=== PATIENT | female | born 1950 | race Caucasian/White ===

== ENCOUNTER 2021-05-12 08:51 | Observation (INO) | payer MEDICARE, SELFPAY ==
--- NOTE | 2021-05-12 08:54 | XR_ITS ---
WS: [id number] Portable AP upright chest, 05/12/2021 Clinical Data: chest pain Comparison: Portable chest, 01/17/2006. Findings: No nodules, masses or effusions are seen. The heart is normal. The pulmonary vascularity is not increased. No pneumonia or pneumothorax is seen. There are calcifications adjacent to the left c ardiac border which could be in the lung parenchyma and are probably chronic. The aortic arch and megan cending thoracic aorta show calcification and tortuosity. XR/XR chest 1V portable [id number] Impression: Atherosclerosis.
--- NOTE | 2021-05-12 08:54 | ECG_ITS ---
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 Measurements Intervals [place] Rate: 86 P: 85 ME: 172 QRS: -42 QRSD: 100 T: 52 QT: 389 QTc: 467 Interpretive Statements SINUS RHYTHM LEFT AXIS DEVIATION [QRS AXIS < -30] LOW QRS VOLTAGE IN PRECORDIAL LEADS [QRS DEFLECTION < 1.0 mV IN CHEST LEADS] INCOMPLETE RIGHT BUNDLE BRANCH BLOCK [90+ ms QRS DURATION, TERMINAL R IN V1/V2, 40+ ms S IN I/aVL/V4/V5/V6] ANTEROSEPTAL MYOCARDIAL INFARCTION , OF INDETERMINATE AGE [40+ ms Q WAVE IN V1-V4] INTERPRETATION BASED ON A DEFAULT AGE OF 40 YEARS No previous ECG available for comparison Electronically Signed On 05-12-2021 19:45:48 PUBLIC BATH ATTENDANT by Felix Albarran M.D. [id number]
[2021-05-12 09:04] VITALS: BP 176/106; PULSE 89; RESP 15; TEMP 36.9; O2SAT 98; BMI 43.7
--- NOTE | 2021-05-12 09:34 | ED_ITS ---
HPI - Chest Pain General: Chief Complaint: Chest Pain Stated Complaint: Chest Pain Time Seen by Provider: 05/12/21 08:54 History of Present Illness: HPI narrative: 71-year-old female presents emergency room complaining of chest pain. She said she has had this chest pain for the last couple of weeks. Happens intermittently worse with activity better with rest usually takes about 5 minutes before the chest pain resolves or radiates into her neck and her shoulders. She has been very stressed lately her a few days ago after a prolonged illness. She does not get shortness of breath nausea vomiting or diaphoresis with these episodes. She not previously had an evaluation for coronary artery disease. Patient is diabetic and has a history of hypertension. She does not take aspirin daily. MD complaint: chest pain and chest heaviness Pertinent past history: other (Diabetes hypertension) Onset (ago): week(s) Timing of current episode: episodic and now resolved Prior episodes: Yes Onset: during rest and during exertion Pain location: substernal and left chest Pain radiation: right arm, left arm, neck, left shoulder and right shoulder Severity: moderate Quality: tightness and aching Relieving factors: nitroglycerin and rest Exacerbating factors: exertion Context: other (Major life stressor recently 3 days ago) Associated symptoms: Reports sense of impending doom; Deny abdominal pain, diaphoresis, dyspnea, fever(s), leg edema, nausea, palpitations, syncope or vomiting Treatment prior to arrival: aspirin Review of Systems Const: Denies: fever(s) or diaphoresis ENMT: Denies: throat pain, ear or mastoid pain, nasal discharge or nasal congestion Card: Denies: palpitations or syncope Resp: Denies: dyspnea GI: Denies: abdominal pain, nausea or vomiting : Denies: flank pain, difficulty voiding, dysuria, urinary frequency or urinary urgency Skin/Breast: Denies: rash or pruritus Physical Exam Const: COMMON NORMALS: no acute distress GENERAL APPEARANCE: cooperative and comfortable ORIENTATION/CONSCIOUSNESS: Yes awake, Yes oriented to person, Yes oriented to place and Yes oriented to time HENMT: COMMON NORMALS: normocephalic, atraumatic and hearing grossly normal bilaterally HEAD & SCALP: normocephalic and atraumatic Neck/C-Spine: COMMON NORMALS: no JVD Resp: COMMON NORMALS: normal respiratory effort, No retractions, No use of accessory muscles and clear to auscultation bilaterally AUSCULTATION: clear to auscultation bilaterally Cardio: COMMON NORMALS: no JVD, regular rate, regular rhythm and No murmurs present (Cardio) RATE: regular rate RHYTHM: regular rhythm GI: COMMON NORMALS: Soft to palpation and No hepatosplenomegaly present AUSCULTATION: Yes normoactive bowel sounds PALPATION: Yes Soft to palpation, No Tenderness to palpation present (GI), No Guarding due to palpation present (GI) and Yes No hepatosplenomegaly present Extremity: COMMON NORMALS: normal to inspection, capillary refill normal, no clubbing, cyanosis or edema, no calf tenderness and no pedal edema Neuro: SENSORIUM/ORIENTATION: Yes oriented to person, Yes oriented to place and Yes oriented to time Skin: COMMON NORMALS: no rashes or lesions noted GENERAL SKIN EXAM: no rashes or lesions noted Course Vital Signs: Vital signs: Vital Signs Temperature 98.4 F 05/12/21 09:04 Pulse Rate 75 05/12/21 10:25 Respiratory Rate 18 05/12/21 10:25 Blood Pressure 157/92 05/12/21 10:25 Pulse Oximetry 96 05/12/21 10:25 MDM - Chest Pain MDM Narrative: Medical decision making narrative: Patient seems to be have escalating episodes of angina. Now she is getting them at rest. EKG labs and imaging reviewed as on chart. No acute ST changes noted. Second troponin does not show a significant delta. However given her risk factors and her history I do not believe she can safely go home she will need further evaluation discussed with hospitalist and cardiology on-call patient be admitted cardiology to see the patient. Patient has a heart score of 7 Lab Data: Labs: Lab Results 05/12/21 05/12/21 05/12/21 10:20 10:20 10:20 WBC 9.6 10^3/uL 10^3/ uL (4.0-10.0) RBC 4.91 10^6/uL 10^6 /uL (4.1-5.3) Hgb 13.3 g/dL g/dL (11.5-15.3) Hct 43.3 % % (37.0-47.0) MCV 88.2 fl fl (81-99) MCH 27.1 pg L pg (28.0-34.0) MCHC 30.7 g/dL g/dL (30.0-36.0) RDW 14.8 % % (12.1-15.1) Plt Count 404 10^3/cmm H 10 ^3/cmm (130-400) MPV 9.0 fL fL (7.4-10.4) Neut % (Auto) 71.7 % % Lymph % (Auto) 16.4 % % [place] % (Auto) 7.6 % % Eos % (Auto) 2.7 % % Baso % (Auto) 1.0 % % Neut # (Auto) 6.88 10^3/uL 10^3 /uL (1.8-7.7) Lymph # (Auto) 1.6 10^3/uL 10^3/ uL (0.8-4.8) [place] # (Auto) 0.7 10^3/uL 10^3/ uL (0.2-0.9) Eos # (Auto) 0.3 10^3/uL 10^3/ uL (0.0-0.8) Baso # (Auto) 0.1 10^3/uL 10^3/ uL (0.0-0.1) Nucleated RBC % (a uto) 0 % % Nucleated RBCs # 0.0 /100WBC /100W BC Sodium 139 mmol/L mmol/L (136-145) Potassium 4.2 mmol/L mmol/L (3.5-5.1) Chloride 101 mmol/L mmol/L (98-107) Carbon Dioxide 26 mmol/L mmol/L (22-29) Anion Gap 16.2 (5-19) BUN 23 mg/dL mg/dL (8-23) Creatinine 1.1 mg/dL H mg/dL (0.5-0.9) GFR Calculation Not Reportable Glucose 268 mg/dL H mg/dL (65-115) Calculated Osmolal ity 301 mOsm/kg H mOs m/kg (285-295) Calcium 9.2 mg/dL mg/dL (8.5-10.5) Total Bilirubin 0.2 mg/dL mg/dL (0.15-1.2) AST 10 U/L U/L (0-32) ALT 13 U/L U/L (0-33) Alkaline Phosphata se 64 IU/L IU/L (35-105) Creatine Kinase 77 U/L U/L (26-192) Troponin T Baselin e 35 ng/L H ng/L (0-10) Troponin T 120 Min [place] Delta Troponin T Total Protein 7.0 g/dL g/dL (6.6-8.7) Albumin 4.2 g/dL g/dL (3.5-5.2) Globulin 2.8 g/dL g/dL (1.3-4.6) 05/12/21 11:07 WBC RBC Hgb Hct MCV MCH MCHC RDW Plt Count MPV Neut % (Auto) Lymph % (Auto) [place] % (Auto) Eos % (Auto) Baso % (Auto) Neut # (Auto) Lymph # (Auto) [place] # (Auto) Eos # (Auto) Baso # (Auto) Nucleated RBC % (a uto) Nucleated RBCs # Sodium Potassium Chloride Carbon Dioxide Anion Gap BUN Creatinine GFR Calculation Glucose Calculated Osmolal ity Calcium Total Bilirubin AST ALT Alkaline Phosphata se Creatine Kinase Troponin T Baselin e Troponin T 120 Min [place] 33.71 ng/L H ng/L (0-10) Delta Troponin T -1.29 ABS# L ABS# (0-10) Total Protein Albumin Globulin Discharge Plan Discharge Patient Disposition: Admitted As Inpatient Clinical Impression: Unstable angina pectoris, Diabetes mellitus Condition: Stable Coding Level of Care Code ED Scallop Dredger for Dhaval Fwd Exam Comprehensive
[2021-05-12 10:25] VITALS: BP 157/92; PULSE 75; RESP 18; O2SAT 96
--- NOTE | 2021-05-12 10:30 | PC.NURSE ---
Pt placed on engine monitor.
[2021-05-12 10:32] LABS: Basophils # 0.1 10^3/uL (0.0-0.1); Eosinophils # 0.3 10^3/uL (0.0-0.8); Eosinophils % 2.7 %; Hematocrit 43.3 % (37.0-47.0); Hemoglobin 13.3 g/dL (11.5-15.3); Lymphocytes # 1.6 10^3/uL (0.8-4.8); Lymphocytes % 16.4 %; Mean Corpuscular HGB Conc 30.7 g/dL (30.0-36.0); Mean Corpuscular Hemoglobin 27.1 pg (28.0-34.0); Mean Corpuscular Volume 88.2 fl (81-99); Monocytes # 0.7 10^3/uL (0.2-0.9); Monocytes % 7.6 %; Neutrophils # 6.88 10^3/uL (1.8-7.7); Neutrophils % 71.7 %; Nucleated Red Blood Cells % 0 %; Platelet Count 404 10^3/cmm (130-400); Red Blood Count 4.91 10^6/uL (4.1-5.3); Red Cell Distribution Width 14.8 % (12.1-15.1); White Blood Count 9.6 10^3/uL (4.0-10.0)
[2021-05-12] MEDS: aspirin 81 mg Chew Tablet 324 MG PO (10:46)
[2021-05-12] MEDS: nitroglycerin 1 gm/inch oint Pkt 1 INCH TOPICAL (10:46)
[2021-05-12 10:51] LABS: Alanine Aminotransferase 13 U/L (0-33); Albumin Level 4.2 g/dL (3.5-5.2); Alkaline Phosphatase 64 IU/L (35-105); Anion Gap 16.2 (5-19); Aspartate Amino Transferase 10 U/L (0-32); Blood Urea Nitrogen 23 mg/dL (8-23); Calcium 9.2 mg/dL (8.5-10.5); Carbon Dioxide 26 mmol/L (22-29); Chloride 101 mmol/L (98-107); Creatine Phosphokinase 77 U/L (26-192); Globulin 2.8 g/dL (1.3-4.6); Glucose 268 mg/dL (65-115); Osmolality Calculated 301 mOsm/kg (285-295); Potassium 4.2 mmol/L (3.5-5.1); Sodium 139 mmol/L (136-145); Total Bilirubin 0.2 mg/dL (0.15-1.2)
[2021-05-12 10:53] LABS: Troponin(5th) Baseline 35 ng/L (0-10)
--- NOTE | 2021-05-12 10:54 | ECG_ITS ---
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 Measurements Intervals [place] Rate: 61 P: 18 RI: 151 QRS: -40 QRSD: 96 T: 18 QT: 415 QTc: 419 Interpretive Statements SINUS RHYTHM WITH OCCASIONAL VENTRICULAR PREMATURE COMPLEXES LEFT AXIS DEVIATION [QRS AXIS < -30] LOW QRS VOLTAGE IN PRECORDIAL LEADS [QRS DEFLECTION < 1.0 mV IN CHEST LEADS] INCOMPLETE RIGHT BUNDLE BRANCH BLOCK [90+ ms QRS DURATION, TERMINAL R IN V1/V2, 40+ ms S IN I/aVL/V4/V5/V6] POSSIBLE ANTERIOR MYOCARDIAL INFARCTION , PROBABLY OLD [30 ms Q WAVE IN V3/V4, OR R < 0.2 mV IN V4] No previous ECG available for comparison Electronically Signed On 05-12-2021 19:50:50 WEIGHER AND CHARGER by Felix Albarran M.D. [id number]
[2021-05-12 11:41] LABS: Troponin 5 2HR 33.71 ng/L (0-10)
[2021-05-12 11:44] LABS: Troponin 5 2HR Delta -1.29 ABS# (0-10)
[2021-05-12 14:25] VITALS: PULSE 67; RESP 16; O2SAT 97
--- NOTE | 2021-05-12 14:54 | ECG_ITS ---
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 Measurements Intervals [place] Rate: 72 P: 7 MA: 146 QRS: -51 QRSD: 97 T: 29 QT: 385 QTc: 423 Interpretive Statements SINUS RHYTHM WITH OCCASIONAL VENTRICULAR PREMATURE COMPLEXES LEFT AXIS DEVIATION [QRS AXIS < -30] PATTERN CONSISTENT WITH PULMONARY DISEASE NONSPECIFIC ST & T-WAVE ABNORMALITY Compared to ECG 05/12/2021 10:28:35 T-wave abnormality now present Incomplete right bundle-branch block no longer present Myocardial infarct finding no longer present Electronically Signed On 05-12-2021 19:48:23 SPECIAL DIET COOK by Felix Albarran M.D. [id number]
[2021-05-12 15:19] LABS: Troponin 5 6HR 54.55 ng/L (0-10)
[2021-05-12 15:33] LABS: Troponin 5 6HR Delta 19.55 ng/L (0-12)
[2021-05-12 16:13] VITALS: BP 153/78; PULSE 77; RESP 18; O2SAT 96
--- NOTE | 2021-05-12 16:23 | P.HP_ITS ---
Providers/Chief Complaint Primary Care Provider: Keo Cook MD Chief Complaint: Chest Pain History of Present Illness Laverne Perez is a 71 year old female with PMH of HTN, DM, osteoarthritis in shoulders presents to hospital with chest pain. Patient's 3 days ago. He was on hospice. She states he was sick for 2 years and then worsened over the last few days. She says the chest pain started about 3 to 4 weeks ago and it was associated with exertion only at the time along with shortness of breath. She went to see her primary care doctor and was prescribed nitroglycerin sublingual tablets. She stated every time she did take a nitro the pain would go away and she would feel better for the next day or so. However since yesterday she has been having pain on and off and this morning she was just folding laundry clothes and the pain came back substernal stabbing. Again she took another nitro and it was relieved for only a little while this time. Only thing different was that this time it started at rest instead of exertion. She also had associated shortness of breath with it. Patient states that normally she is not a person who is very excitable and does not have any issues with anxiety. She is worried why she is having this chest pain and that is why she decided to come to the hospital for further evaluation. She says ever since she got to the ER after having the Nitropatch placed she has been feeling much more comfortable. She denies any nausea vomiting, diarrhea, constipation, pain radiating to the back. Pain is not reproducible to palpation. She also states that when she takes a deep breath in and out it does not make a difference to the pain. She does have a chronic cough. She is a non-smoker but has had secondhand smoke exposure for 50 years as her was a smoker. 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 She lives at home with her son now. Her dad had an TN at age 65 and mom also had an TN and history of TIA. ED course: Temperature 98.4 on arrival, pulse 75, respiratory rate 18, blood pressure 157/92, pulse ox 96%. First troponin 35, second 1 and 33, 6-hour troponin XIX. She has been pain-free after having Nitropatch. EKG did not show any acute ischemic changes but did show a right bundle branch block. Heart score 7. Cardiology was called by ER. Cardio will see the patient. Echo has been ordered. Review of Systems General: Reports: 10 or more systems reviewed and unremarkable except in HPI and below Medications/Allergies Home Medications Medication Instructions Recorded Confirmed Last Taken Type aspirin 162 mg PO DAILY 05/12/21 05/12/21 05/11/21 History glipizide 10 mg PO DAILY 05/12/21 05/12/21 05/11/21 History losartan 100 mg PO DAILY 05/12/21 05/12/21 05/11/21 History meloxicam 15 mg PO DAILY 05/12/21 05/12/21 05/11/21 History metformin 1,000 mg PO BID 05/12/21 05/12/21 05/11/21 History pioglitazone 15 mg PO DAILY MDD see pharmacy 05/12/21 05/12/21 Unknown History comment triamterene-hydrochlorothiazid 1 tab PO DAILY 05/12/21 05/12/21 05/11/21 History Allergies Allergy/AdvReac Type Severity Reaction Status Date / Time No Known Allergies Allergy Verified 05/12/21 09:15 PFSH Acute PFSH: Medical History (Updated 05/12/21 @ 19:27 by Negrita Garcia MD) Diabetes mellitus Hypertension Osteoarthritis Vitals/I&O/Wt Last Vital Signs Temp 98.4 F 05/12/21 09:04 Pulse 77 05/12/21 16:13 Resp 18 05/12/21 16:13 BP 153/78 05/12/21 16:13 Pulse Ox 96 05/12/21 16:13 Weight last 48 hrs Weight 115.666 kg Physical Exam Narrative: EXAM NARRATIVE: General: Alert oriented x3, patient seen sitting up in bed appearing comfortable. Chest pain-free at this time. Pain not reproducible to palpation. She did state she was uncomfortable in this bed and would like to get to her room. HEENT: Normocephalic, atraumatic, EOMI, Cardio: Regular rate rhythm, normal S1-S2, no murmurs rubs gallops, JVD not e levated. Respiratory: Good bilateral air entry, no wheezes no rhonchi appreciated GI: Abdomen soft, nontender, nondistended, bowel sounds +, obese rounded abdomen. Behavior: Appropriate and cooperative Extremities: Pulses 2+, no edema, no cyanosis, trace pedal edema noted. Data : 05/12/21 10:20 05/12/21 10:20 A&P Assessment and plan (1) Unstable angina pectoris: Status: Acute (2) Diabetes mellitus: Status: Acute (3) Hypertension: Status: Acute (4) Osteoarthritis: Status: Acute Additional A&P Information #Typical chest pain, rule out ACS #NSTEMI #Hypertension -Patient does present with chest pain that has been going on for the last few weeks associated with exertion and shortness of breath relieved by nitro. Today however she started having chest pain at rest which was also relieved by nitro. She has been placed on Nitropatch by ER and she has been chest pain-free ever since. Heart score 7. Family history positive for TN in both parents. Former smoker but does have 50 years of secondhand smoke exposure. Delta troponin -19. ?Patient got aspirin 325 on arrival. ?We will check echocardiogram. -We will place on full dose Lovenox,lopresor 25 BID, atorvastatin 80, aspirin 81 -Check hemoglobin A1c, TSH, lipid profile - Cardio consulted from ER. - Plan for angiogram in AM with Dr. Abreu - Will check COVID test. #Diabetes Mellitus Type 2 -Insulin sliding scale for diabetes mellitus #Osteoarthritis of shoulders - Stable. On meloxicam at home. DVT prophylaxis: On full dose Lovenox Diet: Cardiac consistent carbohydrate diet NPO at midnight. Attestations Medical Necessity Statement*: Greater than 24-hour stay. Time Spent in Patient Care: Greater than 35 minutes Coding Level of Care Code Acute 411 Directory Assistance Operator for Dhaval Martini Diagnoses Unstable angina pectoris I20.0 Diabetes mellitus E11.9 Hypertension I10 Osteoarthritis M19.90
[2021-05-12 16:34] LABS: Estmated Average Glucose 174; Hemoglobin A1C 7.7 % (4.0-6.0)
[2021-05-12 16:49] LABS: Chol HDL Ratio 4.66 mg/dL (0.0-4.40); Cholesterol 177 mg/dL (0-200); HDL Cholesterol 38 mg/dL (60-100); LDL Cholesterol Calculated 87 mg/dL (50-129); Thyroid Stimulating Hormone 3.63 uIU/mL (0.27-4.20); Triglycerides 259 mg/dL (0-150); VLDL Cholestrol Calculation 52 mg/dL (0-30)
--- NOTE | 2021-05-12 17:49 | PC.NURSE ---
Pt complaining of chest pain. EKG performed. ERP shown EKG. Hospitalist notified.
--- NOTE | 2021-05-12 18:01 | P.CONIM_ITS ---
Providers/Reason For Consult Consulting Physician/Specialty*: Dr. Garcia, cardiology Reason for Consult*: Chest pain, concern for unstable angina Requesting Physician: Dr. Santana Primary Care Provider: Keo Cook MD History of Present Illness History of Present Illness Laverne Perez is a 71 year old female with past medical history of hypertension, diabetes mellitus on oral hypoglycemic agents presented for evaluation of chest discomfort. She had retrosternal chest discomfort 5-6/10 in intensity with radiation to both shoulders and arms on and off for the last 3 weeks. It started out mostly with activity and relieved with rest usually takes about 5 minutes and may be associated with mild shortness of breath. She has been very stressed lately her a few days ago after a prolonged illness. She does not get associated nausea, vomiting or diaphoresis with these episodes. No known h/o coronary artery disease. Last stress test 17 years ago. She took few nitroglycerin sublingual that helps relieve discomfort within 5 minutes. While in ER with ambulating to bathroom she developed chest discomfort again. EKG on arrival showed sinus rhythm with left axis deviation with anteroseptal PA of indeterminate age. Repeat EKG showed sinus rhythm with occasional PVCs left axis deviation and possible anterior PA, probably old. Blood pressure usually is fairly controlled but is running high in ER. Her hemoglobin A1c recently was increased per patient but she has not been able to take care of herself with her 's illness and stress. She currently lives with her son. She is a former smoker and quit several years ago. Baseline troponin T on arrival 35 that at 2 hours was 34 and at 6 hours 56. Lipid panel with triglyceride 259, total cholesterol 177, LDL at 87 and HDL 38. TSH 3.6. Hemoglobin A1c 7.7. Review of Systems General: Reports: 10 or more systems reviewed and unremarkable except in HPI and below Const: Denies: fever(s) or diaphoresis ENMT: Denies: throat pain, nasal discharge or nasal congestion Card: Reports: chest pain; Denies: palpitations, syncope or orthopnea Resp: Denies: dyspnea GI: Denies: abdominal pain, nausea, vomiting, hematochezia or melena : Denies: flank pain, difficulty voiding, dysuria, urinary frequency, urinary urgency or hematuria Skin/Breast: Denies: rash or pruritus Neuro: Denies: headache(s) or frequent falls Psych: Denies: anxiety or depression Leonardo/Lymph: Denies: petechiae Meds/Allergies Home Medications and Allergies Home Medications Medication Instructions Recorded Confirmed Last Taken Type aspirin 162 mg PO DAILY 05/12/21 05/12/21 05/11/21 History glipizide 10 mg PO DAILY 05/12/21 05/12/21 05/11/21 History losartan 100 mg PO DAILY 05/12/21 05/12/21 05/11/21 History meloxicam 15 mg PO DAILY 05/12/21 05/12/21 05/11/21 History metformin 1,000 mg PO BID 05/12/21 05/12/21 05/11/21 History pioglitazone 15 mg PO DAILY MDD see pharmacy 05/12/21 05/12/21 Unknown History comment triamterene-hydrochlorothiazid 1 tab PO DAILY 05/12/21 05/12/21 05/11/21 History Allergies Allergy/AdvReac Type Severity Reaction Status Date / Time No Known Allergies Allergy Verified 05/12/21 09:15 PFSH Acute PFSH: Medical History (Updated 05/12/21 @ 19:27 by Negrita Garcia MD) Diabetes mellitus Hypertension Osteoarthritis Vitals/I&O/Wt Last Vital Signs Temp 98.4 F 05/12/21 09:04 Pulse 77 05/12/21 16:13 Resp 18 05/12/21 16:13 BP 153/78 05/12/21 16:13 Pulse Ox 96 05/12/21 16:13 Weight last 48 hrs Weight 255 lb Physical Exam Narrative: EXAM NARRATIVE: GENERAL: Obese woman sitting in bed in no acute distress HEENT: Pupils equal round reactive to light. No pallor or icterus. NECK: No JVD. No carotid bruit. CARDIOVASCULAR SYSTEM: S1-S2 regular. No S3 or S4 present. No murmur rubs or gallops. RESPIRATORY SYSTEM: Chest clear to auscultation. No wheezes rhonchi or rubs heard. No use of accessory muscles. ABDOMEN: Soft, nontender and nondistended. Normal bowel sounds present. EXTREMITIES: No cyanosis. Trace edema. No signs of chronic venous insufficiency. INFORMATION TECHNOLOGY DATA ANALYST: Patient is alert oriented ?3. No focal neurological deficits. A&P Assessment and plan (1) Chest pain: Concern for non-ST elevation ACS -Multiple CAD risk factors with no recent cardiovascular testing. -Continue Lovenox (including this evening's dose), aspirin. Start on high intensity statin, beta-leanna and Imdur. -Plan for echocardiogram and cardiac catheterization -Risks and benefits were discussed with the patients. Alternate management options were discussed with the patient as well. Possible complications were reviewed with the patient as well. -Plan is to proceed for the procedure in morning with Dr. Abreu Status: Acute Qualifiers: Chest pain type: chest pain due to myocardial ischemia Ischemic chest pain type: unstable angina pectoris Qualified Code(s): I20.0 - Unstable angina (2) Hypertension: Continue to monitor blood pressure closely. May need to adjust medications based on blood pressure. Status: Acute Qualifiers: Hypertension type: primary hypertension Qualified Code(s): I10 - [place] tial (primary) hypertension (3) Diabetes mellitus: On oral hypoglycemic at home Status: Acute Qualifiers: Diabetes mellitus type: type 2 Diabetes mellitus sourcing intern insulin use: without sourcing intern use Additional A&P Information Mixed hyperlipidemia Osteoarthritis Obesity Thank you allowing me to participate in patient's care. Please feel free to call with questions or concerns. Consult Attestations Time Spent in Patient Care: 16 - 35 minutes (>than 50% of time spent in counselling and/or direct pt care on unit) . Coding Level of Care Code Acute Vegetable Farmer for Dhaval Martini Diagnoses Chest pain I20.0 Chest pain type: chest pain due to myocardial ischemia Ischemic chest pain type: unstable angina pectoris Hypertension I10 Hypertension type: primary hypertension Diabetes mellitus E11.9 Diabetes mellitus type: type 2 Diabetes mellitus fci insulin use: without sourcing intern use
[2021-05-12 18:19] VITALS: PULSE 73; RESP 17; O2SAT 98
--- NOTE | 2021-05-12 18:23 | PC.NURSE ---
Pneumatic compressions not available in the ER.
[2021-05-12] MEDS: enoxaparin 120 mg/0.8 mL Syringe 110 MG SUBCUT (18:24)
[2021-05-12 20:27] LABS: SARS Covid-2 Antigen Negative (Negative)
[2021-05-12 20:39] VITALS: RESP 18; O2SAT 98
[2021-05-12] MEDS: morphine 4 mg/mL SDV 1 mL 2 MG IVP (20:39)
[2021-05-12] MEDS: isosorbide mononitrate ER 30 mg Tablet PO (20:40)
[2021-05-12] MEDS: metoprolol tartrate 25 mg Tablet PO (23:56)
[2021-05-13] VITALS (36 sets, daily range): BP systolic 111–160; BP diastolic 64–96; PULSE 58–103; RESP 15–32; TEMP 36.3–36.9; O2SAT 86–97
--- NOTE | 2021-05-13 00:21 | PC.NURSE ---
Patient arrived to the floor after report was received from ED via telephone. Patient is alert and oriented x4 and ambulatory. Patient is on room air and has been oriented to her room. Patient does not c/o any pain at this time.
[2021-05-13] MEDS: enoxaparin 120 mg/0.8 mL Syringe 110 MG SUBCUT ×2 (05:15→19:01)
[2021-05-13 05:50] LABS: Alanine Aminotransferase 12 U/L (0-33); Albumin Level 3.3 g/dL (3.5-5.2); Alkaline Phosphatase 50 IU/L (35-105); Blood Urea Nitrogen 24 mg/dL (8-23); Calcium 9.4 mg/dL (8.5-10.5); Carbon Dioxide 25 mmol/L (22-29); Chloride 104 mmol/L (98-107); Globulin 2.6 g/dL (1.3-4.6); Glucose 298 mg/dL (65-115); Magnesium 1.9 mg/dL (1.7-2.3); Osmolality Calculated 305 mOsm/kg (285-295); Sodium 140 mmol/L (136-145); Total Bilirubin 0.2 mg/dL (0.15-1.2); Total Protein 5.9 g/dL (6.6-8.7)
[2021-05-13 05:51] LABS: Anion Gap 15.5 (5-19); Aspartate Amino Transferase 12 U/L (0-32); Potassium 4.5 mmol/L (3.5-5.1)
--- NOTE | 2021-05-13 06:00 | USCV_ITS ---
Laverne Perez Age: 71 Gender: F : 1950 Exam Date: 05/13/2021 09:28 Ordering Phys: Tiffany Cooper MD Technologist: [place] [facility] [place]: CHEST PAIN BP: 127 / 64 HR: 63 Rhythm: Sinus Technical Quality: Adequate MEASUREMENTS (Male / Female) Normal Values 2D ECHO LV Diastolic Diameter PLAX 4.3 cm 4.2 - 5.9 / 3.9 - 5.3 cm LV Systolic Diameter PLAX 2.8 cm IVS Diastolic Thickness 1.2 cm 0.6 - 1.0 / 0.6 - 0.9 cm IVS Systolic Thickness 1.3 cm LVPW Diastolic Thickness 1.2 cm 0.6 - 1.0 / 0.6 - 0.9 cm LVPW Systolic Thickness 1.4 cm LVOT Diameter 2.0 cm LV Ejection Fraction 2D Teich 65.0 % LV Ejection Fraction MOD 2C 64.4 % LV Ejection Fraction 2C AL 62.9 % LA Diameter 3.8 cm LA Width 4.0 cm LA Height 5.6 cm RA Width 4.1 cm RA Height 3.9 cm Aorta at Sinotubular Diameter 2.7 cm M-MODE LV Diastolic Diameter MM 5.2 cm 4.2 - 5.9 / 3.9 - 5.3 cm LV Systolic Diameter MM 3.2 cm LV Ejection Fraction MM Teich 68.6 % IVS Diastolic Thickness MM 0.9 cm 0.6 - 1.0 / 0.6 - 0.9 cm IVS Systolic Thickness MM 1.6 cm LVPW Diastolic Thickness MM 1.2 cm 0.6 - 1.0 / 0.6 - 0.9 cm LVPW Systolic Thickness MM 1.7 cm RV Diastolic Diameter MM 1.8 cm MV E Point Septal Separation 1.3 cm DOPPLER AV Peak Velocity 145.0 cm/s LVOT Peak Velocity 87.0 cm/s AV Area Cont Eq vti 2.0 cm squared AV Area Cont Eq pk 1.9 cm squared MV Area PHT 5.0 cm squared Mitral E to A Ratio 0.8 MV E' Velocity 34.0 cm/s Mitral E to MV E' Ratio 7.7 Mitral E to LV E' Lateral Ratio 10.9 Mitral E to LV E' Septal Ratio 5.9 TR Peak Velocity 105.0 cm/s TR Peak Gradient 4.4 mmHg FINDINGS Left Ventricle Normal left ventricular cavity size. Normal left ventricular wall thickness. Normal left ventricular systolic function. Left ventricular ejection fraction is estimated at 60 %. There is possible mild hypokinesis of basal to mid inferior wall. Normal diastolic function. Right Ventricle Normal right ventricular size and systolic function. Right Atrium Normal right atrial size. Left Atrium Normal left atrial size. Mitral Valve Mild mitral annular calcification. Thickened mitral valve. No mitral valve stenosis. Trace mitral valve regurgitation. Aortic Valve Aortic valve not well visualized. No aortic valve stenosis. No aortic valve regurgitation. Tricuspid Valve Tricuspid valve not well visualized. Pulmonic Valve Pulmonic valve not well visualized. Pericardium No pericardial effusion. Aorta Normal size aortic root and proximal ascending aorta. CONCLUSIONS 1. This is a technically difficult study. Ultrasound enhancing agent optison was used per protocol. 2. Normal left ventricular cavity size and systolic function. Left ventricular ejection fraction is estimated at 60 %. There is possible mild hypokinesis of basal to mid inferior wall. Normal diastolic function. 3. No prior similar studies to compare. Negrita Garcia MD (Electronically Signed) Final Date: 13 May 2021 10:35 S
[2021-05-13 07:00] LABS: Glucose Point of Care 231 mg/dL (70-110)
[2021-05-13 08:08] LABS: Basophils # 0.1 10^3/uL (0.0-0.1); Basophils % 0.9 %; Eosinophils # 0.3 10^3/uL (0.0-0.8); Eosinophils % 3.1 %; Hematocrit 39.2 % (37.0-47.0); Hemoglobin 11.9 g/dL (11.5-15.3); Lymphocytes # 1.6 10^3/uL (0.8-4.8); Lymphocytes % 16.2 %; Mean Corpuscular HGB Conc 30.4 g/dL (30.0-36.0); Mean Corpuscular Volume 89.1 fl (81-99); Mean Platelet Volume 9.6 fL (7.4-10.4); Monocytes # 0.8 10^3/uL (0.2-0.9); Monocytes % 8.1 %; Neutrophils % 71.2 %; Nucleated Red Blood Cells % 0 %; Platelet Count 384 10^3/cmm (130-400); White Blood Count 9.6 10^3/uL (4.0-10.0)
[2021-05-13] MEDS: aspirin 81 mg Chew Tablet 325 MG PO (08:51)
[2021-05-13] MEDS: diphenhydrAMINE 50 mg Capsule PO (08:51)
[2021-05-13] MEDS: metoprolol tartrate 25 mg Tablet PO ×2 (08:51→19:28)
[2021-05-13] MEDS: isosorbide mononitrate ER 30 mg Tablet PO ×2 (08:52→18:09)
[2021-05-13] MEDS: sodium chloride 0.9% 1,000 ML 50 ML IV (08:54)
[2021-05-13] MEDS: perflutren protein-a microsphr 0.22 mg/mL SDV 3 mL IV (10:05)
--- NOTE | 2021-05-13 11:12 | P.HPUD_ITS ---
Surgery/Procedure H&P Update DATE OF PROCEDURE: May 13, 2021 DATE H&P PERFORMED: 05/12/21 H&P UPDATE INFORMATION: I have reviewed H&P completed within last 30 days, I have examined patient prior to procedure and No changes to prior documentation PREOP DIAGNOSIS: Chest pain concerning for unstable angina PLANNED PROCEDURE: Operation Date: 05/13/21 10:00 Proposed Procedures p Cardiac Catheterization(Left) - Calderon Abreu MD PATIENT REASSESSED PRIOR TO SEDATION, WITH NO CHANGE NOTED: Yes PHYSICAL EXAM: alert, oriented x 3 and clear to auscultation bilaterally AIRWAY EVAL/ANESTHESIA PLAN: ASA II and Risks, benefits & alternatives of sedation and/or procedure discussed ADDITIONAL INFORMATION: I have explained personally patient all risk benefit and alternative for the procedure. Patient has been explained risk for contrast- induced nephropathy arrhythmia stroke major minor bleed vascular injury urgent emergent bypass surgery. She is a candidate for DAPT. She would like to proceed with it.
--- NOTE | 2021-05-13 11:18 | PC.NURSE ---
Patient taken to heart label machine operator.
--- NOTE | 2021-05-13 11:29 | XACV_ITS ---
Exam Room: [facility] Ht: 163 cm Wt: 120 kg BSA: 2.39 m2 Gender: Female : 1950 Exam Priority: Routine Procedure(s): Procedure Description: Diagnostic procedure Procedure Description: Coronary Angiography Diagnostic Cath Status: Urgent Diagnostic Findings * Left Main: severe 90% stenosis, GHANSHYAM: 3 flow. * Proximal Left Anterior Descending: obstructive 70% stenosis, GHANSHYAM: 3 flow. * Mid Left Anterior Descending: significant 80% stenosis, GHANSHYAM: 3 flow. * Proximal Right Coronary Artery: subtotal occlusion, GHANSHYAM: 3 flow. * Distal Right Coronary Artery: severe 90% stenosis, GHANSHYAM: 3 flow. * Distal Right Coronary Artery to AV groove continuation of Circumflex Artery: total occlusion, GHANSHYAM: 0 flow. * Mid Circumflex: mild 40% stenosis, GHANSHYAM: 3 flow. * Coronary angiography shows right dominance. Conclusions 1. No gradient across aortic valve was noted. 2. There is total occlusion coronary artery disease with four vessel disease. 3. All fernandez are normal. 4. Normal left ventricular systolic function. Ejection fraction of 60%. Recommendations * 1-Return to [facility] for close monitoring and routine PCI care 2-Continue anticoagulation as per ACS protocol 3-Not on Dual antiplatelet for possible CABG 4-Statin with LDL goal of 70 mg/dl, aspirin 81 mg p.o. daily for life long 5-CT surgery consults for CABG 6-Optimal medical management for IL 7-Follow up with Dr. Farias in four weeks and establish care with primary care physician. LV EDP: 20 mmHg Ventriculography Ejection Fraction: 60.0 % Left Ventriculography Findings: * Normal left ventricular ejection fraction 60%. Pressures Phase:Rest AO : 128 / 61 ( 90 ) @ 10:15:00 AM 130 / 63 ( 92 ) @ 10:15:00 AM LV : 132 / 0 / 20 @ 10:14:00 AM 126 / 7 / 21 @ 10:15:00 AM 130 / 8 / 27 @ 10:15:00 AM Valves Phase:DefaultPhase AV : 0.0 @ 12:21:09 PM AV Mean Gradient: 0.0 @ 12:21:09 PM Clinical Evaluation EBL: 5mL-10mL Procedural Details Procedure Consent Obtained. Admit Source: In Patient. Pre-Procedure Time Out. Identified patient by full name and date of as verbalized by the patient/guarantor. Does the consent match the physician's order: Yes. Accurate & Complete Informed Consent: Yes. Inpatient/Outpatient History & Physical on Chart: Yes. If H&P is completed, is and addenduem needed: Yes; If yes, is the addendum complete: Yes. Visualize and Verify Site with Patient/Guarantor: N/A. Relevant Radiology Images available: N/A. Pre-op teaching completed and patient verbalized understanding. The risks, benefits, and alternatives of sedation and/or procedure were discussed by physician. The patient agrees to continue. Procedure started. Service Technician Indications: Worsening Angina. Chest Pain Symptom Assessment: Atypical Angina. Correct patient, site and procedure confirmed by cath team. [facility] Clinical Fraility Score: 5: Mildly Frail. Current diagnosis: Chest Pain. PERRLA. Strong, equal hand toe puncher bilaterally. Lungs clear x 5 lobes. IV Site on Arrival: 20 gauge in the right anticubital. IV Fluids: 0.9% NaCl at KVO. 0 mL infused prior to quality assurance/r&d lab technician. Pre Procedural Pulses: bilateral radial was 2+. right radial was prepped with chloroprep then draped in the usual sterile fashion. right groin was prepped with chloroprep then draped in the usual sterile fashion. Physician notified. Baseline sample Acquired. HR: 65 BPM. Physician arrived. Physician scrubbed in. Immediate Pre-Procedure Time Out. Correct Patient: Yes; Correct Procedure: Yes; Correct Site: Yes; Correct Patient Position: Yes; Correct Supplies: Yes; Dried Flammable Prep: Yes; Blood Products Available: n/a. Dr Farias scubbed in alongside Dr Abreu to perform procedure. Lidocaine 1% infiltrated to the right radial. Arterial access obtained. Hand injection through the sheath. A 5 tajik TIG catheter in over wire. Exchange wire removed. Glidewire inserted. Multiple views taken of left coronary artery. Catheter redirected to the RCA. Multiple views taken of right coronary artery. Catheter out. EDP Sample taken: LV 132/-1,20; HR: 73 BPM; SpO2: 94%. LV gram performed in HICKMAN @ 10 mL/second for a total of 20 mL. EDP Sample taken: LV 126/7,21; HR: 76 BPM; SpO2: 94%. Pullback taken: LV 130/8,27; AO 128/61(90); Mean: 0mmHg, Peak to Peak: 0mmHg, SEP: 16sec/min; HR: 76 BPM; SpO2: 94%. Catheter out. A 5 tajik Angled Pig catheter in over wire. Information Clerk Cashier called and states Dr Loyda toledo. hand Injection through the sheath done. Post Procedure: Pulses reassessed and unchanged. PERRLA. Strong, equal hand toe puncher bilaterally. No VTE prophylaxis required. Medication's Wasted: Lidocaine 1% = 15 mL. Medication's Wasted: Nitro = 49.5 mg. Medication's Wasted: Heparin = 1000 u. Total IV fluids: 50 mL. Complications: none. Estimated blood loss: 5mL-10mL. Procedure completed. Patient transferred by wheelchair to 1st floor. A TR Band was successful obtaining hemostatsis at the Right Radial artery insertion site. Access Site Site: Right Radial artery Sheath Size: 6 Fr Hemostasis Method: TR Band Hemostasis Success: Successful Procedure Medications Start: 11:39 AM Stop: 11:39 AM Medication: Versed Amount: 1 mg Route: I.V. Start: 11:39 AM Stop: 11:39 AM Medication: Fentanyl Amount: 25 mcg Route: I.V. Start: 11:48 AM Stop: 11:48 AM Medication: Nitrogylcerin Amount: 100 mcg Start: 11:52 AM Stop: 11:52 AM Medication: Nitrogylcerin Amount: 200 mcg Route: I.A. Start: 11:59 AM Stop: 11:59 AM Medication: Fentanyl Amount: 25 mcg Route: I.V. Start: 12:17 PM Stop: 12:17 PM Medication: Nitrogylcerin Amount: 200 mcg Route: I.A. Start: 12:20 PM Stop: 12:20 PM Medication: Heparin Amount: 5000 units Route: I.V. I, the attending physician, have reviewed and verified all procedure medications. Yes, all medications given per verbal order History/Risk Factors Hypertension: Yes Dyslipidemia: Yes Peripheral Arterial Disease (PAD): No Myocardial Infarction (IL): No Obesity: Yes Renal Disease: No Prior Interventions PCI: No CABG: No Valve Surgery: No Report Signatures Finalized by Calderon Abreu MD on 05/13/2021 12:41 PM
--- NOTE | 2021-05-13 12:58 | P.PN_ITS ---
Subjective Subjective: Interval history: Patient seen and examined. She had cardiac cath through right radial access site Medications: Reviewed: Yes Vitals/I&O/Wt Last Vital Signs Temp 98.5 F 05/13/21 08:00 Pulse 73 05/13/21 08:00 Resp 18 05/13/21 08:00 BP 153/69 05/13/21 08:00 Pulse Ox 92 05/13/21 08:00 Weight last 48 hrs Weight 264 lb 11.2 oz Weight 255 lb Physical Exam Narrative: EXAM NARRATIVE: GENERAL: Obese woman sitting in bed in no acute distress HEENT: Pupils equal round reactive to light. No pallor or icterus. NECK: No JVD. No carotid bruit. CARDIOVASCULAR SYSTEM: S1-S2 regular. No S3 or S4 present. No murmur rubs or gallops. RESPIRATORY SYSTEM: Chest clear to auscultation. No wheezes rhonchi or rubs heard. No use of accessory muscles. ABDOMEN: Soft, nontender and nondistended. Normal bowel sounds present. EXTREMITIES: No cyanosis. Trace edema. No signs of chronic venous insufficiency. TR band in place SPINNING MACHINE OPERATOR: Patient is alert oriented ?3. No focal neurological deficits. Data : 05/13/21 07:10 05/13/21 04:18 A&P Assessment and plan (1) Chest pain: Concern for non-ST elevation ACS -Multiple CAD risk factors with no recent cardiovascular testing. -Continue Lovenox, aspirin, high intensity statin, beta-leanna and Imdur. -Echocardiogram with preserved LV function and posiible hypokinesis in basal to mid inferior wall and cardiac catheterization with multivessel CAD (proximal RCA 99% stenosis, distal RCA with proximal 90% stenosis and completely occluded distal RCA. Distal left main 90% proximal LAD 70% mid LAD 80% stenosis. -I discussed with patient and his son Hima about the results of angiogram. Coronary artery bypass grafting is best option for the patient. As we do not have in-house cardiovascular surgeon available at this time, option of transferring patient to outside hospital was given. -Patient was accepted at [facility] by Dr. Tatum Status: Acute Qualifiers: Chest pain type: chest pain due to myocardial ischemia Ischemic chest pain type: unstable angina pectoris Qualified Code(s): I20.0 - Unstable angina (2) Hypertension: Continue to monitor blood pressure closely. May need to adjust medications based on blood pressure. Status: Acute Qualifiers: Hypertension type: primary hypertension Qualified Code(s): I10 - Essential (primary) hypertension (3) Diabetes mellitus: On oral hypoglycemic at home Status: Acute Qualifiers: Diabetes mellitus usp insulin use: without watermelon inspector use Diabetes mellitus type: type 2 Additional A&P Information Mixed hyperlipidemia Osteoarthritis Obesity Thank you allowing me to participate in patient's care. Please feel free to call with questions or concerns. Attestations Medical Necessity Statement*: Patient to be transferred to [facility] for CABG Time Spent in Patient Care: 16 - 35 minutes (>than 50% of time spent in counselling and/or direct pt care on unit) . Coding Level of Care Code Acute Blade Aligner for Dhaval Martini Diagnoses Chest pain I20.0 Chest pain type: chest pain due to myocardial ischemia Ischemic chest pain type: unstable angina pectoris Hypertension I10 Hypertension type: primary hypertension Diabetes mellitus E11.9 Diabetes mellitus watermelon inspector insulin use: without watermelon inspector use Diabetes mellitus type: type 2
[2021-05-13] MEDS: ondansetron 2 mg/ML SDV 2 mL 4 MG IVP (13:43)
--- NOTE | 2021-05-13 14:51 | P.TS_ITS ---
Transfer Summary Providers Date of Admission: 05/12/21 13:35 Date of Discharge: 05/13/21 Attending Provider at Admission: Tiffany Cooper MD Attending Provider at Transfer: Tiffany Cooper MD Primary Care Provider: Keo Cook MD Anticipated Date of Transfer: Anticipated date of transfer: 05/13/21 Receiving Facility & Provider: Receiving Provider: [Jacob Tatum MD] Receiving facility: [[facility]] Diagnoses at Discharge Discharge Diagnosis (1) Chest pain: Status: Acute Qualifiers: Chest pain type: chest pain due to myocardial ischemia Ischemic chest pain type: unstable angina pectoris Qualified Code(s): I20.0 - Unstable angina (2) Hypertension: Status: Acute Qualifiers: Hypertension type: primary hypertension Qualified Code(s): I10 - Essential (primary) hypertension (3) Diabetes mellitus: Status: Acute Qualifiers: Diabetes mellitus penitentiary insulin use: without rn long term care use Diabetes mellitus type: type 2 Reason for Visit Reason for Visit: Chest Pain Hospital Course Hospital Course Laverne Perez is a 71 year old female with PMH of HTN, DM, osteoarthritis in shoulders presents to hospital with chest pain. Patient's 3 days ago. He was on hospice. She states he was sick for 2 years and then worsened over the last few days. She says the chest pain started about 3 to 4 weeks ago and it was associated with exertion only at the time along with shortness of breath. She went to see her primary care doctor and was prescribed nitroglycerin sublingual tablets. She stated every time she did take a nitro the pain would go away and she would feel better for the next day or so. However since yesterday she has been having pain on and off and this morning she was just folding laundry clothes and the pain came back substernal stabbing. Again she took another nitro and it was relieved for only a little while this time. Only thing different was that this time it started at rest instead of exertion. She also had associated shortness of breath with it. Patient states that normally she is not a person who is very excitable and does not have any issues with anxiety. She is worried why she is having this chest pain and that is why she decided to come to the hospital for further evaluation. She says ever since she got to the ER after having the Nitropatch placed she has been feeling much more comfortable. She denies any nausea vomiting, diarrhea, constipation, pain radiating to the back. Pain is not reproducible to palpation. She also states that when she takes a deep breath in and out it does not make a difference to the pain. She does have a chronic cough. She is a non-smoker but has had secondhand smoke exposure for 50 years as her was a smoker. 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 She lives at home with her son now. Her dad had an SD at age 65 and mom also had an SD and history of TIA. ED course: Temperature 98.4 on arrival, pulse 75, respiratory rate 18, blood pressure 157/92, pulse ox 96%. First troponin 35, second 1 and 33, 6-hour troponin XIX. She has been pain-free after having Nitropatch. EKG did not show any acute ischemic changes but did show a right bundle branch block. Heart score 7. Cardiology was called by ER. Cardio will see the patient. Echo has been ordered. Course: Patient underwent angiogram today. She was diagnosed with 4 vessel disease. Angiogram results are attached. Diagnostic Cath Status: Urgent Diagnostic Findings * Left Main: severe 90% stenosis, GHANSHYAM: 3 flow. * Proximal Left Anterior Descending: obstructive 70% stenosis, GHANSHYAM: 3 flow. * Mid Left Anterior Descending: significant 80% stenosis, GHANSHYAM: 3 flow. * Proximal Right Coronary Artery: subtotal occlusion, GHANSHYAM: 3 flow. * Distal Right Coronary Artery: severe 90% stenosis, GHANSHYAM: 3 flow. * Distal Right Coronary Artery to AV groove continuation of Circumflex Artery: total occlusion, GHANSHYAM: 0 flow. * Mid Circumflex: mild 40% stenosis, GHANSHYAM: 3 flow. * Coronary angiography shows right dominance. Conclusions 1. No gradient across aortic valve was noted. 2. There is total occlusion coronary artery disease with four vessel disease. 3. All fernandez are normal. 4. Normal left ventricular systolic function. Ejection fraction of 60%. Echocardiogram with preserved LV function and posiible hypokinesis in basal to mid inferior wall and cardiac catheterization with multivessel CAD (proximal RCA 99% stenosis, distal RCA with proximal 90% stenosis and completely occluded distal RCA. Distal left main 90% proximal LAD 70% mid LAD 80% stenosis. Results were discussed with patient son and the patient today. Coronary artery bypass grafting is best option for the patient at this time. Due to not having any in-house cardiovascular surgeon available at this time patient will be transferred to [place] for higher level of care. Patient was accepted by Dr. Tatum at [facility]. Patient to continue Lovenox, aspirin, high intensity statin, beta-leanna, Imdur. Physical Exam Narrative: EXAM NARRATIVE: GENERAL: Obese woman sitting in bed in no acute distress HEENT: Pupils equal round reactive to light. No pallor or icterus. NECK: No JVD. No carotid bruit. CARDIOVASCULAR SYSTEM: S1-S2 regular. No S3 or S4 present. No murmur rubs or gallops. RESPIRATORY SYSTEM: Chest clear to auscultation. No wheezes rhonchi or rubs heard. No use of accessory muscles. ABDOMEN: Soft, nontender and nondistended. Normal bowel sounds present. EXTREMITIES: No cyanosis. Trace edema. No signs of chronic venous insufficiency. TR band in place SHIFT SUPERVISOR FILM PROCESSING: Patient is alert oriented ?3. No focal neurological deficits. TS Data Data Completed and Pending: Completed Studies During Hospitalization Category Date Time Status COMPUTER ENGINEERING TECHNOLOGIST request for service Routin e Exams 05/13/21 11:29 Completed XR chest 1V shayla ble [id number] Stat Exams 05/12/21 08:54 Completed CV. echo wo/w con trast [id number] Routin e Ultrasound 05/13/21 06:00 Completed Pending at discharge Category Date Time Status COMPUTER ENGINEERING TECHNOLOGIST request for service Routin e Exams 05/12/21 23:16 Ordered Labs from last 24 hours 05/13/21 05/13/21 05/13/21 07:10 06:52 04:18 WBC 9.6 Corrected WBC RBC 4.40 Hgb 11.9 Hct 39.2 MCV 89.1 MCH 27.0 L MCHC 30.4 RDW 15.0 Plt Count 384 MPV 9.6 Gran % Neut % (Auto) 71.2 Lymph % (Auto) 16.2 Brown % (Auto) 8.1 Eos % (Auto) 3.1 Baso % (Auto) 0.9 Neut # (Auto) 6.80 Lymph # (Auto) 1.6 Brown # (Auto) 0.8 Eos # (Auto) 0.3 Baso # (Auto) 0.1 Absolute Gran (aut o) Nucleated RBC % (a uto) 0 Nucleated RBCs # 0.0 Sodium 140 Potassium 4.5 Chloride 104 Carbon Dioxide 25 Anion Gap 15.5 BUN 24 H Creatinine 1.0 H GFR Calculation Not Reportable Glucose 298 H POC Glucose 231 H Estimat Average Gl ucose Hemoglobin A1c Calculated Osmolal ity 305 H Calcium 9.4 Magnesium 1.9 Total Bilirubin 0.2 AST 12 ALT 12 Alkaline Phosphata se 50 Troponin T Hi Sens 6Hr Troponin T Hi Sens 6Hr Delta Total Protein 5.9 L Albumin 3.3 L Globulin 2.6 Triglycerides Cholesterol LDL Cholesterol, C alc Total VLDL Cholest gabriela HDL Cholesterol Cholesterol/HDL Ra austin TSH SARS-CoV-2 Ag (Rap id) 05/13/21 05/12/21 05/12/21 04:18 19:56 14:50 WBC Cancelled Corrected WBC Cancelled RBC Cancelled Hgb Cancelled Hct Cancelled MCV Cancelled MCH Cancelled MCHC Cancelled RDW Cancelled Plt Count Cancelled MPV Cancelled Gran % Cancelled Neut % (Auto) Cancelled Lymph % (Auto) Cancelled Brown % (Auto) Cancelled Eos % (Auto) Cancelled Baso % (Auto) Cancelled Neut # (Auto) Cancelled Lymph # (Auto) Cancelled Brown # (Auto) Cancelled Eos # (Auto) Cancelled Baso # (Auto) Cancelled Absolute Gran (aut o) Cancelled Nucleated RBC % (a uto) Cancelled Nucleated RBCs # Cancelled Sodium Potassium Chloride Carbon Dioxide Anion Gap BUN Creatinine GFR Calculation Glucose POC Glucose Estimat Average Gl ucose Hemoglobin A1c Calculated Osmolal ity Calcium Magnesium Total Bilirubin AST ALT Alkaline Phosphata se Troponin T Hi Sens 6Hr 54.55 H Troponin T Hi Sens 6Hr Delta 19.55 H* Total Protein Albumin Globulin Triglycerides Cholesterol LDL Cholesterol, C alc Total VLDL Cholest gabriela HDL Cholesterol Cholesterol/HDL Ra austin TSH SARS-CoV-2 Ag (Rap id) Negative 05/12/21 05/12/21 10:20 10:20 WBC Corrected WBC RBC Hgb Hct MCV MCH MCHC RDW Plt Count MPV Gran % Neut % (Auto) Lymph % (Auto) Brown % (Auto) Eos % (Auto) Baso % (Auto) Neut # (Auto) Lymph # (Auto) Brown # (Auto) Eos # (Auto) Baso # (Auto) Absolute Gran (aut o) Nucleated RBC % (a uto) Nucleated RBCs # Sodium Potassium Chloride Carbon Dioxide Anion Gap BUN Creatinine GFR Calculation Glucose POC Glucose Estimat Average Gl ucose 174 Hemoglobin A1c 7.7 H Calculated Osmolal ity Calcium Magnesium Total Bilirubin AST ALT Alkaline Phosphata se Troponin T Hi Sens 6Hr Troponin T Hi Sens 6Hr Delta Total Protein Albumin Globulin Triglycerides 259 H Cholesterol 177 LDL Cholesterol, C alc 87 Total VLDL Cholest gabriela 52 H HDL Cholesterol 38 L Cholesterol/HDL Ra austin 4.66 H TSH 3.63 SARS-CoV-2 Ag (Rap id) Vitals: Last Vital Signs Temp 97.4 F L 05/13/21 13:00 Pulse 62 05/13/21 13:30 Resp 23 H 05/13/21 13:30 BP 154/83 05/13/21 13:15 Pulse Ox 93 05/13/21 13:00 TS Medications Medications Home Medications aspirin 162 mg PO DAILY 05/12/21 [History Confirmed 05/12/21] glipizide 10 mg PO DAILY 05/12/21 [History Confirmed 05/12/21] losartan 100 mg PO DAILY 05/12/21 [History Confirmed 05/12/21] meloxicam 15 mg PO DAILY 05/12/21 [History Confirmed 05/12/21] metformin 1,000 mg PO BID 05/12/21 [History Confirmed 05/12/21] pioglitazone 15 mg PO DAILY MDD see pharmacy comment 05/12/21 [History Confirmed 05/12/21] triamterene-hydrochlorothiazid 1 tab PO DAILY 05/12/21 [History Confirmed 05/12/21] Active Medications Acetaminophen (Acetaminophen 325 Mg Tablet) 650 mg PO Q6H PRN PRN Reason: MILD PAIN Al Hydrox/Mg Hydrox/Simethicone (Bbhm-Ioe-Xgdfkqorx-Ghada 30 Ml Udc) 30 ml PO Q15M PRN PRN Reason: INDIGESTION Aspirin (Aspirin 81 Mg Chew Tablet) 324 mg PO DAILY PARAG Atorvastatin Calcium (Atorvastatin 40 Mg Tablet) 80 mg PO DAILY PARAG Atropine Sulfate (Atropine 1 Mg/Ml Sdv 1 Ml) 0.5 mg IVP PRN PRN PRN Reason: Symptomatic bradycardia Enoxaparin Sodium (Enoxaparin 120 Mg/0.8 Ml Syringe) 110 mg SUBCUT Q12H PARAG Last Admin: 05/13/21 05:15 Dose: 110 mg Documented by: Sodium Chloride (Sodium Chloride 0.9%) 1,000 mls @ 50 mls/hr IV .Q20H ONE Stop: 05/13/21 19:15 Last Admin: 05/13/21 08:54 Dose: 50 mls/hr Documented by: Sodium Chloride (Sodium Chloride 0.9%) 1,000 mls @ 100 mls/hr IV .Q10H [facility] Last Admin: 05/13/21 13:45 Dose: Not Given Documented by: Isosorbide Mononitrate (Isosorbide Mononitrate Er 30 Mg Tablet) 30 mg PO DAILY [facility] Last Admin: 05/13/21 08:52 Dose: 30 mg Documented by: Magnesium Hydroxide (Magnesium Hydroxide 30 Ml Udc) 30 ml PO DAILY PRN PRN Reason: CONSTIPATION Metoprolol Tartrate (Metoprolol Tartrate 25 Mg Tablet) 25 mg PO BID@0900,2100 [facility] Last Admin: 05/13/21 08:51 Dose: 25 mg Documented by: Morphine Sulfate (Morphine 4 Mg/Ml Sdv 1 Ml) 2 mg IVP Q4H PRN PRN Reason: SEVERE PAIN Last Admin: 05/12/21 20:39 Dose: 2 mg Documented by: Naloxone HCl (Naloxone 0.4 Mg/Ml Sdv) 0.1 mg IVP Q2M PRN PRN Reason: RESPIRATORY RATE < 8/MIN Nitroglycerin (Nitroglycerin 0.4 Mg Sublingual Tablet) 0.4 mg SUBLINGUAL Q5M PRN PRN Reason: CHEST PAIN Ondansetron HCl (Ondansetron 2 Mg/Ml Sdv 2 Ml) 4 mg IVP Q6H PRN PRN Reason: NAUSEA AND VOMITING Last Admin: 05/13/21 13:43 Dose: 4 mg Documented by: Ondansetron HCl (Ondansetron 2 Mg/Ml Sdv 2 Ml) 4 mg IVP Q6H PRN PRN Reason: NAUSEA AND VOMITING Temazepam (Temazepam 15 Mg Capsule) 15 mg PO BEDTIME PRN PRN Reason: INSOMNIA Discharge Plan Discharge Patient Disposition: Home Condition: Stable Prescriptions: No Action pioglitazone 15 mg tablet 15 mg PO DAILY MDD see pharmacy comment RF: 0 meloxicam 15 mg tablet 15 mg PO DAILY RF: 0 glipizide 10 mg tablet 10 mg PO DAILY RF: 0 metformin 1,000 mg tablet 1,000 mg PO BID RF: 0 triamterene-hydrochlorothiazid 37.5-25 mg tablet 1 tab PO DAILY RF: 0 aspirin 81 mg Tablet,Chewable 162 mg PO DAILY RF: 0 losartan 100 mg tablet 100 mg PO DAILY RF: 0 Discharge Orders: Transfer Out of Facility (Order); Ordered 05/13/21 Ordered By: Tiffany Cooper Referrals: Keo Cook MD [Primary Care Provider] - Patient Instructions: Opioid Safety Transfer Attestations Time Spent in Transfer Care*: greater than 30 min Specific Discharge Activities: Specific discharge activities: discussing with pcp/other providers and evaluating patient/reviewing data Quality Metrics Clinical Quality Measures: During this hospital stay, did patient experience: None Coding Level of Care Code Acute Stencil Inspector for Chg Fwd Diagnoses Chest pain I20.0 Chest pain type: chest pain due to myocardial ischemia Ischemic chest pain type: unstable angina pectoris Hypertension I10 Hypertension type: primary hypertension Diabetes mellitus E11.9 Diabetes mellitus penitentiary insulin use: without rn long term care use Diabetes mellitus type: type 2
[2021-05-13] MEDS: nitroglycerin 0.4 mg sublingual Tablet SUBLINGUAL ×3 (17:16→17:32)
[2021-05-13] MEDS: morphine 4 mg/mL SDV 1 mL 2 MG IVP (17:46)
--- NOTE | 2021-05-13 18:04 | ECG_ITS ---
[facility] Test Date: 2021-05-13 Pat Name: Laverne Perez Department: Room: 101 Gender: Female Medical Technical Writer: : 1950 Requested By: Negrita Garcia Order Number: [id number] Sally MD: Negrita Garcia M.D. Measurements Intervals [place] Rate: 87 P: 50 TN: 145 QRS: -43 QRSD: 113 T: 78 QT: 400 QTc: 483 Interpretive Statements SINUS RHYTHM LEFT AXIS DEVIATION [QRS AXIS < -30] MODERATE INTRAVENTRICULAR CONDUCTION DELAY [110+ ms QRS DURATION] MODERATE ST DEPRESSION [0.05+ mV ST DEPRESSION] Compared to ECG 05/12/2021 16:04:11 Intraventricular conduction delay now present ST (T wave) deviation now present Ventricular premature complex(es) no longer present T-wave abnormality no longer present Electronically Signed On 05-14-2021 13:13:55 CUSHION WORKER by Negrita Garcia M.D. [email or web address]
[2021-05-13] MEDS: magnesium hydroxide 30 mL UDC PO (18:08)
[2021-05-13] MEDS: atorvastatin 40 mg Tablet 80 MG PO (19:02)
[2021-05-13] MEDS: pantoprazole 40 mg SDV IVP (19:28)
[2021-05-13] MEDS: nitroglycerin drip 50 MG/250 ML PREMIX IV (19:28)
--- NOTE | 2021-05-13 19:43 | PC.NURSE ---
Patient left via ground ambulance with Malik Farley. VSS. Patient states chest pain occurs off and on. Nitro drip started per order. Right wrist site WNL. Dressing in place. Radial pulse present and skin color and temp WNL.
--- NOTE | 2021-05-15 15:56 | PC.SOCIAL ---
Called Son Hima to follow up with him regarding patient since she has been discharged. So far doing well and will have procedure through groin tomorrow. We discussed should they need to know or have questions about local resources they are free to contact me. He verbalized understanding and appreciated the call. Number provided.
== END 2021-05-13 19:47 | disposition other institution (70) ==
LOC: ER 22:22 → CSU 23:34
PROVIDERS: Internal Medicine Cardiovascular Disease; Admitting Provider Internal Medicine; Emergency Provider Family Medicine; PCP Family Medicine; Visit Provider Internal Medicine
DX: I25.110 Atherosclerotic heart disease of native coronary artery with unstable angina pectoris (principal); I10 Essential (primary) hypertension; E11.9 Type 2 diabetes mellitus without complications; M19.90 Unspecified osteoarthritis, unspecified site; E66.9 Obesity, unspecified; Z68.42 Body mass index [BMI] 45.0-49.9, adult; E78.5 Hyperlipidemia, unspecified; Z79.84 Long term (current) use of oral hypoglycemic drugs; Z79.82 Long term (current) use of aspirin; Z87.891 Personal history of nicotine dependence; Z82.49 Family history of ischemic heart disease and other diseases of the circulatory system
CPT/HCPCS: 36415; 36416; 71045; 80053; 80061; 82550; 82962; 83036; 83735; 84443; 84484; 85025; 87426; 93005; 93452; 96365; 96372; 96375; 99291; C1769; C1887; C1894; C8929; C9113; G0378; J1644; J1650; J2250; J2270; J2405; J3010; J3490; J7030; Q0163; Q9956; Q9967

== ENCOUNTER → 2021-07-19 14:05 | Outpatient (BNVA) | payer MEDICARE, SELFPAY | PROVIDERS: PCP Family Medicine; Visit Provider Internal Medicine Cardiovascular Disease | DX: E78.5 Hyperlipidemia, unspecified (principal); I25.10 Atherosclerotic heart disease of native coronary artery without angina pectoris; I25.810 Atherosclerosis of coronary artery bypass graft(s) without angina pectoris; I10 Essential (primary) hypertension; E78.2 Mixed hyperlipidemia; J06.9 Acute upper respiratory infection, unspecified; E11.9 Type 2 diabetes mellitus without complications | CPT/HCPCS: 80053; 80061; 83735; 83880 ==

== ENCOUNTER → 2021-09-15 08:50 | Outpatient (BNVA) | payer MEDICARE, SELFPAY | PROVIDERS: PCP Family Medicine; Visit Provider Nurse Practitioner Family | DX: I25.810 Atherosclerosis of coronary artery bypass graft(s) without angina pectoris (principal); I11.0 Hypertensive heart disease with heart failure; I50.9 Heart failure, unspecified; Z87.891 Personal history of nicotine dependence | CPT/HCPCS: 80048; 83880; 99214 ==

== ENCOUNTER 2021-09-23 05:36 | Emergency (ER) | payer MEDICARE, SELFPAY ==
[2021-09-23] VITALS (8 sets, daily range): BP systolic 124–204; BP diastolic 66–113; PULSE 66–91; RESP 14–18; TEMP 36.9; O2SAT 90–97; BMI 42.5
--- NOTE | 2021-09-23 05:50 | CTR_ITS ---
PROCEDURE INFORMATION: Exam: CT Abdomen And Pelvis With Contrast Exam date and time: 09/23/2021 6:22 AM Age: 71 years old Clinical indication: Abdominal pain; Localized; Right upper quadrant (ruq); Prior surgery; Surgery type: Gb; Additional info: Ruq abd pain HX of cholecystectomy TECHNIQUE: Imaging protocol: Computed tomography of the abdomen and pelvis with contrast. Radiation optimization: All CT scans at this facility use at least one of these dose optimization techniques: automated exposure control; mA and/or kV adjustment per patient size (includes targeted exams where dose is matched to clinical indication); or iterative reconstruction. Contrast material: OMNI 300; Contrast volume: 95 ml; Contrast route: INTRAVENOUS (IV); COMPARISON: CR XR chest 1V portable [id number] 05/12/2021 9:03 AM RADIATION DOSE METRICS: Total DLP (mGy-cm): 1680.55 FINDINGS: Lungs: Mild subsegmental atelectasis in the lung bases. Liver: Normal. No mass. Gallbladder and bile ducts: Cholecystectomy. There is mild bile duct dilatation which can be normal after cholecystectomy. Pancreas: Normal. No ductal dilation. Spleen: Tiny benign calcified granulomas in the spleen. Adrenal glands: Normal. No mass. Kidneys and ureters: There is a 9 mm calculus at the right ureteropelvic junction with moderate right hydronephrosis and caliectasis. Bilateral nephrolithiasis. There are numerous benign appearing cysts in both kidneys measuring up to 2 cm in diameter. Stomach and bowel: Mild diverticulosis. No evidence of acute diverticulitis. No bowel obstruction or dilatation. Appendix: No evidence of appendicitis. Intraperitoneal space: Unremarkable. No free air. No significant fluid collection. Vasculature: There is calcification of the aorta. There is no abdominal aortic aneurysm. Lymph nodes: Unremarkable. No enlarged lymph nodes. Urinary bladder: Unremarkable as visualized. Reproductive: Hysterectomy. No pelvic masses. Bones/joints: Chronic degenerative changes are present in the spine. No acute bony abnormality. Soft tissues: Unremarkable. CT/CT abdomen pelvis w con* [id number] IMPRESSION: 1. There is a 9 mm calculus at the right ureteral pelvic junction with moderate right hydronephrosis and caliectasis. 2. Bilateral nephrolithiasis and multiple bilateral benign-appearing renal cysts. COMMENTS: Consistent with the [employer]'s Incidental Findings Committee white paper (J Am Sheng Radiol 2018): Any incidental renal lesion less than 1 cm or classified as too small to characterize, or any incidental cystic renal lesion characterized as simple-appearing, is likely benign. No follow-up imaging is recommended for these lesions per consensus recommendations based on imaging criteria.
[2021-09-23] MEDS: ondansetron 2 mg/ML SDV 2 mL 4 MG IVP (05:56)
[2021-09-23] MEDS: morphine 4 mg/mL SDV 1 mL IVP ×3 (05:57→12:20)
[2021-09-23] MEDS: sodium chloride 0.9% 1,000 ML 999 ML IV (05:59)
[2021-09-23 06:13] LABS: Basophils # 0.1 10^3/uL (0.0-0.1); Basophils % 0.6 %; Eosinophils # 0.2 10^3/uL (0.0-0.8); Eosinophils % 1.1 %; Hematocrit 45.7 % (37.0-47.0); Hemoglobin 14.4 g/dL (11.5-15.3); Lymphocytes # 2.3 10^3/uL (0.8-4.8); Lymphocytes % 10.8 %; Mean Corpuscular HGB Conc 31.5 g/dL (30.0-36.0); Mean Corpuscular Hemoglobin 26.7 pg (28.0-34.0); Mean Corpuscular Volume 84.8 fl (81-99); Mean Platelet Volume 10.4 fL (7.4-10.4); Monocytes # 1.5 10^3/uL (0.2-0.9); Monocytes % 7.1 %; Neutrophils # 16.71 10^3/uL (1.8-7.7); Neutrophils % 79.9 %; Nucleated Red Blood Cells % 0 %; Platelet Count 475 10^3/cmm (130-400); Red Blood Count 5.39 10^6/uL (4.1-5.3); Red Cell Distribution Width 17.3 % (12.1-15.1); White Blood Count 20.9 10^3/uL (4.0-10.0)
[2021-09-23] MEDS: iohexol 300 mg/mL 100 mL Btl IV (06:24)
[2021-09-23 06:25] LABS: Alanine Aminotransferase 12 U/L (0-33); Albumin Level 4.2 g/dL (3.5-5.2); Alkaline Phosphatase 78 IU/L (35-105); Blood Urea Nitrogen 28 mg/dL (8-23); Calcium 9.6 mg/dL (8.5-10.5); Carbon Dioxide 23 mmol/L (22-29); Chloride 94 mmol/L (98-107); Globulin 2.7 g/dL (1.3-4.6); Glucose 279 mg/dL (65-115); Lipase 66 U/L (13-60); Osmolality Calculated 294 mOsm/kg (285-295); Sodium 134 mmol/L (136-145); Total Bilirubin 0.4 mg/dL (0.15-1.2); Total Protein 6.9 g/dL (6.6-8.7)
[2021-09-23 06:40] LABS: Lactate (Lactic Acid level) 2.4 mmol/L (0.5-2.2)
[2021-09-23 06:53] LABS: Anion Gap 21.6 (5-19); Aspartate Amino Transferase 15 U/L (0-32); Potassium 4.6 mmol/L (3.5-5.1)
--- NOTE | 2021-09-23 07:26 | ED_ITS ---
HPI - Abdominal Pain General: Chief Complaint: Abdominal Pain Stated Complaint: ruq pain Time Seen by Provider: 09/23/21 05:49 Source: patient Mode of arrival: EMS Limitations: no limitations History of Present Illness: 71-year-old female presents emergency room with complaints of of abdominal pain. She localizes pain in the right upper quadrant she denies any dysuria urgency or frequency she did have a bowel movement yesterday but none since then she has had vomiting. Loss of appetite no fever sweats or chills previous abdominal surgeries include cholecystectomy hysterectomy lysis of adhesions and vulvar resection for cancer. No chest pain no shortness of breath. Patient has hematemesis coffee-ground emesis. MD elicited complaint: abdominal pain Onset (ago): day(s) Pain Consistency: constant Location: RUQ Severity: severe Quality: sharp Radiation: R flank Exacerbating factors: nothing Relieving factors: nothing Associated Symptoms: Reports dysuria; Denies anorexia, belching, bloating, change in bowel habits, change in stool character, chills, coffee ground emesis, constipation, GI cramping, diarrhea, dyspepsia, excessive flatus, fever(s), heartburn, hematochezia, hematuria, hematemesis, fecal incontinence, loose stools, melena, nausea, poor appetite, syncope and vomiting Review of Systems Const: Denies: fever(s) or chills Card: Denies: syncope GI: Denies: nausea, vomiting, hematemesis, coffee ground emesis, heartburn, diarrhea, constipation, bloating, GI cramping, belching, excessive flatus, fecal incontinence, change in bowel habits, change in stool character, hematochezia or melena : Reports: flank pain, difficulty voiding and dysuria; Denies: hematuria PFSH ED PFSH: Medical History Bilateral renal stones Diabetes mellitus Hyperlipidemia Hypertension Osteoarthritis Family History Mother , at age 93 Uterine cancer CAD (coronary artery disease) Father , at age 67 CAD (coronary artery disease) Social History Smoking and tobacco status: former smoker Alcohol intake: never Marital status: / Current occupational status: retired History of recent travel: No Physical Exam Const: COMMON NORMALS: no acute distress GENERAL APPEARANCE: cooperative and comfortable ORIENTATION/CONSCIOUSNESS: Yes awake, Yes oriented to person, Yes oriented to place and Yes oriented to time HENMT: COMMON NORMALS: normocephalic, atraumatic and hearing grossly normal bilaterally HEAD & SCALP: normocephalic and atraumatic Neck/C-Spine: COMMON NORMALS: no JVD Resp: COMMON NORMALS: normal respiratory effort, No retractions, No use of accessory muscles and clear to auscultation bilaterally AUSCULTATION: clear to auscultation bilaterally Cardio: COMMON NORMALS: no JVD, regular rate, regular rhythm and No murmurs present (Cardio) RATE: regular rate RHYTHM: regular rhythm GI: COMMON NORMALS: Soft to palpation and No hepatosplenomegaly present AUSCULTATION: Yes normoactive bowel sounds PALPATION: Yes Soft to palpation, No Tenderness to palpation present (GI), No Guarding due to palpation present (GI) and Yes No hepatosplenomegaly present : BLADDER/KIDNEY EXAM: Yes CVA tenderness on the right Back/Pelvis: GENERAL BACK: Yes CVA tenderness Extremity: COMMON NORMALS: normal to inspection, capillary refill normal, no clubbing, cyanosis or edema, no calf tenderness and no pedal edema Neuro: SENSORIUM/ORIENTATION: Yes oriented to person, Yes oriented to place and Yes oriented to time Skin: COMMON NORMALS: no rashes or lesions noted GENERAL SKIN EXAM: no rashes or lesions noted Course 2 Vital Signs: Vital signs: Vital Signs Temperature 98.4 F 09/23/21 05:44 Pulse Rate 66 09/23/21 14:45 Respiratory Rate 18 09/23/21 14:45 Blood Pressure 124/73 09/23/21 14:45 Pulse Oximetry 93 09/23/21 14:45 MDM - Abdominal Pain Medical Decision Making Patient has 9 mm nephrolithiasis at the right UPJ. Pain is controlled discharged home discussed Dr. Flynn follow-up as an outpatient Medical Records I reviewed the patient's medical records. Lab Data I reviewed the patient's lab results. : 09/23/21 05:15 09/23/21 11:18 Labs/Radiology: Radiology Impressions Abdomen/Pelvis CT 09/23/21 05:50 IMPRESSION: 1. There is a 9 mm calculus at the right ureteral pelvic junction with moderate right hydronephrosis and caliectasis. 2. Bilateral nephrolithiasis and multiple bilateral benign-appearing renal cysts. COMMENTS: Consistent with the [employer]'s Incidental Findings Committee white paper (J Am Sheng Radiol 2018): Any incidental renal lesion less than 1 cm or classified as too small to characterize, or any incidental cystic renal lesion characterized as simple-appearing, is likely benign. No follow-up imaging is recommended for these lesions per consensus recommendations based on imaging criteria. Laboratory Results WBC 20.9 10^3/uL (4.0-10.0) H 09/23/21 05:15 RBC 5.39 10^6/uL (4.1-5.3) H 09/23/21 05:15 Hgb 14.4 g/dL (11.5-15.3) 09/23/21 05:15 Hct 45.7 % (37.0-47.0) 09/23/21 05:15 MCV 84.8 fl (81-99) 09/23/21 05:15 MCH 26.7 pg (28.0-34.0) L 09/23/21 05:15 MCHC 31.5 g/dL (30.0-36.0) 09/23/21 05:15 RDW 17.3 % (12.1-15.1) H 09/23/21 05:15 Plt Count 475 10^3/cmm (130-400) H 09/23/21 05:15 MPV 10.4 fL (7.4-10.4) 09/23/21 05:15 Neut % (Auto) 79.9 % 09/23/21 05:15 Lymph % (Auto) 10.8 % 09/23/21 05:15 Menard % (Auto) 7.1 % 09/23/21 05:15 Eos % (Auto) 1.1 % 09/23/21 05:15 Baso % (Auto) 0.6 % 09/23/21 05:15 Neut # (Auto) 16.71 10^3/uL (1.8-7.7) H 09/23/21 05:15 Lymph # (Auto) 2.3 10^3/uL (0.8-4.8) 09/23/21 05:15 Menard # (Auto) 1.5 10^3/uL (0.2-0.9) H 09/23/21 05:15 Eos # (Auto) 0.2 10^3/uL (0.0-0.8) 09/23/21 05:15 Baso # (Auto) 0.1 10^3/uL (0.0-0.1) 09/23/21 05:15 Nucleated RBC % (auto) 0 % 09/23/21 05:15 Nucleated RBCs # 0.0 /100WBC 09/23/21 05:15 Sodium 133 mmol/L (136-145) L 09/23/21 11:18 Potassium 4.8 mmol/L (3.5-5.1) 09/23/21 11:18 Chloride 96 mmol/L (98-107) L 09/23/21 11:18 Carbon Dioxide 25 mmol/L (22-29) 09/23/21 11:18 Anion Gap 16.8 (5-19) 09/23/21 11:18 BUN 28 mg/dL (8-23) H 09/23/21 11:18 Creatinine 1.6 mg/dL (0.5-0.9) H 09/23/21 11:18 GFR Calculation Not Reportable 09/23/21 11:18 Glucose 299 mg/dL (65-115) H 09/23/21 11:18 Calculated Osmolality 293 mOsm/kg (285-295) 09/23/21 11:18 Lactate 2.0 mmol/L (0.5-2.2) 09/23/21 11:18 Calcium 8.7 mg/dL (8.5-10.5) 09/23/21 11:18 Total Bilirubin 0.4 mg/dL (0.15-1.2) 09/23/21 05:15 AST 15 U/L (0-32) 09/23/21 05:15 ALT 12 U/L (0-33) 09/23/21 05:15 Alkaline Phosphatase 78 IU/L (35-105) 09/23/21 05:15 C-Reactive Protein 3.0 mg/L (0.0-4.9) 09/23/21 05:15 Total Protein 6.9 g/dL (6.6-8.7) 09/23/21 05:15 Albumin 4.2 g/dL (3.5-5.2) 09/23/21 05:15 Globulin 2.7 g/dL (1.3-4.6) 09/23/21 05:15 Lipase 66 U/L (13-60) H 09/23/21 05:15 Urine Color Straw (Yellow) 09/23/21 10:12 Urine Appearance Clear (CLEAR) 09/23/21 10:12 Urine pH 5 (5-7) 09/23/21 10:12 Ur Specific Crawford 1.010 (1.005-1.030) 09/23/21 10:12 Urine Protein 1+ (Negative) H 09/23/21 10:12 Urine Glucose (UA) 2+ (Normal) H 09/23/21 10:12 Urine Ketones 1+ (Negative) H 09/23/21 10:12 Urine Blood 2+ (Negative) H 09/23/21 10:12 Urine Nitrate Negative (Negative) 09/23/21 10:12 Urine Bilirubin Neg (Negative) 09/23/21 10:12 Urine Urobilinogen Norm mg/dL (Negative) 09/23/21 10:12 Ur Leukocyte Esterase Negative (Negative) 09/23/21 10:12 Urine RBC 5-10 /hpf (0-2) H 09/23/21 10:12 Urine WBC 0-4 /hpf (0-5) H 09/23/21 10:12 Ur Squamous Epith Cells 5-10 /hpf (0-5) H 09/23/21 10:12 Amorphous Sediment Not Reportable 09/23/21 10:12 Urine Bacteria Trace /hpf (NONE) 09/23/21 10:12 Discharge Plan Discharge Patient Disposition: Home Clinical Impression: Right nephrolithiasis Condition: Stable Prescriptions: No Action atorvastatin 80 mg tablet 80 mg PO DAILY 0RF metoprolol succinate 50 mg tablet extended release 24 hr 50 mg PO DAILY 0RF magnesium L-lactate [Magtab] 84 mg tablet extended release 84 mg PO DAILY Qty: 90 3RF triamterene-hydrochlorothiazid 37.5-25 mg tablet 1 tab PO DAILY 0RF furosemide 40 mg tablet 40 mg PO DAILY Qty: 90 3RF potassium chloride [Klor-Con M20] 20 mEq tablet,ER particles/crystals 20 meq PO DAILY Qty: 90 3RF oxycodone 5 mg capsule 5 mg PO Q6H PRN (Reason: pain) 5 Days Qty: 20 0RF pioglitazone 15 mg tablet 15 mg PO DAILY MDD see pharmacy comment 0RF meloxicam 15 mg tablet 15 mg PO DAILY 0RF metformin 1,000 mg tablet 1,000 mg PO BID 0RF aspirin 81 mg tablet,chewable 325 mg PO DAILY 0RF losartan 100 mg tablet 25 mg PO DAILY 0RF cephalexin 500 mg capsule 500 mg PO BID 14 Days Qty: 28 2RF Discharge Orders: Discharge ED (Routine); Ordered 09/23/21 Ordered By: Delfino Santana Referrals: Rahul Flynn MD [Physician] - Discharge Diet: Usual diet Discharge Activity: Increase activity as tolerated Patient Instructions: Opioid Safety Activity Restrictions/Additional Instructions: He has made only arrangements for you to follow-up with Dr. Flynn this coming week. Coding Level of Care Code ED Relief Pharmacist for Dhaval Martini
[2021-09-23 10:41] LABS: Glucose Urine UA 2+ (Normal); Ketones Urine 1+ (Negative); Protein Urine 1+ (Negative); Urine Appearance Clear (CLEAR); Urine Color Straw (Yellow); pH Urine 5 (5-7)
[2021-09-23 10:42] LABS: Add Urine Culture? No; Add Urine Microscopic? YES; Bacteria Urine TRACE /hpf; Bilirubin Urine Neg (Negative); Blood Urine 2+ (Negative); Leukocyte Esterase Urine Negative (Negative); Nitrate Urine Negative (Negative); Urobilinogen Urine Norm (Negative); WBC Urine 0-4 /hpf (0-5)
[2021-09-23 11:43] LABS: Anion Gap 16.8 (5-19); Blood Urea Nitrogen 28 mg/dL (8-23); Calcium 8.7 mg/dL (8.5-10.5); Carbon Dioxide 25 mmol/L (22-29); Chloride 96 mmol/L (98-107); Glucose 299 mg/dL (65-115); Osmolality Calculated 293 mOsm/kg (285-295); Potassium 4.8 mmol/L (3.5-5.1); Sodium 133 mmol/L (136-145)
--- NOTE | 2021-09-25 13:31 | DCPLANNER ---
Addendum entered by Rupa Hernandez 09/26/21 14:55: Patient had a follow up appointment scheduled for 09.25.[address] Flynn - patient did attend appointment. Original Note: project manager had message to schedule a follow up appointment for patient with urology. project manager sent patients information to the front office staff at Dr. Cornejo office thru [employer] task/message system. Patients information will be printed and reviewed. Clinic will call patient with appointment information.
== END 2021-09-23 14:48 | disposition home or self-care (01) ==
PROVIDERS: Emergency Medicine; Emergency Provider Family Medicine; PCP Family Medicine
DX: N20.0 Calculus of kidney (principal)
CPT/HCPCS: 36415; 74177; 80048; 80053; 81001; 83605; 83690; 85025; 86140; 96361; 96374; 96375; 96376; 99284; J2270; J2405; J7030; Q9967

== ENCOUNTER 2021-09-25 09:54 | Outpatient (CLI) | payer MEDICARE, SELFPAY ==
--- NOTE | 2021-09-25 10:08 | XR_ITS ---
WS: [id number] Exam: XR KUB [id number] Date/Time of Exam: 09/25/2021 10:11 AM Reason For Exam: STONES No bowel obstruction or free air. 3 mm calcification superimposes the left renal silhouette and may r epresent a renal stone. Signs of prior cholecystectomy. Moderate amount stool in the colon. No sign o f organ enlargement. Regional bony elements are intact. Degenerative changes of the lumbar spine. XR/XR KUB [id number] IMPRESSION: 1. No acute abdominal finding. 2. 3 mm calcification superimposes the left renal silhouette and may represent a small renal calculus.
== END 2021-09-25 09:55 | disposition home or self-care (01) ==
LOC: RAD 09:59
PROVIDERS: Visit Provider Urology
DX: N20.1 Calculus of ureter (principal); N20.0 Calculus of kidney
CPT/HCPCS: 74018; 81003; 87635

== ENCOUNTER 2021-09-27 07:51 | Day surgery (SDC) | payer MEDICARE, SELFPAY ==
[2021-09-26 12:54] VITALS: BMI 42.7
[2021-09-27] VITALS (10 sets, daily range): BP systolic 116–159; BP diastolic 71–101; PULSE 67–92; RESP 16–18; TEMP 36.1–36.7; O2SAT 90–100
--- NOTE | 2021-09-27 | SCC_ITS ---
Procedure done: 1. Cystoscopy with right retrograde ureteropyelogram 2. Right ureteroscopy, laser lithotripsy, stent 83.2 seconds of fluoroscopic guidance, for a cumulative dose of 47.26 mGy, was provided to Dr. Flynn by the radiology department. C-arm images of the abdomen were saved for the patient's permanent record. [facility]
--- NOTE | 2021-09-27 07:56 | XR_ITS ---
WS: [id number] Exam: XR KUB [id number] Date/Time of Exam: 09/27/2021 8:05 AM Reason For Exam: Preop right ureteroscopy, ureteral calculus Comparison 09/25/2021. No bowel obstruction or free air. No sign of organ enlargement. Again noted is a 3 mm calcification s uperimposing the left kidney that may represent a renal stone. Signs of prior cholecystectomy. Single surgical clip seen near the pubic symphysis. Calcification of the iliolumbar ligaments. Moderate serena unt retained stool in the colon. XR/XR KUB [id number] IMPRESSION: 1. No acute abdominal process. 2. 3 mm calcification seen in the region of the left kidney that may represent a renal calculus.
--- NOTE | 2021-09-27 07:56 | SC_ITS ---
WS: [id number] Exam: C-arm FL for Urology Date/Time of Exam: 09/27/2021 7:56 AM Reason For Exam: Right ureteroscopy, retrograde 2 anterior posterior intraoperative C-arm images of the right abdomen pelvis are submitted for evalua tion. The first image demonstrates a limited right retrograde pyelogram with limited opacification of the l ower right ureter. A filling defect is seen in the opacified segment of ureter and may represent the patient's known right ureteral stone. The second image depicts a right ureteral pigtail catheter with the upper loop of the catheter in the expected region of the right kidney. No other significant find ing on this limited study.
--- NOTE | 2021-09-27 08:46 | ECG_ITS ---
[facility] Test Date: 2021-09-27 Pat Name: Laverne Perez Department: Room: Gender: Female Photographer Model: : 1950 Requested By: Alexsander Moise Order Number: [id number] Sally MD: Aj Isabel M.D. Measurements Intervals [place] Rate: 84 P: 78 WV: 159 QRS: -35 QRSD: 114 T: 81 QT: 371 QTc: 439 Interpretive Statements SINUS RHYTHM WITH OCCASIONAL VENTRICULAR PREMATURE COMPLEXES WITH OCCASIONAL SUPRAVENTRICULAR PREMATURE COMPLEXES LEFT AXIS DEVIATION [QRS AXIS < -30] POSSIBLE ANTERIOR MYOCARDIAL INFARCTION , PROBABLY OLD [30 ms Q WAVE IN V3/V4, OR R < 0.2 mV IN V4] Compared to ECG 05/13/2021 18:43:15 Ventricular premature complex(es) now present Myocardial infarct finding now present Intraventricular conduction delay no longer present ST (T wave) deviation no longer present Electronically Signed On 09-27-2021 17:16:52 CDT by Aj Isabel M.D. [id number]
[2021-09-27 09:03] LABS: Glucose Point of Care 295 mg/dL (70-110)
[2021-09-27] MEDS: sodium chloride 0.9% 1,000 ML 30 ML IV (09:11)
[2021-09-27 09:17] LABS: Blood Urea Nitrogen 36 mg/dL (8-23); Calcium 9.5 mg/dL (8.5-10.5); Carbon Dioxide 21 mmol/L (22-29); Chloride 95 mmol/L (98-107); Glucose 274 mg/dL (65-115); Osmolality Calculated 294 mOsm/kg (285-295); Sodium 133 mmol/L (136-145)
[2021-09-27 09:23] LABS: Anion Gap 21.2 (5-19); Potassium 4.2 mmol/L (3.5-5.1)
--- NOTE | 2021-09-27 09:24 | P.ANESASSM_ITS ---
Pre-Anesthetic Assessment Height/Weight: Height 1.6 m Weight 109.316 kg Temp Pulse Resp BP Pulse Ox 97 F L 78 16 159/101 97 09/27/21 08:30 09/27/21 08:30 09/27/21 08:30 09/27/21 08:30 09/27/21 08:30 Preop Diagnosis: Large right proximal ureteral stone high-grade obstruction Operation Date: 09/27/21 09:30 Proposed Procedures p Cystoscopy right retrograde ureteroscopy laser stent [id number]/N20.14.N20.0(Not Applicable) - Rahul Flynn MD s Retrograde Pyelogram(Right) - Rahul Flynn MD s Ureteral Stent Placement(Right) - MD bre [facility]ler Laser Lithotripsy(Right) - Rahul Flynn MD s Ureteroscopy(Right) - Rahul Flynn MD Familial anesthetic complications: None Was Beta Yazmin taken within 24 hours: Yes Was Clonidine taken within 24 hours: N/A Last intake: Intake Last Liquid Date 09/26/21 Last Liquid Time 23:30 Last Solid Date 09/26/21 Last Solid Time 20:00 Social No alcohol and No tobacco Exam alert, oriented x 3, clear to auscultation bilaterally and regular rate & rhythm Airway Submandibular: within normal limits Cervical ROM: within normal limits Mallampati: Class II Dentition: false Pulmonary Exertional Dyspnea CV/HEM Coronary Artery Disease and Hypertension S/P CABG METS < 4 09/27/21 ?Interpretive Statements SINUS RHYTHM WITH OCCASIONAL VENTRICULAR PREMATURE COMPLEXES WITH OCCASIONAL SUPRAVENTRICULAR PREMATURE COMPLEXES LEFT AXIS DEVIATION? [QRS AXIS < -30] POSSIBLE ANTERIOR MYOCARDIAL INFARCTION , PROBABLY OLD [30 ms Q WAVE IN V3/V4, OR R < 0.2 mV IN V4] Compared to ECG 05/13/2021 18:43:15 Ventricular premature complex(es) now present Myocardial infarct finding now present Intraventricular conduction delay no longer present ST (T wave) deviation no longer present [id number] [id number] 05/21 TTE CONCLUSIONS ?1. This is a technically difficult study. Ultrasound enhancing ?agent optison was used per protocol. ?2. Normal left ventricular cavity size and systolic function. ?Left ventricular ejection fraction is estimated at 60 %. There ?is possible mild hypokinesis of basal to mid inferior wall. ?Normal diastolic function. ?3. No prior similar studies to compare. Chronic Renal Insufficiency Renal stones GI Gastroesophageal Reflux Disease Metabolic Diabetes Mellitus and Morbid Obesity [facility] [place] Osteoarthritis/DJD Neuropsych None reported Anesthetic Plan ASA status: 3 (71 year old female w/ morbid obesity, CAD s/p CABG, DM, renal disease and kidney stones. ) Anesthesia: Anesthesia Evaluation and General Other: We discussed risk and benefits of general anesthesia including PONV, sore throat (sometimes severe), corneal abrasion, positioning and peripheral nerve injuries, life threatening allergic reaction, post operative ICU admission requiring prolonged intubation, stroke, heart attack, , and rare incidences of recall. Patient consents to proceed with general anesthesia. Risk of > 500 ml blood loss (7ml/kg in children): No Medications/Allergies Home Medications Medication Instructions Recorded Confirmed Last Taken Type meloxicam 15 mg tablet 15 mg PO DAILY 05/12/21 09/26/21 05/11/21 History metformin 1,000 mg tablet 1,000 mg PO BID 05/12/21 09/26/21 05/11/21 History pioglitazone 15 mg tablet 15 mg PO DAILY MDD see pharmacy 05/12/21 09/26/21 Unknown History comment aspirin 81 mg chewable tablet 325 mg PO DAILY tab 07/19/21 09/26/21 09/26/21 History atorvastatin 80 mg tablet 80 mg PO DAILY 07/19/21 09/26/21 Unknown History losartan 100 mg tablet 25 mg PO DAILY tab 07/19/21 09/26/21 Unknown History metoprolol succinate 50 mg 50 mg PO DAILY 07/19/21 09/26/21 Unknown History tablet,extended release 24 hr magnesium L-lactate 84 mg 84 mg PO DAILY #90 tab 07/20/21 09/26/21 Unknown Rx tablet,extended release (Magtab) triamterene 37.5 1 tab PO DAILY 09/15/21 09/26/21 Unknown History mg-hydrochlorothiazide 25 mg tablet furosemide 40 mg tablet 40 mg PO DAILY #90 tab 09/18/21 09/26/21 Unknown Rx potassium chloride 20 mEq 20 meq PO DAILY #90 tab 09/18/21 09/26/21 Unknown Rx tablet,extended release(part/cryst) (Klor-Con M) oxycodone 5 mg capsule 5 mg PO Q6H PRN #20 cap 09/23/21 09/26/21 Unknown Rx Allergies Allergy/AdvReac Type Severity Reaction Status Date / Time No Known Allergies Allergy Verified 09/27/21 09:26 Current Medications Generic Name Dose Route Start Last Admin Trade Name Freq PRN Reason Stop Dose Admin Sodium Chloride 1,000 mls @ 30 mls/hr 09/27/21 08:00 09/27/21 09:11 Sodium Chloride 0.9% IV 09/28/21 07:59 30 mls/hr .Q24H PARAG Administration PFSH Anesthesia Medical History Bilateral renal stones Diabetes mellitus Hyperlipidemia Hypertension Osteoarthritis Family History Mother , at age 93 Uterine cancer CAD (coronary artery disease) Father , at age 67 CAD (coronary artery disease) Social History Smoking and tobacco status: former smoker Alcohol intake: never Marital status: / Current occupational status: retired History of recent travel: No Data Anesthesia : 09/27/21 08:50 BMP 09/27/21 08:50 Sodium 133 L Potassium 4.2 Chloride 95 L Carbon Dioxide 21 L BUN 36 H Creatinine 1.9 H Glucose 274 H Calcium 9.5 Cardiac Studies: Echocardiogram 05/13/21
--- NOTE | 2021-09-27 10:12 | W.PM.OPSUD ---
Surgery/Procedure H&P Update DATE OF PROCEDURE: September 27, 2021 DATE H&P PERFORMED: 09/25/21 H&P UPDATE INFORMATION: I have reviewed H&P completed within last 30 days, I have examined patient prior to procedure, No changes to prior documentation and H&P is in [facility] [place] [place] EMR on date indicated CHANGES TO PREVIOUS DOCUMENTATION: I reviewed again with the patient the preoperative findings, rationale for this approach, potential obstacles including inability to access the upper tract with the scope, or even a guidewire. Interventional radiology percutaneous nephrostomy or antegrade stent placement necessity under those circumstances was also reviewed. She expressed good understanding and was ready to proceed PREOP DIAGNOSIS: Large right proximal ureteral stone high-grade obstruction PLANNED PROCEDURE: Operation Date: 09/27/21 09:30 Proposed Procedures p Cystoscopy right retrograde ureteroscopy laser stent [id number]/N20.14.N20.0(Not Applicable) - Rahul Flynn MD s Retrograde Pyelogram(Right) - MD bre [facility]ler Ureteral Stent Placement(Right) - Rahul Flynn MD s Laser Lithotripsy(Right) - Rahul Flynn MD s Ureteroscopy(Right) - Rahul Flynn MD
--- NOTE | 2021-09-27 10:18 | PM.OP ---
Operative Report Date of procedure: September 27, 2021 Pre-op diagnosis: Large right proximal ureteral stone high-grade obstruction Post-op diagnosis: Large right proximal ureteral stone high-grade obstruction Procedure done: 1. Cystoscopy with right retrograde ureteropyelogram 2. Right ureteroscopy, laser lithotripsy, stent Implants: Right ureteral stent Specimens removed/disposition: Stone fragments Pathology: Stone fragments Surgeon: Gee Anesthesia: General Estimated blood loss: minimal Urine output: Not measured Complications: None Findings: Stone in the expected position. Well fragmented laser fiber. Brief History: Laverne is a very pleasant 71-year-old white female recently diagnosed with a large right proximal ureteral stone with high-grade obstruction and severe symptomatology. We reviewed her options which would include continued conservative management versus intervention and she elected endoscopic treatment. She is admitted now for that procedure in anticipation of outpatient surgery. Procedure: After routine preoperative evaluation examination and obtaining of informed consent she was taken to the operating suite on 09/27/21 where general anesthesia was administered without difficulty after appropriate timeout was performed, SCDs confirmed to be functioning, preoperative antibiotics administered, beta-leanna protocol confirmed. Prepped and draped in usual sterile fashion in dorsolithotomy position paying careful attention to avoiding pressure points. 21 [place] Irish cystoscope with 30 degree lens was introduced into the urethral meatus and advanced into the bladder under videoscopy. Bladder was systematically examined. No stones were seen. An 8 [place] cone-tip catheter was intubated into the right ureteral orifice for right retrograde ureteropyelogram demonstrating: The ureter was of normal course and caliber up to the proximal aspect where the stone was encountered as a filling defect in its expected position. The ureter proximal to that point was tortuous and dilated. A flexible tip guidewire was then advanced up the right ureter easily bypassing the stone and curling in the area of the upper pole calyx. The distal ureter was dilated with a 15 Northern Irish 4 cm balloon and a second guidewire was then passed into roughly the same position. A 24 cm ureteral access sheath was advanced over the working wire (the other wire was secured to the drapes as a safety wire) to the hub. An offset semirigid ureteroscope was then advanced through the ureteral access sheath where the stone was encountered in its expected position A 365 ?m thulium superpulse laser fiber was utilized to fragment the stone into small fragments and sand. There was a very large amount of inspissated material in the ureter that was removed with grasping forceps. Multiple stone fragments removed with grasping forceps and an X catch basket. The stone lodging site was quite inflamed. The scope was passed to the UPJ but could not be passed easily into the renal pelvis. 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 A second guidewire was then passed through the scope and the scope was exchanged for a flexible video ureteroscope. She had had some stones demonstrated on her prior CT scan that were in the kidney. There was one fragment that appeared to have migrated into the renal pelvis and this was easily and completely fragmented with the laser fiber. Only sand-like particles remained. I could not negotiate the scope completely into the lower pole of the malrotated kidney to be able to visualize the entire collecting system. Could not rule out the persistence of one of the stones it was seen on the CT scan at time of diagnosis. Otherwise there were no other stones seen. The scope was withdrawn under direct vision after backing the ureteral access sheath onto the hub. Because of the very inflamed site where the stone had been located was decided to leave a stent in for least several weeks for healing. Otherwise the ureter looked good. The cystoscope was then backloaded over the safety wire and a 7 Northern Irish by 26 cm double-pigtail stent was advanced over the guidewire through the cystoscope into appropriate position as confirmed via fluoroscopy and cystoscopy. Good curl on both ends. The bladder was drained and the procedure was completed. She tolerated procedure well without complications and was awakened in the operating room and returned to the room in stable condition Plans: 1. Anticipate discharge from outpatient surgery 2. Follow-up in about 3 weeks for KUB to assess for any residual stones. Possible stent removal versus scheduling for relook or ESWL for remaining stones.
[2021-09-27] MEDS: levofloxacin-dextrose 5 % 500 MG/100 ML PREMIX 100 MG IV (10:23)
[2021-09-27] MEDS: iohexol 300 mg/mL 50 mL Btl (OR ONLY) XX (10:47)
--- NOTE | 2021-09-27 16:07 | ANE.PACU2 ---
Inpatient post-anesthesia follow up: Airway intact: Yes Vital signs: Temperature 97.4 F Pulse Rate 67 Respiratory Rate 16 Blood Pressure 127/95 Pulse Oximetry 94 Oxygen Delivery Me thod Room Air Oxygen Flow Rate 6 Fraction of Inspir ed Oxygen Hydration adequate: Yes Nausea and vomiting: No Pain level: 1 Mental status: Baseline
== END 2021-09-27 13:50 | disposition home or self-care (01) ==
PROVIDERS: Anesthesiology; PCP Family Medicine; Visit Provider Urology
PROC: 0TJB8ZZ Inspection of Bladder, Via Natural or Artificial Opening Endoscopic (ICD-10-PCS; CPT 52000; principal; 2021-09-27 09:20)
PROC: (CPT 74420; 2021-09-27 09:20)
PROC: (CPT 50605; 2021-09-27 09:20)
PROC: (CPT 52356; 2021-09-27 09:20)
PROC: 0TJ98ZZ Inspection of Ureter, Via Natural or Artificial Opening Endoscopic (ICD-10-PCS; CPT 52351; 2021-09-27 09:20)
DX: N20.1 Calculus of ureter (principal); I25.10 Atherosclerotic heart disease of native coronary artery without angina pectoris; Z95.1 Presence of aortocoronary bypass graft; K21.9 Gastro-esophageal reflux disease without esophagitis; M19.90 Unspecified osteoarthritis, unspecified site; E11.22 Type 2 diabetes mellitus with diabetic chronic kidney disease; I12.9 Hypertensive chronic kidney disease with stage 1 through stage 4 chronic kidney disease, or unspecified chronic kidney disease; N18.9 Chronic kidney disease, unspecified; Z79.82 Long term (current) use of aspirin; Z79.84 Long term (current) use of oral hypoglycemic drugs
CPT/HCPCS: 52356; 36416; 74018; 76000; 80048; 82365; 82962; 88300; 93005; C2625; J1100; J1956; J2405; J2704; J2710; J3010; J3490; J7030

== ENCOUNTER 2021-10-17 13:19 | Outpatient (CLI) | payer MEDICARE, SELFPAY ==
--- NOTE | 2021-10-17 13:41 | XR_ITS ---
WS: [id number] Exam: XR KUB [id number] Date/Time of Exam: 10/17/2021 1:47 PM Reason For Exam: Kidney Stones Compared to intraoperative C-arm image performed 09/27/2021. Right-sided ureteral pigtail catheter noted. The proximal aspect of the catheter most likely in the r egion of the right renal pelvis. It is unchanged in location. The inferior aspect of the catheter nima ears to be in the region of the urinary bladder. No bowel obstruction or free air. Signs of prior cho lecystectomy. Calcification of the ileotransverse ligaments. Moderate amount retained stool in the co annmarie. Degenerative changes of the lumbar spine and SI joints. XR/XR KUB [id number] IMPRESSION: 1. Right-sided ureteral catheter in place appearing to be in satisfactory locat ion. 2. No acute abdominal finding. Constipation. Other minor findings as above.
== END 2021-10-17 13:20 | disposition home or self-care (01) ==
PROVIDERS: PCP Family Medicine; Visit Provider Urology
DX: N20.0 Calculus of kidney (principal); K59.00 Constipation, unspecified; Z96.0 Presence of urogenital implants
CPT/HCPCS: 74018; 80048; 81003

== ENCOUNTER → 2021-10-20 10:35 | Outpatient (BNVA) | payer MEDICARE, SELFPAY | PROVIDERS: PCP Family Medicine; Visit Provider Internal Medicine Cardiovascular Disease | DX: I25.810 Atherosclerosis of coronary artery bypass graft(s) without angina pectoris (principal); I10 Essential (primary) hypertension; E78.2 Mixed hyperlipidemia; E11.9 Type 2 diabetes mellitus without complications; Z79.84 Long term (current) use of oral hypoglycemic drugs; Z79.82 Long term (current) use of aspirin; R06.02 Shortness of breath; Z87.891 Personal history of nicotine dependence | CPT/HCPCS: 99214 ==

== ENCOUNTER → 2021-12-01 07:50 | Outpatient (BNVA) | payer MEDICARE, SELFPAY | PROVIDERS: PCP Family Medicine; Visit Provider Urology | DX: N20.2 Calculus of kidney with calculus of ureter (principal) | CPT/HCPCS: 81003; 99213 ==

== ENCOUNTER 2021-12-03 15:42 | Inpatient (IN) | payer MEDICARE, SELFPAY ==
--- NOTE | 2021-12-03 15:54 | ECG_ITS ---
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 Measurements Intervals [place] Rate: 102 P: 72 MN: 164 QRS: -31 QRSD: 121 T: 73 QT: 394 QTc: 516 Interpretive Statements SINUS TACHYCARDIA LEFT AXIS DEVIATION [QRS AXIS < -30] POSSIBLE ANTERIOR MYOCARDIAL INFARCTION , OF INDETERMINATE AGE [30 ms Q WAVE IN V3/V4, OR R < 0.2 mV IN V4] Compared to ECG 09/27/2021 08:58:44 Sinus rhythm no longer present Ventricular premature complex(es) no longer present Myocardial infarct finding still present Electronically Signed On 12-04-2021 16:20:16 CDT by Aj Isabel M.D. [id number]
--- NOTE | 2021-12-03 15:54 | XRR_ITS ---
PROCEDURE INFORMATION: Exam: XR Chest Exam date and time: 12/03/2021 4:13 PM Age: 71 years old Clinical indication: Pain; Chest pressure; Prior surgery; Surgery type: Stent, open heart; Additional info: Chest pain and dypsnea TECHNIQUE: Imaging protocol: XR of the chest. Views: 1 view. COMPARISON: CR XR chest 1V portable [id number] 05/12/2021 9:03 AM FINDINGS: Lungs: Cardiac silhouette size, and vascularity are somewhat accentuated, likely related to poor inspiration/expansion however clinical correlation for mild CHF should be obtained. Upper lungs are clear. Lung bases are suboptimally assessed. Increased retrocardiac opacity may be related to prominent overlying soft tissue however a retrocardiac consolidation/atelectasis and/or small pleural effusion cannot be excluded.. Pleural spaces: No pneumothorax. Heart/Mediastinum: As above. Bones/joints: No acute osseous findings. Sternotomy wires and CABG clips, new since prior exam. Other findings: Single view was submitted. XR/XR chest 1V portable [id number] IMPRESSION: 1. Accentuated cardiac silhouette size and vascularity. See discussion above. 2. Suboptimal lung base assessment with slightly increased retrocardiac opacity as described. Followup including lateral view may be obtained if clinically indicated.
[2021-12-03 15:55] VITALS: BP 155/98; PULSE 100; RESP 20; TEMP 36.9; O2SAT 97; BMI 43.4
--- NOTE | 2021-12-03 16:05 | ED_ITS ---
Documented by User: Milo Jenkins MD 12/03/21 16:50 HPI - SOB/Dyspnea General: Chief Complaint: Shortness of Breath/Dyspnea Stated Complaint: SOB, Chest Pain, High BP Time Seen by Provider: 12/03/21 15:59 Source: patient Mode of arrival: ambulatory Limitations: no limitations History of Present Illness: HPI Narrative: 71-year-old female was seen here this morning she had some numbness to her foot she had a Decadron shot. She also had some dizziness as well she states that all has resolved but she states that since being home she has been hypertensive and has been having high blood sugar. She states that she is also having chest pain in the center of her chest that is a sharp pain. States she had some dyspnea denies any vomiting or diarrhea. Associated symptoms: Reports chest pain; Deny abdominal pain, fever(s), nausea or vomiting Review of Systems Const: Denies: fever(s), chills, body aches or change in appetite Eyes: Denies: blurry vision or eye discomfort ENMT: Denies: throat pain or dental pain Card: Reports: chest pain Resp: Reports: dyspnea GI: Denies: abdominal pain, nausea, vomiting or diarrhea : Denies: dysuria Musc: Denies: neck pain or back pain Skin/Breast: Denies: rash Neuro: Denies: headache(s) Psych: Denies: depression Leonardo/Lymph: Denies: easy bruising All/Imm: Denies: urticaria PFSH ED PFSH: Medical History Bilateral renal stones Diabetes mellitus Hyperlipidemia Hypertension Osteoarthritis Surgical History H/O dilation and curettage H/O heart bypass surgery 2 times H/O vulvectomy H/O: H/O: hysterectomy Hx of cholecystectomy S/P ureteral stent placement Family History Mother , at age 93 Uterine cancer CAD (coronary artery disease) Father , at age 67 CAD (coronary artery disease) Social History Smoking and tobacco status: former smoker Alcohol intake: never Marital status: / Current occupational status: retired History of recent travel: No Physical Exam Const: COMMON NORMALS: patient oriented x3 HENMT: COMMON NORMALS: normocephalic and atraumatic HEAD & SCALP: normocephalic and atraumatic Eye: COMMON NORMALS: Equal, round and reactive pupils present and EOMs intact bilaterally PUPIL: Yes Equal, round and reactive pupils present Neck/C-Spine: COMMON NORMALS: full ROM and supple Chest: COMMONS NORMALS: normal inspection of the chest and normal palpation of entire chest wall Resp: COMMON NORMALS: normal respiratory effort, No retractions, No use of accessory muscles and clear to auscultation bilaterally AUSCULTATION: clear to auscultation bilaterally Cardio: COMMON NORMALS: regular rate, regular rhythm and No murmurs present (Cardio) RATE: regular rate RHYTHM: regular rhythm GI: COMMON NORMALS: Normal to inspection, nondistended, normoactive bowel sounds present, Soft to palpation, non-tender and no masses PALPATION: Yes Soft to palpation Extremity: COMMON NORMALS: normal to inspection and full ROM Neuro: COMMON NORMALS: patient oriented x3, moves all extremities and no focal motor deficits Psych: COMMON NORMALS: mental status grossly normal, Normal thought process present and cooperative THOUGHT PROCESS: Normal thought process present Skin: COMMON NORMALS: no rashes or lesions noted and no wounds GENERAL SKIN EXAM: no rashes or lesions noted Course Vital Signs: Vital signs: Vital Signs Temperature 98.4 F 12/03/21 15:55 Pulse Rate 100 12/03/21 15:55 Respiratory Rate 20 H 12/03/21 15:55 Blood Pressure 155/98 12/03/21 15:55 Pulse Oximetry 97 12/03/21 15:55 MDM - SOB/Dyspnea Lab Data : 12/03/21 16:08 12/03/21 19:50 Labs/Radiology: Radiology Impressions Chest X-Ray 12/03/21 15:54 IMPRESSION: 1. Accentuated cardiac silhouette size and vascularity. See discussion above. 2. Suboptimal lung base assessment with slightly increased retrocardiac opacity as described. Followup including lateral view may be obtained if clinically indicated. Laboratory Results WBC 12.0 10^3/uL (4.0-10.0) H 12/03/21 16:08 RBC 5.10 10^6/uL (4.1-5.3) 12/03/21 16:08 Hgb 14.1 g/dL (11.5-15.3) 12/03/21 16:08 Hct 43.3 % (37.0-47.0) 12/03/21 16:08 MCV 84.9 fl (81-99) 12/03/21 16:08 MCH 27.6 pg (28.0-34.0) L 12/03/21 16:08 MCHC 32.6 g/dL (30.0-36.0) 12/03/21 16:08 RDW 15.2 % (12.1-15.1) H 12/03/21 16:08 Plt Count 426 10^3/cmm (130-400) H 12/03/21 16:08 MPV 10.0 fL (7.4-10.4) 12/03/21 16:08 Neut % (Auto) 89.1 % 12/03/21 16:08 Lymph % (Auto) 7.6 % 12/03/21 16:08 [place] % (Auto) 2.0 % 12/03/21 16:08 Eos % (Auto) 0.1 % 12/03/21 16:08 Baso % (Auto) 0.2 % 12/03/21 16:08 Neut # (Auto) 10.70 10^3/uL (1.8-7.7) H 12/03/21 16:08 Lymph # (Auto) 0.9 10^3/uL (0.8-4.8) 12/03/21 16:08 [place] # (Auto) 0.2 10^3/uL (0.2-0.9) 12/03/21 16:08 Eos # (Auto) 0.0 10^3/uL (0.0-0.8) 12/03/21 16:08 Baso # (Auto) 0.0 10^3/uL (0.0-0.1) 12/03/21 16:08 Nucleated RBC % (auto) 0 % 12/03/21 16:08 Nucleated RBCs # 0.0 /100WBC 12/03/21 16:08 D-Dimer 0.51 ug/mIFEU (0-0.59) 12/03/21 16:08 Specimen Type Arterial 12/03/21 17:25 Sample Site Radial, left 12/03/21 17:25 ABG pH 7.43 (7.35-7.45) 12/03/21 17:25 ABG pCO2 28.3 mmHg (35-45) L 12/03/21 17:25 ABG pO2 79.9 mmHg (80.0-100.0) L 12/03/21 17:25 ABG HCO3 18.6 mmol/L (22-26) L 12/03/21 17:25 ABG Base Excess -4.5 mmol/L (-2.0-2.0) L 12/03/21 17:25 Jg Test Pos 12/03/21 17:25 Hematocrit 41.4 % (37-47) 12/03/21 17:25 O2 Delivery Device Room air 12/03/21 17:25 Chief Engineer'S Helper ID Gd 12/03/21 17:25 Sodium 135 mmol/L (136-145) L 12/03/21 19:50 Potassium 3.9 mmol/L (3.5-5.1) 12/03/21 19:50 Chloride 94 mmol/L (98-107) L 12/03/21 19:50 Carbon Dioxide 21 mmol/L (22-29) L 12/03/21 19:50 Anion Gap 23.9 (5-19) H 12/03/21 19:50 BUN 18 mg/dL (8-23) 12/03/21 19:50 Creatinine 1.2 mg/dL (0.5-0.9) H 12/03/21 19:50 GFR Calculation Not Reportable 12/03/21 19:50 Glucose 294 mg/dL (65-115) H 12/03/21 19:50 POC Glucose 277 mg/dL (70-110) H 12/03/21 19:25 Calculated Osmolality 293 mOsm/kg (285-295) 12/03/21 19:50 Calcium 8.7 mg/dL (8.5-10.5) 12/03/21 19:50 GGT 19 U/L (5-36) 12/03/21 17:49 AST 13 U/L (0-32) 12/03/21 17:49 ALT 13 U/L (0-33) 12/03/21 17:49 Lactate Dehydrogenase 137 U/L (135-214) 12/03/21 17:49 Troponin T Baseline 24 ng/L (0-10) H 12/03/21 16:08 Troponin T 120 Minute 62.23 ng/L (0-10) H 12/03/21 17:49 Delta Troponin T 38.23 ABS# (0-10) H* 12/03/21 17:49 NT-Pro-B Natriuret Pep 2495 pg/mL (0-125) H 12/03/21 16:08 Serum Ketones Negative (Negative) 12/03/21 16:14 Hepatitis A IgM Ab Non-reactive (Nonreactive) 12/03/21 16:15 Hep Bs Antigen Non-reactive (Nonreactive) 12/03/21 16:15 Hep Bs Antibody < 3.5 (11.5-1000) L 12/03/21 16:15 Hep B Core Total Ab Non-reactive (Nonreactive) 12/03/21 16:15 Hepatitis C Antibody Non-reactive (Nonreactive) 12/03/21 16:15 EKG Data EKG 1: I personally reviewed and interpreted this EKG as follows: EKG Interpretation Date: 12/03/21 EKG interpretation time: 16:09 Interpretation: sinus tach hr [address] or t wave abnormalities qrs 121 Discharge Plan Discharge Patient Disposition: Admitted As Inpatient Clinical Impression: Chest pain, Elevated troponin, Acute hyperglycemia Condition: Stable Coding Level of Care Code ED Bundle Collector for Chg Fwd Exam Comprehensive Documented by User: Vidal Gonzalez DO 12/03/21 20:58 HPI - SOB/Dyspnea General: Chief Complaint: Shortness of Breath/Dyspnea Stated Complaint: SOB, Chest Pain, High BP Time Seen by Provider: 12/03/21 15:59 PFSH ED PFSH: Medical History Bilateral renal stones Diabetes mellitus Hyperlipidemia Hypertension Osteoarthritis Surgical History H/O dilation and curettage H/O heart bypass surgery 2 times H/O vulvectomy H/O: H/O: hysterectomy Hx of cholecystectomy S/P ureteral stent placement Family History Mother , at age 93 Uterine cancer CAD (coronary artery disease) Father , at age 67 CAD (coronary artery disease) Social History Smoking and tobacco status: former smoker Alcohol intake: never Marital status: / Current occupational status: retired History of recent travel: No Course Consultations: Consultation #1: Rodri Vital Signs: Vital signs: Vital Signs Temperature 98.4 F 12/03/21 15:55 Pulse Rate 100 12/03/21 15:55 Respiratory Rate 20 H 12/03/21 15:55 Blood Pressure 155/98 12/03/21 15:55 Pulse Oximetry 97 12/03/21 15:55 MDM - SOB/Dyspnea Medical Decision Making 71-year-old lady checked out to me by Dr. Jenkins. She presents with chest discomfort and shortness of breath. She has a history of coronary disease status post CABG last year. Her chest pain is improved currently. Her white blood cell count is 12. Her creatinine is 1.2. Her baseline troponin was 24, but she has a delta of 38 at [address] changes on EKG at 02 hours. Her chest x-ray is significant for cardiomegaly and increased vascularity. Her BNP is also elevated. Her sugar was 500 on arrival on [facility], but after IV insulin fluid, is down to 294. Her pH was normal at 7.4. Serum ketones are negative she will be observed given her delta troponin and history. Lab Data : 12/03/21 16:08 12/03/21 19:50 Labs/Radiology: Radiology Impressions Chest X-Ray 12/03/21 15:54 IMPRESSION: 1. Accentuated cardiac silhouette size and vascularity. See discussion above. 2. Suboptimal lung base assessment with slightly increased retrocardiac opacity as described. Followup including lateral view may be obtained if clinically indicated. Laboratory Results WBC 12.0 10^3/uL (4.0-10.0) H 12/03/21 16:08 RBC 5.10 10^6/uL (4.1-5.3) 12/03/21 16:08 Hgb 14.1 g/dL (11.5-15.3) 12/03/21 16:08 Hct 43.3 % (37.0-47.0) 12/03/21 16:08 MCV 84.9 fl (81-99) 12/03/21 16:08 MCH 27.6 pg (28.0-34.0) L 12/03/21 16:08 MCHC 32.6 g/dL (30.0-36.0) 12/03/21 16:08 RDW 15.2 % (12.1-15.1) H 12/03/21 16:08 Plt Count 426 10^3/cmm (130-400) H 12/03/21 16:08 MPV 10.0 fL (7.4-10.4) 12/03/21 16:08 Neut % (Auto) 89.1 % 12/03/21 16:08 Lymph % (Auto) 7.6 % 12/03/21 16:08 [place] % (Auto) 2.0 % 12/03/21 16:08 Eos % (Auto) 0.1 % 12/03/21 16:08 Baso % (Auto) 0.2 % 12/03/21 16:08 Neut # (Auto) 10.70 10^3/uL (1.8-7.7) H 12/03/21 16:08 Lymph # (Auto) 0.9 10^3/uL (0.8-4.8) 12/03/21 16:08 [place] # (Auto) 0.2 10^3/uL (0.2-0.9) 12/03/21 16:08 Eos # (Auto) 0.0 10^3/uL (0.0-0.8) 12/03/21 16:08 Baso # (Auto) 0.0 10^3/uL (0.0-0.1) 12/03/21 16:08 Nucleated RBC % (auto) 0 % 12/03/21 16:08 Nucleated RBCs # 0.0 /100WBC 12/03/21 16:08 D-Dimer 0.51 ug/mIFEU (0-0.59) 12/03/21 16:08 Specimen Type Arterial 12/03/21 17:25 Sample Site Radial, left 12/03/21 17:25 ABG pH 7.43 (7.35-7.45) 12/03/21 17:25 ABG pCO2 28.3 mmHg (35-45) L 12/03/21 17:25 ABG pO2 79.9 mmHg (80.0-100.0) L 12/03/21 17:25 ABG HCO3 18.6 mmol/L (22-26) L 12/03/21 17:25 ABG Base Excess -4.5 mmol/L (-2.0-2.0) L 12/03/21 17:25 Jg Test Pos 12/03/21 17:25 Hematocrit 41.4 % (37-47) 12/03/21 17:25 O2 Delivery Device Room air 12/03/21 17:25 Chief Engineer'S Helper ID Gd 12/03/21 17:25 Sodium 135 mmol/L (136-145) L 12/03/21 19:50 Potassium 3.9 mmol/L (3.5-5.1) 12/03/21 19:50 Chloride 94 mmol/L (98-107) L 12/03/21 19:50 Carbon Dioxide 21 mmol/L (22-29) L 12/03/21 19:50 Anion Gap 23.9 (5-19) H 12/03/21 19:50 BUN 18 mg/dL (8-23) 12/03/21 19:50 Creatinine 1.2 mg/dL (0.5-0.9) H 12/03/21 19:50 GFR Calculation Not Reportable 12/03/21 19:50 Glucose 294 mg/dL (65-115) H 12/03/21 19:50 POC Glucose 277 mg/dL (70-110) H 12/03/21 19:25 Calculated Osmolality 293 mOsm/kg (285-295) 12/03/21 19:50 Calcium 8.7 mg/dL (8.5-10.5) 12/03/21 19:50 GGT 19 U/L (5-36) 12/03/21 17:49 AST 13 U/L (0-32) 12/03/21 17:49 ALT 13 U/L (0-33) 12/03/21 17:49 Lactate Dehydrogenase 137 U/L (135-214) 12/03/21 17:49 Troponin T Baseline 24 ng/L (0-10) H 12/03/21 16:08 Troponin T 120 Minute 62.23 ng/L (0-10) H 12/03/21 17:49 Delta Troponin T 38.23 ABS# (0-10) H* 12/03/21 17:49 NT-Pro-B Natriuret Pep 2495 pg/mL (0-125) H 12/03/21 16:08 Serum Ketones Negative (Negative) 12/03/21 16:14 Hepatitis A IgM Ab Non-reactive (Nonreactive) 12/03/21 16:15 Hep Bs Antigen Non-reactive (Nonreactive) 12/03/21 16:15 Hep Bs Antibody < 3.5 (11.5-1000) L 12/03/21 16:15 Hep B Core Total Ab Non-reactive (Nonreactive) 12/03/21 16:15 Hepatitis C Antibody Non-reactive (Nonreactive) 12/03/21 16:15 Discharge Plan Discharge Patient Disposition: Admitted As Inpatient Clinical Impression: Chest pain, Elevated troponin, Acute hyperglycemia Condition: Stable Coding Level of Care Code ED Bundle Collector for Dhaval Fwd Exam Comprehensive
[2021-12-03 16:18] LABS: Basophils % 0.2 %; Eosinophils % 0.1 %; Hematocrit 43.3 % (37.0-47.0); Hemoglobin 14.1 g/dL (11.5-15.3); Lymphocytes # 0.9 10^3/uL (0.8-4.8); Lymphocytes % 7.6 %; Mean Corpuscular HGB Conc 32.6 g/dL (30.0-36.0); Mean Corpuscular Hemoglobin 27.6 pg (28.0-34.0); Mean Corpuscular Volume 84.9 fl (81-99); Monocytes # 0.2 10^3/uL (0.2-0.9); Neutrophils % 89.1 %; Nucleated Red Blood Cells % 0 %; Platelet Count 426 10^3/cmm (130-400); Red Cell Distribution Width 15.2 % (12.1-15.1)
[2021-12-03 16:38] LABS: D Dimer 0.51 ug/mIFEU (0-0.59)
[2021-12-03 16:43] LABS: Troponin(5th) Baseline 24 ng/L (0-10)
[2021-12-03 16:49] LABS: Anion Gap 26.1 (5-19); Blood Urea Nitrogen 15 mg/dL (8-23); Calcium 8.8 mg/dL (8.5-10.5); Carbon Dioxide 17 mmol/L (22-29); Chloride 93 mmol/L (98-107); NT Pro B Type Natriuretic Pept 2495 pg/mL (0-125); Osmolality Calculated 297 mOsm/kg (285-295); Potassium 4.1 mmol/L (3.5-5.1); Sodium 132 mmol/L (136-145)
[2021-12-03] MEDS: insulin regular-human 100 units/1 mL 10 UNIT IVP ×2 (17:10→17:54)
[2021-12-03 17:15] LABS: Glucose Point of Care 406 mg/dL (70-110)
[2021-12-03 17:15] LABS: Hepatitis A Antibody IgM Non-Reactive (Nonreactive); Hepatitis B Core AB, Total Non-Reactive (Nonreactive); Hepatitis B Surface Antigen Non-Reactive (Nonreactive); Hepatitis C Virus Antibody Non-Reactive (Nonreactive)
[2021-12-03 17:16] LABS: Glucose 503 mg/dL (65-115)
[2021-12-03 17:18] LABS: Hepatitis B Surface AB < 3.5 (11.5-1000)
[2021-12-03 17:38] LABS: Ketone (Acetest) Serum Negative (Negative)
[2021-12-03 17:46] LABS: ABG PCO2 28.3 mmHg (35-45); ABG PH Result 7.43 (7.35-7.45); Arterial Blood Gas Hematocrit 41.4 % (37-47); Base Excess ABG -4.5 mmol/L (-2.0-2.0); Blood Gas Allen Test Pos; Blood Gas Operator Identificat GD; Blood Gas Sample Site Radial, left; Blood Gas Sample Type Arterial; HCO3 ABG 18.6 mmol/L (22-26); Oxygen Device ROOM AIR; PO2 ABG 79.9 mmHg (80.0-100.0)
--- NOTE | 2021-12-03 17:54 | ECG_ITS ---
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 Measurements Intervals [place] Rate: 90 P: 28 [place]: 153 QRS: -31 QRSD: 113 T: 29 QT: 393 QTc: 483 Interpretive Statements SINUS RHYTHM WITH FREQUENT VENTRICULAR PREMATURE COMPLEXES LEFT AXIS DEVIATION [QRS AXIS < -30] MODERATE INTRAVENTRICULAR CONDUCTION DELAY [110+ ms QRS DURATION] NONSPECIFIC ST & T-WAVE ABNORMALITY Compared to ECG 12/03/2021 16:09:04 Ventricular premature complex(es) now present Intraventricular conduction delay now present T-wave abnormality now present Sinus tachycardia no longer present Myocardial infarct finding no longer present Electronically Signed On 12-04-2021 16:28:51 CDT by Aj Isabel M.D. [id number]
[2021-12-03] MEDS: sodium chloride 0.9% 500 ML 999 ML IV (18:03)
[2021-12-03 18:17] LABS: Troponin 5 2HR 62.23 ng/L (0-10)
[2021-12-03 18:20] LABS: Alanine Aminotransferase 13 U/L (0-33); Aspartate Amino Transferase 13 U/L (0-32); Gamma Glutamyl Transferase 19 U/L (5-36); Lactate Dehydrogenase 137 U/L (135-214)
[2021-12-03 18:34] LABS: Troponin 5 2HR Delta 38.23 ABS# (0-10)
--- NOTE | 2021-12-03 18:35 | PC.NURSE ---
2hr Delta Troponin 38.[address] Gonzalez.
[2021-12-03 18:46] LABS: Glucose Point of Care 267 mg/dL (70-110)
[2021-12-03 19:29] LABS: Glucose Point of Care 277 mg/dL (70-110)
[2021-12-03 20:11] LABS: Anion Gap 23.9 (5-19); Blood Urea Nitrogen 18 mg/dL (8-23); Calcium 8.7 mg/dL (8.5-10.5); Carbon Dioxide 21 mmol/L (22-29); Chloride 94 mmol/L (98-107); Glucose 294 mg/dL (65-115); Osmolality Calculated 293 mOsm/kg (285-295); Potassium 3.9 mmol/L (3.5-5.1); Sodium 135 mmol/L (136-145)
[2021-12-03] MEDS: enoxaparin 100 mg/mL Syringe SUBCUT (21:53)
--- NOTE | 2021-12-03 21:54 | ECG_ITS ---
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 Measurements Intervals [place] Rate: 83 P: 12 [place]: 151 QRS: -26 QRSD: 110 T: 26 QT: 390 QTc: 458 Interpretive Statements SINUS RHYTHM WITH OCCASIONAL VENTRICULAR PREMATURE COMPLEXES POSSIBLE ANTERIOR MYOCARDIAL INFARCTION , OF INDETERMINATE AGE [30 ms Q WAVE IN V3/V4, OR R < 0.2 mV IN V4] Compared to ECG 12/03/2021 17:46:09 Myocardial infarct finding now present Left-axis deviation no longer present Intraventricular conduction delay no longer present T-wave abnormality no longer present Electronically Signed On 12-04-2021 16:30:48 CDT by Aj Isabel M.D. [email or web address] and [email or web address] Investmentsge[facility] hospitalX[facility]ility[facility].[email or web address]/store/[id number]
[2021-12-03 22:16] LABS: Troponin 5 6HR 101.9 ng/L (0-10); Troponin 5 6HR Delta 77.9 ng/L (0-12)
[2021-12-03 22:23] VITALS: BP 158/91; PULSE 91; RESP 16; O2SAT 95
[2021-12-03 22:53] VITALS: BP 110/77; PULSE 84; RESP 18; TEMP 36.8; O2SAT 94
[2021-12-03 23:23] VITALS: BP 110/77; PULSE 84; RESP 18; TEMP 36.8; O2SAT 94
[2021-12-03 23:31] VITALS: BP 115/93; PULSE 87; RESP 18; TEMP 36.8; O2SAT 96
--- NOTE | 2021-12-03 23:59 | PM.HP ---
Providers/Chief Complaint Admitting Physician: Luis Mace MD Primary Care Provider: Keo Cook MD Chief Complaint: SOB, Chest Pain, High BP History of Present Illness Laverne Perez is a 71 year old female with past medical history of hypertension, diabetes, former smoker , coronary artery disease s/p CABG FIELDS to LAD and SVG to OM1, in May 2021 , came in today with chief complaint of Acute onset of substernal chest pain pressure-like 7 out of 10 in severity, intermittent, 4 episodes, started around 3 PM Spontaneously resolved, accompanied with shortness of breath. She denied any sweating ,palpitation ,dizziness, nausea vomiting, cough fever, abdominal pain. Earlier in the day she was discharged from the ER after being worked up for numbness in her left lower extremity: At that time bilateral lower extremity Doppler was done to rule out DVT, as well as Arterial duplex scan was also obtained showing a left DANIEL of 0.78 suggesting mild to moderate peripheral arterial disease, peripheral pulses are intact.She was placed on a tapering dose of steroid for likely peripheral nerve entrapment. Upon arrival in the ER she was worked up for above-mentioned complaint. Pertinent imaging studies: X-ray chest: No effusion no infiltrate no pneumothorax,Cardiac silhouette size, and vascularity are somewhat accentuated. EKG: Sinus rhythm with PVCs Pertinent labs: WBC 12, H&H:14/43 , plt :426 , serum sodium 135, serum potassium 3.9, serum bicarb 21, BUN and serum creatinine : 18/1.2. , Random blood sugar: 503 , Troponin trend: 24,62,101 , proBNP:2495 Review of Systems General: Reports: 10 or more systems reviewed and unremarkable except in HPI and below Const: Denies: fever(s), chills, body aches, change in appetite or diaphoresis Card: Denies: palpitations, edema, swelling of feet/ankles, dyspnea on exertion, orthopnea or leg pain with exertion Resp: Denies: dyspnea, productive cough, wheezing or pain on inspiration GI: Denies: abdominal pain, nausea, vomiting, diarrhea or constipation : Denies: flank pain Musc: Denies: back pain, extremity pain or extremity swelling Neuro: Denies: headache(s), difficulty walking or confusion Medications/Allergies Home Medications Medication Instructions Recorded Confirmed Last Taken Type meloxicam 15 mg tablet 15 mg PO DAILY 05/12/21 12/01/21 05/11/21 History metformin 1,000 mg tablet 1,000 mg PO BID 05/12/21 12/01/21 05/11/21 History pioglitazone 15 mg tablet 15 mg PO DAILY MDD see pharmacy 05/12/21 12/01/21 Unknown History comment aspirin 81 mg chewable tablet 325 mg PO DAILY tab 07/19/21 12/01/21 09/26/21 History atorvastatin 80 mg tablet 80 mg PO DAILY 07/19/21 12/01/21 Unknown History losartan 100 mg tablet 25 mg PO DAILY tab 07/19/21 12/01/21 Unknown History magnesium L-lactate 84 mg 84 mg PO DAILY #90 tab 07/20/21 12/01/21 Unknown Rx tablet,extended release (Magtab) cephalexin 500 mg capsule 500 mg PO BID 14 Days #28 cap 09/27/21 10/17/21 Unknown Rx oxycodone 5 mg capsule 5 mg PO Q6H PRN 5 Days #20 cap 09/29/21 12/01/21 Unknown Rx metoprolol succinate 50 mg 50 mg PO DAILY #90 tab 10/06/21 12/01/21 Unknown Rx tablet,extended release 24 hr furosemide 40 mg tablet 60 mg PO DIRECTED #135 tab 10/20/21 12/01/21 Unknown Rx potassium chloride 20 mEq 30 meq PO DIRECTED #135 tab 10/20/21 12/01/21 Unknown Rx tablet,extended release(part/cryst) (Klor-Con M) methylprednisolone 4 mg tablets in See Rx Instructions .ROUTE 12/03/21 Unknown Rx a dose pack (Medrol (Peter)) .COMPLEX #21 ea Allergies Allergy/AdvReac Type Severity Reaction Status Date / Time No Known Allergies Allergy Verified 12/01/21 08:05 PFSH Acute PFSH: Medical History Bilateral renal stones Diabetes mellitus Hyperlipidemia Hypertension Osteoarthritis Surgical History H/O dilation and curettage H/O heart bypass surgery 2 times H/O vulvectomy H/O: H/O: hysterectomy Hx of cholecystectomy S/P ureteral stent placement Family History Mother , at age 93 Uterine cancer CAD (coronary artery disease) Father , at age 67 CAD (coronary artery disease) Social History Smoking and tobacco status: former smoker Alcohol intake: never Marital status: / Current occupational status: retired History of recent travel: No Vitals/I&O/Wt Last Vital Signs Temp 98.3 F 12/03/21 23:23 Pulse 84 12/03/21 23:23 Resp 18 12/03/21 23:23 BP 110/77 12/03/21 23:23 Pulse Ox 94 12/03/21 23:23 12/03/21 12/03/21 12/04/21 14:59 22:59 06:59 Intake Total 500 / 500 Balance 500 / 500 Weight last 48 hrs Weight 111.13 kg Physical Exam Const: COMMON NORMALS: patient oriented x3 HENMT: COMMON NORMALS: normocephalic and atraumatic HEAD & SCALP: normocephalic and atraumatic Chest: CHEST: Yes Symmetrical chest wall rise Resp: COMMON NORMALS: normal respiratory effort and clear to auscultation bilaterally AUSCULTATION: clear to auscultation bilaterally Cardio: COMMON NORMALS: regular rate, regular rhythm, S1 normal heart sound present, S2 normal heart sound present, No gallops present (Cardio), No murmurs present (Cardio), No rub (Cardio) and Peripheral pulses 2+ throughout RATE: regular rate RHYTHM: regular rhythm HEART SOUNDS: S1 normal heart sound present and S2 normal heart sound present PERIPHERAL PULSES: Peripheral pulses 2+ throughout GI: COMMON NORMALS: Normal to inspection, nondistended, normoactive bowel sounds present, Soft to palpation, non-tender, No hepatosplenomegaly present and no masses AUSCULTATION: Yes normoactive bowel sounds PALPATION: Yes Soft to palpation and Yes No hepatosplenomegaly present RECTAL EXAM: deferred Extremity: COMMON NORMALS: no clubbing, cyanosis or edema and no pedal edema Neuro: COMMON NORMALS: patient oriented x3 Data : 12/03/21 16:08 12/03/21 19:50 A&P Assessment and plan (1) Hypertension: Status: Acute Qualifiers: Hypertension type: primary hypertension Qualified Code(s): I10 - Essential (primary) hypertension (2) Coronary artery disease: Status: Acute Qualifiers: Coronary Disease-Associated Artery/Lesion type: bypass graft [place] vs. transplanted heart: [place] heart Associated angina: without angina Qualified Code(s): I25.810 - Atherosclerosis of coronary artery bypass graft(s) without angina pectoris (3) NSTEMI (non-ST elevated myocardial infarction): Status: Acute (4) Diabetes: Status: Acute (5) CKD (chronic kidney disease) stage 3, GFR 30-59 ml/min: Status: Acute Plan 71 year old female with past medical history of hypertension, diabetes, former smoker , coronary artery disease s/p CABG FIELDS to LAD and SVG to OM1, in May 2021 , came in today with chief complaint of Acute onset of substernal chest pain pressure-like 7 out of 10 in severity, intermittent, 4 episodes, started around 3 PM Spontaneously resolved, accompanied with shortness of breath. Assessment: NSTEMI: Follow 2D echo Continue telemetry monitoring Currently on ACS protocol (aspirin statin beta-leanna therapeutic anticoagulation) Sublingual nitro as needed Consult cardiology in the morning for possible stress test versus cardiac cath. Currently patient is chest pain-free. History of diabetes: Continue SSI, monitor fingerstick glucose. Carbohydrate consistent diet Hypertension: Continue losartan , metoprolol succinate History of coronary artery disease s/p CABG CKD stage III: Admission serum creatinine:1.2 Baseline serum creatinine: 1.3-1.9 Monitor BMP Monitor intake output charting Avoid nephrotoxic's CODE STATUS: Full code DVT prophylaxis: On Lovenox Attestations Medical Necessity Statement*: Patient is to be in hospital for management of NSTEMI.Anticipated length of stay greater than 2 midnights. Time Spent in Patient Care: Greater than 35 minutes (>than 50% of time spent in counselling and/or direct pt care on unit). Coding Level of Care Code Acute Account Management Specialist for [facility] Fwhelena Diagnoses Hypertension I10 Hypertension type: primary hypertension Coronary artery disease I25.810 Coronary Disease-Associated Artery/Lesion type: bypass graft [place] vs. transplanted heart: [place] heart Associated angina: without angina NSTEMI (non-ST elevated myocardial infarction) I21.4 Diabetes E11.9 CKD (chronic kidney disease) stage 3, GFR 30-59 ml/min N18.30
[2021-12-04] VITALS (13 sets, daily range): BP systolic 114–155; BP diastolic 73–95; PULSE 74–97; RESP 16–18; TEMP 36.4–36.8; O2SAT 92–99
--- NOTE | 2021-12-04 00:01 | USCV_ITS ---
Laverne Perez Age: 71 Gender: F : 1950 Exam Date: 12/04/2021 02:50 Ordering Phys: Luis Mace MD Technologist: Kendall Mancilla Exam Location: [facility] [place] Indication: chest pain BP: 110 / 77 HR: 88 Rhythm: Sinus Technical Quality: Adequate MEASUREMENTS (Male / Female) Normal Values 2D ECHO LV Diastolic Diameter PLAX 4.2 cm 4.2 - 5.9 / 3.9 - 5.3 cm LV Systolic Diameter PLAX 3.3 cm IVS Diastolic Thickness 1.7 cm 0.6 - 1.0 / 0.6 - 0.9 cm IVS Systolic Thickness 1.7 cm LVPW Diastolic Thickness 2.0 cm 0.6 - 1.0 / 0.6 - 0.9 cm LVPW Systolic Thickness 2.3 cm LVOT Diameter 1.9 cm LV Ejection Fraction 2D Teich 48.7 % LV Ejection Fraction MOD 2C 51.1 % LV Ejection Fraction 2C AL 50.4 % LA Diameter 3.7 cm Aorta at Sinotubular Diameter 3.1 cm M-MODE Aortic Annulus Diameter 2.5 cm LA Ao Ratio MM 1.5 MV E Point Septal Separation 1.5 cm DOPPLER AV Peak Velocity 118.0 cm/s LVOT Peak Velocity 65.0 cm/s AV Area Cont Eq vti 1.1 cm squared AV Area Cont Eq pk 1.6 cm squared MV Area PHT 3.5 cm squared Mitral E to A Ratio 0.8 MV E' Velocity 39.5 cm/s Mitral E to MV E' Ratio 6.5 Mitral E to LV E' Lateral Ratio 4.5 Mitral E to LV E' Septal Ratio 11.5 PV Peak Velocity 115.0 cm/s FINDINGS Left Ventricle Normal left ventricular size. LV systolic function is mildly reduced with EF of 45-50%. Accurate assessment of regional wall motion abnormalities is not possible because of poor visualization. Septal motion is consistent with prior cardiac surgery. Grade 1 diastolic dysfunction Right Ventricle The right ventricle is normal in size and function. Right Atrium The right atrium is normal in size. Left Atrium The left atrium is normal in size. Mitral Valve Mild mitral annular calcification without significant stenosis or prolapse. There is mild mitral regurgitation. Aortic Valve Aortic valve is thickened without significant stenosis. There is no aortic regurgitation. Tricuspid Valve Structurally normal tricuspid valve without significant stenosis or regurgitation. Pulmonary artery systolic pressure is normal. Pulmonic Valve Not well visualized Pericardium Normal pericardium without effusion. Aorta Normal ascending aorta dimension. IVC CONCLUSIONS Technically limited quality echocardiogram because of poor ultrasonic windows. LV systolic function is mildly reduced with EF of 45 to 50%. Accurate assessment of regional wall motion abnormalities is not possible because of poor visualization. Septal motion is consistent with prior cardiac surgery. Grade 1 diastolic dysfunction. Mild mitral regurgitation. Compared to prior echocardiogram from 05/13/2021, LV systolic function has mildly decreased Felix Albarran MD (Electronically Signed) Final Date: 04 December 2021 12:31 S
[2021-12-04] MEDS: insulin glargine 100 units/1 mL 20 UNIT SUBCUT (01:29)
[2021-12-04 04:27] LABS: Basophils % 0.2 %; Eosinophils % 0.1 %; Hematocrit 38.4 % (37.0-47.0); Hemoglobin 12.3 g/dL (11.5-15.3); Lymphocytes # 1.7 10^3/uL (0.8-4.8); Lymphocytes % 13.6 %; Mean Corpuscular Hemoglobin 27.3 pg (28.0-34.0); Mean Corpuscular Volume 85.3 fl (81-99); Mean Platelet Volume 10.1 fL (7.4-10.4); Monocytes # 1.1 10^3/uL (0.2-0.9); Monocytes % 8.8 %; Neutrophils # 9.51 10^3/uL (1.8-7.7); Neutrophils % 76.7 %; Nucleated Red Blood Cells % 0 %; Platelet Count 403 10^3/cmm (130-400); Red Cell Distribution Width 15.4 % (12.1-15.1); White Blood Count 12.4 10^3/uL (4.0-10.0)
[2021-12-04 04:38] LABS: Anion Gap 19.7 (5-19); Blood Urea Nitrogen 20 mg/dL (8-23); Calcium 8.7 mg/dL (8.5-10.5); Carbon Dioxide 24 mmol/L (22-29); Chloride 96 mmol/L (98-107); Chol HDL Ratio 3.18 mg/dL (0.0-4.40); Cholesterol 108 mg/dL (0-200); Glucose 326 mg/dL (65-115); HDL Cholesterol 34 mg/dL (60-100); LDL Cholesterol Calculated 36 mg/dL (50-129); LDL HDL Ratio 1.06 RATIO (0.00-3.22); Magnesium 1.4 mg/dL (1.7-2.3); Osmolality Calculated 297 mOsm/kg (285-295); Potassium 3.7 mmol/L (3.5-5.1); Sodium 136 mmol/L (136-145); Triglycerides 191 mg/dL (0-150)
--- NOTE | 2021-12-04 08:57 | PC.PHAR ---
pt states she takes care of her own medications-pt states she takes the medications entered-rx written on 12/03/21 for medrol giuseppe pt states she didnt fill
--- NOTE | 2021-12-04 09:25 | PM.CONSULT ---
Providers/Reason For Consult Consulting Physician/Specialty*: Felix Albarran MD/ Cardiology Reason for Consult*: NSTEMI Requesting Physician: Dr Cooper Attending Physician: Tiffany Cooper MD Primary Care Provider: Keo Cook MD History of Present Illness History of Present Illness Laverne Perez is a 71 year old female with past medical history of hypertension, smoking, coronary artery disease s/p CABG with FIELDS to LAD and SVG to OM done in May 2021 has presented with complaints of substernal chest pain. It felt like pressure and has been intermittently present since yesterday afternoon. No pain this morning. EKG has not shown significant ischemic changes however troponins were trended up significantly from 24 at baseline to 101 at 6 hours. Review of Systems General: Reports: 10 or more systems reviewed and unremarkable except in HPI and below Const: Denies: fever(s), chills, body aches, change in appetite or diaphoresis Card: Reports: chest pain; Denies: palpitations, edema, swelling of feet/ankles, dyspnea on exertion, orthopnea or leg pain with exertion Resp: Denies: dyspnea, productive cough, wheezing or pain on inspiration GI: Denies: abdominal pain, nausea, vomiting, diarrhea or constipation : Denies: flank pain Musc: Denies: back pain, extremity pain or extremity swelling Neuro: Denies: headache(s), difficulty walking or confusion Medications/Allergies Home Medications Medication Instructions Recorded Confirmed Last Taken Type meloxicam 15 mg tablet 15 mg PO DAILY 05/12/21 12/04/21 05/11/21 History metformin 1,000 mg tablet 1,000 mg PO BID 05/12/21 12/04/21 05/11/21 History pioglitazone 15 mg tablet 15 mg PO QAM 05/12/21 12/04/21 Unknown History atorvastatin 80 mg tablet 80 mg PO QAM 07/19/21 12/04/21 Unknown History losartan 100 mg tablet 100 mg PO QAM tab 07/19/21 12/04/21 Unknown History magnesium L-lactate 84 mg 84 mg PO DAILY #90 tab 07/20/21 12/04/21 Unknown Rx tablet,extended release (Magtab) oxycodone 5 mg capsule 5 mg PO Q6H PRN 5 Days #20 cap 09/29/21 12/04/21 Unknown Rx metoprolol succinate 50 mg 50 mg PO DAILY #90 tab 10/06/21 12/04/21 Unknown Rx tablet,extended release 24 hr methylprednisolone 4 mg tablets in See Rx Instructions .ROUTE 12/03/21 12/04/21 Unknown Rx a dose pack (Medrol (Peter)) .COMPLEX #21 ea ascorbic acid (vitamin C) 500 mg 500 mg PO DAILY 12/04/21 12/04/21 Unknown History tablet (Vitamin C) aspirin 325 mg tablet 325 mg PO QAM 12/04/21 12/04/21 Unknown History furosemide 40 mg tablet See Rx Instructions .ROUTE .COMPLEX 12/04/21 12/04/21 Unknown History jnkahnfh-uhg-kxohhse 800 mcg 1 tab PO DAILY 12/04/21 12/04/21 Unknown History DFE-vitamin K 150 mcg-herb no.289 tablet (Alive Women's 50 Plus Ultra Potency) potassium chloride 20 mEq See Rx Instructions .ROUTE .COMPLEX 12/04/21 12/04/21 Unknown History tablet,extended release(part/cryst) (Ledy-Con Norma) Allergies Allergy/AdvReac Type Severity Reaction Status Date / Time No Known Allergies Allergy Verified 12/04/21 08:58 Current Medications Generic Name Dose Route Start Last Admin Trade Name Freq PRN Reason Stop Dose Admin Enoxaparin Sodium 110 mg 12/03/21 09:00 12/03/21 23:54 Enoxaparin 120 Mg/0.8 Ml Syringe SUBCUT Not Given Q12H PARAG PFSH Acute PFSH: Medical History Bilateral renal stones Diabetes mellitus Hyperlipidemia Hypertension Osteoarthritis Surgical History H/O dilation and curettage H/O heart bypass surgery 2 times H/O vulvectomy H/O: H/O: hysterectomy Hx of cholecystectomy S/P ureteral stent placement Family History Mother , at age 93 Uterine cancer CAD (coronary artery disease) Father , at age 67 CAD (coronary artery disease) Social History Smoking and tobacco status: former smoker Alcohol intake: never Marital status: / Current occupational status: retired History of recent travel: No Vitals/I&O/Wt Last Vital Signs Temp 97.5 F L 12/04/21 08:00 Pulse 92 12/04/21 08:00 Resp 18 12/04/21 08:00 BP 140/80 12/04/21 08:00 Pulse Ox 96 12/04/21 08:00 12/03/21 12/04/21 12/04/21 22:59 06:59 14:59 Intake Total 500 / 500 Balance 500 / 500 Weight last 48 hrs Weight 245 lb Physical Exam Narrative: GENERAL: Patient is alert, awake and oriented x3. [] NECK: No jugular vein distension. [] HEENT: No cyanosis. No icterus. No pallor. [] HEART: Regular S1 and S2. No murmur, rub or gallop. [] LUNGS: Clear to auscultate bilaterally. [] ABDOMEN: Soft, nontender and nondistended. Positive bowel sounds. No guarding, rebound or tenderness. [] CENTRAL NERVOUS SYSTEM: Grossly nonfocal. [] EXTREMITIES: Lower extremities with no edema bilaterally. Pulses palpable in the lower extremities, both dorsalis pedis and posterior tibial. [] Data : 12/04/21 04:07 12/04/21 04:07 A&P Assessment and plan (1) CKD (chronic kidney disease) stage 3, GFR 30-59 ml/min: Status: Acute (2) Diabetes: Status: Acute (3) NSTEMI (non-ST elevated myocardial infarction): Status: Acute (4) Diabetes mellitus: Status: Acute Qualifiers: Diabetes mellitus complication status: without complication Diabetes mellitus termite technician insulin use: without termite technician use Diabetes mellitus type: type 2 Qualified Code(s): E11.9 - Type 2 diabetes mellitus without complications (5) Hypertension: Status: Acute Qualifiers: Hypertension type: primary hypertension Qualified Code(s): I10 - Essential (primary) hypertension (6) Coronary artery disease: Status: Acute Qualifiers: Coronary Disease-Associated Artery/Lesion type: bypass graft [place] vs. transplanted heart: [place] heart Associated angina: without angina Qualified Code(s): I25.810 - Atherosclerosis of coronary artery bypass graft(s) without angina pectoris (7) Hyperlipidemia: Status: Acute Qualifiers: Hyperlipidemia type: mixed hyperlipidemia Qualified Code(s): E78.2 - Mixed hyperlipidemia Plan Patient has presented with non-ST elevation OR. She had recent CABG performed last year. We will proceed with coronary angiogram with possible percutaneous coronary intervention tomorrow. N.p.o. past midnight. Risks and benefits of the procedure have been discussed with the patient who understands these and wants to proceed with it. Continue aspirin and Plavix. Anticoagulation with Lovenox Order echocardiogram Thank you for involving us with care of this patient. We will continue to follow. Please call with questions. 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 transplanted heart: [place] heart Associated angina: without angina Hyperlipidemia E78.2 Hyperlipidemia type: mixed hyperlipidemia
[2021-12-04] MEDS: insulin lispro 100 unit/1 mL SUBCUT ×4 (09:47→22:40)
[2021-12-04] MEDS: aspirin 81 mg EC Tablet PO (09:49)
[2021-12-04] MEDS: enoxaparin 120 mg/0.8 mL Syringe 110 MG SUBCUT ×2 (09:49→21:18)
[2021-12-04] MEDS: atorvastatin 40 mg Tablet 80 MG PO (09:49)
[2021-12-04] MEDS: losartan 50 mg Tablet 25 MG PO (09:50)
[2021-12-04] MEDS: FUROsemide 40 mg Tablet PO ×2 (09:50→17:52)
[2021-12-04] MEDS: metoprolol succinate ER (24 HR) 50 mg Tablet PO (09:50)
[2021-12-04] MEDS: magnesium lactate 84 mg Tablet PO (09:50)
--- NOTE | 2021-12-04 09:54 | PC.CHAP ---
Pastoral Care Encounter/Spiritual Assessment Type of Contact [] Declined rate and cost analyst visit [] Patient/Family/Request visit [] Outpatient visit [] Follow-up visit [] Physician referral [] Code/Alert [x] Routine visit [] Staff referral [] Actively dying [] Patient sleeping [] Family support [] [] Out of room [] Palliative care [] [] Receiving care in room [] Pre-surgical visit [] Trauma [] Long length of stay [] ICU visit [] Other: Relational/Emotional Strength [] Patient feels connected with others/family/visitors/staff [] Distress [] Loneliness/isolation [] Abandonment Spirituality of Patient [x] Person of Delmi [] Attends Latter Day of their [place] [x] Believes in Prayer [] Reads Bible or Orthodoxy materials [] There are Spiritual issues to be addressed Lead Auditor Interventions [x] Prayer [x] Active listening x[x] Non-anxious presence [] Spiritual/emotional support [] Crisis/trauma care [] Spiritual counseling [] Bereavement support [] Provided bereavement packet [] Provided Bible/devotional materials [] Provided toy/stuffed animal, coloring book to patient or family member [] Provided Communion [] Anointing/[place] [] Salvation [x] Completed spiritual assessment [] Other: Impact on Illness or Injury [] Angry [] Fearful [] Anxious [] Often cries [] Exhaustion [] Unable to work [] Unable to attend cheondoism [] Unable to walk/stand [] Unable to read [] Unable to drive [] Unable to eat/drink [] Unable to sleep [] Unable to be with family [] Patient intubated [] Other: Summary Time spent with patient 5 min
[2021-12-04 12:09] LABS: Glucose Point of Care 208 mg/dL (70-110)
--- NOTE | 2021-12-04 15:25 | PM.PN ---
Subjective Subjective: Seen this AM. denies shortness of breath. No acute events overnight. No chest pain Vitals/I&O/Wt Last Vital Signs Temp 97.9 F 12/04/21 12:00 Pulse 74 12/04/21 12:00 Resp 16 12/04/21 12:00 BP 143/81 12/04/21 12:00 Pulse Ox 92 12/04/21 12:00 12/04/21 12/04/21 12/04/21 06:59 14:59 22:59 Intake Total 350 / 350 Balance 350 / 350 Weight last 48 hrs Weight 111.13 kg Physical Exam Narrative: General: Alert oriented x3, patient seen sitting up in bed appearing comfortable, obese large female. HEENT: Normocephalic, atraumatic, EOMI, breathing normally Cardio: Regular rate rhythm, normal S1-S2, no murmurs rubs gallops, Respiratory: Good bilateral air entry, no wheezes no rhonchi appreciated, clear to auscultation bilaterally GI: Abdomen soft, nontender, nondistended, bowel sounds + Behavior: Appropriate and cooperative Extremities: Trace bilateral lower extremity edema , no cyanosis Data : 12/04/21 04:07 12/04/21 04:07 A&P Assessment and plan (1) CKD (chronic kidney disease) stage 3, GFR 30-59 ml/min: Status: Acute (2) Diabetes: Status: Acute (3) NSTEMI (non-ST elevated myocardial infarction): Status: Acute (4) Unstable angina pectoris: Status: Acute (5) Diabetes mellitus: Status: Acute Qualifiers: Diabetes mellitus complication status: without complication Diabetes mellitus retirement insulin use: without retirement use Diabetes mellitus type: type 2 Qualified Code(s): E11.9 - Type 2 diabetes mellitus without complications (6) Hypertension: Status: Acute Qualifiers: Hypertension type: primary hypertension Qualified Code(s): I10 - Essential (primary) hypertension (7) Multiple vessel coronary artery disease: Status: Acute (8) Coronary artery disease: Status: Acute Qualifiers: Coronary Disease-Associated Artery/Lesion type: bypass graft [place] vs. transplanted heart: [place] heart Associated angina: without angina Qualified Code(s): I25.810 - Atherosclerosis of coronary artery bypass graft(s) without angina pectoris (9) Hyperlipidemia: Status: Acute Qualifiers: Hyperlipidemia type: mixed hyperlipidemia Qualified Code(s): E78.2 - Mixed hyperlipidemia Plan 71 year old female?with past medical history of hypertension, diabetes, former smoker , coronary artery disease? s/p CABG FIELDS to LAD and SVG to OM1, in May 2021 , came in today with chief complaint of Acute onset of substernal chest pain pressure-like 7 out of 10 in severity, intermittent, 4 episodes, started around 3 PM Spontaneously resolved, accompanied with shortness of breath. Assessment: NSTEMI: Echo pending. Continue telemetry monitoring Currently on ACS protocol (aspirin statin beta-leanna therapeutic anticoagulation) Sublingual nitro as needed Cardiology consulted. Patient will go for angiogram in the morning. N.p.o. at midnight today. History of diabetes: Continue SSI, monitor fingerstick glucose. Carbohydrate consistent diet Hypertension: Continue losartan , metoprolol succinate History of coronary artery disease s/p CABG CKD stage III: Admission serum creatinine:1.2 Baseline serum creatinine: 1.3-1.9 Monitor BMP Monitor intake output charting Avoid nephrotoxic's CODE STATUS: Full code DVT prophylaxis: On Lovenox Attestations Medical Necessity Statement*: Patient need to stay in the hospital for management of NSTEMI she will go for angiogram in the morning Coding Level of Care Code Acute Edge Grinder for [facility] Fwd Diagnoses CKD (chronic kidney disease) stage 3, GFR 30-59 ml/min N18.30 Diabetes E11.9 NSTEMI (non-ST elevated myocardial infarction) I21.4 Unstable angina pectoris I20.0 Diabetes mellitus E11.9 Diabetes mellitus complication status: without complication Diabetes mellitus long term care phlebotomist insulin use: without long term care phlebotomist use Diabetes mellitus type: type 2 Hypertension I10 Hypertension type: primary hypertension Multiple vessel coronary artery disease I25.10 Coronary artery disease I25.810 Coronary Disease-Associated Artery/Lesion type: bypass graft [place] vs. transplanted heart: [place] heart Associated angina: without angina Hyperlipidemia E78.2 Hyperlipidemia type: mixed hyperlipidemia
[2021-12-04 17:36] LABS: Glucose Point of Care 272 mg/dL (70-110)
[2021-12-04 21:54] LABS: Glucose Point of Care 260 mg/dL (70-110)
[2021-12-05] VITALS (31 sets, daily range): BP systolic 102–171; BP diastolic 63–107; PULSE 73–89; RESP 9–21; TEMP 36.4–37.1; O2SAT 91–97
--- NOTE | 2021-12-05 05:38 | XACV_ITS ---
Exam Room: [facility] Ht: 160 cm Wt: 111 kg BSA: 2.29 m2 Gender: Female : 1950 Any Known Allergies: No known allergies Exam Priority: Routine Procedure(s): Procedure Description: Diagnostic procedure Procedure Description: Left Heart Catheterization Procedure Description: Left ventriculography Procedure Description: Coronary Angiography Diagnostic Cath Status: Urgent Diagnostic Findings * 71-year-old woman with past medical history of hypertension, smoking, coronary artery disease s/p CABG x2 with FIELDS to LAD and SVG to obtuse marginal done in May 2021. She was admitted with non-ST elevation myocardial infarction. Echocardiogram with decrease in left ventricular systolic function and hypokinesis of mid inferolateral and apical lateral fernandez. * Distal left main severe 90% stenosis. * Ostial LAD with 90% stenosis. * P * roximal LAD with 70% stenosis. Mid LAD with 80% stenosis. Patent FIELDS to mid LAD. Distal LAD is a small vessel. * Ostial circumflex 80% stenosis. Mid to distal circumflex with 70 to 80% stenosis. Competitive flow noted at the anastomotic site of vein graft to second obtuse marginal branch. Vein graft to obtuse marginal could not be cannulated in spite of multiple attempts using JR4, LCB and AL-1 catheters. * Dominant heavily calcified right coronary artery. Mid right coronary artery with 80% stenosis. Distal right coronary artery is small calcified vessel and has 90% stenosis. Distal right coronary artery to AV groove is totally occluded and fills via collaterals from LAD and circumflex arteries. Conclusions 1. Multivessel coronary artery disease. 2. Patent FIELDS to mid LAD. 3. Vein graft to obtuse marginal could not be cannulated in spite of multiple attempts using JR4, LCB and AL-1 catheters. Competitive flow noted at the anastomotic site of vein graft to second obtuse marginal branch. Procedure was stopped to avoid excessive contrast use. Recommendations * Continue with medical management. May consider doing outpatient cardiac CT angiogram to assess vein graft to obtuse marginal. Diagnostic RX Recommendation: medical therapy and/or counseling LV EDP: 4 mmHg Left Ventriculography Findings: * Left Ventriculogram not performed to minimize contrast use. Pressures Phase:Rest AO : / ( 0 ) @ 9:50:00 AM 116 / 65 ( 85 ) @ 10:17:00 AM 116 / 57 ( 84 ) @ 10:17:00 AM 159 / 62 ( 86 ) @ 10:19:00 AM 103 / 54 ( 78 ) @ 10:23:00 AM 105 / 55 ( 75 ) @ 10:52:00 AM LV : 120 / -7 / 11 @ 10:16:00 AM 118 / -6 / 4 @ 10:17:00 AM Hemodynamic Findings LVEDP is 4 mmHg. Valves Phase:DefaultPhase AV : 0.0 @ 10:09:24 AM AV Mean Gradient: 0.0 @ 10:09:24 AM Clinical Evaluation EBL: 5mL-10mL Procedural Details Pre-Procedure Time Out. Identified patient by full name and date of as verbalized by the patient/guarantor. Does the consent match the physician's order: Yes. Accurate & Complete Informed Consent: Yes. Inpatient/Outpatient History & Physical on Chart: Yes. If H&P is completed, is and addenduem needed: No; If yes, is the addendum complete: N/A. Visualize and Verify Site with Patient/Guarantor: N/A. Relevant Radiology Images available: N/A. Pre-op teaching completed and patient verbalized understanding. The risks, benefits, and alternatives of sedation and/or procedure were discussed by physician. The patient agrees to continue. Procedure started. [facility] Clinical Fraility Score: 4: Vulnerable. Tableman Indications: NSTEMI. Chest Pain Symptom Assessment: Typical Angina Symptoms. Cardiovascular Instability: No, stable. Correct patient, site and procedure confirmed by cath team. Current diagnosis: NSTEMI. PERRLA. Strong, equal hand family and consumer education teacher bilaterally. Lungs clear x 5 lobes. IV Site on Arrival: 18 gauge in the right anticubital. IV Fluids: 0.9% NaCl at KVO. 200 mL infused prior to general production laborer. Pre Procedural Pulses: bilateral dorsalis pedis was Doppled. Pre Procedural Pulses: bilateral posterior tibial was Doppled. Pre Procedural Pulses: bilateral radial was 2+. Oxygen started at 3liters/min via nasal canula. bilateral groins was prepped with chloroprep then draped in the usual sterile fashion. Baseline sample Acquired. HR: 88 BPM. Physician notified. Equipment: 5F - Femoral. Heparinized Saline (2 units/mL), 1000 mL bag. Kit, Micropuncture. Cardiac Cath Pack. ACIST Manifold Kit Model BT 2000. Physician arrived. Physician scrubbed in. Immediate Pre-Procedure Time Out. Correct Patient: Yes; Correct Procedure: Yes; Correct Site: Yes; Correct Patient Position: Yes; Correct Supplies: Yes; Dried Flammable Prep: Yes; Blood Products Available: N/A;. Lidocaine 1% infiltrated to the right groin. Admit Source: In Patient. Current Diagnosis : NSTEMI. Arterial access obtained with micropuncture set. A 5 azerbaijani JL4 catheter in over wire. Multiple views taken of left coronary artery. Catheter removed over the wire. A 5 azerbaijani JR4 catheter in over wire. EDP Sample taken: LV 120/-8,11; HR: 88 BPM; SpO2: 94%. Pullback taken: LV 118/-7,4; AO 116/65(85); Mean: 0mmHg, Peak to Peak: 0mmHg, SEP: 15sec/min; HR: 85 BPM; SpO2: 96%. Dr Albarran notified to assist with cath per Dr Garcia request. Dr Albarran arrived and scrubbed in. SVG to OM visualized. Dr Albarran to assist with graft visualization and [place] right at this time. Multiple views taken of right coronary artery. Redirected to the FIELDS. FIELDS to LAD visualized. Redirected to search for grafts. Catheter removed over the wire. A 5 azerbaijani IM catheter in over wire. Unable to advance to left subclavian. Glidewire inserted. IM advanced to the left subclavian. Glidewire removed. FIELDS to LAD visualized. IM removed over the wire. 6 PALAUAN SHEATH EXCHANGED FOR A NEW 6 PALAUAN SHEATH. A 5 azerbaijani LCB catheter in over wire. LCB catheter out over the wire. A 5 azerbaijani Angled Pig catheter in over wire. Aortogram performed in INDONESIAN @ 20 mL/second for a total of 40 mL. Pigtail removed over the wire. A 5 azerbaijani AL1 catheter in over wire. Catheter removed over the wire. A Right femoral angiogram was performed to determine safe placement of closure device. A Suture was successful obtaining hemostatsis at the Right Femoral artery insertion site. Sheath capped. To be removed upon arrival to the floor. Post Procedure: Pulses reassessed and unchanged. PERRLA. Strong, equal hand family and consumer education teacher bilaterally. No VTE prophylaxis required. Medication's Wasted: Heparin = 1000 units. Total IV fluids: 101 mL. Fluoro: 33:07. Contrast type used: Omnipaque 300 mgI/mL, 500 mL bottle. [id number]. Post-op diagnosis: Patent grafts. Complications: None. Estimated blood loss: 5mL-10mL. Responsiveness - Normal response to verbal stimuli; alert and oriented, PERRLA. Airway - Unaffected, no intervention required; spontaneous ventilation. Circulation: W/N/L, pulses unchanged. Nausea/Vomiting: No. Procedure completed. Patient transferred by bed to 1st floor. Vital chart was stopped. Access Site Site: Right Femoral artery Sheath Size: 6 Fr Hemostasis Method: Suture Hemostasis Success: Successful Procedure Medications Start: 8:44 AM Stop: 8:44 AM Medication: Fentanyl Amount: 50 mcg Route: I.V. Start: 8:44 AM Stop: 8:44 AM Medication: Versed Amount: 1 mg Route: I.V. Start: 8:52 AM Stop: 8:52 AM Medication: Versed Amount: 1 mg Route: I.V. Start: 8:52 AM Stop: 8:52 AM Medication: Fentanyl Amount: 50 mcg Route: I.V. Start: 9:29 AM Stop: 9:29 AM Medication: Versed Amount: 1 mg Route: I.V. Start: 9:45 AM Stop: 9:45 AM Medication: Versed Amount: 1 mg Route: I.V. Start: 10:00 AM Stop: 10:00 AM Medication: Fentanyl Amount: 50 mcg Route: I.V. I, the attending physician, have reviewed and verified all procedure medications. Yes, all medications given per verbal order History/Risk Factors Hypertension: Yes Dyslipidemia: Yes Peripheral Arterial Disease (PAD): No Myocardial Infarction (MS): No Obesity: Yes Renal Disease: No Tobacco Use: Former Prior Interventions PCI: No CABG: No Valve Surgery: No Report Signatures Finalized by Negrita Garcia MD on 12/13/2021 01:14 PM
[2021-12-05] MEDS: sodium chloride 0.9% 1,000 ML 50 ML IV (06:51)
[2021-12-05 07:37] LABS: Magnesium 1.5 mg/dL (1.7-2.3)
--- NOTE | 2021-12-05 08:31 | W.PM.OPSUD ---
Surgery/Procedure H&P Update DATE OF PROCEDURE: December 05, 2021 DATE H&P PERFORMED: 12/04/21 H&P UPDATE INFORMATION: I have reviewed H&P completed within last 30 days, I have examined patient prior to procedure and No changes to prior documentation PREOP DIAGNOSIS: NSTEMI PRIMARY INDICATION FOR PROCEDURE: NSTEMI, CAD with h/o CABG x2 PLANNED PROCEDURE: Operation Date: 12/05/21 08:30 Proposed Procedures p Cardiac Catheterization(Left) - Felix Albarran M.D PATIENT REASSESSED PRIOR TO SEDATION, WITH NO CHANGE NOTED: No PHYSICAL EXAM: alert, oriented x 3, clear to auscultation bilaterally and regular rate & rhythm AIRWAY EVAL/ANESTHESIA PLAN: normal airway, ASA III, Monitored Anesthesia, Local Anesthesia, Risks, benefits & alternatives of sedation and/or procedure discussed and Patient agrees to continue as planned
[2021-12-05 11:27] LABS: Glucose Point of Care 200 mg/dL (70-110)
[2021-12-05] MEDS: insulin lispro 100 unit/1 mL SUBCUT ×3 (12:18→22:08)
[2021-12-05] MEDS: magnesium sulfate premix 2 GM/50 ML PIGGYBACK IV (12:29)
[2021-12-05] MEDS: sodium chloride 0.9% 1,000 ML 100 ML IV ×2 (12:31→22:09)
[2021-12-05] MEDS: FUROsemide 40 mg Tablet PO ×2 (12:32→16:37)
[2021-12-05] MEDS: atorvastatin 40 mg Tablet 80 MG PO (12:32)
[2021-12-05] MEDS: losartan 50 mg Tablet 25 MG PO (12:33)
[2021-12-05] MEDS: magnesium lactate 84 mg Tablet PO (12:33)
[2021-12-05] MEDS: aspirin 81 mg EC Tablet PO (12:34)
[2021-12-05] MEDS: metoprolol succinate ER (24 HR) 50 mg Tablet PO (12:35)
--- NOTE | 2021-12-05 14:09 | PC.NURSE ---
received pt from cardiac label stitcher at 1025.pt alert and oriented x 4.sr on monitor.denies pain.right femoral sheath pulled at 1030 and pressure held x 20 min.no hematoma formation noted.right leg remains warm to touch and with brisk capillary refill.palpable right dp pulse noted.site dressed with 2x2 gauze and secured with biocclusive drsg.pt instructed in activity restrictions s/p arterial sheath pull...and instructed to notify staff for any pain,numbness,bleeding, or for any concerns at all.pt verb understanding of instructions
--- NOTE | 2021-12-05 14:25 | USCV_ITS ---
Laverne Perez Age: 71 Gender: F : 1950 Exam Date: 12/05/2021 14:44 Ordering Phys: Negrita Garcia MD ([email or web address]) Technologist: HEDY [place] [facility] [place]: PRIOR LIMITED STUDY, Assess LV function BP: 107 / 67 HR: 78 Rhythm: Sinus Technical Quality: Adequate MEASUREMENTS (Male / Female) Normal Values 2D ECHO LVOT Diameter 2.0 cm LV Ejection Fraction MOD 2C 20.8 % LV Ejection Fraction 2C AL 19.8 % LA Diameter 4.1 cm LA Width 3.6 cm LA Height 4.6 cm RA Width 2.9 cm RA Height 4.1 cm Aorta at Sinotubular Diameter 2.3 cm IVC Diameter 1.3 cm DOPPLER Right Atrial Pressure 3.0 mmHg FINDINGS Left Ventricle Normal left ventricular cavity size. Mildly decreased left ventricular systolic function. Left ventricular ejection fraction is estimated at 45 %. There is hypokinesis of mid inferolateral and apical lateral fernandez. Abnormal (paradoxical) septal motion consistent with postoperative status. Right Ventricle Normal right ventricular size and systolic function. Right Atrium Normal right atrial size. Left Atrium Mildly increased left atrial size. Mitral Valve Moderate mitral annular calcification. Thickened mitral valve. Aortic Valve Aortic valve not well visualized. Tricuspid Valve Structurally normal tricuspid valve. Pulmonic Valve Pulmonic valve not well visualized. Pericardium No pericardial effusion. Aorta Normal size aortic root and proximal ascending aorta. IVC Normal sized inferior vena cava. CONCLUSIONS 1. Normal left ventricular cavity size. Mildly decreased left ventricular systolic function. Left ventricular ejection fraction is estimated at 45 %. There is hypokinesis of mid inferolateral and apical lateral fernandez. Abnormal (paradoxical) septal motion consistent with postoperative status. 2. Normal right ventricular size and systolic function. 3. When compared to study dated 05/13/21, LV function seems to have decreased. Negrita Garcia MD (Electronically Signed) Final Date: 06 December 2021 07:37 S
--- NOTE | 2021-12-05 14:44 | PM.PN ---
Subjective Subjective: seen s/p cath with daughter present at bedside. pt not complaining of pain at this time. she says she is just sleepy right now. groin appears ok. no fluctance noted. Vitals/I&O/Wt Last Vital Signs Temp 98.7 F 12/05/21 12:00 Pulse 77 12/05/21 13:15 Resp 21 H 12/05/21 13:15 BP 142/92 12/05/21 13:15 Pulse Ox 95 12/05/21 12:45 12/04/21 12/05/21 12/05/21 22:59 06:59 14:59 Intake Total 400 / 750 Balance 400 / 750 Weight last 48 hrs Weight 111.13 kg Physical Exam Narrative: General: Alert oriented x3, patient seen sitting up in bed appearing comfortable appearing very drowsy, obese large female. seen status post cath HEENT: Normocephalic, atraumatic, EOMI, breathing normally Cardio: Regular rate rhythm, normal S1-S2, no murmurs rubs gallops, Respiratory: Good bilateral air entry, no wheezes no rhonchi appreciated, clear to auscultation bilaterally GI: Abdomen soft, nontender, nondistended, bowel sounds + Behavior: Appropriate and cooperative Extremities: Trace bilateral lower extremity edema , no cyanosis Data : 12/04/21 04:07 12/04/21 04:07 A&P Assessment and plan (1) CKD (chronic kidney disease) stage 3, GFR 30-59 ml/min: Status: Acute (2) Diabetes: Status: Acute (3) NSTEMI (non-ST elevated myocardial infarction): Status: Acute (4) Unstable angina pectoris: Status: Acute (5) Diabetes mellitus: Status: Acute Qualifiers: Diabetes mellitus complication status: without complication Diabetes mellitus termite control technician insulin use: without custodial use Diabetes mellitus type: type 2 Qualified Code(s): E11.9 - Type 2 diabetes mellitus without complications (6) Hypertension: Status: Acute Qualifiers: Hypertension type: primary hypertension Qualified Code(s): I10 - Essential (primary) hypertension (7) Multiple vessel coronary artery disease: Status: Acute (8) Coronary artery disease: Status: Acute Qualifiers: Coronary Disease-Associated Artery/Lesion type: bypass graft [place] vs. transplanted heart: [place] heart Associated angina: without angina Qualified Code(s): I25.810 - Atherosclerosis of coronary artery bypass graft(s) without angina pectoris (9) Hyperlipidemia: Status: Acute Qualifiers: Hyperlipidemia type: mixed hyperlipidemia Qualified Code(s): E78.2 - Mixed hyperlipidemia Plan 71 year old female?with past medical history of hypertension, diabetes, former smoker , coronary artery disease? s/p CABG FIELDS to LAD and SVG to OM1, in May 2021 , came in today with chief complaint of Acute onset of substernal chest pain pressure-like 7 out of 10 in severity, intermittent, 4 episodes, started around 3 PM Spontaneously resolved, accompanied with shortness of breath. Assessment: NSTEMI: Continue telemetry monitoring Currently on ACS protocol (aspirin statin beta-leanna therapeutic anticoagulation) Sublingual nitro as needed Cardiology consulted.?seen s/p angiogram. no intervention done Echo done: LV systolic function is mildly reduced with EF of 45 to 50%.? ?Accurate assessment of regional wall motion abnormalities is not ?possible because of poor visualization. Possible DC IN AM. History of diabetes: Continue SSI, monitor fingerstick glucose. Carbohydrate consistent diet Hypertension: Continue losartan , metoprolol succinate History of coronary artery disease s/p CABG CKD stage III: Admission serum creatinine:1.2 Baseline serum creatinine: 1.3-1.9 Monitor BMP Monitor intake output charting Avoid nephrotoxic's recheck labs CODE STATUS: Full code DVT prophylaxis: On Lovenox Attestations Medical Necessity Statement*: Need to monitor s/p cath. DC in AM Coding Level of Care Code Acute Compliance Associate for [facility] Fwd Diagnoses CKD (chronic kidney disease) stage 3, GFR 30-59 ml/min N18.30 Diabetes E11.9 NSTEMI (non-ST elevated myocardial infarction) I21.4 Unstable angina pectoris I20.0 Diabetes mellitus E11.9 Diabetes mellitus complication status: without complication Diabetes mellitus custodial insulin use: without termite control technician use Diabetes mellitus type: type 2 Hypertension I10 Hypertension type: primary hypertension Multiple vessel coronary artery disease I25.10 Coronary artery disease I25.810 Coronary Disease-Associated Artery/Lesion type: bypass graft [place] vs. transplanted heart: [place] heart Associated angina: without angina Hyperlipidemia E78.2 Hyperlipidemia type: mixed hyperlipidemia
[2021-12-05] MEDS: perflutren protein-a microsphr 0.22 mg/mL SDV 3 mL IV (15:13)
[2021-12-05 15:22] LABS: Basophils # 0.1 10^3/uL (0.0-0.1); Eosinophils # 0.1 10^3/uL (0.0-0.8); Eosinophils % 1.8 %; Hematocrit 39.8 % (37.0-47.0); Hemoglobin 12.8 g/dL (11.5-15.3); Lymphocytes # 1.9 10^3/uL (0.8-4.8); Lymphocytes % 24.5 %; Mean Corpuscular HGB Conc 32.2 g/dL (30.0-36.0); Mean Corpuscular Hemoglobin 27.5 pg (28.0-34.0); Mean Corpuscular Volume 85.6 fl (81-99); Mean Platelet Volume 9.6 fL (7.4-10.4); Monocytes # 0.9 10^3/uL (0.2-0.9); Monocytes % 11.8 %; Neutrophils # 4.73 10^3/uL (1.8-7.7); Neutrophils % 60.5 %; Nucleated Red Blood Cells % 0 %; Platelet Count 376 10^3/cmm (130-400); Red Blood Count 4.65 10^6/uL (4.1-5.3); Red Cell Distribution Width 15.5 % (12.1-15.1); White Blood Count 7.8 10^3/uL (4.0-10.0)
[2021-12-05 15:44] LABS: Anion Gap 14.1 (5-19); Blood Urea Nitrogen 15 mg/dL (8-23); Calcium 8.3 mg/dL (8.5-10.5); Carbon Dioxide 26 mmol/L (22-29); Chloride 96 mmol/L (98-107); Glucose 285 mg/dL (65-115); Osmolality Calculated 287 mOsm/kg (285-295); Potassium 3.1 mmol/L (3.5-5.1); Sodium 133 mmol/L (136-145)
[2021-12-05] MEDS: enoxaparin 40 mg/0.4 mL Syringe SUBCUT (16:32)
[2021-12-05] MEDS: lidocaine 1% 5 ML in potassium chloride premix 100 ML 50 ML IV (16:35)
[2021-12-05] MEDS: potassium chloride ER 20 mEq Tablet PO (16:36)
--- NOTE | 2021-12-05 17:05 | PC.NURSE ---
6 hour bedrest completed.pt amb to bathroom with assist.tolerated well.right groin drsg dry and intact.no hematoma formation noted.
[2021-12-05 17:42] LABS: Glucose Point of Care 340 mg/dL (70-110)
[2021-12-05 22:17] LABS: Glucose Point of Care 168 mg/dL (70-110)
[2021-12-05 22:17] LABS: Glucose Point of Care 389 mg/dL (70-110)
[2021-12-06] VITALS: BP 144/71; PULSE 75; RESP 17; TEMP 36.7; O2SAT 98
[2021-12-06 04:00] VITALS: BP 119/74; PULSE 80; RESP 18; TEMP 36.9; O2SAT 91
--- NOTE | 2021-12-06 04:21 | PC.NURSE ---
Pts lying in bed resting and talking to staff. Pts resp even and non-labored no distress or sob noted. Pts right groin drsg dry and intact. No swelling, hematoma, or bleeding noted. Pt had no c/o pain or discomfort at the present time. No needs voiced. Call light in reach.
[2021-12-06 05:40] LABS: Magnesium 1.7 mg/dL (1.7-2.3)
[2021-12-06 06:00] VITALS: PULSE 80
[2021-12-06 08:00] VITALS: BP 123/79; PULSE 74; RESP 16; TEMP 36.6; O2SAT 94
[2021-12-06 08:28] LABS: Estmated Average Glucose 286; Hemoglobin A1C 11.6 % (4.0-6.0)
[2021-12-06] MEDS: losartan 50 mg Tablet 25 MG PO (09:33)
[2021-12-06] MEDS: atorvastatin 40 mg Tablet 80 MG PO (09:33)
[2021-12-06] MEDS: aspirin 81 mg EC Tablet PO (09:33)
[2021-12-06] MEDS: clopidogrel 75 mg Tablet PO (09:33)
[2021-12-06] MEDS: magnesium lactate 84 mg Tablet PO (09:33)
[2021-12-06] MEDS: FUROsemide 40 mg Tablet PO (09:34)
[2021-12-06] MEDS: potassium chloride ER 20 mEq Tablet PO (09:35)
[2021-12-06] MEDS: metoprolol succinate ER (24 HR) 50 mg Tablet PO (09:35)
--- NOTE | 2021-12-06 09:48 | PM.PN ---
Subjective Subjective: Patient feels well and denies any complaints. She underwent left heart catheterization yesterday. She was found to have patent FIELDS to LAD. SVG to OM graft could not be cannulated in spite of multiple attempts. Competitive flow noted. Procedure was stopped because of high contrast volume. Isolated PVC and PVC couplets noted on telemetry. Medications: Reviewed: Yes Vitals/I&O/Wt Last Vital Signs Temp 97.8 F 12/06/21 08:00 Pulse 74 12/06/21 08:00 Resp 16 12/06/21 08:00 BP 123/79 12/06/21 08:00 Pulse Ox 94 12/06/21 08:00 12/05/21 12/06/21 12/06/21 22:59 06:59 14:59 Intake Total 1118.333 / 1118.333 360 / 360 Balance 1118.333 / 1118.333 360 / 360 Physical Exam Narrative: GENERAL: Obese woman sitting in bed in no acute distress HEENT: Extraocular movement intact. No pallor or icterus. NECK: No JVD, No carotid bruit. CARDIOVASCULAR SYSTEM: S1-S2 regular. No murmur or gallops. RESPIRATORY SYSTEM: Chest clear to auscultation. No wheezes rhonchi or rubs heard. No use of accessory muscles. ABDOMEN: Soft, nontender and nondistended. Normal bowel sounds present. EXTREMITIES: No cyanosis or edema. No signs of chronic venous insufficiency. Right groin access site with no significant bruising or hematoma. WASTE MANAGEMENT SPECIALIST: Patient is alert oriented ?3. No focal neurological deficits. SKIN: Normal turgor and temperature. PSYCH: Normal insight and judgment. Data : 12/05/21 15:15 12/05/21 15:15 A&P Assessment and plan (1) NSTEMI (non-ST elevated myocardial infarction): Patent FIELDS to LAD. SVG to OM could not be cannulated -Echocardiogram with hypokinesis in mid inferolateral and apical lateral fernandez with EF of 45% on echo yesterday. -Continue aspirin and Plavix. Plan for medical management. -Increase metoprolol to 75 mg daily and continue statin. -We will consider cardiac CTA as an outpatient. Stable to be discharged home from cardiac standpoint. Follow-up with [facility] in 2 weeks Status: Acute (2) Coronary artery disease: s/p CABG x 2 Status: Acute Qualifiers: Coronary Disease-Associated Artery/Lesion type: bypass graft [place] vs. transplanted heart: [place] heart Associated angina: without angina Qualified Code(s): I25.810 - Atherosclerosis of coronary artery bypass graft(s) without angina pectoris (3) Hypertension: decrease losartan to 50 mg daily on discharge. -increase metoprolol to 75 mg daily Status: Acute Qualifiers: Hypertension type: primary hypertension Qualified Code(s): I10 - Essential (primary) hypertension (4) Diabetes: Status: Acute (5) CKD (chronic kidney disease) stage 3, GFR 30-59 ml/min: Status: Acute (6) Hyperlipidemia: Status: Acute Qualifiers: Hyperlipidemia type: mixed hyperlipidemia Qualified Code(s): E78.2 - Mixed hyperlipidemia Plan CHF : LVEF=45%, fairly compensated Morbid obesity Thank you for allowing me to participate in patient's care. Please feel free to call with questions or concerns. Attestations Medical Necessity Statement*: Stable to be discharged home from cardiac standpoint. Coding Level of Care Code Acute License Issuer for [facility] [place] Fwd Diagnoses NSTEMI (non-ST elevated myocardial infarction) I21.4 Coronary artery disease I25.810 Coronary Disease-Associated Artery/Lesion type: bypass graft [place] vs. transplanted heart: [place] heart Associated angina: without angina Diabetes E11.9 CKD (chronic kidney disease) stage 3, GFR 30-59 ml/min N18.30 Hypertension I10 Hypertension type: primary hypertension Hyperlipidemia E78.2 Hyperlipidemia type: mixed hyperlipidemia
[2021-12-06 11:25] LABS: Blood Urea Nitrogen 15 mg/dL (8-23); Calcium 8.3 mg/dL (8.5-10.5); Carbon Dioxide 26 mmol/L (22-29); Chloride 96 mmol/L (98-107); Glucose 355 mg/dL (65-115); Osmolality Calculated 291 mOsm/kg (285-295); Sodium 133 mmol/L (136-145)
[2021-12-06 11:26] LABS: Anion Gap 14.5 (5-19); Potassium 3.5 mmol/L (3.5-5.1)
[2021-12-06 11:47] LABS: Glucose Point of Care 357 mg/dL (70-110)
--- NOTE | 2021-12-06 11:58 | PM.DCS ---
Discharge Providers Date of Admission: 12/03/21 20:49 Date of Discharge: December 06, 2021 Attending Provider at Admission: Luis Mace MD Attending Provider at Discharge: Tiffany Cooper MD Primary Care Provider: Keo Cook MD Diagnoses at Discharge Discharge Diagnosis (1) NSTEMI (non-ST elevated myocardial infarction): Status: Resolved (2) Coronary artery disease: Status: Acute Qualifiers: Associated angina: without angina Coronary Disease-Associated Artery/Lesion type: bypass graft [place] vs. transplanted heart: [place] heart Qualified Code(s): I25.810 - Atherosclerosis of coronary artery bypass graft(s) without angina pectoris (3) Hypertension: Status: Acute Qualifiers: Hypertension type: primary hypertension Qualified Code(s): I10 - Essential (primary) hypertension (4) Diabetes: Status: Acute (5) CKD (chronic kidney disease) stage 3, GFR 30-59 ml/min: Status: Acute (6) Hyperlipidemia: Status: Acute Qualifiers: Hyperlipidemia type: mixed hyperlipidemia Qualified Code(s): E78.2 - Mixed hyperlipidemia Reason for Visit Reason for Visit: SOB, Chest Pain, High BP Brief History: As per Dr. Mace Laverne Perez is a 71 year old female?with past medical history of hypertension, diabetes, former smoker , coronary artery disease? s/p CABG FIELDS to LAD and SVG to OM1, in May 2021 , came in today with chief complaint of Acute onset of substernal chest pain pressure-like 7 out of 10 in severity, intermittent, 4 episodes, started around 3 PM Spontaneously resolved, accompanied with shortness of breath.? She denied any sweating ,palpitation ,dizziness, nausea vomiting, cough fever, abdominal pain. Earlier in the day she was discharged from the ER after being worked up for numbness in her left lower extremity: At that time bilateral lower extremity Doppler was done to rule out DVT, as well as?Arterial duplex scan was also obtained showing a left DANIEL of 0.78 suggesting mild to moderate peripheral arterial disease, peripheral pulses are intact.She was placed? on a tapering dose of steroid for likely peripheral nerve entrapment. Upon arrival in the ER she was worked up for above-mentioned complaint. Pertinent imaging studies: X-ray chest: No effusion no infiltrate no pneumothorax,Cardiac silhouette size, and vascularity are somewhat accentuated. EKG: Sinus rhythm with PVCs Pertinent labs: WBC 12, H&H:14/43 , plt :426 , serum sodium 135, serum potassium 3.9, serum bicarb 21, BUN and serum creatinine :? 18/1.2. ,? Random blood sugar: 503 , Troponin trend: 24,62,101 , proBNP:2495 Hospital Course Hospital Course Patient presented with chest pain. Please see HPI and progress notes for details. She underwent left heart cath and found to have patent FIELDS to LAD. SVG to OM graft could not be cannulated in spite of multiple attempts. Competitive flow noted. Procedure was stopped because of high contrast volume. Echocardiogram did show hypokinesis and mid inferior lateral and apical lateral fernandez with EF 45% on echo yesterday. Medications were adjusted and patient was discharged home in stable condition to follow-up with cardiology as an outpatient. Patient's hemoglobin A1c was noted to be 11 during this hospital stay. She was started on Farxiga and Lantus 5 units daily at nighttime. She was asked to continue her metformin. She is to see her primary care doctor for further management of her diabetes. She also got a new glucometer strips and lancets at discharge. Since Farxiga was also started during this hospital stay I did not do a higher dose of Lantus at this time. I advised patient to check her blood sugar and keep a diary to take to her primary to further increase the dose. She demonstrated understanding and agreed. Physical Exam Narrative: General: Alert oriented x3, patient seen sitting up in bed appearing comfortable HEENT: Normocephalic, atraumatic, EOMI, breathing normally Cardio: Regular rate rhythm, normal S1-S2, no murmurs rubs gallops, Respiratory: Good bilateral air entry, no wheezes no rhonchi appreciated, clear to auscultation bilaterally GI: Abdomen soft, nontender, nondistended, bowel sounds + Behavior: Appropriate and cooperative Extremities: Trace bilateral lower extremity edema , no cyanosis Discharge Data Studies Completed and Pending Completed Studies During Hospitalization Category Date Time Status XR chest 1V portable [id number] Stat Exams 12/03/21 15:54 Completed CV. echo complete* [id number] Routine Ultrasound 12/04/21 00:01 Completed CV. 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 Accentuated cardiac silhouette size and vascularity. See discussion above. 2. Suboptimal lung base assessment with slightly increased retrocardiac opacity as described. Followup including lateral view may be obtained if clinically indicated. Laboratory Results WBC 7.8 10^3/uL (4.0-10.0) 12/05/21 15:15 RBC 4.65 10^6/uL (4.1-5.3) 12/05/21 15:15 Hgb 12.8 g/dL (11.5-15.3) 12/05/21 15:15 Hct 39.8 % (37.0-47.0) 12/05/21 15:15 MCV 85.6 fl (81-99) 12/05/21 15:15 MCH 27.5 pg (28.0-34.0) L 12/05/21 15:15 MCHC 32.2 g/dL (30.0-36.0) 12/05/21 15:15 RDW 15.5 % (12.1-15.1) H 12/05/21 15:15 Plt Count 376 10^3/cmm (130-400) 12/05/21 15:15 MPV 9.6 fL (7.4-10.4) 12/05/21 15:15 Neut % (Auto) 60.5 % 12/05/21 15:15 Lymph % (Auto) 24.5 % 12/05/21 15:15 [place] % (Auto) 11.8 % 12/05/21 15:15 Eos % (Auto) 1.8 % 12/05/21 15:15 Baso % (Auto) 1.0 % 12/05/21 15:15 Neut # (Auto) 4.73 10^3/uL (1.8-7.7) 12/05/21 15:15 Lymph # (Auto) 1.9 10^3/uL (0.8-4.8) 12/05/21 15:15 [place] # (Auto) 0.9 10^3/uL (0.2-0.9) 12/05/21 15:15 Eos # (Auto) 0.1 10^3/uL (0.0-0.8) 12/05/21 15:15 Baso # (Auto) 0.1 10^3/uL (0.0-0.1) 12/05/21 15:15 Nucleated RBC % (auto) 0 % 12/05/21 15:15 Nucleated RBCs # 0.0 /100WBC 12/05/21 15:15 D-Dimer 0.51 ug/mIFEU (0-0.59) 12/03/21 16:08 Specimen Type Arterial 12/03/21 17:25 Sample Site Radial, left 12/03/21 17:25 ABG pH 7.43 (7.35-7.45) 12/03/21 17:25 ABG pCO2 28.3 mmHg (35-45) L 12/03/21 17:25 ABG pO2 79.9 mmHg (80.0-100.0) L 12/03/21 17:25 ABG HCO3 18.6 mmol/L (22-26) L 12/03/21 17:25 ABG Base Excess -4.5 mmol/L (-2.0-2.0) L 12/03/21 17:25 Jg Test Pos 12/03/21 17:25 Hematocrit 41.4 % (37-47) 12/03/21 17:25 O2 Delivery Device Room air 12/03/21 17:25 Cryptologic Technician ID Gd 12/03/21 17:25 Sodium 133 mmol/L (136-145) L 12/06/21 10:47 Potassium 3.5 mmol/L (3.5-5.1) 12/06/21 10:47 Chloride 96 mmol/L (98-107) L 12/06/21 10:47 Carbon Dioxide 26 mmol/L (22-29) 12/06/21 10:47 Anion Gap 14.5 (5-19) 12/06/21 10:47 BUN 15 mg/dL (8-23) 12/06/21 10:47 Creatinine 0.9 mg/dL (0.5-0.9) 12/06/21 10:47 GFR Calculation Not Reportable 12/06/21 10:47 Glucose 355 mg/dL (65-115) H 12/06/21 10:47 POC Glucose 357 mg/dL (70-110) H 12/06/21 11:34 Estimat Average Glucose 286 12/05/21 15:18 Hemoglobin A1c 11.6 % (4.0-6.0) H 12/05/21 15:18 Calculated Osmolality 291 mOsm/kg (285-295) 12/06/21 10:47 Calcium 8.3 mg/dL (8.5-10.5) L 12/06/21 10:47 Magnesium 1.7 mg/dL (1.7-2.3) 12/06/21 04:49 GGT 19 U/L (5-36) 12/03/21 17:49 AST 13 U/L (0-32) 12/03/21 17:49 ALT 13 U/L (0-33) 12/03/21 17:49 Lactate Dehydrogenase 137 U/L (135-214) 12/03/21 17:49 Troponin T Baseline 24 ng/L (0-10) H 12/03/21 16:08 Troponin T 120 Minute 62.23 ng/L (0-10) H 12/03/21 17:49 Delta Troponin T 38.23 ABS# (0-10) H* 12/03/21 17:49 Troponin T Hi Sens 6Hr 101.9 ng/L (0-10) H 12/03/21 21:53 Troponin T Hi Sens 6Hr Delta 77.9 ng/L (0-12) H* 12/03/21 21:53 NT-Pro-B Natriuret Pep 2495 pg/mL (0-125) H 12/03/21 16:08 Triglycerides 191 mg/dL (0-150) H 12/04/21 04:07 Cholesterol 108 mg/dL (0-200) 12/04/21 04:07 LDL Cholesterol, Calc 36 mg/dL (50-129) L 12/04/21 04:07 HDL Cholesterol 34 mg/dL (60-100) L 12/04/21 04:07 LDL/HDL Ratio 1.06 RATIO (0.00-3.22) 12/04/21 04:07 Cholesterol/HDL Ratio 3.18 mg/dL (0.0-4.40) 12/04/21 04:07 Serum Ketones Negative (Negative) 12/03/21 16:14 Hepatitis A IgM Ab Non-reactive (Nonreactive) 12/03/21 16:15 Hep Bs Antigen Non-reactive (Nonreactive) 12/03/21 16:15 Hep Bs Antibody < 3.5 (11.5-1000) L 12/03/21 16:15 Hep B Core Total Ab Non-reactive (Nonreactive) 12/03/21 16:15 Hepatitis C Antibody Non-reactive (Nonreactive) 12/03/21 16:15 Vitals Last Vital Signs Temp 97.8 F 12/06/21 08:00 Pulse 74 12/06/21 08:00 Resp 16 12/06/21 08:00 BP 123/79 12/06/21 08:00 Pulse Ox 94 12/06/21 08:00 Discharge Plan Discharge Patient Disposition: Home Condition: Stable Prescriptions: New Farxiga 5 mg tablet 5 mg PO DAILY 30 Days Qty: 30 1RF Adult Low Dose Aspirin 81 mg tablet,delayed release (DR/EC) 81 mg PO DAILY 30 Days Qty: 90 0RF clopidogrel 75 mg Tablet 75 mg PO DAILY 30 Days Qty: 90 0RF nitroglycerin 0.4 mg Tablet, Sublingual 0.4 mg sublingual Q5M PRN (Reason: Chest Pain) Qty: 25 6RF Lantus Solostar U-100 Insulin 100 unit/mL (3 mL) insulin pen 5 unit SUBCUT QPM 30 Days Qty: 1.5 0RF (DME) Accu-Chek Guide Glucose Meter Misc See Rx Instructions .Route Qty: 1 0RF Rx Instructions: As directed (DME) Accu-Chek Guide test strips Strip See Rx Instructions .Route Qty: 100 0RF Rx Instructions: As directed (DME) Accu-Chek Softclix Lancets Misc See Rx Instructions .Route Qty: 100 0RF Rx Instructions: As directed losartan 50 mg tablet 50 mg PO DAILY 30 Days Qty: 30 0RF Continued magnesium L-lactate [Magtab] 84 mg tablet extended release 84 mg PO DAILY Qty: 90 3RF oxycodone 5 mg capsule 5 mg PO Q6H PRN (Reason: pain) 5 Days Qty: 20 0RF metformin 1,000 mg tablet 1,000 mg PO BID 0RF Vitamin C 500 mg Tablet 500 mg PO DAILY 0RF Alive Women's 50 Plus Ultra 800 mcg DFE- 150 mcg Tablet 1 tab PO DAILY 0RF potassium chloride [Klor-Con M20] 20 mEq tablet,ER particles/crystals See Rx Instructions .ROUTE .COMPLEX 0RF Rx Instructions: 20mEq (1 tab) in AM and 10mEq (0.5 tab) in PM atorvastatin 80 mg tablet 80 mg PO QAM 30 Days Qty: 30 0RF Changed furosemide 40 mg tablet See Rx Instructions .ROUTE .COMPLEX 30 Days Qty: 0 0RF Rx Instructions: 40mg (1 tab) in AM and 20mg (0.5 tab) in PM metoprolol succinate 50 mg tablet extended release 24 hr 75 mg PO DAILY 30 Days Qty: 135 3RF Discontinued pioglitazone 15 mg tablet 15 mg PO QAM 0RF meloxicam 15 mg tablet 15 mg PO DAILY 0RF losartan 100 mg tablet 100 mg PO QAM 0RF aspirin 325 mg Tablet 325 mg PO QAM 0RF methylprednisolone [Medrol (Peter)] 4 mg tablets,dose pack See Rx Instructions .ROUTE .COMPLEX Qty: 21 0RF Rx Instructions: orally per package directions Discharge Orders: Discharge Order (Routine); Ordered 12/06/21 Ordered By: Tiffany Cooper Other Ambulatory Orders: Basic Metabolic Panel (Routine) Timeframe: 1 Week Facility: [facility] - Location: Lab - Main Lab Ordered By: Tiffany Cooper Referrals: Aby Yap FNP [Nurse Practitioner] - 12/14/21 10:45 am Keo Cook MD [Primary Care Provider] - 12/15/21 9:00 am Negrita Garcia MD [Physician] - 01/26/22 11:00 am Discharge Diet: Cardiac and Diabetic Discharge Activity: Limit activity as instructed Patient Instructions: Nitroglycerin, Rapid Release (By mouth), Losartan (By mouth), Clopidogrel (By mouth), Insulin Glargine (By injection), Type 2 Diabetes in the Older Adult (GEN), Opioid Safety Activity Restrictions/Additional Instructions: Do not lift anything more than 5 lbs for 1 week. Keep the site dry and clean Take medications as prescribed and follow up as scheduled. Start Metformin 12/07/21. Please keep a blood glucose diary for records of your blood sugars as explained to you. Take your numbers to PCP for further medication adjustments. Please follow up with PCP within 4-7 days of discharge. Discharge Attestations Time Spent in Discharge Care*: other Quality Metrics Clinical Quality Measures [ No reported AMI, CVA or VTE this stay] Coding Level of Care Code Acute Chg FW DC note Diagnoses NSTEMI (non-ST elevated myocardial infarction) I21.4 Coronary artery disease I25.810 Associated angina: without angina Coronary Disease-Associated Artery/Lesion type: bypass graft [place] vs. transplanted heart: [place] heart Hypertension I10 Hypertension type: primary hypertension Diabetes E11.9 CKD (chronic kidney disease) stage 3, GFR 30-59 ml/min N18.30 Hyperlipidemia E78.2 Hyperlipidemia type: mixed hyperlipidemia
[2021-12-06 12:00] VITALS: BP 129/80; PULSE 78; RESP 16; TEMP 36.6; O2SAT 94
== END 2021-12-06 13:04 | disposition home or self-care (01) | DRG 281 ==
LOC: ER 18:42 → MEDSURG 22:36 → CSU 12-05 11:33 → MEDSURG 12-05 17:39
PROVIDERS: Emergency Medicine; Internal Medicine Cardiovascular Disease; Admitting Provider Internal Medicine; Emergency Provider Emergency Medicine; PCP Family Medicine; Visit Provider Internal Medicine
DX: I21.4 Non-ST elevation (NSTEMI) myocardial infarction (principal); I25.810 Atherosclerosis of coronary artery bypass graft(s) without angina pectoris; E11.22 Type 2 diabetes mellitus with diabetic chronic kidney disease; I12.9 Hypertensive chronic kidney disease with stage 1 through stage 4 chronic kidney disease, or unspecified chronic kidney disease; N18.30 Chronic kidney disease, stage 3 unspecified; Z87.891 Personal history of nicotine dependence; I25.110 Atherosclerotic heart disease of native coronary artery with unstable angina pectoris; Z95.5 Presence of coronary angioplasty implant and graft; E78.2 Mixed hyperlipidemia; Z79.891 Long term (current) use of opiate analgesic; Z79.84 Long term (current) use of oral hypoglycemic drugs
CPT/HCPCS: 36415; 36416; 36600; 71045; 80048; 80061; 81003; 82009; 82803; 82962; 82977; 83036; 83615; 83735; 83880; 84450; 84460; 84484; 85025; 85378; 86705; 86706; 86709; 86803; 87340; 93005; 93306; 93459; 93926; 93971; 96360; 96372; 96374; 96376; 99152; 99153; 99283; 99285; C1769; C1887; C1894; C8924; J1644; J1650; J1815 ×2; J2250; J3010; J3475; J3480; J3490; J7030; J7040; J8540; Q9956; Q9967

== ENCOUNTER → 2021-12-14 10:39 | Outpatient (BNVA) | payer MEDICARE, SELFPAY | PROVIDERS: PCP Family Medicine; Visit Provider Nurse Practitioner Family | DX: I25.810 Atherosclerosis of coronary artery bypass graft(s) without angina pectoris (principal); Z09 Encounter for follow-up examination after completed treatment for conditions other than malignant neoplasm; Z87.891 Personal history of nicotine dependence; I12.9 Hypertensive chronic kidney disease with stage 1 through stage 4 chronic kidney disease, or unspecified chronic kidney disease; N18.30 Chronic kidney disease, stage 3 unspecified | CPT/HCPCS: 80048; 99213; 99214 ==

== ENCOUNTER → 2021-12-27 08:56 | Outpatient (BNVA) | payer MEDICARE, SELFPAY | PROVIDERS: PCP Family Medicine; Visit Provider Nurse Practitioner Family | DX: N20.0 Calculus of kidney (principal) | CPT/HCPCS: 81003; 99213 ==

== ENCOUNTER → 2022-02-28 11:45 | Outpatient (BNVA) | payer MEDICARE, SELFPAY | PROVIDERS: PCP Family Medicine; Visit Provider Internal Medicine Cardiovascular Disease | DX: I25.10 Atherosclerotic heart disease of native coronary artery without angina pectoris (principal); R06.02 Shortness of breath; E78.5 Hyperlipidemia, unspecified; E11.9 Type 2 diabetes mellitus without complications; Z87.891 Personal history of nicotine dependence | CPT/HCPCS: 36415; 80048; 83735; 83880; 99214 ==

== ENCOUNTER 2022-04-01 12:28 | Observation (INO) | payer MEDICARE, SELFPAY ==
[2022-04-01] VITALS (20 sets, daily range): BP systolic 105–221; BP diastolic 59–110; PULSE 65–103; RESP 12–22; TEMP 36.3–36.8; O2SAT 93–98; BMI 40.1
--- NOTE | 2022-04-01 12:29 | ECG_ITS ---
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 Measurements Intervals [place] Rate: 102 P: 66 CA: 158 QRS: -32 QRSD: 118 T: 58 QT: 369 QTc: 481 Interpretive Statements SINUS TACHYCARDIA LEFT AXIS DEVIATION [QRS AXIS < -30] ANTEROSEPTAL MYOCARDIAL INFARCTION , OF INDETERMINATE AGE [40+ ms Q WAVE IN V1-V4] Compared to ECG 12/03/2021 22:41:23 Left-axis deviation now present Sinus rhythm no longer present Ventricular premature complex(es) no longer present Myocardial infarct finding still present Electronically Signed On 04-01-2022 22:00:24 CDT by Felix Albarran M.D. [email or web address]/store/[id number]
--- NOTE | 2022-04-01 12:36 | XRR_ITS ---
PROCEDURE INFORMATION: Exam: XR Chest Exam date and time: 04/01/2022 12:45 PM Age: 71 years old Clinical indication: Pain; Chest pressure; Prior surgery; Additional info: Cp TECHNIQUE: Imaging protocol: Radiologic exam of the chest. Views: 1 view. Other technique: Frontal portable upright view of the chest. COMPARISON: CR (CHEST, ) 12/03/2021 4:13 PM FINDINGS: Tubes, catheters and devices: The patient is status post median sternotomy with intact sternal cerclage wires. EKG leads are present overlying the chest. Lungs: The lungs are clear bilaterally. The pulmonary vasculature is normal. Pleural spaces: No pleural effusion. No pneumothorax. Heart/Mediastinum: The heart is normal in size and contour. Mediastinum: Stable. Vasculature: Moderate aortic arch atherosclerotic calcification without ectasia. Bones/joints: Stable. XR/XR chest 1V portable [id number] IMPRESSION: No acute cardiopulmonary abnormality identified.
--- NOTE | 2022-04-01 12:45 | ED_ITS ---
HPI - Chest Pain General: Chief Complaint: Chest Pain Stated Complaint: chest pain Time Seen by Provider: 04/01/22 12:35 Source: patient Mode of arrival: ambulatory Limitations: no limitations History of Present Illness: 71-year-old female states she started having chest pain 30 minutes ago. States its a dull ache in the center of her chest she rates the pain an 8 out of 10 currently does have heart history had a CABG last May denies any radiation of her pain denies any shortness of breath. D enies any cough or fever. Associated symptoms: Deny abdominal pain, dyspnea, fever(s), nausea or vomiting Review of Systems Const: Denies: fever(s), chills, body aches or change in appetite Eyes: Denies: blurry vision or eye discomfort ENMT: Denies: throat pain or dental pain Card: Reports: chest pain Resp: Denies: dyspnea GI: Denies: abdominal pain, nausea, vomiting or diarrhea : Denies: dysuria Musc: Denies: neck pain or back pain Skin/Breast: Denies: rash Neuro: Denies: headache(s) Psych: Denies: depression Leonardo/Lymph: Denies: easy bruising All/Imm: Denies: urticaria PFSH ED PFSH: Medical History Bilateral renal stones Diabetes mellitus Hyperlipidemia Hypertension Osteoarthritis Surgical History H/O dilation and curettage H/O heart bypass surgery 2 times H/O vulvectomy H/O: H/O: hysterectomy Hx of cholecystectomy S/P ureteral stent placement Family History Mother , at age 93 Uterine cancer CAD (coronary artery disease) Father , at age 67 CAD (coronary artery disease) Social History Smoking and tobacco status: former smoker Alcohol intake: never Marital status: / Current occupational status: retired History of recent travel: No Physical Exam Const: COMMON NORMALS: patient oriented x3 HENMT: COMMON NORMALS: normocephalic and atraumatic HEAD & SCALP: normocephalic and atraumatic Eye: COMMON NORMALS: Equal, round and reactive pupils present and EOMs intact bilaterally PUPIL: Yes Equal, round and reactive pupils present Neck/C-Spine: COMMON NORMALS: full ROM and supple Chest: COMMONS NORMALS: normal inspection of the chest and normal palpation of entire chest wall Resp: COMMON NORMALS: normal respiratory effort, No retractions, No use of accessory muscles and clear to auscultation bilaterally AUSCULTATION: clear to auscultation bilaterally Cardio: COMMON NORMALS: regular rate, regular rhythm and No murmurs present (Cardio) RATE: regular rate RHYTHM: regular rhythm GI: COMMON NORMALS: Normal to inspection, nondistended, normoactive bowel sounds present, Soft to palpation, non-tender and no masses PALPATION: Yes Soft to palpation Extremity: COMMON NORMALS: normal to inspection and full ROM Neuro: COMMON NORMALS: patient oriented x3, moves all extremities and no focal motor deficits Psych: COMMON NORMALS: mental status grossly normal, Normal thought process present and cooperative THOUGHT PROCESS: Normal thought process present Skin: COMMON NORMALS: no rashes or lesions noted and no wounds GENERAL SKIN EXAM: no rashes or lesions noted Course Vital Signs: Vital signs: Vital Signs Temperature 97.3 F L 04/01/22 12:33 Pulse Rate 72 04/01/22 15:45 Respiratory Rate 15 04/01/22 15:45 Blood Pressure 161/75 04/01/22 15:45 Pulse Oximetry 97 04/01/22 15:45 Oxygen Delivery Me thod 04/01/22 15:45 MDM - Chest Pain Medical Decision Making Patient presents here with chest pain she has been pain-free here her 2-hour troponin did have a delta of 24 she has been well-appearing will start on Lovenox and admit to the hospitalist Lab Data : 04/01/22 13:00 04/01/22 13:00 Radiology Impressions Chest X-Ray 04/01/22 12:36 IMPRESSION: No acute cardiopulmonary abnormality identified. Laboratory Results WBC 8.2 10^3/uL (4.0-10.0) 04/01/22 13:00 RBC 4.98 10^6/uL (4.1-5.3) 04/01/22 13:00 Hgb 13.9 g/dL (11.5-15.3) 04/01/22 13:00 Hct 44.0 % (37.0-47.0) 04/01/22 13:00 MCV 88.4 fl (81-99) 04/01/22 13:00 MCH 27.9 pg (28.0-34.0) L 04/01/22 13:00 MCHC 31.6 g/dL (30.0-36.0) 04/01/22 13:00 RDW 14.3 % (12.1-15.1) 04/01/22 13:00 Plt Count 364 10^3/cmm (130-400) 04/01/22 13:00 MPV 9.4 fL (7.4-10.4) 04/01/22 13:00 Neut % (Auto) 65.9 % 04/01/22 13:00 Lymph % (Auto) 23.7 % 04/01/22 13:00 [place] % (Auto) 7.5 % 04/01/22 13:00 Eos % (Auto) 1.8 % 04/01/22 13:00 Baso % (Auto) 0.7 % 04/01/22 13:00 Neut # (Auto) 5.42 10^3/uL (1.8-7.7) 04/01/22 13:00 Lymph # (Auto) 2.0 10^3/uL (0.8-4.8) 04/01/22 13:00 [place] # (Auto) 0.6 10^3/uL (0.2-0.9) 04/01/22 13:00 Eos # (Auto) 0.2 10^3/uL (0.0-0.8) 04/01/22 13:00 Baso # (Auto) 0.1 10^3/uL (0.0-0.1) 04/01/22 13:00 Nucleated RBC % (auto) 0 % 04/01/22 13:00 Nucleated RBCs # 0.0 /100WBC 04/01/22 13:00 PT 13.60 SECONDS (12.1-14.9) 04/01/22 13:00 INR 1.01 (0.8-1.2) 04/01/22 13:00 Sodium 132 mmol/L (136-145) L 04/01/22 13:00 Potassium 4.4 mmol/L (3.5-5.1) 04/01/22 13:00 Chloride 95 mmol/L (98-107) L 04/01/22 13:00 Carbon Dioxide 25 mmol/L (22-29) 04/01/22 13:00 Anion Gap 16.4 (5-19) 04/01/22 13:00 BUN 21 mg/dL (8-23) 04/01/22 13:00 Creatinine 1.1 mg/dL (0.5-0.9) H 04/01/22 13:00 GFR Calculation Not Reportable 04/01/22 13:00 Glucose 430 mg/dL (65-115) H 04/01/22 13:00 POC Glucose 316 mg/dL (70-110) H 04/01/22 15:02 Calculated Osmolality 295 mOsm/kg (285-295) 04/01/22 13:00 Calcium 9.5 mg/dL (8.5-10.5) 04/01/22 13:00 Total Bilirubin 0.3 mg/dL (0.15-1.2) 04/01/22 13:00 AST 13 U/L (0-32) 04/01/22 13:00 ALT 16 U/L (0-33) 04/01/22 13:00 Alkaline Phosphatase 80 U/L (35-105) 04/01/22 13:00 Troponin T Baseline 18 ng/L (0-10) H 04/01/22 13:00 Troponin T 120 Minute 41.55 ng/L (0-10) H 04/01/22 15:05 Delta Troponin T 23.55 ABS# (0-10) H* 04/01/22 15:05 Total Protein 7.2 g/dL (6.6-8.7) 04/01/22 13:00 Albumin 3.8 g/dL (3.5-5.2) 04/01/22 13:00 Globulin 3.4 g/dL (1.3-4.6) 04/01/22 13:00 Discharge Plan Discharge Patient Disposition: Admitted As Inpatient Clinical Impression: Chest pain, Non-ST elevation AL (NSTEMI) Condition: Stable Coding Level of Care Code ED Machine Welt Butter for Tachog Fwd Exam Comprehensive
[2022-04-01] MEDS: aspirin 81 mg Chew Tablet 324 MG PO (12:51)
[2022-04-01 13:08] LABS: Basophils # 0.1 10^3/uL (0.0-0.1); Basophils % 0.7 %; Eosinophils # 0.2 10^3/uL (0.0-0.8); Eosinophils % 1.8 %; Hemoglobin 13.9 g/dL (11.5-15.3); Lymphocytes % 23.7 %; Mean Corpuscular HGB Conc 31.6 g/dL (30.0-36.0); Mean Corpuscular Hemoglobin 27.9 pg (28.0-34.0); Mean Corpuscular Volume 88.4 fl (81-99); Mean Platelet Volume 9.4 fL (7.4-10.4); Monocytes # 0.6 10^3/uL (0.2-0.9); Monocytes % 7.5 %; Neutrophils # 5.42 10^3/uL (1.8-7.7); Neutrophils % 65.9 %; Nucleated Red Blood Cells % 0 %; Platelet Count 364 10^3/cmm (130-400); Red Blood Count 4.98 10^6/uL (4.1-5.3); Red Cell Distribution Width 14.3 % (12.1-15.1); White Blood Count 8.2 10^3/uL (4.0-10.0)
[2022-04-01] MEDS: nitroglycerin 0.4 mg sublingual Tablet SUBLINGUAL ×2 (13:11→13:29)
[2022-04-01 13:17] LABS: INR 1.01 (0.8-1.2)
[2022-04-01] MEDS: HYDROmorphone 1 mg/mL INJ 1 mL 0.5 MG IVP (13:34)
--- NOTE | 2022-04-01 13:37 | ECG_ITS ---
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 Measurements Intervals [place] Rate: 90 P: 17 GA: 152 QRS: -35 QRSD: 113 T: 86 QT: 387 QTc: 475 Interpretive Statements SINUS RHYTHM LEFT AXIS DEVIATION [QRS AXIS < -30] POSSIBLE ANTERIOR MYOCARDIAL INFARCTION , OF INDETERMINATE AGE [30 ms Q WAVE IN V3/V4, OR R < 0.2 mV IN V4] Compared to ECG 04/01/2022 12:32:15 Sinus tachycardia no longer present Myocardial infarct finding still present Electronically Signed On 04-01-2022 22:00:00 CDT by Felix Albarran M.D. [email or web address] clinic [email or web address].[email or web address]/store/OM/[id number]
[2022-04-01 13:38] LABS: Alanine Aminotransferase 16 U/L (0-33); Albumin Level 3.8 g/dL (3.5-5.2); Alkaline Phosphatase 80 U/L (35-105); Anion Gap 16.4 (5-19); Aspartate Amino Transferase 13 U/L (0-32); Blood Urea Nitrogen 21 mg/dL (8-23); Calcium 9.5 mg/dL (8.5-10.5); Carbon Dioxide 25 mmol/L (22-29); Chloride 95 mmol/L (98-107); Globulin 3.4 g/dL (1.3-4.6); Glucose 430 mg/dL (65-115); Osmolality Calculated 295 mOsm/kg (285-295); Potassium 4.4 mmol/L (3.5-5.1); Sodium 132 mmol/L (136-145); Total Bilirubin 0.3 mg/dL (0.15-1.2); Total Protein 7.2 g/dL (6.6-8.7)
[2022-04-01 13:39] LABS: Troponin(5th) Baseline 18 ng/L (0-10)
--- NOTE | 2022-04-01 13:39 | PC.NURSE ---
Patient here with c/o left side chest pain, denies n/v, reports she was watching a movie at the time of onset. Patient a/o, hypertensive, unable to get a NIBP after first reading, manual 184/98, nitro given x's 2 doses, chest pain 7-3, dilaudid 0.5 mg iv given.
--- NOTE | 2022-04-01 14:36 | ECG_ITS ---
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 Measurements Intervals [place] Rate: 72 P: 5 MS: 156 QRS: -36 QRSD: 108 T: 130 QT: 416 QTc: 457 Interpretive Statements SINUS RHYTHM LEFT AXIS DEVIATION [QRS AXIS < -30] POSSIBLE ANTERIOR MYOCARDIAL INFARCTION , OF INDETERMINATE AGE [30 ms Q WAVE IN V3/V4, OR R < 0.2 mV IN V4] MODERATE T-WAVE ABNORMALITY, CONSIDER LATERAL ISCHEMIA [-0.1+ mV T-WAVE IN I/aVL/V5/V6] Compared to ECG 04/01/2022 13:37:41 T-wave abnormality now present Possible ischemia now present Myocardial infarct finding still present Electronically Signed On 04-01-2022 22:05:04 CDT by Felix Albarran M.D. [id number]
--- NOTE | 2022-04-01 14:37 | PC.NURSE ---
Patient denies chest pain at this time.
[2022-04-01] MEDS: insulin regular-human 100 units/1 mL 6 UNIT IVP (15:03)
[2022-04-01 15:14] LABS: Glucose Point of Care 316 mg/dL (70-110)
[2022-04-01 15:29] LABS: Troponin 5 2HR 41.55 ng/L (0-10)
[2022-04-01 15:39] LABS: Troponin 5 2HR Delta 23.55 ABS# (0-10)
[2022-04-01] MEDS: enoxaparin 100 mg/mL Syringe SUBCUT (15:44)
--- NOTE | 2022-04-01 15:52 | PM.HP ---
Providers/Chief Complaint Primary Care Provider: Keo Cook MD Chief Complaint: chest pain History of Present Illness Laverne Perez is a 71 year old female who has established history of coronary disease, she was admitted in November underwent left heart cath and found to have patent FIELDS to LAD.? SVG to OM graft could not be cannulated in spite of multiple attempts.? Competitive flow noted.? Procedure was stopped because of high contrast volume.? Echocardiogram did show hypokinesis and mid inferior lateral and apical lateral fernandez with EF 45% on echo presented today with chief complaint of chest discomfort. Patient stating that she was watching television around noon when she started noticing dull pain in her chest which was not same as the last time when she had CABG. She did not experience any nausea, vomiting, diarrhea femur upper respite tract infection symptoms. Her pain persisted until she arrived in the ER and got nitroglycerin. No diaphoresis or recurrence of chest pain. She was chest pain-free at the time of my evaluation. She is following up with Dr. Garcia In the ER she is chest pain-free delta troponin noted she was given therapeutic Lovenox She is being monitored overnight for any worsening of symptoms Dr. Otoole recommended cardiac CTA on outpatient basis I have requested D-dimer Review of Systems Const: Denies: fever(s) Eyes: Denies: change in vision ENMT: Denies: throat pain Card: Reports: chest pain Resp: Reports: dyspnea GI: Denies: abdominal pain or coffee ground emesis : Denies: flank pain Musc: Denies: neck pain Skin/Breast: Denies: rash Neuro: Denies: headache(s) Psych: Reports: anxiety Endo: Denies: polyuria Leonardo/Lymph: Denies: easy bruising All/Imm: Denies: urticaria Medications/Allergies Home Medications Medication Instructions Recorded Confirmed Last Taken Type metformin 1,000 mg tablet 1,000 mg PO BID 05/12/21 04/01/22 04/01/22 History magnesium L-lactate 84 mg 84 mg PO DAILY #90 tabs 07/20/21 04/01/22 04/01/22 Rx tablet,extended release (Magtab) ascorbic acid (vitamin C) 500 mg 500 mg PO DAILY 12/04/21 04/01/22 04/01/22 History tablet (Vitamin C) [id number] 800 mcg 1 tab PO DAILY 12/04/21 04/01/22 04/01/22 History DFE-vitamin K 150 mcg-herb no.289 tablet (Alive Women's 50 Plus Ultra Potency) atorvastatin 80 mg tablet 80 mg PO QAM 30 days #30 tabs 12/06/21 04/01/22 04/01/22 Rx blood sugar diagnostic (Accu-Chek #100 ea 12/06/21 04/01/22 Unknown Rx Guide test strips) blood-glucose meter (Accu-Chek #1 ea 12/06/21 04/01/22 Unknown Rx Guide Glucose Meter) furosemide 40 mg tablet See Rx Instructions .Route 12/06/21 04/01/22 04/01/22 Rx .COMPLEX 30 days #0 tabs lancets (Accu-Chek Softclix #100 ea 12/06/21 04/01/22 Unknown Rx Lancets) nitroglycerin 0.4 mg sublingual 0.4 mg sublingual Q5M PRN Chest 12/06/21 04/01/22 Unknown Rx tablet Pain #25 tabs potassium citrate 15 mEq (1,620 15 meq PO BID #60 tabs 01/12/22 04/01/22 04/01/22 Rx mg) tablet,extended release losartan 100 mg tablet 100 mg PO DAILY #90 tabs 01/16/22 04/01/22 04/01/22 Rx meloxicam 15 mg tablet 15 mg PO DAILY 02/28/22 04/01/22 04/01/22 History metoprolol succinate 50 mg 75 mg PO DAILY 02/28/22 04/01/22 04/01/22 History tablet,extended release 24 hr aspirin 81 mg chewable tablet 81 mg PO DAILY 04/01/22 04/01/22 04/01/22 History clopidogrel 75 mg tablet (Plavix) 75 mg PO DAILY 04/01/22 04/01/22 Unknown History insulin glargine 100 unit/mL 30 unit SUBCUT BEDTIME 04/01/22 04/01/22 03/31/22 History subcutaneous solution (Lantus U-100 Insulin) Allergies Allergy/AdvReac Type Severity Reaction Status Date / Time No Known Allergies Allergy Verified 04/01/22 16:12 PFSH Acute PFSH: Medical History Bilateral renal stones Diabetes mellitus Hyperlipidemia Hypertension Osteoarthritis Surgical History H/O dilation and curettage H/O heart bypass surgery 2 times H/O vulvectomy H/O: H/O: hysterectomy Hx of cholecystectomy S/P ureteral stent placement Family History Mother , at age 93 Uterine cancer CAD (coronary artery disease) Father , at age 67 CAD (coronary artery disease) Social History Smoking and tobacco status: former smoker Alcohol intake: never Marital status: / Current occupational status: retired History of recent travel: No Vitals/I&O/Wt Last Vital Signs Temp 97.3 F L 04/01/22 12:33 Pulse 72 04/01/22 15:45 Resp 15 04/01/22 15:45 BP 161/75 04/01/22 15:45 Pulse Ox 97 04/01/22 15:45 O2 Del Method 04/01/22 15:45 Weight last 48 hrs Weight 106.141 kg Physical Exam Narrative: Patient is chest pain-free Eating her meal Currently on room air Awake and alert Nonfocal neuro exam Lower extremity no significant edema Lungs are clear to auscultation S1, S2 Son at the bedside Looks euvolemic Morbidly obese Data : 04/01/22 13:00 04/01/22 13:00 A&P Assessment and plan (1) Diabetes mellitus: Qualifiers: Diabetes mellitus complication status: without complication Diabetes mellitus rodent exterminator insulin use: without rodent exterminator use Diabetes mellitus type: type 2 Qualified Code(s): E11.9 - Type 2 diabetes mellitus without complications (2) Hypertension: Qualifiers: Hypertension type: primary hypertension Qualified Code(s): I10 - Essential (primary) hypertension (3) Osteoarthritis: (4) Multiple vessel coronary artery disease: (5) Coronary artery disease: Qualifiers: Coronary Disease-Associated Artery/Lesion type: bypass graft [place] vs. transplanted heart: [place] heart Associated angina: without angina Qualified Code(s): I25.810 - Atherosclerosis of coronary artery bypass graft(s) without angina pectoris (6) Chest pain: (7) Diabetes: (8) Shortness of breath: Plan Unstable angina No active chest pain Recent cardiac cath was done I would not repeat cardiac echo or stress test Check D-dimer rule out PE Overnight monitoring Plan to discharge her tomorrow morning if she stays clinically stable and no recurrence of symptoms Optimize antianginal medications Hypertensive urgency need optimization of antihypertensive regimen She is full code Cardiac diet N.p.o. 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 transplanted heart: [place] heart Associated angina: without angina Chest pain R07.9 Diabetes E11.9 Shortness of breath R06.02
--- NOTE | 2022-04-01 18:18 | PC.NURSE ---
Call placed to Dr. Mazariegos re: heparin order, patient did receive 100 mg lovenox in ED, was not able to make contact with jovanny Beth on med surg
[2022-04-01 19:43] LABS: Troponin 5 6HR 79.99 ng/L (0-10)
[2022-04-01 19:50] LABS: Troponin 5 6HR Delta 61.99 ng/L (0-12)
[2022-04-01 21:03] LABS: Glucose Point of Care 242 mg/dL (70-110)
[2022-04-01] MEDS: insulin glargine 100 units/1 mL 30 UNIT SUBCUT (21:57)
[2022-04-02] VITALS (9 sets, daily range): BP systolic 118–154; BP diastolic 66–99; PULSE 58–91; RESP 12–18; TEMP 36.3–36.7; O2SAT 95–97
--- NOTE | 2022-04-02 | ECG_ITS ---
[facility] Test Date: 2022-04-02 Pat Name: Laverne Perez Department: Room: 259 Gender: Female Glove Turner And Former: : 1950 Requested By: Calderon Mazraiegos Order Number: [id number] Sally MD: Negrita Garcia M.D. Interpretive Statements NAME OF STUDY: LEXISCAN SESTAMIBI STRESS TEST INDICATION: Unstable angina PROCEDURE: At the baseline, the blood pressure was 132/70 mmHg, oxygen saturation 97% with a heart rate of 74 bpm. The electrocardiogram showed sinus rhythm, left axis deviation. Possible old anteroseptal infarct. T wave inversion in 1 aVL. The Lexiscan was infused over a period of 20 seconds. A total of 0.4 milligrams of Lexiscan was infused. The stress phase was continued for a total of 5 minutes. Heart rate at the end of the stress phase was 91 bpm, oxygen saturation 97% with a blood pressure of 149/77 mmHg. The EKG at the peak infusion revealed sinus rhythm with no significant ST-T wave changes. The study was terminated protocol completion. Sestamibi was injected 20 seconds after the Lexiscan infusion. Blood pressure at the end of the recovery phase was 130/99 mmHg, oxygen saturation 97% with a heart rate of 92 beats per minute. CONCLUSION: 1. No significant EKG changes with the LexiScan infusion. 2. No LexiScan induced chest pain or cardiac arrhythmia. 3. Normal blood pressure and heart rate response. 4. Sestamibi/sestamibi perfusion scan pending; see separate report. Electronically Signed On 04-09-2022 12:53:45 CDT by Negrita Garcia M.D. [email or web address] [facility].[id number]
[2022-04-02] MEDS: acetaminophen 325 mg Tablet 650 MG PO (03:34)
[2022-04-02 05:11] LABS: Basophils # 0.1 10^3/uL (0.0-0.1); Basophils % 0.6 %; Eosinophils # 0.2 10^3/uL (0.0-0.8); Hemoglobin 12.6 g/dL (11.5-15.3); Lymphocytes % 23.3 %; Mean Corpuscular HGB Conc 32.3 g/dL (30.0-36.0); Mean Corpuscular Hemoglobin 28.2 pg (28.0-34.0); Mean Corpuscular Volume 87.2 fl (81-99); Mean Platelet Volume 9.5 fL (7.4-10.4); Monocytes # 0.8 10^3/uL (0.2-0.9); Monocytes % 8.7 %; Neutrophils % 65.1 %; Nucleated Red Blood Cells % 0 %; Platelet Count 340 10^3/cmm (130-400); Red Blood Count 4.47 10^6/uL (4.1-5.3); Red Cell Distribution Width 14.4 % (12.1-15.1); White Blood Count 8.6 10^3/uL (4.0-10.0)
[2022-04-02] MEDS: atorvastatin 40 mg Tablet 80 MG PO (05:30)
[2022-04-02] MEDS: enoxaparin 100 mg/mL Syringe SUBCUT ×2 (05:31→18:15)
[2022-04-02 05:34] LABS: Alanine Aminotransferase 14 U/L (0-33); Albumin Level 3.5 g/dL (3.5-5.2); Alkaline Phosphatase 66 U/L (35-105); Anion Gap 13.9 (5-19); Aspartate Amino Transferase 14 U/L (0-32); Blood Urea Nitrogen 17 mg/dL (8-23); Calcium 9.2 mg/dL (8.5-10.5); Carbon Dioxide 24 mmol/L (22-29); Chloride 101 mmol/L (98-107); Globulin 2.7 g/dL (1.3-4.6); Glucose 198 mg/dL (65-115); Magnesium 1.8 mg/dL (1.7-2.3); Osmolality Calculated 287 mOsm/kg (285-295); Potassium 3.9 mmol/L (3.5-5.1); Sodium 135 mmol/L (136-145); Total Bilirubin 0.3 mg/dL (0.15-1.2); Total Protein 6.2 g/dL (6.6-8.7)
[2022-04-02 06:19] LABS: Glucose Point of Care 159 mg/dL (70-110)
--- NOTE | 2022-04-02 07:45 | NMCV_ITS ---
NM margie perf SPECT r/s* [id number] Laverne Perez Age: 71 Gender: F : 1950 Exam Date: 04/02/2022 11:45 Ordering Phys: Calderon Mazariegos MD Technologist: MORENO [place] Exam Location: [facility] Indications: CHEST PAIN STRESS TEST [facility] IMAGE PROTOCOL Rest/Stress 1 Lexiscan Day Radiopharmaceutical Dose (mCi) Administration Site Administered by Rest: Tc-99m 10.7 IV Lorene Morris, MORENO Sestamibi Stress:Tc-99m 33.0 IV Lorene Morris, SOCK KNITTING MACHINE OPERATOR Sestamibi Rest: 02-Apr-2022 601 Discovery 630 Stress: 02-Apr-2022 30 Discovery 630 0.4mg Lexiscan. Supine position only as patient was unable to lay prone. SPECT RESULTS Technical Quality: Good Raw Data Analysis: Normal, Breast attenuation Image Corrections: No attenuation or motion correction applied Summed Stress Score: 19 Summed Rest Score: 10 Summed Difference Score: 9 PERFUSION FINDINGS There is a large in size reversible perfusion defect noted in inferolateral and lateral fernandez. This is consistent with large sized area of ischemia in left circumflex artery. There is a partially reversible perfusion defect noted in inferior wall. This is consistent with prior infarct with significant annetta- infarct ischemia in the RCA territory. Fixed apical perfusion defect is seen. FUNCTIONAL RESULTS (calculated via Gated SPECT) Stress Image LV EF (%): 51 Stress EDV (mL):72 TID: 0.8 Stress ESV (mL):35 FUNCTIONAL FINDINGS: LV systolic function is mildly reduced with EF of 51% mild to moderate global hypokinesis is seen IMPRESSIONS 1. Abnormal myocardial perfusion imaging with large sized area of ischemia noted in left circumflex and RCA territory. Small sized prior infarct seen in the LCx territory 2. LV systolic function is mildly reduced Felix Albarran MD (Electronically Signed) Final Date: 02 April 2022 14:28 Amended: 02 April 2022 14:58 C
[2022-04-02] MEDS: clopidogrel 75 mg Tablet PO (10:49)
[2022-04-02] MEDS: losartan 50 mg Tablet 100 MG PO (10:49)
[2022-04-02] MEDS: metoprolol succinate ER (24 HR) 50 mg Tablet 75 MG PO (10:50)
[2022-04-02] MEDS: FUROsemide 40 mg Tablet PO (10:51)
[2022-04-02] MEDS: aspirin 81 mg Chew Tablet PO (10:51)
[2022-04-02] MEDS: magnesium lactate 84 mg Tablet PO (10:56)
[2022-04-02 11:04] LABS: Glucose Point of Care 178 mg/dL (70-110)
--- NOTE | 2022-04-02 12:19 | PC.CHAP ---
Pastoral Care Encounter/Spiritual Assessment Type of Contact [] Declined mechanical striper visit [] Patient/Family/Request visit [] Outpatient visit [] Follow-up visit [] Physician referral [] Code/Alert [x] Routine visit [] Staff referral [] Actively dying [] Patient sleeping [] Family support [] [] Out of room [] Palliative care [] [] Receiving care in room [] Pre-surgical visit [] Trauma [] Long length of stay [] ICU visit [] Other: Relational/Emotional Strength [x] Patient feels connected with others/family/visitors/staff [] Distress [] Loneliness/isolation [] Abandonment Spirituality of Patient [x] Person of Delmi [] Attends Jewish of their Delmi [x] Believes in Prayer [] Reads Bible or Yazidism materials [] There are Spiritual issues to be addressed General Office Clerk Interventions x[] Prayer [x] Active listening [x] Non-anxious presence [x] Spiritual/emotional support [] Crisis/trauma care [] Spiritual counseling [] Bereavement support [] Provided bereavement packet [] Provided Bible/devotional materials [] Provided toy/stuffed animal, coloring book to patient or family member [] Provided Communion [] Anointing/[place] [] Salvation [x] Completed spiritual assessment [] Other: Impact on Illness or Injury [] Angry [] Fearful [] Anxious [] Often cries [] Exhaustion [] Unable to work [] Unable to attend evangelical [] Unable to walk/stand [] Unable to read [] Unable to drive [] Unable to eat/drink [] Unable to sleep [] Unable to be with family [] Patient intubated [] Other: Summary Time spent with patient 10 min
[2022-04-02] MEDS: regadenoson 0.4 Mg/5 ml Syringe IVP (12:44)
--- NOTE | 2022-04-02 12:53 | P.DS_ITS ---
Discharge Providers Date of Admission: 04/01/22 15:42 Date of Discharge: April 02, 2022 Attending Provider at Admission: Calderon Mazariegos MD Attending Provider at Discharge: Calderon Mazariegos MD Primary Care Provider: Keo Cook MD Diagnoses at Discharge Discharge Diagnosis (1) Diabetes mellitus: Status: Acute Qualifiers: Diabetes mellitus complication status: without complication Diabetes mellitus intermediate insulin use: without superintendent container terminal use Diabetes mellitus type: type 2 Qualified Code(s): E11.9 - Type 2 diabetes mellitus without complications (2) Hypertension: Status: Acute Qualifiers: Hypertension type: primary hypertension Qualified Code(s): I10 - Essential (primary) hypertension (3) Osteoarthritis: Status: Acute (4) Multiple vessel coronary artery disease: Status: Acute (5) Coronary artery disease: Status: Acute Qualifiers: Associated angina: without angina Coronary Disease-Associated Artery/Lesion type: bypass graft [place] vs. transplanted heart: [place] heart Qualified Code(s): I25.810 - Atherosclerosis of coronary artery bypass graft(s) without angina pectoris (6) Chest pain: Status: Acute (7) Diabetes: Status: Acute (8) Shortness of breath: Status: Acute Reason for Visit Reason for Visit: chest pain Hospital Course Hospital Course Laverne Perez is a 71 year old female who has established history of coronary disease, she was admitted in November? underwent left heart cath and found to have patent FIELDS to LAD.? SVG to OM graft could not be cannulated in spite of multiple attempts.? Competitive flow noted.? Procedure was stopped because of high contrast volume.? Echocardiogram did show hypokinesis and mid inferior lateral and apical lateral fernandez with EF 45% on echo presented with dyspnea on exertion. Stress test was positive during hospitalization she was kept on therapeutic Lovenox along her aspirin and Plavix, she never complained of any chest pain remained hemodynamically stable. D-dimer unremarkable. Dr. Garcia did talk to the patient and she recommended increasing antianginal medications she is also recommending outpatient cardiac CTA she will arrange that from her clinic I did verify with her at the time of discharge. She will get Ranexa 500 mg twice daily, at the time of discharge. Physical Exam Narrative: Chest pain-free Awake and alert Euvolemic Currently doing well on room air Abdomen soft Nonfocal neuro exam Discharge Data Studies Completed and Pending Completed Studies During Hospitalization Category Date Time Status Sestamibi Stress Test Request Routine Exams 04/02/22 11:53 Draft XR chest 1V portable [id number] Stat Exams 04/01/22 12:36 Completed Pending at discharge Category Date Time Status Sestamibi Stress Test Request Routine Exams 04/03/22 06:00 Stop Req NM margie perf SPECT r/s* [id number] Routine Nuc Med 04/02/22 07:45 Ordered Radiology Impressions Chest X-Ray 04/01/22 12:36 IMPRESSION: No acute cardiopulmonary abnormality identified. Laboratory Results WBC 8.6 10^3/uL (4.0-10.0) 04/02/22 04:31 RBC 4.47 10^6/uL (4.1-5.3) 04/02/22 04:31 Hgb 12.6 g/dL (11.5-15.3) 04/02/22 04:31 Hct 39.0 % (37.0-47.0) 04/02/22 04:31 MCV 87.2 fl (81-99) 04/02/22 04:31 MCH 28.2 pg (28.0-34.0) 04/02/22 04:31 MCHC 32.3 g/dL (30.0-36.0) 04/02/22 04:31 RDW 14.4 % (12.1-15.1) 04/02/22 04:31 Plt Count 340 10^3/cmm (130-400) 04/02/22 04:31 MPV 9.5 fL (7.4-10.4) 04/02/22 04:31 Neut % (Auto) 65.1 % 04/02/22 04:31 Lymph % (Auto) 23.3 % 04/02/22 04:31 Lynn % (Auto) 8.7 % 04/02/22 04:31 Eos % (Auto) 2.0 % 04/02/22 04:31 Baso % (Auto) 0.6 % 04/02/22 04:31 Neut # (Auto) 5.60 10^3/uL (1.8-7.7) 04/02/22 04:31 Lymph # (Auto) 2.0 10^3/uL (0.8-4.8) 04/02/22 04:31 Lynn # (Auto) 0.8 10^3/uL (0.2-0.9) 04/02/22 04:31 Eos # (Auto) 0.2 10^3/uL (0.0-0.8) 04/02/22 04:31 Baso # (Auto) 0.1 10^3/uL (0.0-0.1) 04/02/22 04:31 Nucleated RBC % (auto) 0 % 04/02/22 04:31 Nucleated RBCs # 0.0 /100WBC 04/02/22 04:31 PT 13.60 SECONDS (12.1-14.9) 04/01/22 13:00 INR 1.01 (0.8-1.2) 04/01/22 13:00 D-Dimer 0.50 ug/mIFEU (0-0.59) 04/01/22 13:00 Sodium 135 mmol/L (136-145) L 04/02/22 04:31 Potassium 3.9 mmol/L (3.5-5.1) 04/02/22 04:31 Chloride 101 mmol/L (98-107) 04/02/22 04:31 Carbon Dioxide 24 mmol/L (22-29) 04/02/22 04:31 Anion Gap 13.9 (5-19) 04/02/22 04:31 BUN 17 mg/dL (8-23) 04/02/22 04:31 Creatinine 0.8 mg/dL (0.5-0.9) 04/02/22 04:31 GFR Calculation Not Reportable 04/02/22 04:31 Glucose 198 mg/dL (65-115) H 04/02/22 04:31 POC Glucose 178 mg/dL (70-110) H 04/02/22 10:43 Calculated Osmolality 287 mOsm/kg (285-295) 04/02/22 04:31 Calcium 9.2 mg/dL (8.5-10.5) 04/02/22 04:31 Magnesium 1.8 mg/dL (1.7-2.3) 04/02/22 04:31 Total Bilirubin 0.3 mg/dL (0.15-1.2) 04/02/22 04:31 AST 14 U/L (0-32) 04/02/22 04:31 ALT 14 U/L (0-33) 04/02/22 04:31 Alkaline Phosphatase 66 U/L (35-105) 04/02/22 04:31 Troponin T Baseline 18 ng/L (0-10) H 04/01/22 13:00 Troponin T 120 Minute 41.55 ng/L (0-10) H 04/01/22 15:05 Delta Troponin T 23.55 ABS# (0-10) H* 04/01/22 15:05 Troponin T Hi Sens 6Hr 79.99 ng/L (0-10) H 04/01/22 19:10 Troponin T Hi Sens 6Hr Delta 61.99 ng/L (0-12) H* 04/01/22 19:10 Total Protein 6.2 g/dL (6.6-8.7) L 04/02/22 04:31 Albumin 3.5 g/dL (3.5-5.2) 04/02/22 04:31 Globulin 2.7 g/dL (1.3-4.6) 04/02/22 04:31 Vitals Last Vital Signs Temp 98.0 F 04/02/22 08:00 Pulse 91 04/02/22 12:43 Resp 12 04/02/22 08:00 BP 130/99 04/02/22 12:43 Pulse Ox 96 04/02/22 08:00 O2 Del Method 04/02/22 08:00 Discharge Plan Discharge Patient Disposition: Home Condition: Stable Prescriptions: New ranolazine 500 mg tablet extended release 12 hr 500 mg PO BID Qty: 120 2RF Continued metoprolol succinate 50 mg tablet extended release 24 hr 75 mg PO DAILY meloxicam 15 mg tablet 15 mg PO DAILY magnesium L-lactate [Magtab] 84 mg tablet extended release 84 mg PO DAILY Qty: 90 3RF potassium citrate 15 mEq tablet extended release 15 meq PO BID Qty: 60 12RF losartan 100 mg tablet 100 mg PO DAILY Qty: 90 0RF metformin 1,000 mg tablet 1,000 mg PO BID ascorbic acid (vitamin C) [Vitamin C] 500 mg Tablet 500 mg PO DAILY Alive Women's 50 Plus Ultra 800 mcg DFE- 150 mcg Tablet 1 tab PO DAILY nitroglycerin 0.4 mg Tablet, Sublingual 0.4 mg sublingual Q5M PRN (Reason: Chest Pain) Qty: 25 6RF (DME) blood-glucose meter [Accu-Chek Guide Glucose Meter] Misc See Rx Instructions .Route Qty: 1 0RF Rx Instructions: As directed (DME) Accu-Chek Guide test strips Strip See Rx Instructions .Route Qty: 100 0RF Rx Instructions: As directed (DME) lancets [Accu-Chek Softclix Lancets] Misc See Rx Instructions .Route Qty: 100 0RF Rx Instructions: As directed furosemide 40 mg tablet See Rx Instructions .ROUTE .COMPLEX 30 Days Qty: 0 0RF Rx Instructions: 40mg (1 tab) in AM and 20mg (0.5 tab) in PM atorvastatin 80 mg tablet 80 mg PO QAM 30 Days Qty: 30 0RF Lantus U-100 Insulin 100 unit/mL Solution 30 unit SUBCUT BEDTIME Plavix 75 mg Tablet 75 mg PO DAILY aspirin 81 mg Tablet,Chewable 81 mg PO DAILY Discharge Orders: Discharge Order (Routine); Ordered 04/03/22 Ordered By: Calderon Mazariegos Referrals: Keo Cook MD [Primary Care Provider] - Negrita Garcia MD [Physician] - 1 month Discharge Diet: Cardiac Discharge Activity: Increase activity as tolerated Patient Instructions: Opioid Safety Discharge Attestations Time Spent in Discharge Care*: less than 30 min Quality Metrics Clinical Quality Measures [ No reported AMI, CVA or VTE this stay] Coding Level of Care Code Acute g FW DC note Diagnoses Diabetes mellitus E11.9 Diabetes mellitus complication status: without complication Diabetes mellitus superintendent container terminal insulin use: without intermediate use Diabetes mellitus type: type 2 Hypertension I10 Hypertension type: primary hypertension Osteoarthritis M19.90 Multiple vessel coronary artery disease I25.10 Coronary artery disease I25.810 Associated angina: without angina Coronary Disease-Associated Artery/Lesion type: bypass graft [place] vs. transplanted heart: [place] heart Chest pain R07.9 Diabetes E11.9 Shortness of breath R06.02
--- NOTE | 2022-04-02 17:13 | PM.PN ---
Subjective Subjective: Positive stress test, Dr. Burch is recommended watching her overnight we might have to adjust her antianginal She is recommending outpatient cardiac CTA Patient is chest pain-free Hemodynamically stable Vitals/I&O/Wt Last Vital Signs Temp 97.4 F L 04/02/22 16:00 Pulse 73 04/02/22 16:00 Resp 16 04/02/22 16:00 BP 130/84 04/02/22 16:00 Pulse Ox 97 04/02/22 16:00 O2 Del Method 04/02/22 16:00 Weight last 48 hrs Weight 106.141 kg Physical Exam Narrative: Looks euvolemic No active chest pain No shortness of breath on exertion here in the hospital Afebrile Currently on room air Nonfocal neuro exam Currently doing well on room air No signs of wheezing Data : 04/02/22 04:31 04/02/22 04:31 A&P Assessment and plan (1) Diabetes mellitus: Qualifiers: Diabetes mellitus complication status: without complication 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 mellitus 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 control service representative insulin use: without penitentiary use Diabetes mellitus type: type 2 Qualified Code(s): E11.9 - Type 2 diabetes mellitus without complications (2) Osteoarthritis: (3) Hypertension: Qualifiers: Hypertension type: primary hypertension Qualified Code(s): I10 - Essential (primary) hypertension (4) Multiple vessel coronary artery disease: (5) CAMERON (dyspnea on exertion): Plan Dyspnea on exertion Angina equivalent symptoms Positive stress test Large area of reversible defect inferolateral and lateral fernandez in left circumflex territory with partially reversible perfusion defect in inferior wall Dr. 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
--- NOTE | 2022-04-02 18:14 | P.CONIM_ITS ---
Providers/Reason For Consult Consulting Physician/Specialty*: Dr. Garcia, Cardiology Reason for Consult*: NSTEMI Attending Physician: Calderon Mazariegos MD Primary Care Provider: Keo Cook MD History of Present Illness History of Present Illness Laverne Perez is a 71 year old female with past medical history of hypertension, smoking, coronary artery disease s/p CABG with FIELDS to LAD and SVG to OM done in May 2021 was in hospital with complaints of substernal chest pain and troponin elevation in 11/2021.?? She had coronary angiogram that revealed patent FIELDS to LAD, SVG OM could not be cannulated.? Echo revealed LVEF 45% decreased when compared to previous .?Metoprolol increased to 75 mg daily.? Plan was to consider cardiac CTA on an outpatient basis. I saw her outpatient and as symptoms of CAMERON was unchanged, patient decided to hold off on cardiac CTA. She presented again with chest achiness 8/10 in intensity that started while watching TV that lasted for 4-5 hours. She did not take any SL NTG and decided to come to the hospital with her son Hima. She underwent stress test this morning with ischemia in LCx artery territory. She is currently CP free. No leg edema, worsening CAMERON. Review of Systems 2 Const: Denies: fever(s) Eyes: Denies: change in vision ENMT: Denies: throat pain Card: Reports: chest pain Resp: Reports: dyspnea GI: Denies: abdominal pain or coffee ground emesis : Denies: flank pain Musc: Denies: neck pain Skin/Breast: Denies: rash Neuro: Denies: headache(s) Psych: Reports: anxiety Endo: Denies: polyuria Leonardo/Lymph: Denies: easy bruising All/Imm: Denies: urticaria Medications/Allergies Home Medications Medication Instructions Recorded Confirmed Last Taken Type metformin 1,000 mg tablet 1,000 mg PO BID 05/12/21 04/01/22 04/01/22 History magnesium L-lactate 84 mg 84 mg PO DAILY #90 tabs 07/20/21 04/01/22 04/01/22 Rx tablet,extended release (Magtab) ascorbic acid (vitamin C) 500 mg 500 mg PO DAILY 12/04/21 04/01/22 04/01/22 History tablet (Vitamin C) [id number] 800 mcg 1 tab PO DAILY 12/04/21 04/01/22 04/01/22 History DFE-vitamin K 150 mcg-herb no.289 tablet (Alive Women's 50 Plus Ultra Potency) atorvastatin 80 mg tablet 80 mg PO QAM 30 days #30 tabs 12/06/21 04/01/22 04/01/22 Rx blood sugar diagnostic (Accu-Chek #100 ea 12/06/21 04/01/22 Unknown Rx Guide test strips) blood-glucose meter (Accu-Chek #1 ea 12/06/21 04/01/22 Unknown Rx Guide Glucose Meter) furosemide 40 mg tablet See Rx Instructions .Route 12/06/21 04/01/22 04/01/22 Rx .COMPLEX 30 days #0 tabs lancets (Accu-Chek Softclix #100 ea 12/06/21 04/01/22 Unknown Rx Lancets) nitroglycerin 0.4 mg sublingual 0.4 mg sublingual Q5M PRN Chest 12/06/21 04/01/22 Unknown Rx tablet Pain #25 tabs potassium citrate 15 mEq (1,620 15 meq PO BID #60 tabs 01/12/22 04/01/22 04/01/22 Rx mg) tablet,extended release losartan 100 mg tablet 100 mg PO DAILY #90 tabs 01/16/22 04/01/22 04/01/22 Rx meloxicam 15 mg tablet 15 mg PO DAILY 02/28/22 04/01/22 04/01/22 History metoprolol succinate 50 mg 75 mg PO DAILY 02/28/22 04/01/22 04/01/22 History tablet,extended release 24 hr aspirin 81 mg chewable tablet 81 mg PO DAILY 04/01/22 04/01/22 04/01/22 History clopidogrel 75 mg tablet (Plavix) 75 mg PO DAILY 04/01/22 04/01/22 Unknown History insulin glargine 100 unit/mL 30 unit SUBCUT BEDTIME 04/01/22 04/01/22 03/31/22 History subcutaneous solution (Lantus U-100 Insulin) ranolazine 500 mg tablet,extended 500 mg PO BID #120 tabs 04/02/22 Unknown Rx release,12 hr Allergies Allergy/AdvReac Type Severity Reaction Status Date / Time No Known Allergies Allergy Verified 04/01/22 16:12 Current Medications Generic Name Dose Route Start Last Admin Trade Name Freq PRN Reason Stop Dose Admin Acetaminophen 650 mg 04/01/22 15:53 04/02/22 03:34 Acetaminophen 325 Mg Tablet PO 650 mg Q6H PRN Administration Mild/Mod Pain Or Temp >/= 101 Aspirin 81 mg 04/02/22 09:00 04/02/22 10:51 Aspirin 81 Mg Chew Tablet PO 81 mg DAILY PARAG Administration Atorvastatin Calcium 80 mg 04/02/22 06:00 04/02/22 05:30 Atorvastatin 40 Mg Tablet PO 80 mg QAM PARAG Administration Clopidogrel Bisulfate 75 mg 04/02/22 09:00 04/02/22 10:49 Clopidogrel 75 Mg Tablet PO 75 mg DAILY PARAG Administration Enoxaparin Sodium 100 mg 04/02/22 05:00 04/02/22 05:31 Enoxaparin 100 Mg/Ml Syringe SUBCUT 100 mg Q12H PARAG Administration Furosemide 40 mg 04/02/22 08:00 04/02/22 10:51 Furosemide 40 Mg Tablet PO 40 mg 0800 PARAG Administration Insulin Glargine 30 unit 04/01/22 21:00 04/01/22 21:57 Insulin Glargine 100 Units/1 Ml SUBCUT 30 unit BEDTIME PARAG Administration Losartan Potassium 100 mg 04/02/22 09:00 04/02/22 10:49 Losartan 50 Mg Tablet PO 100 mg DAILY PARAG Administration Magnesium Lactate 84 mg 04/02/22 09:00 04/02/22 10:56 Magnesium Lactate 84 Mg Tablet PO 84 mg DAILY PARAG Administration Metoprolol Succinate 75 mg 04/02/22 09:00 04/02/22 10:50 Metoprolol Succinate Er (24 Hr) 50 Mg Tablet PO 75 mg DAILY PARAG Administration Nitroglycerin 0.4 mg 04/01/22 12:44 04/01/22 13:29 Nitroglycerin 0.4 Mg Sublingual Tablet SUBLINGUAL 0.4 mg Q5M PRN Administration CHEST PAIN Non-Formulary Medication 15 meq 04/01/22 21:00 04/01/22 21:25 Potassium Citrate PO Not Given BEDTIME PARAG PFSH Acute PFSH: Medical History Bilateral renal stones Diabetes mellitus Hyperlipidemia Hypertension Osteoarthritis Surgical History H/O dilation and curettage H/O heart bypass surgery 2 times H/O vulvectomy H/O: H/O: hysterectomy Hx of cholecystectomy S/P ureteral stent placement Family History Mother , at age 93 Uterine cancer CAD (coronary artery disease) Father , at age 67 CAD (coronary artery disease) Social History Smoking and tobacco status: former smoker Alcohol intake: never Marital status: / Current occupational status: retired History of recent travel: No Vitals/I&O/Wt Last Vital Signs Temp 97.4 F L 04/02/22 16:00 Pulse 73 04/02/22 16:00 Resp 16 04/02/22 16:00 BP 130/84 04/02/22 16:00 Pulse Ox 97 04/02/22 16:00 O2 Del Method 04/02/22 16:00 04/02/22 04/02/22 04/02/22 06:59 14:59 22:59 Intake Total 240 / 240 Balance 240 / 240 Weight last 48 hrs Weight 234 lb Physical Exam Narrative: GENERAL: Obese woman sitting in bed in no acute distress HEENT:? Pupils equal round reactive to light.? No pallor or icterus. NECK: No JVD.? No carotid bruit. CARDIOVASCULAR SYSTEM: S1-S2 regular. ? No murmur rubs or gallops.? Midline well approximated and well-healed sternotomy scar RESPIRATORY SYSTEM: Chest clear to auscultation.? No wheezes rhonchi or rubs heard. No use of accessory muscles. ABDOMEN: Soft, nontender and nondistended.? Normal bowel sounds present. EXTREMITIES: No cyanosis. No edema.? No signs of chronic venous insufficiency. PHYSICAL AERODYNAMICIST: Patient is alert oriented ?3.? No focal neurological deficits. Data : 04/03/22 04:48 04/03/22 04:48 A&P Assessment and plan (1) Non-ST elevation NE (NSTEMI): EKG with T wave inversion in I, aVL and mild ST depression in V4-V6. Poor anterior R wave progression. -continue ASA, plavix, lovenox another day -continue metoprolol -start on Ranexa 500 mG twice a day -Possible discharge in morning -will set her up for outpatient cardiac CTA. (2) Coronary artery disease: Multivessel CAD s/p CABG x 2 Qualifiers: Associated angina: without angina Coronary Disease-Associated A rtery/Lesion type: bypass graft [place] vs. transplanted heart: [place] heart Qualified Code(s): I25.810 - Atherosclerosis of coronary artery bypass graft(s) without angina pectoris (3) Diabetes: (4) CKD (chronic kidney disease) stage 3, GFR 30-59 ml/min: (5) Hyperlipidemia: Qualifiers: Hyperlipidemia type: mixed hyperlipidemia Qualified Code(s): E78.2 - Mixed hyperlipidemia Coding Level of Care Code Acute Tosser for [facility] Fw Diagnoses Non-ST elevation NE (NSTEMI) I21.4 Coronary artery disease I25.810 Associated angina: without angina Coronary Disease-Associated Artery/Lesion type: bypass graft [place] vs. transplanted heart: [place] heart Diabetes E11.9 CKD (chronic kidney disease) stage 3, GFR 30-59 ml/min N18.30 Hyperlipidemia E78.2 Hyperlipidemia type: mixed hyperlipidemia
[2022-04-02] MEDS: FUROsemide 20 mg Tablet PO (18:15)
[2022-04-02 20:09] LABS: NT Pro B Type Natriuretic Pept 1639 pg/mL (0-125)
[2022-04-02] MEDS: ranolazine (12HR) 500 mg Tablet PO (20:49)
[2022-04-02] MEDS: insulin glargine 100 units/1 mL 30 UNIT SUBCUT (20:50)
[2022-04-03] MEDS: acetaminophen 325 mg Tablet 650 MG PO ×2 (00:05→06:28)
[2022-04-03 04:00] VITALS: BP 128/58; PULSE 65; RESP 16; TEMP 36.6; O2SAT 95
[2022-04-03] MEDS: atorvastatin 40 mg Tablet 80 MG PO (05:00)
[2022-04-03 05:24] LABS: Basophils # 0.1 10^3/uL (0.0-0.1); Eosinophils # 0.2 10^3/uL (0.0-0.8); Eosinophils % 2.4 %; Hematocrit 39.8 % (37.0-47.0); Hemoglobin 12.8 g/dL (11.5-15.3); Lymphocytes # 1.8 10^3/uL (0.8-4.8); Lymphocytes % 25.9 %; Mean Corpuscular HGB Conc 32.2 g/dL (30.0-36.0); Mean Corpuscular Hemoglobin 27.8 pg (28.0-34.0); Mean Corpuscular Volume 86.5 fl (81-99); Mean Platelet Volume 9.6 fL (7.4-10.4); Monocytes # 0.7 10^3/uL (0.2-0.9); Monocytes % 9.8 %; Neutrophils # 4.27 10^3/uL (1.8-7.7); Neutrophils % 60.6 %; Nucleated Red Blood Cells % 0 %; Platelet Count 353 10^3/cmm (130-400); Red Cell Distribution Width 14.5 % (12.1-15.1)
[2022-04-03 05:53] LABS: Blood Urea Nitrogen 15 mg/dL (8-23); Calcium 9.2 mg/dL (8.5-10.5); Carbon Dioxide 24 mmol/L (22-29); Chloride 101 mmol/L (98-107); Glucose 171 mg/dL (65-115); NT Pro B Type Natriuretic Pept 1210 pg/mL (0-125); Osmolality Calculated 291 mOsm/kg (285-295); Sodium 138 mmol/L (136-145)
[2022-04-03 07:27] VITALS: BP 149/83; PULSE 59; RESP 18; TEMP 36.8; O2SAT 95
[2022-04-03] MEDS: metoprolol succinate ER (24 HR) 50 mg Tablet 75 MG PO (08:06)
[2022-04-03] MEDS: magnesium lactate 84 mg Tablet PO (08:06)
[2022-04-03] MEDS: aspirin 81 mg Chew Tablet PO (08:07)
[2022-04-03] MEDS: clopidogrel 75 mg Tablet PO (08:07)
[2022-04-03] MEDS: ranolazine (12HR) 500 mg Tablet PO (08:07)
[2022-04-03 08:08] VITALS: BP 149/83
[2022-04-03] MEDS: losartan 50 mg Tablet 100 MG PO (08:08)
[2022-04-03] MEDS: FUROsemide 40 mg Tablet PO (08:08)
[2022-04-03 09:08] VITALS: PULSE 70; RESP 17; O2SAT 98
[2022-04-03 09:48] VITALS: PULSE 70; RESP 17; O2SAT 98
--- NOTE | 2022-04-03 10:34 | PC.NURSE ---
Patient received discharge education and followup appointments. Patient verbalized understanding.
== END 2022-04-03 10:35 | disposition home or self-care (01) ==
LOC: ER 15:43 → MEDSURG 18:20
PROVIDERS: Internal Medicine Cardiovascular Disease; Admitting Provider Internal Medicine; Emergency Provider Emergency Medicine; PCP Family Medicine; Visit Provider Internal Medicine
DX: I21.4 Non-ST elevation (NSTEMI) myocardial infarction (principal); I25.810 Atherosclerosis of coronary artery bypass graft(s) without angina pectoris; E11.22 Type 2 diabetes mellitus with diabetic chronic kidney disease; I12.9 Hypertensive chronic kidney disease with stage 1 through stage 4 chronic kidney disease, or unspecified chronic kidney disease; N18.30 Chronic kidney disease, stage 3 unspecified; M19.90 Unspecified osteoarthritis, unspecified site; R06.02 Shortness of breath; R07.9 Chest pain, unspecified; E78.2 Mixed hyperlipidemia; Z79.82 Long term (current) use of aspirin; Z79.02 Long term (current) use of antithrombotics/antiplatelets; Z95.1 Presence of aortocoronary bypass graft; Z87.891 Personal history of nicotine dependence
CPT/HCPCS: 36415; 36416; 71045; 78452; 80048; 80053; 82962; 83735; 83880; 84484; 85025; 85378; 85610; 93005; 93017; 94664; 96372; 96374; 96375; 99285; A9500; G0378; J1170; J1650; J1815; J2785

== ENCOUNTER → 2022-05-01 09:10 | Outpatient (BNVA) | payer MEDICARE, SELFPAY | PROVIDERS: PCP Family Medicine; Visit Provider Nurse Practitioner Family | DX: I25.810 Atherosclerosis of coronary artery bypass graft(s) without angina pectoris (principal); Z87.891 Personal history of nicotine dependence; I12.9 Hypertensive chronic kidney disease with stage 1 through stage 4 chronic kidney disease, or unspecified chronic kidney disease; E11.22 Type 2 diabetes mellitus with diabetic chronic kidney disease; N18.30 Chronic kidney disease, stage 3 unspecified; Z79.4 Long term (current) use of insulin; Z79.84 Long term (current) use of oral hypoglycemic drugs | CPT/HCPCS: 99213 ==

== ENCOUNTER 2022-08-07 08:48 | Outpatient (CLI) | payer MEDICARE, SELFPAY ==
--- NOTE | 2022-08-07 08:59 | XR_ITS ---
WS: [id number] XR KUB [id number] REASON FOR EXAM: Bilateral Renal Stone FINDINGS: CT scan of 02/23/2022 demonstrated several intrarenal calculi on the right and a single intrarenal kendall culus on the left with right ureteral pelvic junction calculus. Large amount colon gas and stool overlying the kidneys. Probable small left intrarenal calculus. No d efinite right renal calculus. No calculus along the course of the ureters or overlying the bladder. XR/XR KUB [id number] IMPRESSION: Examination limited by overlying bowel contents. Small left intrarenal calculus identified. No other definite urinary tract calculi demonstrated.
== END 2022-08-07 08:49 | disposition home or self-care (01) ==
LOC: RAD 08:50
PROVIDERS: PCP Family Medicine; Visit Provider Urology
DX: N20.0 Calculus of kidney (principal)
CPT/HCPCS: 74018; 99213

== ENCOUNTER → 2022-10-19 09:58 | Outpatient (BNVA) | payer MEDICARE, SELFPAY | PROVIDERS: PCP Family Medicine; Visit Provider Internal Medicine Cardiovascular Disease | DX: I25.810 Atherosclerosis of coronary artery bypass graft(s) without angina pectoris (principal); I12.9 Hypertensive chronic kidney disease with stage 1 through stage 4 chronic kidney disease, or unspecified chronic kidney disease; E11.22 Type 2 diabetes mellitus with diabetic chronic kidney disease; Z87.891 Personal history of nicotine dependence; Z79.4 Long term (current) use of insulin; N18.30 Chronic kidney disease, stage 3 unspecified; I25.2 Old myocardial infarction; E78.2 Mixed hyperlipidemia; E66.01 Morbid (severe) obesity due to excess calories; Z68.38 Body mass index [BMI] 38.0-38.9, adult; I25.5 Ischemic cardiomyopathy | CPT/HCPCS: 99214 ==

== ENCOUNTER 2023-02-28 23:50 | Inpatient (IN) | payer MEDICARE, SELFPAY ==
--- NOTE | 2023-02-28 23:54 | ECG_ITS ---
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 Measurements Intervals [place] Rate: 119 P: 25 CT: 146 QRS: -48 QRSD: 137 T: 61 QT: 336 QTc: 473 Interpretive Statements SINUS TACHYCARDIA WITH FREQUENT VENTRICULAR PREMATURE COMPLEXES LEFT AXIS DEVIATION [QRS AXIS < -30] INTRAVENTRICULAR CONDUCTION DELAY [130+ ms QRS DURATION] ANTEROSEPTAL MYOCARDIAL INFARCTION , OF INDETERMINATE AGE [40+ ms Q WAVE IN V1-V4] Compared to ECG 04/01/2022 15:03:38 Ventricular premature complex(es) now present Intraventricular conduction delay now present Sinus rhythm no longer present T-wave abnormality no longer present Possible ischemia no longer present Myocardial infarct finding still present Electronically Signed On 03-01-2023 9:17:52 CDT by Negrita Garcia M.D. [id number]
[2023-03-01] VITALS (19 sets, daily range): BP systolic 104–160; BP diastolic 64–107; PULSE 81–122; RESP 11–26; TEMP 36.4–36.8; O2SAT 94–98; BMI 40.3
[2023-03-01] MEDS: ondansetron 2 mg/ML SDV 2 mL 4 MG IVP (00:12)
[2023-03-01] MEDS: aspirin 81 mg Chew Tablet 324 MG PO (00:13)
[2023-03-01] MEDS: morphine 4 mg/mL SDV 1 mL IVP (00:13)
--- NOTE | 2023-03-01 00:16 | ED_ITS ---
HPI - Chest Pain General: Chief Complaint: Chest Pain Stated Complaint: cp Time Seen by Provider: 02/28/23 23:54 Source: patient and EMS Mode of arrival: EMS Limitations: no limitations History of Present Illness: 72-year-old female with history of extensive cardiac disease states she been having chest pain this evening that radiates to her left arm. She explains a sharp pain in the center of her chest rates it a 7 out of 10 currently she denies any worsening proving factors denies any vomiting or diarrhea. Associated symptoms: Deny abdominal pain, dyspnea, fever(s), nausea or vomiting Review of Systems Const: Denies: fever(s) or chills ENMT: Denies: throat pain or dental pain Card: Reports: chest pain Resp: Denies: dyspnea GI: Denies: abdominal pain, nausea, vomiting or diarrhea Musc: Denies: neck pain or back pain Skin/Breast: Denies: rash Neuro: Denies: headache(s) PFSH ED PFSH: Medical History Bilateral renal stones Chest pain CKD (chronic kidney disease) stage 3, GFR 30-59 ml/min Coronary artery disease Diabetes Diabetes mellitus CAMERON (dyspnea on exertion) Essential hypertension Hyperlipidemia Hypertension Ischemic cardiomyopathy Morbid obesity Multiple vessel coronary artery disease Non-ST elevation [place] (NSTEMI) Osteoarthritis Shortness of breath Surgical History (Updated 10/19/22 @ 10:38 by Aj Isabel MD) H/O dilation and curettage H/O heart bypass surgery 2 times H/O vulvectomy H/O: H/O: hysterectomy Hx of cholecystectomy S/P ureteral stent placement Family History Mother , at age 93 Uterine cancer CAD (coronary artery disease) Father , at age 67 CAD (coronary artery disease) Social History Smoking and tobacco status: former smoker Alcohol intake: never Marital status: / Current occupational status: retired Physical Exam Const: COMMON NORMALS: patient oriented x3 HENMT: COMMON NORMALS: normocephalic and atraumatic HEAD & SCALP: normocep halic and atraumatic Eye: COMMON NORMALS: Equal, round and reactive pupils present and EOMs intact bilaterally PUPIL: Yes Equal, round and reactive pupils present Neck/C-Spine: COMMON NORMALS: full ROM and supple Chest: COMMONS NORMALS: normal inspection of the chest and normal palpation of entire chest wall Resp: COMMON NORMALS: normal respiratory effort, No retractions, No use of accessory muscles and clear to auscultation bilaterally AUSCULTATION: clear to auscultation bilaterally Cardio: COMMON NORMALS: regular rhythm and No murmurs present (Cardio) R ATE: tachycardic RHYTHM: regular rhythm GI: COMMON NORMALS: Normal to inspection, nondistended, normoactive bowel sounds present, Soft to palpation, non-tender and no masses PALPATION: Yes Soft to palpation Extremity: COMMON NORMALS: normal to inspection and full ROM Neuro: COMMON NORMALS: patient oriented x3, moves all extremities and no focal motor deficits Psych: COMMON NORMALS: mental status grossly normal, Normal thought process present and cooperative THOUGHT PROCESS: Normal thought process present Skin: COMMON NORMALS: no rashes or lesions noted and no wounds GENERAL SKIN EXAM: no rashes or lesions noted Course Vital Signs: Vital signs: Vital Signs Temperature 97.6 F 03/01/23 00:05 Pulse Rate 107 H 03/01/23 02:15 Respiratory Rate 18 03/01/23 02:15 Blood Pressure 146/89 03/01/23 02:15 Pulse Oximetry 96 03/01/23 02:15 Oxygen Delivery Me thod Room Air 03/01/23 00:05 MDM - Chest Pain Medical Decision Making Patient presents for chest pain she is now chest pain-free after Dilaudid 2-hour troponin was elevated consistent with NSTEMI we will give Lovenox spoke to hospitalist along with magisterial district judge and will admit. Medical Records I reviewed the patient's medical records. Lab Data I reviewed the patient's lab results. 03/01/23 00:04 03/01/23 00:04 Radiology Impressions Chest X-Ray 03/01/23 01:43 IMPRESSION: Increased peribronchial and perihilar markings bilaterally could represent bilateral bronchitis and perihilar pneumonitis. Laboratory Results WBC 14.37 10^3/uL (3.29-11.43) H 03/01/23 00:04 RBC 5.25 10^6/uL (3.85-5.65) 03/01/23 00:04 Hgb 14.70 g/dL (11.27-16.99) 03/01/23 00:04 Hct 45.5 % (36-47) 03/01/23 00:04 MCV 86.7 fl (85-98) 03/01/23 00:04 MCH 28.0 pg (27-33) 03/01/23 00:04 MCHC 32.3 g/dL (30-55) 03/01/23 00:04 RDW 14.2 % (12.1-15.1) 03/01/23 00:04 Plt Count 500 10^3/cmm (157-399) H 03/01/23 00:04 MPV 9.2 fL (7.4-10.4) 03/01/23 00:04 Neut % (Auto) 77.1 % 03/01/23 00:04 Lymph % (Auto) 14.5 % 03/01/23 00:04 [place] % (Auto) 6.9 % 03/01/23 00:04 Eos % (Auto) 0.6 % 03/01/23 00:04 Baso % (Auto) 0.5 % 03/01/23 00:04 Neut # (Auto) 11.08 10^3/uL (1.8-7.7) H 03/01/23 00:04 Lymph # (Auto) 2.1 10^3/uL (0.8-4.8) 03/01/23 00:04 [place] # (Auto) 1.0 10^3/uL (0.2-0.9) H 03/01/23 00:04 Eos # (Auto) 0.1 10^3/uL (0.0-0.8) 03/01/23 00:04 Baso # (Auto) 0.1 10^3/uL (0.0-0.1) 03/01/23 00:04 Nucleated RBC % (auto) 0 % 03/01/23 00:04 Nucleated RBCs # 0.0 /100WBC 03/01/23 00:04 PT 12.90 SECONDS (12.1-14.9) 03/01/23 00:04 INR 0.94 (0.8-1.2) 03/01/23 00:04 Sodium 135 mmol/L (136-145) L 03/01/23 00:04 Potassium 4.8 mmol/L (3.5-5.1) 03/01/23 00:04 Chloride 95 mmol/L (98-107) L 03/01/23 00:04 Carbon Dioxide 23 mmol/L (22-29) 03/01/23 00:04 Anion Gap 21.8 (5-19) H 03/01/23 00:04 BUN 38 mg/dL (8-23) H 03/01/23 00:04 Creatinine 1.4 mg/dL (0.5-0.9) H 03/01/23 00:04 GFR Calculation Not Reportable 03/01/23 00:04 Glucose 484 mg/dL (65-115) H 03/01/23 00:04 POC Glucose 353 mg/dL (70-110) H 03/01/23 02:05 Calculated Osmolality 310 mOsm/kg (285-295) H 03/01/23 00:04 Calcium 9.4 mg/dL (8.5-10.5) 03/01/23 00:04 Total Bilirubin 0.3 mg/dL (0.15-1.2) 03/01/23 00:04 AST 14 U/L (0-32) 03/01/23 00:04 ALT 16 U/L (0-33) 03/01/23 00:04 Alkaline Phosphatase 82 U/L (35-105) 03/01/23 00:04 Troponin T Baseline 52 ng/L (0-10) H 03/01/23 00:04 Troponin T 120 Minute 163.8 ng/L (0-10) H 03/01/23 02:05 Delta Troponin T 111.8 ABS# (0-10) H* 03/01/23 02:05 Total Protein 7.4 g/dL (6.6-8.7) 03/01/23 00:04 Albumin 4.2 g/dL (3.5-5.2) 03/01/23 00:04 Globulin 3.2 g/dL (1.3-4.6) 03/01/23 00:04 EKG Data EKG 1: I personally reviewed and interpreted this EKG as follows: EKG interpretation date: 02/28/23 EKG interpretation time: 23:54 Interpretation: sinus tach hr119 no st or t wave abnormalities qrs 137 qtc 407 Discharge Plan Discharge Patient Disposition: Admitted As Inpatient Clinical Impression: Non-ST elevation AK (NSTEMI) Condition: Stable Coding Level of Care Code ED 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
[2023-03-01 00:17] LABS: Basophils # 0.1 10^3/uL (0.0-0.1); Basophils % 0.5 %; Eosinophils # 0.1 10^3/uL (0.0-0.8); Eosinophils % 0.6 %; Hematocrit 45.5 % (36-47); Lymphocytes # 2.1 10^3/uL (0.8-4.8); Lymphocytes % 14.5 %; Mean Corpuscular HGB Conc 32.3 g/dL (30-55); Mean Corpuscular Volume 86.7 fl (85-98); Mean Platelet Volume 9.2 fL (7.4-10.4); Monocytes % 6.9 %; Neutrophils # 11.08 10^3/uL (1.8-7.7); Neutrophils % 77.1 %; Nucleated Red Blood Cells % 0 %; Platelet Count 500 10^3/cmm (157-399); Red Blood Count 5.25 10^6/uL (3.85-5.65); Red Cell Distribution Width 14.2 % (12.1-15.1); White Blood Count 14.37 10^3/uL (3.29-11.43)
[2023-03-01 00:28] LABS: INR 0.94 (0.8-1.2)
[2023-03-01 00:40] LABS: Troponin(5th) Baseline 52 ng/L (0-10)
[2023-03-01 00:44] LABS: Alanine Aminotransferase 16 U/L (0-33); Albumin Level 4.2 g/dL (3.5-5.2); Alkaline Phosphatase 82 U/L (35-105); Anion Gap 21.8 (5-19); Aspartate Amino Transferase 14 U/L (0-32); Blood Urea Nitrogen 38 mg/dL (8-23); Calcium 9.4 mg/dL (8.5-10.5); Carbon Dioxide 23 mmol/L (22-29); Chloride 95 mmol/L (98-107); Globulin 3.2 g/dL (1.3-4.6); Glucose 484 mg/dL (65-115); Osmolality Calculated 310 mOsm/kg (285-295); Potassium 4.8 mmol/L (3.5-5.1); Sodium 135 mmol/L (136-145); Total Bilirubin 0.3 mg/dL (0.15-1.2); Total Protein 7.4 g/dL (6.6-8.7)
[2023-03-01] MEDS: insulin regular-human 100 units/1 mL 14 UNIT IVP (01:08)
[2023-03-01] MEDS: HYDROmorphone 1 mg/mL INJ 1 mL 0.5 MG IVP (01:19)
--- NOTE | 2023-03-01 01:43 | XRR_ITS ---
PROCEDURE INFORMATION: Exam: XR Chest Exam date and time: 03/01/2023 1:53 AM Age: 72 years old Clinical indication: Pain; Angina pectoris; Prior surgery; Surgery date: 6+ months; Surgery type: unknown surgery date; Additional info: Cp TECHNIQUE: Imaging protocol: Radiologic exam of the chest. Views: 1 view. COMPARISON: CR XR chest 1V portable [id number] 04/01/2022 12:45 PM FINDINGS: Lungs: There are some increased peribronchial and perihilar markings present bilaterally, findings that could represent bilateral bronchitis and perihilar pneumonitis. Pleural spaces: Unremarkable. No pleural effusion. No pneumothorax. Heart/Mediastinum: Unremarkable. No cardiomegaly. Bones/joints: Unremarkable. Soft tissues: Hazy opacities overlying the left lower hemithorax likely explained, at least in part, by overlying soft tissues. XR/XR chest 1V portable [id number] IMPRESSION: Increased peribronchial and perihilar markings bilaterally could represent bilateral bronchitis and perihilar pneumonitis.
--- NOTE | 2023-03-01 01:54 | ECG_ITS ---
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 Measurements Intervals [place] Rate: 102 P: 33 OK: 154 QRS: -53 QRSD: 122 T: 54 QT: 365 QTc: 478 Interpretive Statements SINUS TACHYCARDIA LEFT AXIS DEVIATION [QRS AXIS < -30] ANTEROSEPTAL MYOCARDIAL INFARCTION , OF INDETERMINATE AGE [40+ ms Q WAVE IN V1-V4] Compared to ECG 02/28/2023 23:54:03 Ventricular premature complex(es) no longer present Intraventricular conduction delay no longer present Myocardial infarct finding still present Electronically Signed On 03-01-2023 13:04:19 CDT by Negrita Garcia M.D. [id number]
[2023-03-01 02:08] LABS: Glucose Point of Care 353 mg/dL (70-110)
[2023-03-01] MEDS: insulin regular-human 100 units/1 mL 6 UNIT IVP (02:12)
[2023-03-01 02:48] LABS: Troponin 5 2HR 163.8 ng/L (0-10); Troponin 5 2HR Delta 111.8 ABS# (0-10)
[2023-03-01] MEDS: enoxaparin 100 mg/mL Syringe SUBCUT (03:06)
--- NOTE | 2023-03-01 03:24 | P.HP_ITS ---
Providers/Chief Complaint Admitting Physician: Coty Primary Care Provider: Keo Cook MD Chief Complaint: cp History of Present Illness Laverne Perez is a 72 year old female with known CAD status post CABG 2 years ago in May, presents with chest pain started around 10 PM yesterday. She describes it as severe pressure. The pain radiated through into her back and down left arm and up the left neck. She had associated nausea and shortness of breath with this. She states that she took 3 nitro at home and this did not relieve pain. She states that the guido n improved with Dilaudid in the ER. In the emergency room her troponins were positive. She will be admitted to CSU with non-STEMI protocol Note review of chart reveals stress test that was POSITIVE on 04/02/22: IMPRESSIONS ?1.? Abnormal myocardial perfusion imaging with large sized area of ischemia ?noted in left circumflex and RCA territory. Small sized prior infarct seen in ?the LCx territory ?2.? LV systolic function is mildly reduced Review of Systems Const: Denies: fever(s) or chills Eyes: Denies: change in vision ENMT: Denies: throat pain or nasal congestion Card: Reports: chest pain; Denies: palpitations Resp: Reports: dyspnea (associated with cp); Denies: productive cough GI: Reports: nausea; Denies: abdominal pain, vomiting or change in stool character : Denies: dysuria Musc: Denies: back pain or extremity pain Skin/Breast: Denies: rash or lesions Neuro: Denies: headache(s) or dizziness Psych: Denies: anxiety or depression Leonardo/Lymph: Denies: easy bruising or easy bleeding Medications/Allergies Home Medications Medication Instructions Recorded Confirmed Last Taken Type metformin 1,000 mg tablet 1,000 mg PO BID 05/12/21 10/19/22 04/01/22 History ascorbic acid (vitamin C) 500 mg 500 mg PO DAILY 12/04/21 10/19/22 04/01/22 History tablet (Vitamin C) yukxnidk-dea-ntxcohy 800 mcg 1 tab PO DAILY 12/04/21 10/19/22 04/01/22 History DFE-vitamin K 150 mcg-herb no.289 tablet (Alive Women's 50 Plus Ultra Potency) atorvastatin 80 mg tablet 80 mg PO QAM 30 days #30 tabs 12/06/21 10/19/22 04/01/22 Rx blood sugar diagnostic (Accu-Chek #100 ea 12/06/21 08/07/22 Unknown Rx Guide test strips) blood-glucose meter (Accu-Chek #1 ea 12/06/21 08/07/22 Unknown Rx Guide Glucose Meter) lancets (Accu-Chek Softclix #100 ea 12/06/21 08/07/22 Unknown Rx Lancets) losartan 100 mg tablet 100 mg PO DAILY #90 tabs 01/16/22 10/19/22 04/01/22 Rx metoprolol succinate 50 mg 75 mg PO DAILY 02/28/22 10/19/22 04/01/22 History tablet,extended release 24 hr aspirin 81 mg chewable tablet 81 mg PO DAILY 04/01/22 10/19/22 04/01/22 History clopidogrel 75 mg tablet (Plavix) 75 mg PO DAILY 04/01/22 10/19/22 Unknown History magnesium L-lactate 84 mg 84 mg PO DAILY #90 tabs 05/30/22 10/19/22 Unknown Rx tablet,extended release (Magtab) potassium citrate 15 mEq (1,620 15 meq PO BID #60 tabs 08/07/22 10/19/22 Unknown Rx mg) tablet,extended release insulin glargine 100 unit/mL 26 unit SUBCUT BID 10/19/22 10/19/22 Unknown History subcutaneous solution (Lantus U-100 Insulin) metoprolol tartrate 50 mg tablet 50 mg PO DIRECTED cardiac CTA 10/19/22 10/19/22 Unknown History furosemide 40 mg tablet 60 mg PO DIRECTED #135 tabs 10/31/22 Unknown Rx nitroglycerin 0.4 mg sublingual 0.4 mg sublingual Q5M PRN Chest 10/31/22 Unknown Rx tablet Pain #25 tabs spironolactone 25 mg tablet 12.5 mg PO DAILY #45 tabs 01/21/23 Unknown Rx Allergies Allergy/AdvReac Type Severity Reaction Status Date / Time farxiga AdvReac ADR-Nausea Uncoded 10/19/22 07:54 steroids AdvReac increased Uncoded 10/19/22 07:54 high BP PFSH Acute PFSH: Medical History Bilateral renal stones Chest pain CKD (chronic kidney disease) stage 3, GFR 30-59 ml/min Coronary artery disease Diabetes Diabetes mellitus CAMERON (dyspnea on exertion) Essential hypertension Hyperlipidemia Hypertension Ischemic cardiomyopathy Morbid obesity Multiple vessel coronary artery disease Non-ST elevation [place] (NSTEMI) Osteoarthritis Shortness of breath Surgical History H/O dilation and curettage H/O heart bypass surgery 2 times H/O vulvectomy H/O: H/O: hysterectomy Hx of cholecystectomy S/P ureteral stent placement Family History Mother , at age 93 Uterine cancer CAD (coronary artery disease) Father , at age 67 CAD (coronary artery disease) Social History Smoking and tobacco status: former smoker Alcohol intake: never Marital status: / Current occupational status: retired Vitals/I&O/Wt Last Vital Signs Temp 97.6 F 03/01/23 00:05 Pulse 98 03/01/23 03:00 Resp 14 03/01/23 03:00 BP 120/90 03/01/23 03:00 Pulse Ox 97 03/01/23 03:00 O2 Del Method Room Air 03/01/23 00:05 Weight last 48 hrs Weight 106.594 kg Physical Exam Narrative: 72-year-old female obese in no acute distress at time of exam Neurologic: Alert and oriented x3 nonfocal HEENT head is normocephalic atraumatic pupils equal round and reactive to light and commendation extraocular muscles are intact there is no scleral icterus mucous membranes are moist and pink without lesions or exudates neck is supple no JVD carotid bruits or lymphadenopathy Chest: Rises symmetrically with inspiration Cardio: Distant heart sounds no loud murmur. Lungs: Diminished breath sounds throughout most likely due to body habitus GI: Abdomen is obese soft nontender nondistended positive bowel sounds : Normal female Extremities 4 present. No clubbing cyanosis or edema. Back: No significant scoliosis or kyphosis identified no CVA tenderness Skin: Warm and dry no lesions or rashes Data 03/01/23 00:04 03/01/23 00:04 Other Labs: Initial troponin 52, 2-hour troponin 163. Delta 111 CXR: My impression: Left pleural effusion appears present when compared to prior film on 04/01/2022 perihilar opacities also seen not present on previous exam Radiologist's impression: IMPRESSION: Increased peribronchial and perihilar markings bilaterally could represent bilateral bronchitis and perihilar pneumonitis. ? A&P Assessment and plan (1) Non-ST elevation NM (NSTEMI): Admit to CSU. Acute NM protocol with Lovenox aspirin nitro. Patient will likely need heart cath and considering the positive stress test results from approximately 1 year ago I would suspect patient will require intervention. Cardiology was consulted from the ED (2) Ischemic cardiomyopathy: As above (3) Essential hypertension: Continue home medications (4) Morbid obesity: (5) H/O heart bypass surgery: s/p CABG with FIELDS to LAD and SVG to OM done in May 2021 at [facility] in [place] (6) Hyperlipidemia: Last labs 12/04/2021 will repeat in the hospital. Qualifiers: Hyperlipidemia type: mixed hyperlipidemia Qualified Code(s): E78.2 - Mixed hyperlipidemia (7) Diabetes mellitus: Last hemoglobin A1c measured on 12/05/2021 was 11.6 we will recheck. Qualifiers: Diabetes mellitus complication status: without complication Diabetes mellitus rat exterminator insulin use: without jail use Diabetes mellitus type: type 2 Qualified Code(s): E11.9 - Type 2 diabetes mellitus without complications (8) CKD (chronic kidney disease) stage 3, GFR 30-59 ml/min: Attestations Medical Necessity Statement*: Patient with a non-STEMI at high risk for worsening CAD and complications. She requires a 2 midnight stay for evaluation treatment and management. Coding Level of Care Code Acute Code for [facility] Fwd Diagnoses Non-ST elevation NM (NSTEMI) I21.4 Ischemic cardiomyopathy I25.5 Essential hypertension I10 Morbid obesity E66.01 H/O heart bypass surgery Z95.1 Hyperlipidemia E78.2 Hyperlipidemia type: mixed hyperlipidemia Diabetes mellitus E11.9 Diabetes mellitus complication status: without complication Diabetes mellitus jail insulin use: without rat exterminator use Diabetes mellitus type: type 2 CKD (chronic kidney disease) stage 3, GFR 30-59 ml/min N18.30
[2023-03-01] MEDS: morphine IR 15 mg Tablet PO ×4 (04:27→21:10)
[2023-03-01] MEDS: nitroglycerin 0.4 mg sublingual Tablet SUBLINGUAL ×2 (04:28→04:34)
--- NOTE | 2023-03-01 05:54 | ECG_ITS ---
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 Measurements Intervals [place] Rate: 90 P: 36 GA: 161 QRS: 125 QRSD: 116 T: -62 QT: 378 QTc: 464 Interpretive Statements SINUS RHYTHM WITH OCCASIONAL VENTRICULAR PREMATURE COMPLEXES POSSIBLE RIGHT VENTRICULAR HYPERTROPHY ANTEROSEPTAL MYOCARDIAL INFARCTION , OF INDETERMINATE AGE MODERATE T-WAVE ABNORMALITY, CONSIDER INFERIOR ISCHEMIA Compared to ECG 03/01/2023 01:38:46 Ventricular premature complex(es) now present T-wave abnormality now present Possible ischemia now present Sinus tachycardia no longer present Left-axis deviation no longer present Myocardial infarct finding still present Electronically Signed On 03-01-2023 13:04:07 CDT by Negrita Garcia M.D. [email or web address] [id number]
[2023-03-01 06:33] LABS: Glucose Point of Care 237 mg/dL (70-110)
[2023-03-01 07:39] LABS: Troponin 5 6HR 419.4 ng/L (0-10); Troponin 5 6HR Delta 367.4 ng/L (0-12)
--- NOTE | 2023-03-01 08:43 | P.CONIM_ITS ---
Providers/Reason For Consult Consulting Physician/Specialty*: Dr. Garcia, Cardiology Reason for Consult*: NSTEMI Attending Physician: Rush Ochoa MD Primary Care Provider: Keo Cook MD History of Present Illness History of Present Illness Laverne Perez is a 72 year old female with past medical history of hypertension, smoking, coronary artery disease s/p CABG with FIELDS to LAD and SVG to OM done in May 2021 was in hospital with complaints of substernal chest pain and troponin elevation in 11/2021.?? She had coronary angiogram that revealed patent FIELDS to LAD, SVG OM could not be cannulated.? Echo revealed LVEF 45% decreased when compared to previous .?Metoprolol increased to 75 mg daily.? Plan was to consider cardiac CTA on an outpatient basis which unfortunately did not materialize. She underwent stress test last fall with ischemia in LCx artery territory in 03/2022. Medical management was opted for. She is here again with sudden onset epigastric/lower chest discomfort indigestion like that did not popeye with tums and NTG SL. She called her son Hima and was brought to the hospital. troponin T increased from [id number]. EKG with ST- T wave changes in inferior leads. She has had one episode of chest pain overnight relieved with morphine. Review of Systems Const: Denies: fever(s), chills, change in appetite, change in weight, fatigue or malaise Eyes: Denies: change in vision or eye discharge ENMT: Denies: throat pain, swelling of lips/tongue, nasal congestion or epistaxis Card: Reports: chest pain; Denies: palpitations, irregular heart rhythm, edema, lightheadedness, syncope, dyspnea on exertion, orthopnea or leg pain with exertion Resp: Denies: dyspnea, productive cough, wheezing or hemoptysis GI: Denies: abdominal pain, nausea, vomiting, hematemesis, heartburn, diarrhea, constipation, change in bowel habits, hematochezia or melena : Denies: difficulty voiding, dysuria, oliguria or hematuria Musc: Denies: back pain, extremity swelling, joint pain or muscle weakness Skin/Breast: Denies: rash, erythema, new lesions or change in hair Neuro: Denies: numbness in extremities, weakness in extremities, lack of coordination, difficulty walking, dizziness, vertigo or confusion Psych: Denies: anxiety, depression, irritability, suicidal ideation or homicidal ideation Endo: Denies: tired all the time, cold intolerance or heat intolerance Leonardo/Lymph: Denies: easy bruising, easy bleeding, petechiae or purpura All/Imm: Denies: throat swelling, tongue swelling or acute wheezing Medications/Allergies Home Medications Medication Instructions Recorded Confirmed Last Taken Type metformin 1,000 mg tablet 1,000 mg PO BID 05/12/21 03/01/23 02/28/23 17:00 History leikmmxp-sfk-xghyohu 800 mcg 1 tab PO DAILY 12/04/21 03/01/23 02/28/23 08:00 History DFE-vitamin K 150 mcg-herb no.289 tablet (Alive Women's 50 Plus Ultra Potency) atorvastatin 80 mg tablet 80 mg PO QAM 30 days #30 tabs 12/06/21 03/01/23 02/28/23 08:00 Rx blood sugar diagnostic (Accu-Chek #100 ea 12/06/21 03/01/23 Unknown Rx Guide test strips) blood-glucose meter (Accu-Chek #1 ea 12/06/21 03/01/23 Unknown Rx Guide Glucose Meter) lancets (Accu-Chek Softclix #100 ea 12/06/21 03/01/23 Unknown Rx Lancets) losartan 100 mg tablet 100 mg PO DAILY #90 tabs 01/16/22 03/01/23 02/28/23 08:00 Rx aspirin 81 mg chewable tablet 81 mg PO DAILY 04/01/22 03/01/23 02/28/23 08:00 History magnesium L-lactate 84 mg 84 mg PO DAILY #90 tabs 05/30/22 03/01/23 02/28/23 08:00 Rx tablet,extended release (Magtab) potassium citrate 15 mEq (1,620 15 meq PO BID #60 tabs 08/07/22 03/01/23 02/28/23 17:00 Rx mg) tablet,extended release nitroglycerin 0.4 mg sublingual 0.4 mg sublingual Q5M PRN Chest 10/31/22 03/01/23 03/01/23 Rx tablet Pain #25 tabs evening primrose oil 500 mg capsule 1,000 mg PO DAILY 03/01/23 03/01/23 02/28/23 History furosemide 20 mg tablet 20 mg PO BEDTIME 03/01/23 03/01/23 02/28/23 21:00 History furosemide 40 mg tablet 40 mg PO 0800 03/01/23 03/01/23 02/28/23 08:00 History glucosamine sulf dipot 1 cap PO BEDTIME 03/01/23 03/01/23 02/28/23 21:00 History chlr,msm,chond 550 mg-C 30 mg-melissa 1 mg capsule (Glucosamine Chondroitin) spironolactone 25 mg tablet 25 mg PO DAILY 03/01/23 03/01/23 02/28/23 08:00 History turmeric 400 mg capsule 400 mg PO DAILY 03/01/23 03/01/23 02/28/23 History vitamin B complex 1 cap PO BEDTIME 03/01/23 03/01/23 02/28/23 21:00 History vitamin E 670 mg (1,000 unit) 670 mg PO DAILY 03/01/23 03/01/23 02/28/23 History capsule Allergies Allergy/AdvReac Type Severity Reaction Status Date / Time farxiga AdvReac ADR-Nausea Uncoded 10/19/22 07:54 steroids AdvReac increased Uncoded 10/19/22 07:54 high BP Current Medications Generic Name Dose Route Start Last Admin Trade Name Fahadq PRN Reason Stop Dose Admin Morphine Sulfate 15 mg 03/01/23 04:17 03/01/23 04:27 Morphine Ir 15 Mg Tablet PO 15 mg Q4H PRN Administration SEVERE PAIN Nitroglycerin 0.4 mg 03/01/23 04:17 03/01/23 04:34 Nitroglycerin 0.4 Mg Sublingual Tablet SUBLINGUAL 0.4 mg Q5M PRN Administration CHEST PAIN PFSH Acute PFSH: Medical History Bilateral renal stones Chest pain CKD (chronic kidney disease) stage 3, GFR 30-59 ml/min Coronary artery disease Diabetes Diabetes mellitus CAMERON (dyspnea on exertion) Essential hypertension Hyperlipidemia Hypertension Ischemic cardiomyopathy Morbid obesity Multiple vessel coronary artery disease Non-ST elevation [place] (NSTEMI) Osteoarthritis Shortness of breath Surgical History H/O dilation and curettage H/O heart bypass surgery 2 times H/O vulvectomy H/O: H/O: hysterectomy Hx of cholecystectomy S/P ureteral stent placement Family History Mother , at age 93 Uterine cancer CAD (coronary artery disease) Father , at age 67 CAD (coronary artery disease) Social History Smoking and tobacco status: former smoker Alcohol intake: never Marital status: / Current occupational status: retired Vitals/I&O/Wt Last Vital Signs Temp 98.1 F 03/01/23 07:55 Pulse 95 03/01/23 07:55 Resp 17 03/01/23 07:55 BP 137/97 03/01/23 07:55 Pulse Ox 98 03/01/23 07:55 O2 Del Method Nasal Cannula 03/01/23 07:55 Weight last 48 hrs Weight 235 lb Physical Exam Narrative: GENERAL: obese man laying in bed in no acute distress HEENT: Extraocular movement intact. No pallor or icterus. NECK: central trachea, No carotid bruit. CARDIOVASCULAR SYSTEM: S1-S2 regular. No murmur or gallops. RESPIRATORY SYSTEM: Chest clear to auscultation. No wheezes rhonchi or rubs heard. No use of accessory muscles. ABDOMEN: Soft, nontender and nondistended. Normal bowel sounds present. MANAGER CARDIAC: Patient is alert oriented ?3. No focal neurological deficits. PSYCH: Normal insight and judgment. Data 03/01/23 00:04 03/01/23 06:42 A&P Assessment and plan (1) Non-ST elevation [place] (NSTEMI): Plan for C once renal function improves. This was discussed with patient and she is agreeable with the plan. -continue DAPT, statin, beta leanna -Last stress test with ischemia in RCA/LCx artery territory (2) ROB (acute kidney injury): Plan to f/b on renal function and plan for cath over the weekend based on that. (3) Ischemic cardiomyopathy: f/u on echo -will hold lisinopril and aldactone -lasix 40 mg IV x 1 (4) CKD (chronic kidney disease) stage 3, GFR 30-59 ml/min: (5) Essential hypertension: BP fairly well controlled (6) Hyperlipidemia: Qualifiers: Hyperlipidemia type: mixed hyperlipidemia Qualified Code(s): E78.2 - Mixed hyperlipidemia (7) Diabetes mellitus: Qualifiers: Diabetes mellitus complication status: without complication Diabetes mellitus assisted insulin use: without assisted use Diabetes mellitus type: type 2 Qualified Code(s): E11.9 - Type 2 diabetes mellitus without compl ications Coding Level of Care Code 25088 Diagnoses Non-ST elevation [place] (NSTEMI) I21.4 ROB (acute kidney injury) N17.9 Ischemic cardiomyopathy I25.5 CKD (chronic kidney disease) stage 3, GFR 30-59 ml/min N18.30 Essential hypertension I10 Hyperlipidemia E78.2 Hyperlipidemia type: mixed hyperlipidemia Diabetes mellitus E11.9 Diabetes mellitus complication status: without complication Diabetes mellitus terminal makeup operator insulin use: without terminal makeup operator use Diabetes mellitus type: type 2
[2023-03-01 10:12] LABS: Anion Gap 16.6 (5-19); Blood Urea Nitrogen 38 mg/dL (8-23); Calcium 9.3 mg/dL (8.5-10.5); Carbon Dioxide 26 mmol/L (22-29); Chloride 98 mmol/L (98-107); Glucose 251 mg/dL (65-115); NT Pro B Type Natriuretic Pept 2316 pg/mL (0-125); Osmolality Calculated 298 mOsm/kg (285-295); Potassium 5.6 mmol/L (3.5-5.1); Sodium 135 mmol/L (136-145)
[2023-03-01] MEDS: aspirin 325 mg Tablet PO (10:12)
[2023-03-01] MEDS: clopidogrel 75 mg Tablet PO (10:12)
[2023-03-01] MEDS: carvedilol 12.5 mg Tablet PO ×2 (10:13→17:36)
[2023-03-01] MEDS: FUROsemide 10 mg/mL SDV 4mL 40 MG IVP (11:15)
[2023-03-01 11:19] LABS: Glucose Point of Care 205 mg/dL (70-110)
[2023-03-01] MEDS: insulin lispro 100 unit/1 mL SUBCUT ×3 (12:40→21:10)
[2023-03-01 16:12] LABS: Glucose Point of Care 369 mg/dL (70-110)
[2023-03-01] MEDS: enoxaparin 120 mg/0.8 mL Syringe 110 MG SUBCUT (16:15)
[2023-03-01] MEDS: docusate sodium 100 mg Capsule PO (17:36)
[2023-03-01] MEDS: insulin glargine 100 units/1 mL 26 UNIT SUBCUT (17:36)
[2023-03-01 20:55] LABS: Glucose Point of Care 257 mg/dL (70-110)
[2023-03-01] MEDS: atorvastatin 40 mg Tablet PO (21:10)
[2023-03-02] VITALS (12 sets, daily range): BP systolic 119–133; BP diastolic 59–94; PULSE 76–90; RESP 17–20; TEMP 36.7–37.1; O2SAT 93–96
[2023-03-02] MEDS: enoxaparin 120 mg/0.8 mL Syringe 110 MG SUBCUT ×2 (02:54→16:30)
[2023-03-02] MEDS: morphine IR 15 mg Tablet PO ×3 (02:54→20:41)
[2023-03-02 04:33] LABS: Basophils # 0.1 10^3/uL (0.0-0.1); Basophils % 0.6 %; Eosinophils # 0.2 10^3/uL (0.0-0.8); Eosinophils % 1.6 %; Hematocrit 41.5 % (36-47); Lymphocytes # 1.3 10^3/uL (0.8-4.8); Lymphocytes % 12.8 %; Mean Corpuscular HGB Conc 31.3 g/dL (30-55); Mean Corpuscular Hemoglobin 27.9 pg (27-33); Mean Corpuscular Volume 89.1 fl (85-98); Mean Platelet Volume 9.4 fL (7.4-10.4); Monocytes # 0.9 10^3/uL (0.2-0.9); Monocytes % 8.4 %; Neutrophils # 7.74 10^3/uL (1.8-7.7); Nucleated Red Blood Cells % 0 %; Platelet Count 401 10^3/cmm (157-399); Red Blood Count 4.66 10^6/uL (3.85-5.65); Red Cell Distribution Width 14.3 % (12.1-15.1); White Blood Count 10.17 10^3/uL (3.29-11.43)
[2023-03-02 04:56] LABS: Estmated Average Glucose 229; Hemoglobin A1C 9.6 % (4.0-6.0)
[2023-03-02 04:58] LABS: Chol HDL Ratio 3.61 mg/dL (0.0-4.40); Cholesterol 112 mg/dL (0-200); HDL Cholesterol 31 mg/dL (60-100); LDL Cholesterol Calculated 21 mg/dL (50-129); LDL HDL Ratio 0.68 RATIO (0.00-3.22); Triglycerides 302 mg/dL (0-150)
[2023-03-02 05:07] LABS: Potassium 5.7 mmol/L (3.5-5.1)
[2023-03-02 05:09] LABS: Anion Gap 14.7 (5-19); Blood Urea Nitrogen 36 mg/dL (8-23); Carbon Dioxide 28 mmol/L (22-29); Chloride 96 mmol/L (98-107); Glucose 301 mg/dL (65-115); Osmolality Calculated 296 mOsm/kg (285-295); Sodium 133 mmol/L (136-145); Thyroid Stimulating Hormone 5.25 uIU/mL (0.27-4.20)
--- NOTE | 2023-03-02 06:00 | USCV_ITS ---
Laverne Perez Age: 72 Gender: F : 1950 Exam Date: 03/02/2023 06:51 Ordering Phys: Negrita Garcia MD ([email or web address]) Technologist: Obdulio Hitchcock [place] [facility] [place]: [place] BP: 130 / 94 HR: 88 Rhythm: Sinus Technical Quality: Adequate MEASUREMENTS (Male / Female) Normal Values 2D ECHO LVOT Diameter 2.0 cm LV Ejection Fraction MOD 2C 33.6 % LV Ejection Fraction 2C AL 33.2 % LA Diameter 3.5 cm LA Width 3.4 cm LA Height 5.2 cm RA Width 3.8 cm RA Height 4.5 cm Aorta at Sinotubular Diameter 2.2 cm IVC Diameter 1.9 cm M-MODE Aortic Annulus Diameter 2.4 cm LA Ao Ratio MM 1.6 MV E Point Septal Separation 0.7 cm DOPPLER AV Peak Velocity 143.0 cm/s LVOT Peak Velocity 70.0 cm/s AV Area Cont Eq vti 2.0 cm squared AV Area Cont Eq pk 1.5 cm squared MV Peak Velocity 109.0 cm/s MV Area PHT 10.5 cm squared Mitral E to A Ratio 0.5 MV E' Velocity 19.5 cm/s Mitral E to MV E' Ratio 7.1 Mitral E to LV E' Lateral Ratio 6.6 Mitral E to LV E' Septal Ratio 7.8 TR Peak Velocity 228.4 cm/s TR Peak Gradient 20.9 mmHg TR Mean Velocity 188.6 cm/s TR Mean Gradient 15.3 mmHg TR Velocity Time Integral 47.1 cm Right Atrial Pressure 3.0 mmHg Pulmonary Artery Systolic Pressu 23.9 mmHg PV Peak Velocity 115.7 cm/s RV Acceleration Time 0.1 s RV Ejection Time 0.3 s RV AcT/ET 0.3 FINDINGS Left Ventricle Left ventricle with moderately decreased left ventricular systolic function. Left heart ejection fraction estimated at 35%. There is severe hypokinesis of apical septal, mid inferolateral, apical lateral, mid to apical anterior and apical fernandez. Grade I diastolic dysfunction (abnormal relaxation filling pattern), normal to mildly elevated filling pressures. Abnormal (paradoxical) septal motion consistent with postoperative status. Right Ventricle Normal right ventricular size and systolic function. Right ventricular systolic pressure 23.9 mmHg. Right Atrium Normal right atrial size. Left Atrium Mildly increased left atrial size. Mitral Valve Mild mitral annular calcification. Mildly thickened mitral valve. No mitral valve stenosis. No mitral valve regurgitation. Aortic Valve Aortic valve not well visualized. Thickened trileaflet aortic valve. No aortic valve stenosis. No aortic valve regurgitation. Tricuspid Valve Structurally normal tricuspid valve. Trace tricuspid valve regurgitation. Pulmonic Valve Pulmonic valve not well visualized. No pulmonary valve stenosis. Pericardium No pericardial effusion. Aorta Normal size aortic root and proximal ascending aorta. IVC Inferior vena cava not visualized. CONCLUSIONS 1. Difficult study. Optison was used per protocol. 2. Left ventricle with moderately decreased left ventricular systolic function. Left heart ejection fraction estimated at 35%. There is severe hypokinesis of apical septal, mid inferolateral, apical lateral, mid to apical anterior and apical fernandez. Grade I diastolic dysfunction (abnormal relaxation filling pattern), normal to mildly elevated filling pressures. 3. Compared to study dated 12/05/2021 left ventricular systolic function seems to have decreased. Negrita Garcia MD (Electronically Signed) Final Date: 13 March 2023 17:35 S
[2023-03-02] MEDS: ondansetron 2 mg/ML SDV 2 mL 4 MG IVP (06:30)
[2023-03-02 06:44] LABS: Glucose Point of Care 297 mg/dL (70-110)
[2023-03-02] MEDS: perflutren protein-a microsphr 0.22 mg/mL SDV 3 mL IV (07:31)
[2023-03-02] MEDS: clopidogrel 75 mg Tablet PO (09:19)
[2023-03-02] MEDS: aspirin 325 mg Tablet PO (09:19)
[2023-03-02] MEDS: carvedilol 12.5 mg Tablet PO ×2 (09:19→18:48)
[2023-03-02] MEDS: insulin glargine 100 units/1 mL 26 UNIT SUBCUT ×2 (11:00→18:48)
[2023-03-02 11:15] LABS: Glucose Point of Care 269 mg/dL (70-110)
[2023-03-02] MEDS: insulin lispro 100 unit/1 mL SUBCUT ×3 (12:24→20:41)
--- NOTE | 2023-03-02 16:57 | PM.PN ---
Subjective Subjective: Patient denies chest pain overnight. Reports eager to go home but understand why she needs to stay. Denies nausea, emesis fevers or chills. Medications: Reviewed: Yes Vitals/I&O/Wt Last Vital Signs Temp 98.8 F 03/02/23 16:00 Pulse 86 03/02/23 16:00 Resp 19 H 03/02/23 16:00 BP 123/79 03/02/23 16:00 Pulse Ox 96 03/02/23 16:00 O2 Del Method Room Air 03/02/23 16:00 03/02/23 03/02/23 03/02/23 06:59 14:59 22:59 Intake Total 100 / 580 360 / 360 Output Total 550 / 550 160 / 160 Balance -450 / 30 200 / 200 Weight last 48 hrs Weight 106.594 kg Physical Exam Narrative: General: Patient is awake and alert. Head: Normocephalic. Atraumatic. EOM intact. Neck: No JVD. Cardiovascular: Normal S1 and S2. No gallops. No murmurs. Trace edema. Lungs: Clear to auscultation, no use of accessory muscles, no crackles or wheezes. Skin: No jaundice. No rashes. Abdomen: Normal bowel sounds, abdomen soft and nontender. Extremities: No cyanosis or clubbing. Musculoskeletal: No swollen or erythematous joints. Neurological: Moves all 4 extremities. No myoclonus. Data 03/02/23 03:24 03/02/23 03:24 A&P Assessment and plan (1) Non-ST elevation [place] (NSTEMI): No chest pain overnight Continue DAPT Continue Lovenox Continue high intensity statin Continue beta leanna Cardiology following, appreciate recommendations (2) Ischemic cardiomyopathy: Echo pending Hyperkalemia noted (3) Essential hypertension: Continue Coreg ARB on hold due to renal function and plan for cath (4) Morbid obesity: Would benefit from weight loss (5) H/O heart bypass surgery: s/p CABG with FIELDS to LAD and SVG to OM done in May [address] at [facility] in [place] Continue cardiac meds as noted above (6) Hyperlipidemia: Lipids panel in AM Qualifiers: Hyperlipidemia type: mixed hyperlipidemia Qualified Code(s): E78.2 - Mixed hyperlipidemia (7) Diabetes mellitus: A1c in AM Continue Lantus SSI Qualifiers: Diabetes mellitus complication status: without complication Diabetes mellitus truck terminal manager insulin use: without truck terminal manager use Diabetes mellitus type: type 2 Qualified Code(s): E11.9 - Type 2 diabetes mellitus without complications (8) CKD (chronic kidney disease) stage 3, GFR 30-59 ml/min: Cr slightly elevated, suspect may be her baseline Continue to monitor Plan DVT ppx: Lovenox Code: Full Attestations Medical Necessity Statement*: Patient with NSTEMI requiring ongoing hospitalization for anticoagulation, cardiac meds, telemetry, cardiology evaluation, and cardiac cath. Coding Level of Care Code Acute Code for [facility] Diagnoses Non-ST elevation [place] (NSTEMI) I21.4 Ischemic cardiomyopathy I25.5 Essential hypertension I10 Morbid obesity E66.01 H/O heart bypass surgery Z95.1 Hyperlipidemia E78.2 Hyperlipidemia type: mixed hyperlipidemia Diabetes mellitus E11.9 Diabetes mellitus complication status: without complication Diabetes mellitus truck terminal manager insulin use: without [facility] use Diabetes mellitus type: type 2 CKD (chronic kidney disease) stage 3, GFR 30-59 ml/min N18.30
[2023-03-02 16:58] LABS: Glucose Point of Care 223 mg/dL (70-110)
[2023-03-02 20:41] LABS: Glucose Point of Care 315 mg/dL (70-110)
[2023-03-02] MEDS: atorvastatin 40 mg Tablet PO (20:41)
[2023-03-03] VITALS (11 sets, daily range): BP systolic 105–153; BP diastolic 55–96; PULSE 69–82; RESP 16–24; TEMP 36.4–37; O2SAT 91–98
[2023-03-03] MEDS: enoxaparin 120 mg/0.8 mL Syringe 110 MG SUBCUT (02:00)
[2023-03-03] MEDS: morphine IR 15 mg Tablet PO (02:00)
[2023-03-03 04:43] LABS: Basophils # 0.1 10^3/uL (0.0-0.1); Basophils % 0.5 %; Eosinophils # 0.2 10^3/uL (0.0-0.8); Eosinophils % 2.4 %; Hematocrit 39.1 % (36-47); Lymphocytes # 2.2 10^3/uL (0.8-4.8); Lymphocytes % 22.7 %; Mean Corpuscular HGB Conc 31.7 g/dL (30-55); Mean Corpuscular Hemoglobin 27.9 pg (27-33); Mean Corpuscular Volume 87.9 fl (85-98); Mean Platelet Volume 9.2 fL (7.4-10.4); Monocytes # 0.9 10^3/uL (0.2-0.9); Monocytes % 8.8 %; Neutrophils # 6.33 10^3/uL (1.8-7.7); Neutrophils % 65.2 %; Nucleated Red Blood Cells % 0 %; Platelet Count 394 10^3/cmm (157-399); Red Blood Count 4.45 10^6/uL (3.85-5.65); Red Cell Distribution Width 13.9 % (12.1-15.1); White Blood Count 9.72 10^3/uL (3.29-11.43)
[2023-03-03 05:08] LABS: Estmated Average Glucose 237; Hemoglobin A1C 9.9 % (4.0-6.0); Thyroid Stimulating Hormone 4.06 uIU/mL (0.27-4.20)
[2023-03-03 05:13] LABS: Albumin Level 3.3 g/dL (3.5-5.2); Blood Urea Nitrogen 39 mg/dL (8-23); Calcium 8.8 mg/dL (8.5-10.5); Carbon Dioxide 28 mmol/L (22-29); Chloride 97 mmol/L (98-107); Glucose 197 mg/dL (65-115); Phosphorus 4.5 mg/dL (2.5-4.5); Sodium 134 mmol/L (136-145)
[2023-03-03 05:15] LABS: Chol HDL Ratio 3.39 mg/dL (0.0-4.40); Cholesterol 95 mg/dL (0-200); HDL Cholesterol 28 mg/dL (60-100); LDL Cholesterol Calculated 35 mg/dL (50-129); LDL HDL Ratio 1.25 RATIO (0.00-3.22); Triglycerides 159 mg/dL (0-150)
[2023-03-03 06:29] LABS: Glucose Point of Care 212 mg/dL (70-110)
--- NOTE | 2023-03-03 08:37 | XACV_ITS ---
Exam Room: 2 Ht: 163 cm Wt: 107 kg BSA: 2.25 m2 Gender: Female : 1950 Any Known Allergies: Other Exam Priority: Routine Procedure(s): Procedure Description: Diagnostic procedure Procedure Description: Left Heart Catheterization Procedure Description: Left ventriculography Procedure Description: Venous Graft Catheterization Procedure Description: FIELDS Graft Catheterization Procedure Description: Coronary Angiography Diagnostic Cath Status: Elective Diagnostic Findings * Ultrasound-guided vascular access performed with introducer left radial artery due to prior history of bypass grafts. Resistance developed at the elbow. Left upper extremity arteriogram was performed with a J L4 catheter advanced to the proximal radius. Revealed occlusion and a severe radial ulnar loop. Unable to navigate with catheter and angled Glidewire. Further attempts were aborted. * Fluoroscopic guided access of right common femoral artery performed with micropuncture kit and insertion of 6 [place] introducer successfully. * LV angiography revealed mildly dilated left ventricle with ejection fraction visually estimated at 45%. * Left main coronary artery engaged using a JR4 diagnostic catheter. Distal left main 80% stenosis with Edward classification 1, 1, 1. * Left anterior descending with ostial proximal 80% disease heavily calcified. Mid greater than 90% stenosis with competitive flow distally. * Left circumflex with ostial proximal 80% stenosis. Obtuse marginal branch #1 calcified with proximal 50% and mid 70% and a small caliber segment. Distal 100% occlusion. Continuation of the circumflex 100%. * Right coronary artery engaged using a JR4 diagnostic catheter. Heavily calcified vessel. Mid to distal 100%. Well developed right to right collaterals to the CARRIE and the PDA. Moderately developed right to left collaterals to the distal circumflex marginal. * FIELDS to LAD nonselectively engaged with a JR4 diagnostic catheter revealing a patent FIELDS graft inserting into the mid LAD with good runoff albeit atretic. * When compared to films from November 2021 there has been no significant change. Recommendation at that time was for medical management. Have made the same recommendation. Conclusions 1. Severe [place] three-vessel coronary artery disease with only remaining patent graft FIELDS to the LAD. Recommendations * Patient is on dual antiplatelet therapy and beta-leanna therapy. She does use sublingual nitroglycerin frequently. We will add long-acting nitrate. If physically capable will refer to cardiac rehab. Ventriculography Ejection Fraction: 45.0 % Pressures Phase:Rest AO : 94 / 62 ( 75 ) @ 11:06:00 AM 107 / 74 ( 89 ) @ 11:10:00 AM 115 / 53 ( 81 ) @ 11:16:00 AM 122 / 64 ( 85 ) @ 11:17:00 AM LV : 121 / 4 / 9 @ 11:14:00 AM 116 / 4 / 7 @ 11:16:00 AM 115 / 5 / 11 @ 11:16:00 AM Valves Phase:DefaultPhase AV : 0.0 @ 10:38:57 AM AV Mean Gradient: 0.0 @ 10:38:57 AM 0.0 @ 10:38:57 AM Clinical Evaluation EBL: 5mL-10mL Procedural Details Procedure Consent Obtained. Admit Source: In Patient. Pre-Procedure Time Out. Identified patient by full name and date of as verbalized by the patient/guarantor. Does the consent match the physician's order: Yes. Accurate & Complete Informed Consent: Yes. Inpatient/Outpatient History & Physical on Chart: Yes. If H&P is completed, is and addenduem needed: No; If yes, is the addendum complete: N/A. Visualize and Verify Site with Patient/Guarantor: N/A. Relevant Radiology Images available: N/A. The risks, benefits, and alternatives of sedation and/or procedure were discussed by physician. The patient agrees to continue. Procedure started. [facility] Clinical Fraility Score: 6: Moderately Frail. Interior Mechanic Indications: ACS > 24 hours. Chest Pain Symptom Assessment: Typical Angina Symptoms. Correct patient, site and procedure confirmed by cath team. Current diagnosis: NSTEMI. PERRLA. Strong, equal hand workers compensation claims examiner bilaterally. Lungs clear x 5 lobes. IV Site on Arrival: 20 gauge in the left anticubital. IV Fluids: 0.9% NaCl at 75ml/hr. 50 mL infused prior to wastewater analyst lab analyst. Pre Procedural Pulses: bilateral radial was 1+. Oxygen started at 2liters/min via nasal canula. left radial was prepped with chloroprep then draped in the usual sterile fashion. right groin was prepped with chloroprep then draped in the usual sterile fashion. Physician notified. Baseline sample Acquired. HR: 84 BPM. Physician arrived. Physician scrubbed in. Immediate Pre-Procedure Time Out. Correct Patient: Yes; Correct Procedure: Yes; Correct Site: Yes; Correct Patient Position: Yes; Correct Supplies: Yes; Dried Flammable Prep: Yes; Blood Products Available: No;. Pre Procedural Pulses: bilateral posterior tibial was Doppled. Pre Procedural Pulses: bilateral dorsalis pedis was 1+. Baseline sample Acquired. HR: 85 BPM. Lidocaine 1% infiltrated to the left radial. Ultrasound obtained to assist with arterial access. Arterial access obtained. Glidewire in through radial sheath. A 5 german JL4 catheter in over glidewire, unable to advance catheter. Glidewire out. Hand injection through catheter to visual radial artery. Glidwire in through catheter. Unable to advance wire and catheter. Wire and catheter out. A TR Band was successful obtaining hemostatsis at the Left Radial artery insertion site. Lidocaine 1% infiltrated to the right groin. An attempt to gain access to the right femoral artery was unsuccessful. Manual pressure was held as needed to stop the bleeding. Arterial access obtained with micropuncture set. Lidocaine 1% infiltrated to the right groin. A 5 german JL4 catheter in over wire. Multiple views taken of left coronary artery. Catheter removed over the standard wire. A 5 german JR4 catheter in over exchange wire. Multiple views taken of right coronary artery. SVG to OM occluded. Exchange wire in through catheter, catheter seated in LV. Wire out. EDP Sample taken: LV 121/4,9; HR: 74 BPM; SpO2: 97%. LV gram performed in [place] @ 5 mL/second for a total of 5 mL. EDP Sample taken: LV 116/4,7; HR: 97 BPM; SpO2: 97%. Pullback taken: LV 115/5,11; AO 115/53(81); Mean: 0mmHg, Peak to Peak: 0mmHg, SEP: 8sec/min; HR: 46 BPM; SpO2: 96%. Wire in through catheter, redirecting catheter to FIELDS. Exchange wire out through catheter. Glidewire in through catheter. Catheter redirected to FIELDS. Glidewire out. FIELDS to LAD visualized. Catheter removed over the exchange wire. Wire out. A Right femoral angiogram was performed to determine safe placement of closure device. A Angio-Seal VIP ([facility]) was successful obtaining hemostatsis at the Right Femoral artery insertion site. EXP 07-31-2023, LOT # [id number]. Physician scrubbed out. Post Procedure: Pulses reassessed and unchanged. PERRLA. Strong, equal hand workers compensation claims examiner bilaterally. No VTE prophylaxis required. Medication's Wasted: Nitro = 49.6 mg. Medication's Wasted: Heparin = 1000 unit. Medication's Wasted: Other = Verapamil 2.5 mg. Medication's Wasted: Lidocaine 1% = 2 mL. Medication's Wasted: Other = Fentanyl 75mcg, Versed 1 mg. Total IV fluids: 80 mL. Post-op diagnosis: 3 vessel CAD, Occluded SVG to OM, Patent FIELDS to LAD . Medical therapy. Complications: None. Estimated blood loss: 5mL-10mL. Responsiveness - Normal response to verbal stimuli; alert and oriented, PERRLA. Airway - Unaffected, no intervention required; spontaneous ventilation. Circulation: W/N/L, pulses unchanged. Nausea/Vomiting: No. Procedure completed. Patient transferred by bed to 1st floor. Vital chart was stopped. Access Site Site: Left Radial artery Sheath Size: 6 Fr Hemostasis Method: TR Band Hemostasis Success: Successful Site: Right Femoral artery Sheath Size: 6 Fr Hemostasis Method: Angio-Seal VIP ([facility]) Hemostasis Success: Successful Procedure Medications Start: 9:20 AM Stop: 9:20 AM Medication: Zofran (ondansetron) Amount: 4 mg Route: I.V. Start: 9:33 AM Stop: 9:33 AM Medication: Versed Amount: 1 mg Route: I.V. Start: 9:33 AM Stop: 9:33 AM Medication: Fentanyl Amount: 25 mcg Route: I.V. Start: 9:42 AM Stop: 9:42 AM Medication: Verapamil Amount: 2.5 mg Route: I.A. Start: 9:42 AM Stop: 9:42 AM Medication: Nitrogylcerin Amount: 400 mcg Route: I.A. Start: 9:42 AM Stop: 9:42 AM Medication: Heparin Amount: 5000 units Route: I.A. Start: 10:01 AM Stop: 10:01 AM Medication: Versed Amount: 1 mg Route: I.V. I, the attending physician, have reviewed and verified all procedure medications. Yes, all medications given per verbal order History/Risk Factors Hypertension: Yes Dyslipidemia: No Peripheral Arterial Disease (PAD): No Myocardial Infarction (NC): No Obesity: Yes Renal Disease: No Tobacco Use: Former Prior Interventions PCI: No CABG: Yes Valve Surgery: No Report Signatures Finalized by Gabriele Moody MD on 03/03/2023 12:27 PM
[2023-03-03] MEDS: sodium chloride 0.9% 1,000 ML 100 ML IV (09:04)
--- NOTE | 2023-03-03 09:27 | PC.NURSE ---
pt taken to chemical laboratory tester IVF fluids started. pt taken via bed.
--- NOTE | 2023-03-03 10:45 | PC.NURSE ---
pt returned from curb and gutter laborer tr band on left wrist is intact. no increasing hematoma. pt denies any pain on chest or shoulder, or her left wrist and right groin area. pressure dressing intact on right groin post angioseal. no hematoma,bleeding. per verbal oder from assistant warehouse manager, pt can be off bedrest in 2 hrs. call light provided. instructed pt on activity restrictions post angiogram to let nurse know of any unusual pain, burning sensation or pressure on her left arm and right groin area. pt verbalizes understanding.
[2023-03-03] MEDS: insulin glargine 100 units/1 mL 26 UNIT SUBCUT ×2 (11:03→17:42)
[2023-03-03] MEDS: aspirin 325 mg Tablet PO (11:04)
[2023-03-03] MEDS: clopidogrel 75 mg Tablet PO (11:04)
[2023-03-03] MEDS: carvedilol 12.5 mg Tablet PO ×2 (11:05→17:42)
[2023-03-03 12:15] LABS: Glucose Point of Care 244 mg/dL (70-110)
[2023-03-03] MEDS: insulin lispro 100 unit/1 mL SUBCUT ×3 (13:02→21:25)
--- NOTE | 2023-03-03 16:23 | P.PN_ITS ---
Subjective Subjective: Patient underwent cardiac cath today. She is evaluated post procedure. She denies any chest pain overnight. Discussed procedure report with patient. She denies fevers, chills, nausea or emesis. Son is bedside and supportive. Patient denies chest pain overnight. Reports eager to go home but understand why she needs to stay. Denies nausea, emesis fevers or chills. Medications: Reviewed: Yes Vitals/I&O/Wt Last Vital Signs Temp 98.1 F 03/03/23 16:00 Pulse 77 03/03/23 16:00 Resp 18 03/03/23 16:00 BP 128/94 03/03/23 16:00 Pulse Ox 94 03/03/23 16:00 O2 Del Method Room Air 03/03/23 16:00 03/03/23 03/03/23 03/03/23 06:59 14:59 22:59 Intake Total 300 / 1020 480 / 480 Output Total 400 / 560 400 / 400 Balance -100 / 460 80 / 80 Physical Exam Narrative: General: Patient is awake and alert. Lying in bed. Very pleasant. Head: Normocephalic. Atraumatic. EOM intact. Neck: No JVD. Cardiovascular: Cath site in right groin. Trace edema in lower extremities. Lungs: Non-labored. No accessory muscle use. Skin: No jaundice. No rashes. Abdomen: Normal bowel sounds, abdomen soft and nontender. Extremities: No cyanosis or clubbing. Musculoskeletal: No swollen or erythematous joints. Neurological: Moves all 4 extremities. No myoclonus. Data 03/03/23 03:55 03/03/23 03:55 A&P Assessment and plan (1) Non-ST elevation MA (NSTEMI): Continue DAPT Continue high intensity statin Continue beta leanna Cardiology following, appreciate recommendations Status post cardiac cath today without culprit lesion, known disease reidentified Cardiology planning on starting long-acting nitrate (2) Ischemic cardiomyopathy: Echo pending (3) Essential hypertension: Continue Coreg ARB on hold due to renal function and contrast exposure (4) Morbid obesity: Would benefit from weight loss (5) H/O heart bypass surgery: s/p CABG with FIELDS to LAD and SVG to OM done in May [address] [facility] in [place] Continue cardiac meds as noted above (6) Hyperlipidemia: Lipid profile reviewed Qualifiers: Hyperlipidemia type: mixed hyperlipidemia Qualified Code(s): E78.2 - Mixed hyperlipidemia (7) Diabetes mellitus: T2DM, uncontrolled w/ hyperglycemia A1c 9.9 Continue Lantus SSI Qualifiers: Diabetes mellitus complication status: without complication Diabetes mellitus long-term insulin use: without intermediate manager use Diabetes mellitus type: type 2 Qualified Code(s): E11.9 - Type 2 diabetes mellitus without co mplications (8) CKD (chronic kidney disease) stage 3, GFR 30-59 ml/min: Cr close to baseline, however received small amount of contrast per cardio w/ cath today Continue to monitor Repeat labs in am Plan DVT ppx: Lovenox Code: Full Attestations Medical Necessity Statement*: Patient with NSTEMI requiring ongoing hospitalization for post cardiac cath care, monitoring of renal function, IV fluids, and supportive care. Coding Level of Care Code Acute Code for [facility] Diagnoses Non-ST elevation MA (NSTEMI) I21.4 Ischemic cardiomyopathy I25.5 Essential hypertension I10 Morbid obesity E66.01 H/O heart bypass surgery Z95.1 Hyperlipidemia E78.2 Hyperlipidemia type: mixed hyperlipidemia Diabetes mellitus E11.9 Diabetes mellitus complication status: without complication Diabetes mellitus intermediate manager insulin use: without intermediate manager use Diabetes mellitus type: type 2 CKD (chronic kidney disease) stage 3, GFR 30-59 ml/min N18.30
[2023-03-03 16:25] LABS: Glucose Point of Care 272 mg/dL (70-110)
[2023-03-03] MEDS: atorvastatin 40 mg Tablet PO (19:59)
[2023-03-03 21:14] LABS: Glucose Point of Care 256 mg/dL (70-110)
[2023-03-04] VITALS (9 sets, daily range): BP systolic 111–126; BP diastolic 62–69; PULSE 63–72; RESP 15–20; TEMP 36.5–36.6; O2SAT 93–96
[2023-03-04] MEDS: morphine IR 15 mg Tablet PO (00:27)
[2023-03-04] MEDS: acetaminophen 325 mg Tablet 650 MG PO (03:10)
[2023-03-04] MEDS: enoxaparin 120 mg/0.8 mL Syringe 110 MG SUBCUT (03:11)
[2023-03-04 04:20] LABS: Basophils # 0.1 10^3/uL (0.0-0.1); Basophils % 0.6 %; Eosinophils # 0.2 10^3/uL (0.0-0.8); Eosinophils % 2.1 %; Hematocrit 36.1 % (36-47); Lymphocytes # 1.6 10^3/uL (0.8-4.8); Lymphocytes % 18.9 %; Mean Corpuscular HGB Conc 31.9 g/dL (30-55); Mean Platelet Volume 9.3 fL (7.4-10.4); Monocytes # 0.8 10^3/uL (0.2-0.9); Monocytes % 9.4 %; Neutrophils # 5.95 10^3/uL (1.8-7.7); Neutrophils % 68.5 %; Nucleated Red Blood Cells % 0 %; Platelet Count 359 10^3/cmm (157-399); Red Cell Distribution Width 14.1 % (12.1-15.1); White Blood Count 8.68 10^3/uL (3.29-11.43)
[2023-03-04 04:44] LABS: Albumin Level 3.1 g/dL (3.5-5.2); Blood Urea Nitrogen 33 mg/dL (8-23); Calcium 8.4 mg/dL (8.5-10.5); Carbon Dioxide 25 mmol/L (22-29); Chloride 100 mmol/L (98-107); Glucose 173 mg/dL (65-115); Sodium 134 mmol/L (136-145)
[2023-03-04 05:07] LABS: Anion Gap 13.7 (5-19); Potassium 4.7 mmol/L (3.5-5.1)
[2023-03-04 06:43] LABS: Glucose Point of Care 182 mg/dL (70-110)
[2023-03-04] MEDS: insulin lispro 100 unit/1 mL SUBCUT ×2 (08:08→11:43)
[2023-03-04] MEDS: aspirin 325 mg Tablet PO (08:09)
[2023-03-04] MEDS: clopidogrel 75 mg Tablet PO (08:09)
[2023-03-04] MEDS: carvedilol 12.5 mg Tablet PO (08:09)
[2023-03-04] MEDS: insulin glargine 100 units/1 mL 26 UNIT SUBCUT (08:09)
[2023-03-04 11:22] LABS: Glucose Point of Care 214 mg/dL (70-110)
--- NOTE | 2023-03-04 11:26 | PC.SOCIAL ---
IMM update: pg 2 of IMM dated and reviewed with pt. Copy provided and dated, initialed and placed in chart. 843 AM
--- NOTE | 2023-03-04 13:54 | P.DS_ITS ---
Discharge Providers Date of Admission: 03/01/23 03:33 Date of Discharge: March 04, 2023 Attending Provider at Admission: James Ansari DO Attending Provider at Discharge: Sarmad Mcmullen MD Consults: Cardiology: Dr. Garcia/Dr. 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 She describes it as severe pressure.? The pain radiated through into her back and down left arm and up the left neck. She had associated nausea and shortness of breath with this.? She states that she took 3 nitro at home and this did not relieve pain.? She states that the pain improved with Dilaudid in the ER. In the emergency room her troponins were positive.? She will be admitted to [facility] with non-STEMI protocol Note review of chart reveals stress test that was POSITIVE on 04/02/22: IMPRESSIONS ?1.? Abnormal myocardial perfusion imaging?with large sized area of ischemia ?noted in left circumflex and RCA territory.?Small sized prior infarct seen in ?the LCx territory ?2.? LV systolic function is mildly reduced. Hospital Course Hospital Course Patient was admitted to the hospital for further evaluation and management of non-ST elevation CO. Cardiology was consulted. He was started on treatment with DAPT, statin, full dose Lovenox for anticoagulation. She underwent cardiac angiogram on 03/03 which showed severe campo triple-vessel disease with remaining graft of FIELDS to LAD patent. She was advised medical therapy. Patient remained chest pain-free. She has been discharged in hemodynamically stable condition on dual antiplatelet therapy, statin, losartan and Coreg has been added to her medication list. Patient was found to have uncontrolled type 2 diabetes mellitus with A1c of 9.9 for which home dose of Lantus was increased to 31 units twice daily. Given CKD metformin has been stopped. She is to follow-up with a primary care provider and with nurse practitioner/Aby Yap from cardiology within next 2 weeks. Physical Exam Narrative: General: Patient is awake and alert. Lying in bed. Very pleasant. Head: Normocephalic. Atraumatic. EOM intact. Neck: No JVD. Cardiovascular: Cath site in right groin. Trace edema in lower extremities. Lungs: Non-labored. No accessory muscle use. Skin: No jaundice. No rashes. Abdomen: Normal bowel sounds, abdomen soft and nontender. Extremities: No cyanosis or clubbing. Musculoskeletal: No swollen or erythematous joints. Neurological: Moves all 4 extremities. No myoclonus. 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 echo wo/w contrast [id number] Routine Ultrasound 03/02/23 06:00 Taken Radiology Impressions Chest X-Ray 03/01/23 01:43 IMPRESSION: Increased peribronchial and perihilar markings bilaterally could represent bilateral bronchitis and perihilar pneumonitis. 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 ? Elective Diagnostic Findings ? * Ultrasound-guided vascular access performed with? introducer left radial artery due to prior history of bypass grafts.? Resistance developed at the elbow.? Left upper extremity arteriogram was performed with a J L4 catheter advanced to the proximal radius.? Revealed occlusion and a severe radial ulnar loop.? Unable to navigate with catheter and angled Glidewire.? Further attempts were aborted. ? * Fluoroscopic guided access of right common femoral artery performed with micropuncture kit and insertion of 6 [place] introducer successfully. ? * LV angiography revealed mildly dilated left ventricle with ejection fraction visually estimated at 45%. ? * Left main coronary artery engaged using a JR4 diagnostic catheter.? Distal left main 80% stenosis with Deward classification 1, 1, 1. ? * Left anterior descending with ostial proximal 80% disease heavily calcified.? Mid greater than 90% stenosis with competitive flow distally. ? * Left circumflex with ostial proximal 80% stenosis.? Obtuse marginal branch #1 calcified with proximal 50% and mid 70% and a small caliber segment. Distal 100% occlusion.? Continuation of the circumflex 100%. ? * Right coronary artery engaged using a JR4 diagnostic catheter.? Heavily calcified vessel.? Mid to distal 100%.? Well developed right to right collaterals to the CARRIE and the PDA.? Moderately developed right to left collaterals to the distal circumflex marginal. ? * FIELDS to LAD nonselectively engaged with a JR4 diagnostic catheter revealing a patent FIELDS graft inserting into the mid LAD with good runoff albeit atretic. ? * When compared to films from November 2021 there has been no significant change.? Recommendation at that time was for medical management.? Have made the same recommendation. Conclusions ? 1. Severe campo three-vessel coronary artery disease with only remaining patent graft FIELDS to the LAD. Recommendations ? * Patient is on dual antiplatelet therapy and beta-leanna therapy.? She does use sublingual nitroglycerin frequently.? We will add long-acting nitrate.? If physically capable will refer to cardiac rehab. Ventriculography Ejection Fraction: ? ? 45.0 % Pressures ? ? Phase:Rest ? ? AO :? 94 / 62 ( 75 )? @ 11:06:00 AM ? 107 / 74 ( 89 )? @ 11:10:00 AM ? 115 / 53 ( 81 )? @ 11:16:00 AM ? 122 / 64 ( 85 )? @ 11:17:00 AM ? ? LV :? 121 / 4 / 9? @ 11:14:00 AM ? 116 / 4 / 7? @ 11:16:00 AM ? 115 / 5 11? @ 11:16:00 AM Laboratory Results WBC 8.68 10^3/uL (3.29-11.43) 03/04/23 03:50 RBC 4.10 10^6/uL (3.85-5.65) 03/04/23 03:50 Hgb 11.50 g/dL (11.27-16.99) 03/04/23 03:50 Hct 36.1 % (36-47) 03/04/23 03:50 MCV 88.0 fl (85-98) 03/04/23 03:50 MCH 28.0 pg (27-33) 03/04/23 03:50 MCHC 31.9 g/dL (30-55) 03/04/23 03:50 RDW 14.1 % (12.1-15.1) 03/04/23 03:50 Plt Count 359 10^3/cmm (157-399) 03/04/23 03:50 MPV 9.3 fL (7.4-10.4) 03/04/23 03:50 Neut % (Auto) 68.5 % 03/04/23 03:50 Lymph % (Auto) 18.9 % 03/04/23 03:50 [place] % (Auto) 9.4 % 03/04/23 03:50 Eos % (Auto) 2.1 % 03/04/23 03:50 Baso % (Auto) 0.6 % 03/04/23 03:50 Neut # (Auto) 5.95 10^3/uL (1.8-7.7) 03/04/23 03:50 Lymph # (Auto) 1.6 10^3/uL (0.8-4.8) 03/04/23 03:50 [place] # (Auto) 0.8 10^3/uL (0.2-0.9) 03/04/23 03:50 Eos # (Auto) 0.2 10^3/uL (0.0-0.8) 03/04/23 03:50 Baso # (Auto) 0.1 10^3/uL (0.0-0.1) 03/04/23 03:50 Nucleated RBC % (auto) 0 % 03/04/23 03:50 Nucleated RBCs # 0.0 /100WBC 03/04/23 03:50 PT 12.90 SECONDS (12.1-14.9) 03/01/23 00:04 INR 0.94 (0.8-1.2) 03/01/23 00:04 Sodium 134 mmol/L (136-145) L 03/04/23 03:50 Potassium 4.7 mmol/L (3.5-5.1) 03/04/23 03:50 Chloride 100 mmol/L (98-107) 03/04/23 03:50 Carbon Dioxide 25 mmol/L (22-29) 03/04/23 03:50 Anion Gap 13.7 (5-19) 03/04/23 03:50 BUN 33 mg/dL (8-23) H 03/04/23 03:50 Creatinine 1.2 mg/dL (0.5-0.9) H 03/04/23 03:50 GFR Calculation Not Reportable 03/04/23 03:50 Glucose 173 mg/dL (65-115) H 03/04/23 03:50 POC Glucose 214 mg/dL (70-110) H 03/04/23 11:18 Estimat Average Glucose 237 03/03/23 03:55 Hemoglobin A1c 9.9 % (4.0-6.0) H 03/03/23 03:55 Calculated Osmolality 296 mOsm/kg (285-295) H 03/02/23 03:24 Calcium 8.4 mg/dL (8.5-10.5) L 03/04/23 03:50 Phosphorus 4.0 mg/dL (2.5-4.5) 03/04/23 03:50 Magnesium 2.0 mg/dL (1.7-2.3) 03/01/23 06:42 Total Bilirubin 0.3 mg/dL (0.15-1.2) 03/01/23 00:04 AST 14 U/L (0-32) 03/01/23 00:04 ALT 16 U/L (0-33) 03/01/23 00:04 Alkaline Phosphatase 82 U/L (35-105) 03/01/23 00:04 Troponin T Baseline 52 ng/L (0-10) H 03/01/23 00:04 Troponin T 120 Minute 163.8 ng/L (0-10) H 03/01/23 02:05 Delta Troponin T 111.8 ABS# (0-10) H* 03/01/23 02:05 Troponin T Hi Sens 6Hr 419.4 ng/L (0-10) H 03/01/23 06:42 Troponin T Hi Sens 6Hr Delta 367.4 ng/L (0-12) H* 03/01/23 06:42 NT-Pro-B Natriuret Pep 2316 pg/mL (0-125) H 03/01/23 06:42 Total Protein 7.4 g/dL (6.6-8.7) 03/01/23 00:04 Albumin 3.1 g/dL (3.5-5.2) L 03/04/23 03:50 Globulin 3.2 g/dL (1.3-4.6) 03/01/23 00:04 Triglycerides 159 mg/dL (0-150) H 03/03/23 03:55 Cholesterol 95 mg/dL (0-200) 03/03/23 03:55 LDL Cholesterol, Calc 35 mg/dL (50-129) L 03/03/23 03:55 HDL Cholesterol 28 mg/dL (60-100) L 03/03/23 03:55 LDL/HDL Ratio 1.25 RATIO (0.00-3.22) 03/03/23 03:55 Cholesterol/HDL Ratio 3.39 mg/dL (0.0-4.40) 03/03/23 03:55 TSH 4.06 uIU/mL (0.27-4.20) 03/03/23 03:55 Vitals Last Vital Signs Temp 97.7 F 03/04/23 08:00 Pulse 63 03/04/23 12:00 Resp 15 03/04/23 12:00 BP 111/62 03/04/23 12:00 Pulse Ox 95 03/04/23 12:00 O2 Del Method Room Air 03/04/23 12:00 Discharge Plan Discharge Patient Disposition: Home Condition: Stable Prescriptions: New carvedilol 12.5 mg Tablet 12.5 mg PO BID 30 Days Qty: 60 0RF insulin glargine [Lantus Solostar U-100 Insulin] 100 unit/mL (3 mL) insulin pen 31 unit SUBCUT BID Qty: 15 0RF clopidogrel 75 mg Tablet 75 mg PO DAILY Qty: 30 0RF Continued potassium citrate 15 mEq tablet extended release 15 meq PO BID Qty: 60 12RF losartan 100 mg tablet 100 mg PO DAILY Qty: 90 0RF magnesium L-lactate [Magtab] 84 mg tablet extended release 84 mg PO DAILY Qty: 90 3RF nitroglycerin 0.4 mg tablet, sublingual 0.4 mg sublingual Q5M PRN (Reason: Chest Pain) Qty: 25 6RF Alive Women's 50 Plus Ultra 800 mcg DFE- 150 mcg Tablet 1 tab PO DAILY (DME) blood-glucose meter [Accu-Chek Guide Glucose Meter] [facility] [place] See Rx Instructions .Route Qty: 1 0RF Rx Instructions: As directed (DME) Accu-Chek Guide test strips Strip See Rx Instructions .Route Qty: 100 0RF Rx Instructions: As directed (DME) lancets [Accu-Chek Softclix Lancets] Misc See Rx Instructions .Route Qty: 100 0RF Rx Instructions: As directed atorvastatin 80 mg tablet 80 mg PO QAM 30 Days Qty: 30 0RF aspirin 81 mg Tablet,Chewable 81 mg PO DAILY furosemide 40 mg Tablet 40 mg PO 0800 spironolactone 25 mg Tablet 25 mg PO DAILY vitamin E 670 mg (1,000 unit) Capsule 670 mg PO DAILY evening primrose oil 500 mg Capsule 1,000 mg PO DAILY Rx Instructions: give with meal/snack Super B Complex Capsule 1 cap PO BEDTIME turmeric 400 mg Capsule 400 mg PO DAILY Glucosamine Chondroitin 550-30-1 mg Capsule 1 cap PO BEDTIME Held furosemide 20 mg Tablet 20 mg PO BEDTIME Hold Instructions: Resume on 03/18/23. Discontinued metformin 1,000 mg tablet 1,000 mg PO BID Discharge Orders: Discharge Order (Routine); Ordered 03/04/23 Ordered By: Sarmad Mcmullen Referrals: Keo Cook MD [Primary Care Provider] - 2 weeks (Please call for an follow-up appointment in 4 to 7 days. ) Aby Yap FNP [Nurse Practitioner] - 2 weeks Discharge Diet: Cardiac and Diabetic Discharge Activity: Resume usual activity and Increase activity as tolerated Patient Instructions: Carvedilol (By mouth), Clopidogrel (By mouth) (Plavix), Insulin Glargine (By injection) (Lantus, Lantus SoloStar, Toujeo, Semglee), Opioid Safety Activity Restrictions/Additional Instructions: Some medication changes have been done. Continue taking your aspirin and statin as before. Clopidogrel 75 mg has been added to your medication list. For blood pressure take losartan 100 mg daily, Coreg 12.5 mg twice daily. Please check your blood pressure daily at home and maintain a blood pressure diary and follow-up with a primary care provider and with Aby Yap/nurse practitioner from cardiology within next 2 weeks for further adjustment of medications as needed. Dose of Lantus has been increased to 31 units twice daily from 26 units twice daily. Do not take metformin anymore. For next 2 weeks hold off on taking evening dose of Lasix. Continue taking your morning dose of Lasix as before. Discharge Attestations Time Spent in Discharge Care*: greater than 30 min Specific Discharge Activities: educating patient, discussing with pcp/other providers, discussing with casework manager/social workers/dc planners, documenting/other paperwork and evaluating patient/reviewing data Status at Discharge: Cognitive status at discharge: cognitively intact , Behavioral status at discharge: cooperative , Functional status at discharge: uses cane/walker , Overall status at discharge: patient is back to baseline Quality Metrics Clinical Quality Measures [ No reported AMI, CVA or VTE this stay] Coding Level of Care Code 43562 Total time (in minutes) for Discharge: 60 Diagnoses Non-ST elevation CO (NSTEMI) I21.4 Ischemic cardiomyopathy I25.5 Essential hypertension I10 Morbid obesity E66.01 H/O heart bypass surgery Z95.1 Hyperlipidemia E78.2 Hyperlipidemia type: mixed hyperlipidemia Diabetes mellitus E11.9 Diabetes mellitus complication status: without complication 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
[2023-03-04] MEDS: TRAMadol 50 mg Tablet PO (14:03)
--- NOTE | 2023-03-04 16:12 | P.PN_ITS ---
Subjective Subjective: Patient feels well and denies any complaints. She underwent left heart catheterization yesterday. She was found to have patent FIELDS to LAD. SVG to OM graft occluded. Unchanged veto 11/2021. Rec ommended ongoing medical therapy and cardiac rehab (through home health if possible) Medications: Reviewed: Yes Vitals/I&O/Wt Last Vital Signs Temp 97.7 F 03/04/23 14:27 Pulse 66 03/04/23 14:27 Resp 15 03/04/23 14:27 BP 126/69 03/04/23 14:27 Pulse Ox 94 03/04/23 14:27 O2 Del Method Room Air 03/04/23 14:15 03/04/23 03/04/23 03/04/23 06:59 14:59 22:59 Intake Total 200 / 1240 590 / 590 Output Total 290 / 810 300 / 300 Balance -90 / 430 290 / 290 Physical Exam Narrative: General: Patient is awake and alert. Lying in bed. Very pleasant. Head: Normocephalic. Atraumatic. EOM intact. Neck: No JVD. Cardiovascular: Cath site in right groin. Trace edema in lower extremities. Lungs: Non-labored. No accessory muscle use. Skin: No jaundice. No rashes. Abdomen: Normal bowel sounds, abdomen soft and nontender. Extremities: No cyanosis or clubbing. Musculoskeletal: No swollen or erythematous joints. Neurological: Moves all 4 extremities. No myoclonus. Data 03/04/23 03:50 03/04/23 03:50 A&P Assessment and plan (1) Non-ST elevation TN (NSTEMI): Cardiac cath unchanged from November 2021. Recommend ongoing medical therapy and cardiac rehab. Cardiology approves of discharge home. We will look into home health cardiac rehab due to the patient's restrictions. 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 Cardiology is in agreement. Follow- up with primary heavy truck driver Dr. Garcia in 1 or 2 months. Attestations Medical Necessity Statement*: Patient stayed in the hospital for over 2 midnights due to non-ST elevation myocardial infarction, coronary artery disease, comorbidities. Patient is deemed safe for discharge home today. Coding Level of Care Code 08626 Diagnoses Non-ST elevation TN (NSTEMI) I21.4 CKD (chronic kidney disease) stage 3, GFR 30-59 ml/min N18.30 Essential hypertension I10 Hyperlipidemia E78.2 Hyperlipidemia type: mixed hyperlipidemia Diabetes mellitus E11.9 Diabetes mellitus complication status: without complication Diabetes mellitus retirement insulin use: without retirement use Diabetes mellitus type: type 2
--- NOTE | 2023-03-05 14:26 | PC.NURSE ---
Patient was discharged yesterday but calls in today about a medication that was sent to [facility] mail-in pharmacy. The medication was added on after patient was discharged. This medications was cancelled from [facility] mail-in and called to the local [facility].
== END 2023-03-04 14:58 | disposition home or self-care (01) | DRG 281 ==
LOC: ER 03-01 02:54 → CSU 03-01 03:33
PROVIDERS: Internal Medicine; Internal Medicine Cardiovascular Disease; Admitting Provider Internal Medicine; Emergency Provider Emergency Medicine; PCP Family Medicine; Visit Provider Student in an Organized Health Care Education/Training Program
PROC: B2131ZZ Fluoroscopy of Multiple Coronary Artery Bypass Grafts using Low Osmolar Contrast (ICD-10-PCS; principal; 2023-03-03 09:30)
DX: I21.4 Non-ST elevation (NSTEMI) myocardial infarction (principal); I25.810 Atherosclerosis of coronary artery bypass graft(s) without angina pectoris; Z68.41 Body mass index [BMI] 40.0-44.9, adult; N17.9 Acute kidney failure, unspecified; I25.10 Atherosclerotic heart disease of native coronary artery without angina pectoris; I12.9 Hypertensive chronic kidney disease with stage 1 through stage 4 chronic kidney disease, or unspecified chronic kidney disease; E11.22 Type 2 diabetes mellitus with diabetic chronic kidney disease; N18.30 Chronic kidney disease, stage 3 unspecified; E78.2 Mixed hyperlipidemia; I25.5 Ischemic cardiomyopathy; E66.01 Morbid (severe) obesity due to excess calories; Z87.891 Personal history of nicotine dependence; Z79.82 Long term (current) use of aspirin; Z79.4 Long term (current) use of insulin
CPT/HCPCS: 36415; 36416; 71045; 80048; 80053; 80061; 80069; 82962; 83036; 83735; 83880; 84443; 84484; 85025; 85610; 93005; 93459; 96367; 96372; 96374; 96375; 99152; 99153; 99285; C1760; C1769; C1887; C1894; C8929; J1170; J1644; J1650; J1815; J1940; J2250; J2270; J2405; J3010; J3490; J7030; Q9956; Q9967

== ENCOUNTER → 2023-04-08 10:24 | Outpatient (BNVA) | payer MEDICARE, SELFPAY | PROVIDERS: PCP Family Medicine; Visit Provider Nurse Practitioner Family | DX: I21.4 Non-ST elevation (NSTEMI) myocardial infarction (principal); I49.3 Ventricular premature depolarization; R94.31 Abnormal electrocardiogram [ECG] [EKG]; Z09 Encounter for follow-up examination after completed treatment for conditions other than malignant neoplasm; I25.2 Old myocardial infarction; Z87.891 Personal history of nicotine dependence; I45.9 Conduction disorder, unspecified | CPT/HCPCS: 36415; 80048; 93005; 99214 ==

== ENCOUNTER 2023-05-06 08:56 | Outpatient (CLI) | payer MEDICARE, SELFPAY ==
[2023-05-06 10:13] LABS: Alanine Aminotransferase 10 U/L (0-33); Albumin Level 3.8 g/dL (3.5-5.2); Alkaline Phosphatase 77 U/L (35-105); Anion Gap 17.1 (5-19); Aspartate Amino Transferase 11 U/L (0-32); Blood Urea Nitrogen 21 mg/dL (8-23); Calcium 9.7 mg/dL (8.5-10.5); Carbon Dioxide 24 mmol/L (22-29); Chloride 103 mmol/L (98-107); Globulin 3.1 g/dL (1.3-4.6); Glucose 197 mg/dL (65-115); NT Pro B Type Natriuretic Pept 764 pg/mL (0-125); Osmolality Calculated 298 mOsm/kg (285-295); Potassium 4.1 mmol/L (3.5-5.1); Sodium 140 mmol/L (136-145); Thyroid Stimulating Hormone 4.17 uIU/mL (0.27-4.20); Total Bilirubin 0.4 mg/dL (0.15-1.2); Total Protein 6.9 g/dL (6.6-8.7)
== END 2023-05-06 08:57 | disposition home or self-care (01) ==
PROVIDERS: PCP Family Medicine; Visit Provider Internal Medicine Cardiovascular Disease
DX: I25.5 Ischemic cardiomyopathy (principal); I47.29 Other ventricular tachycardia; N17.9 Acute kidney failure, unspecified; E11.9 Type 2 diabetes mellitus without complications; I10 Essential (primary) hypertension; Z79.899 Other long term (current) drug therapy
CPT/HCPCS: 36415; 80053; 83735; 83880; 84443

== ENCOUNTER → 2023-05-07 10:43 | Outpatient (BNVA) | payer MEDICARE, SELFPAY | PROVIDERS: PCP Family Medicine; Visit Provider Internal Medicine Cardiovascular Disease | DX: I47.29 Other ventricular tachycardia (principal); I25.5 Ischemic cardiomyopathy; I12.9 Hypertensive chronic kidney disease with stage 1 through stage 4 chronic kidney disease, or unspecified chronic kidney disease; N18.30 Chronic kidney disease, stage 3 unspecified; E11.22 Type 2 diabetes mellitus with diabetic chronic kidney disease; Z79.4 Long term (current) use of insulin; E78.2 Mixed hyperlipidemia; I49.5 Sick sinus syndrome; Z87.891 Personal history of nicotine dependence | CPT/HCPCS: 99215 ==

== ENCOUNTER → 2023-06-18 12:11 | Outpatient (BNVA) | payer MEDICARE, SELFPAY | PROVIDERS: PCP Family Medicine; Visit Provider Nurse Practitioner Family | DX: I12.9 Hypertensive chronic kidney disease with stage 1 through stage 4 chronic kidney disease, or unspecified chronic kidney disease (principal); E11.22 Type 2 diabetes mellitus with diabetic chronic kidney disease; N18.30 Chronic kidney disease, stage 3 unspecified; Z79.4 Long term (current) use of insulin; I25.810 Atherosclerosis of coronary artery bypass graft(s) without angina pectoris; Z87.891 Personal history of nicotine dependence | CPT/HCPCS: 99213 ==

== ENCOUNTER → 2023-07-09 09:57 | Outpatient (BNVA) | payer MEDICARE, SELFPAY | PROVIDERS: PCP Family Medicine; Visit Provider Internal Medicine Cardiovascular Disease | DX: Z95.810 Presence of automatic (implantable) cardiac defibrillator (principal); I10 Essential (primary) hypertension; I25.5 Ischemic cardiomyopathy; I47.29 Other ventricular tachycardia; E78.2 Mixed hyperlipidemia; Z87.891 Personal history of nicotine dependence | CPT/HCPCS: 99214 ==

== ENCOUNTER 2023-08-05 07:56 | Outpatient (CLI) | payer MEDICARE, SELFPAY ==
[2023-08-05 08:35] LABS: Alanine Aminotransferase 10 U/L (0-33); Albumin Level 3.8 g/dL (3.5-5.2); Alkaline Phosphatase 90 U/L (35-105); Aspartate Amino Transferase 10 U/L (0-32); Blood Urea Nitrogen 29 mg/dL (8-23); Calcium 9.3 mg/dL (8.5-10.5); Carbon Dioxide 28 mmol/L (22-29); Chloride 100 mmol/L (98-107); Globulin 3.5 g/dL (1.3-4.6); Glucose 186 mg/dL (65-115); Osmolality Calculated 299 mOsm/kg (285-295); Sodium 139 mmol/L (136-145); Total Bilirubin 0.4 mg/dL (0.15-1.2); Total Protein 7.3 g/dL (6.6-8.7)
== END 2023-08-05 07:57 | disposition home or self-care (01) ==
PROVIDERS: PCP Family Medicine; Visit Provider Nurse Practitioner Family
DX: I25.5 Ischemic cardiomyopathy (principal)
CPT/HCPCS: 36415; 80053

== ENCOUNTER → 2023-08-27 09:14 | Outpatient (BNVA) | payer MEDICARE, SELFPAY | PROVIDERS: PCP Family Medicine; Visit Provider Nurse Practitioner Family | DX: I25.810 Atherosclerosis of coronary artery bypass graft(s) without angina pectoris (principal); I25.5 Ischemic cardiomyopathy; I12.9 Hypertensive chronic kidney disease with stage 1 through stage 4 chronic kidney disease, or unspecified chronic kidney disease; E11.22 Type 2 diabetes mellitus with diabetic chronic kidney disease; N18.30 Chronic kidney disease, stage 3 unspecified; Z87.891 Personal history of nicotine dependence; Z79.4 Long term (current) use of insulin | CPT/HCPCS: 99213 ==

== ENCOUNTER 2023-10-19 05:07 | Emergency (ER) | payer MEDICARE, SELFPAY ==
[2023-10-19 05:08] VITALS: BP 166/76; PULSE 78; RESP 18; TEMP 36.6; O2SAT 93; BMI 34.3
[2023-10-19 05:15] VITALS: BP 166/76; PULSE 78; RESP 18; O2SAT 94
--- NOTE | 2023-10-19 05:30 | XRR_ITS ---
PROCEDURE INFORMATION: Exam: XR Lumbosacral Spine Exam date and time: 10/19/2023 5:40 AM Age: 73 years old Clinical indication: Low back pain; Prior surgery; Surgery date: 6+ months; Surgery type: Heart, gb TECHNIQUE: Imaging protocol: Radiologic exam of the lumbosacral spine. Views: 2 or 3 views. COMPARISON: CT abdomen pelvis w con* [id number] 09/23/2021 6:22 AM FINDINGS: Bones/joints: Mild demineralization. Well maintained disc spaces. No fracture. No lytic or sclerotic bone lesion. Prior median sternotomy. . No acute fracture. Normal alignment. Soft tissues: Unremarkable. Intraperitoneal space: Right upper quadrant surgical clips suggest cholecystectomy. XR/XR lumbar spine 2-3V* [id number] IMPRESSION: No acute findings.
--- NOTE | 2023-10-19 05:31 | ED_ITS ---
HPI - Back Pain/Injury 2 General: Chief Complaint: Back Pain/Injury Stated Complaint: back pain Time Seen by Provider: 10/19/23 05:28 History of Present Illness: 73-year-old female presents emerged depa rtment stating that she has had low back pain for several weeks. She states she has been taking tramadol and hydrocodone intermittently that she has had degree from previous surgeries and previous ER visits. She states that throughout the night tonight and this morning she has continued to have significant increase in back pain that is radiating down her left leg. She states the pain goes into her left buttocks and down the lateral and posterior aspect of her leg. She states she has not had any known injuries that she is aware of. She states when the pain does occur it is a 5 out of 10. She denies numbness or tingling to the extremities. She states she is a diabetic and cannot receive steroids as it causes her blood pressure to be excessively high and uncontrolled. Review of Systems 2 General: Reports: 10 or more systems reviewed and unremarkable except in HPI and below Musc: Reports: back pain and extremity pain PFS ED 2 PFSH: Medical History Ischemic cardiomyopathy Essential hypertension Morbid obesity CAMERON (dyspnea on exertion) Non-ST elevation SC (NSTEMI) Chest pain CKD (chronic kidney disease) stage 3, GFR 30-59 ml/min Diabetes Shortness of breath Bilateral renal stones Hyperlipidemia Coronary artery disease Multiple vessel coronary artery disease Osteoarthritis Hypertension Diabetes mellitus Surgical History H/O heart bypass surgery 2 times Hx of cholecystectomy H/O dilation and curettage H/O: H/O: hysterectomy H/O vulvectomy S/P ureteral stent placement Family History Mother , at age 93 Uterine cancer CAD (coronary artery disease) Father , at age 67 CAD (coronary artery disease) Social History Smoking and tobacco/nicotine status: former use of tobacco/nicotine Alcohol intake: never Marital status: / Current occupational status: retired Physical Exam 2 Narrative: EXAM NARRATIVE: Constitutional: the patient appears well nourished and with normal development. Vital signs reviewed as documented. HENMT: Normocephalic, atraumatic. External ears normal appearance without drainage. Nose without drainage, normal appearance. Mucus membranes moist. Neck is supple, No jugular venous distension, trachea is midline, no appreciable carotid bruits. No lymphadenopathy. No meningeal signs. Flexion, extension and lateral rotation is without pain. Eyes: Pupils are equal, round, reactive to light and accommodation. No scleral icterus. Extra-ocular movement are intact. Thorax is symmetrical and with equal rise and fall with respirations. Resp: Lungs are clear to auscultation. No wheezes, rales, crackles or ronchi at present. Cardio: Regular rate and rhythm. Positive S1, S2. No appreciable murmurs, rubs or gallops. GI: Abdominal exam reveals normal bowel sounds to all quadrants. No organomegaly. No obvious palpable masses noted. No hepatomegally appreciated. Soft, non-tender to palpation. Extremity: Extremities are non-edematous and both femoral and pedal pulses are 2+ and equal bilaterally. Moves all extremities well, sensation in all extremities. Neuro: Alert and oriented x4, person, place, time and situation. Cranial nerves II through XII are grossly intact, there is no focal neurological deficits that I can appreciate at present. Sensation intact to all extremities. 2-point discrimination intact. Light touch intact to all extremities. Motor strength in the upper and lower extremities are equal and bilateral 5/5. Psych: Cooperative, calm, normal thought process, appropriate judgment. Skin: No lesions, rashes. No gross abnormalities noted. Back: Symmetrical, no obvious deformity, No CVA tenderness. Left gluteus at the piriformis muscle is tender to palpation. Course 2 Vital Signs: Vital signs: Vital Signs Temperature 97.9 F 10/19/23 05:08 Pulse Rate 78 10/19/23 05:15 Respiratory Rate 18 10/19/23 05:15 Blood Pressure 166/76 10/19/23 05:15 Pulse Oximetry 94 10/19/23 05:15 Oxygen Delivery Me thod Room Air 10/19/23 05:15 MDM - Back Pain/Injury Medical Decision Making Physical exam completed and documented I did obtain a CBC and a CMP as well as a urinalysis of the lumbar spine. Medical Records I reviewed the patient's medical records. Labs I reviewed the patient's lab results. 10/19/23 05:21 10/19/23 05:21 Laboratory Results WBC 8.51 10^3/uL (3.29-11.43) 10/19/23 05:21 RBC 5.55 10^6/uL (3.85-5.65) 10/19/23 05:21 Hgb 15.30 g/dL (11.27-16.99) 10/19/23 05:21 Hct 48.5 % (36-47) H 10/19/23 05:21 MCV 87.4 fl (85-98) 10/19/23 05:21 MCH 27.6 pg (27-33) 10/19/23 05:21 MCHC 31.5 g/dL (30-55) 10/19/23 05:21 RDW 15.2 % (12.1-15.1) H 10/19/23 05:21 Plt Count 353 10^3/cmm (157-399) 10/19/23 05:21 MPV 8.6 fL (7.4-10.4) 10/19/23 05:21 Neut % (Auto) 68.2 % 10/19/23 05:21 Lymph % (Auto) 20.1 % 10/19/23 05:21 [place] % (Auto) 8.9 % 10/19/23 05:21 Eos % (Auto) 1.6 % 10/19/23 05:21 Baso % (Auto) 0.8 % 10/19/23 05:21 Neut # (Auto) 5.80 10^3/uL (1.8-7.7) 10/19/23 05:21 Lymph # (Auto) 1.7 10^3/uL (0.8-4.8) 10/19/23 05:21 [place] # (Auto) 0.8 10^3/uL (0.2-0.9) 10/19/23 05:21 Eos # (Auto) 0.1 10^3/uL (0.0-0.8) 10/19/23 05:21 Baso # (Auto) 0.1 10^3/uL (0.0-0.1) 10/19/23 05:21 Nucleated RBC % (auto) 0 % 10/19/23 05:21 Nucleated RBCs # 0.0 /100WBC 10/19/23 05:21 Sodium 135 mmol/L (136-145) L 10/19/23 05:21 Potassium 4.2 mmol/L (3.5-5.1) 10/19/23 05:21 Chloride 100 mmol/L (98-107) 10/19/23 05:21 Carbon Dioxide 24 mmol/L (22-29) 10/19/23 05:21 Anion Gap 15.2 (5-19) 10/19/23 05:21 BUN 17 mg/dL (8-23) 10/19/23 05:21 Creatinine 1.0 mg/dL (0.5-0.9) H 10/19/23 05:21 GFR Calculation Not Reportable 10/19/23 05:21 Glucose 274 mg/dL (65-115) H 10/19/23 05:21 Calculated Osmolality 291 mOsm/kg (285-295) 10/19/23 05:21 Calcium 8.8 mg/dL (8.5-10.5) 10/19/23 05:21 Total Bilirubin 0.5 mg/dL (0.15-1.2) 10/19/23 05:21 AST 10 U/L (0-32) 10/19/23 05:21 ALT 14 U/L (0-33) 10/19/23 05:21 Alkaline Phosphatase 73 U/L (35-105) 10/19/23 05:21 Total Protein 6.6 g/dL (6.6-8.7) 10/19/23 05:21 Albumin 3.5 g/dL (3.5-5.2) 10/19/23 05:21 Globulin 3.1 g/dL (1.3-4.6) 10/19/23 05:21 All radiology interpretation(s) finalized by discharge Discharge Plan Discharge Patient Disposition: Home Clinical Impression: Lumbar radiculopathy Sciatica Qualifiers: Laterality: left Qualified Code(s): M54.32 - Sciatica, left side Condition: Stable Prescriptions: New hydrocodone-acetaminophen 10-325 mg tablet 1 tab PO Q6H PRN (Reason: pain) Qty: 14 0RF No Action potassium citrate 15 mEq tablet extended release 15 meq PO BID Qty: 60 12RF clopidogrel 75 mg tablet 75 mg PO DAILY Qty: 90 3RF nitroglycerin 0.4 mg tablet, sublingual 0.4 mg sublingual Q5M PRN (Reason: Chest Pain) Qty: 25 6RF magnesium L-lactate 84 mg tablet extended release See Rx Instructions .ROUTE .COMPLEX Qty: 100 3RF Dose Instruction: TAKE 1 TABLET BY MOUTH EVERY DAY Rx Instructions: TAKE 1 TABLET BY MOUTH EVERY DAY furosemide 40 mg tablet See Rx Instructions .ROUTE .COMPLEX Qty: 135 2RF Dose Instruction: TAKE 60MG BY MOUTH DIRECTED, TAKE 40MG IN THE MORNING AND 20MG IN THE EVENING Rx Instructions: TAKE 60MG BY MOUTH DIRECTED, TAKE 40MG IN THE MORNING AND 20MG IN THE EVENING spironolactone 25 mg tablet 25 mg PO DAILY Qty: 90 3RF amiodarone 200 mg tablet 200 mg PO DAILY Qty: 90 3RF Alive Women's 50 Plus Ultra 800 mcg DFE- 150 mcg Tablet 1 tab PO DAILY (DME) blood-glucose meter [Accu-Chek Guide Glucose Meter] Misc See Rx Instructions .Route Qty: 1 0RF Rx Instructions: As directed (DME) Accu-Chek Guide test strips Strip See Rx Instructions .Route Qty: 100 0RF Rx Instructions: As directed (DME) lancets [Accu-Chek Softclix Lancets] Misc See Rx Instructions .Route Qty: 100 0RF Rx Instructions: As directed atorvastatin 80 mg tablet 80 mg PO QAM 30 Days Qty: 30 0RF aspirin 81 mg Tablet,Chewable 81 mg PO DAILY furosemide 20 mg Tablet 20 mg PO BEDTIME Hold Instructions: Resume on 03/18/23. vitamin E 670 mg (1,000 unit) Capsule 670 mg PO DAILY evening primrose oil 500 mg Capsule 1,000 mg PO DAILY Rx Instructions: give with meal/snack vitamin B complex Capsule 1 cap PO BEDTIME turmeric 400 mg Capsule 400 mg PO DAILY Glucosamine Chondroitin 550-30-1 mg Capsule 1 cap PO BEDTIME Lantus Solostar U-100 Insulin 100 unit/mL (3 mL) insulin pen 31 unit SUBCUT BID Qty: 15 0RF tramadol 50 mg tablet 50 mg PO QID PRN (Reason: pain) Qty: 20 0RF Discharge Orders: Discharge ED (Routine); Ordered 10/19/23 Ordered By: Kane Guzman Referrals: Keo Cook MD [Primary Care Provider] - Discharge Diet: Usual diet Discharge Activity: Resume usual activity Patient Instructions: Opioid Safety, Pain Management Activity Restrictions/Additional Instructions: Activity Restrictions/Additional Instructions: Thank you for choosing [facility] for your healthcare needs today. Please realize that you were seen in the Emergency Department and that we are providing you with an emergency medical screening exam and this may not be a complete and all inclusive of all the testing and or medical work-up that you may need to determine your ailment or severity of your illness. It is very important that you follow-up as instructed with your Primary care provider or Specialist for additional evaluation and to discuss your medical treatment plan. You may return to the Emergency Department should you have concerns or if your condition changes or worsens in any way. Coding Level of Care Code ED Typist for Dhaval Martini
[2023-10-19 05:41] LABS: Basophils # 0.1 10^3/uL (0.0-0.1); Basophils % 0.8 %; Eosinophils # 0.1 10^3/uL (0.0-0.8); Eosinophils % 1.6 %; Hematocrit 48.5 % (36-47); Lymphocytes # 1.7 10^3/uL (0.8-4.8); Lymphocytes % 20.1 %; Mean Corpuscular HGB Conc 31.5 g/dL (30-55); Mean Corpuscular Hemoglobin 27.6 pg (27-33); Mean Corpuscular Volume 87.4 fl (85-98); Mean Platelet Volume 8.6 fL (7.4-10.4); Monocytes # 0.8 10^3/uL (0.2-0.9); Monocytes % 8.9 %; Neutrophils % 68.2 %; Nucleated Red Blood Cells % 0 %; Platelet Count 353 10^3/cmm (157-399); Red Blood Count 5.55 10^6/uL (3.85-5.65); Red Cell Distribution Width 15.2 % (12.1-15.1); White Blood Count 8.51 10^3/uL (3.29-11.43)
[2023-10-19 05:52] LABS: Alanine Aminotransferase 14 U/L (0-33); Albumin Level 3.5 g/dL (3.5-5.2); Alkaline Phosphatase 73 U/L (35-105); Anion Gap 15.2 (5-19); Aspartate Amino Transferase 10 U/L (0-32); Blood Urea Nitrogen 17 mg/dL (8-23); Calcium 8.8 mg/dL (8.5-10.5); Carbon Dioxide 24 mmol/L (22-29); Chloride 100 mmol/L (98-107); Globulin 3.1 g/dL (1.3-4.6); Glucose 274 mg/dL (65-115); Osmolality Calculated 291 mOsm/kg (285-295); Potassium 4.2 mmol/L (3.5-5.1); Sodium 135 mmol/L (136-145); Total Bilirubin 0.5 mg/dL (0.15-1.2); Total Protein 6.6 g/dL (6.6-8.7)
[2023-10-19] MEDS: ketorolac 30 mg/mL INJ IVP (06:41)
[2023-10-19 06:48] VITALS: BP 180/87; PULSE 80; RESP 18; O2SAT 98
[2023-10-19 07:03] LABS: Add Urine Culture? No; Add Urine Microscopic? YES; Bacteria Urine TRACE /hpf; Bilirubin Urine Neg (Negative); Blood Urine 2+ (Negative); Glucose Urine UA 2+ (Normal); Ketones Urine Negative (Negative); Leukocyte Esterase Urine Negative (Negative); Nitrate Urine Negative (Negative); Protein Urine 3+ (Negative); RBC Urine RARE /hpf (0-2); Urine Appearance Clear (CLEAR); Urine Color Yellow (Yellow); Urobilinogen Urine Norm (Negative); pH Urine 6 (5-7)
== END 2023-10-19 06:49 | disposition home or self-care (01) ==
PROVIDERS: Emergency Provider Internal Medicine; PCP Family Medicine
DX: M54.16 Radiculopathy, lumbar region (principal); M54.32 Sciatica, left side; Z79.02 Long term (current) use of antithrombotics/antiplatelets; Z79.82 Long term (current) use of aspirin; Z79.4 Long term (current) use of insulin; Z87.891 Personal history of nicotine dependence; I13.10 Hypertensive heart and chronic kidney disease without heart failure, with stage 1 through stage 4 chronic kidney disease, or unspecified chronic kidney disease; E11.22 Type 2 diabetes mellitus with diabetic chronic kidney disease; I43 Cardiomyopathy in diseases classified elsewhere; N18.30 Chronic kidney disease, stage 3 unspecified; I25.2 Old myocardial infarction; E78.5 Hyperlipidemia, unspecified; I25.10 Atherosclerotic heart disease of native coronary artery without angina pectoris
CPT/HCPCS: 72100; 80053; 81001; 85025; 96374; 99284; J1885

== ENCOUNTER 2023-10-24 02:30 | Emergency (ER) | payer MEDICARE, SELFPAY ==
[2023-10-24 02:39] VITALS: BP 177/75; PULSE 87; RESP 18; TEMP 36.7; O2SAT 97; BMI 38.7
--- NOTE | 2023-10-24 02:42 | W.ED.EXTPRO ---
HPI - Extremity Problem General: Chief complaint: Extremity Problem,Nontraumatic Stated complaint: Left leg pain Time Seen by Provider: 10/24/23 02:34 History of Present Illness: Patient presents to the ER with complaining of left hip back pain that radiates to her foot. Patient was seen here last week had a lumbar spine x-ray got diagnosed with sciatica and put on hydrocodone. Patient states that she may have been getting better for couple days but then she just went downhill since then. Patient states she has had no new accidents or trauma, also states that she cannot take steroids due to it raises her blood pressure Review of Systems General: Reports: 10 or more systems reviewed and unremarkable except in HPI and below PFSH ED PFSH: Medical History Ischemic cardiomyopathy Essential hypertension Morbid obesity CAMERON (dyspnea on exertion) Non-ST elevation [place] (NSTEMI) Chest pain CKD (chronic kidney disease) stage 3, GFR 30-59 ml/min Diabetes Shortness of breath Bilateral renal stones Hyperlipidemia Coronary artery disease Multiple vessel coronary artery disease Osteoarthritis Hypertension Diabetes mellitus Surgical History H/O heart bypass surgery 2 times Hx of cholecystectomy H/O dilation and curettage H/O: H/O: hysterectomy H/O vulvectomy S/P ureteral stent placement Family History Mother , at age 93 Uterine cancer CAD (coronary artery disease) Father , at age 67 CAD (coronary artery disease) Social History Smoking and tobacco/nicotine status: former use of tobacco/nicotine Alcohol intake: never Marital status: / Current occupational status: retired Physical Exam Const: COMMON NORMALS: no acute distress, average body habitus, patient oriented x3, no limitations, healthy appearing, alert and well nourished HENMT: COMMON NORMALS: normocephalic, atraumatic, hearing grossly normal bilaterally, external ears normal, Normal external nose present, moist oral mucous membranes and oropharynx normal HEAD & SCALP: normocephalic and atraumatic NOSE: Normal external nose present EXTERNAL EAR: Yes external ears normal Neck/C-Spine: COMMON NORMALS: no JVD Chest: COMMONS NORMALS: normal inspection of the chest and normal palpation of entire chest wall Resp: COMMON NORMALS: normal respiratory effort, No retractions, No use of accessory muscles and clear to auscultation bilaterally AUSCULTATION: clear to auscultation bilaterally Cardio: COMMON NORMALS: no JVD, regular rate, regular rhythm, S1 normal heart sound present, S2 normal heart sound present, No gallops present (Cardio), No clicks present (Cardio), No murmurs present (Cardio) and No rub (Cardio) RATE: regular rate RHYTHM: regular rhythm HEART SOUNDS: S1 normal heart sound present and S2 normal heart sound present GI: COMMON NORMALS: Normal to inspection, nondistended, normoactive bowel sounds present, Soft to palpation, non-tender, No hepatosplenomegaly present and no masses PALPATION: Yes Soft to palpation and Yes No hepatosplenomegaly present Neuro: COMMON NORMALS: patient oriented x3 SENSORIUM/ORIENTATION: Yes alert Course Vital Signs: Vital signs: Vital Signs Temperature 98.1 F 10/24/23 02:39 Pulse Rate 89 10/24/23 04:04 Respiratory Rate 18 10/24/23 02:39 Blood Pressure 180/83 10/24/23 04:04 Pulse Oximetry 97 10/24/23 04:04 Oxygen Delivery Me thod Room Air 10/24/23 02:39 MDM - Extremity (Nontraumatic) Medical Decision Making Patient x-rays of her hip and pelvis which showed no clear acute osseous abnormality, patient was given Toradol 60 mg IM and gabapentin 300 mg p.o. which helped reduce the pain. Patient be discharged with a prescription of gabapentin and should follow-up with her PCP within the next 7 days. Differential Diagnosis Unlikely herpes zoster, gout, cellulitis, superficial thrombophlebitis, deep venous thrombosis of upper extremity, lower extremity edema or deep vein thrombosis of lower extremity Medical Records I reviewed the patient's medical records. Lab Data I reviewed the patient's lab results. Radiology Impressions Hip/Pelvis X-Ray 10/24/23 03:10 IMPRESSION: Limited study due to habitus. No clear acute osseous abnormality. All radiology interpretation(s) finalized by discharge Discharge Plan Discharge Patient Disposition: Home Clinical Impression: Lumbar radiculopathy, Chronic left hip pain Condition: Stable Prescriptions: New gabapentin 300 mg capsule 300 mg PO Q8H Qty: 30 0RF Percocet 5-325 mg tablet 1 tab PO Q8H PRN (Reason: pain) Qty: 14 0RF Discontinued hydrocodone-acetaminophen 10-325 mg tablet 1 tab PO Q6H PRN (Reason: pain) Qty: 14 0RF No Action potassium citrate 15 mEq tablet extended release 15 meq PO BID Qty: 60 12RF clopidogrel 75 mg tablet 75 mg PO DAILY Qty: 90 3RF nitroglycerin 0.4 mg tablet, sublingual 0.4 mg sublingual Q5M PRN (Reason: Chest Pain) Qty: 25 6RF magnesium L-lactate 84 mg tablet extended release See Rx Instructions .ROUTE .COMPLEX Qty: 100 3RF Dose Instruction: TAKE 1 TABLET BY MOUTH EVERY DAY Rx Instructions: TAKE 1 TABLET BY MOUTH EVERY DAY furosemide 40 mg tablet See Rx Instructions .ROUTE .COMPLEX Qty: 135 2RF Dose Instruction: TAKE 60MG BY MOUTH DIRECTED, TAKE 40MG IN THE MORNING AND 20MG IN THE EVENING Rx Instructions: TAKE 60MG BY MOUTH DIRECTED, TAKE 40MG IN THE MORNING AND 20MG IN THE EVENING spironolactone 25 mg tablet 25 mg PO DAILY Qty: 90 3RF amiodarone 200 mg tablet 200 mg PO DAILY Qty: 90 3RF Alive Women's 50 Plus Ultra 800 mcg DFE- 150 mcg Tablet 1 tab PO DAILY (DME) blood-glucose meter [Accu-Chek Guide Glucose Meter] Mis See Rx Instructions .Route Qty: 1 0RF Rx Instructions: As directed (DME) Accu-Chek Guide test strips Strip See Rx Instructions .Route Qty: 100 0RF Rx Instructions: As directed (DME) lancets [Accu-Chek Softclix Lancets] Misc See Rx Instructions .Route Qty: 100 0RF Rx Instructions: As directed atorvastatin 80 mg tablet 80 mg PO QAM 30 Days Qty: 30 0RF aspirin 81 mg Tablet,Chewable 81 mg PO DAILY furosemide 20 mg Tablet 20 mg PO BEDTIME Hold Instructions: Resume on 03/18/23. vitamin E 670 mg (1,000 unit) Capsule 670 mg PO DAILY evening primrose oil 500 mg Capsule 1,000 mg PO DAILY Rx Instructions: give with meal/snack vitamin B complex Capsule 1 cap PO BEDTIME turmeric 400 mg Capsule 400 mg PO DAILY Glucosamine Chondroitin 550-30-1 mg Capsule 1 cap PO BEDTIME Lantus Solostar U-100 Insulin 100 unit/mL (3 mL) insulin pen 31 unit SUBCUT BID Qty: 15 0RF tramadol 50 mg tablet 50 mg PO QID PRN (Reason: pain) Qty: 20 0RF Discharge Orders: Discharge ED (Routine); Ordered 10/24/23 Ordered By: Slick Gorman Referrals: Keo Cook MD [Primary Care Provider] - 1 week Patient Instructions: Lumbar Radiculopathy (ED), Opioid Safety, Pain Management Activity Restrictions/Additional Instructions: The x-ray of your hip performed in ER did not show any acute changes. Please take all your medicines as directed. Please follow-up with your family practice physician for further evaluation and treatment of your chronic symptomatology. Coding Level of Care Code ED Ink Technician for Dhaval Martini
--- NOTE | 2023-10-24 03:10 | XRR_ITS ---
PROCEDURE INFORMATION: Exam: XR Left Hip Exam date and time: 10/24/2023 3:21 AM Age: 73 years old Clinical indication: Hip pain; Left hip; Additional info: Pain no trauma TECHNIQUE: Imaging protocol: Radiologic exam of the left hip. Views: 2 or 3 views hip with pelvis when performed. COMPARISON: CT abdomen pelvis w con* [id number] 09/23/2021 6:22 AM FINDINGS: Bones/joints: Degenerative changes of the visualized osseous structures. Soft tissues: Study is limited by habitus. Vasculature: Peripheral arterial vascular calcifications, moderate to heavy. XR/XR hip LT 2-3V wo/w pel* [id number] IMPRESSION: Limited study due to habitus. No clear acute osseous abnormality.
[2023-10-24] MEDS: ketorolac 60 mg/2 mL INJ IM (03:22)
[2023-10-24] MEDS: gabapentin 300 mg Capsule PO (03:27)
[2023-10-24 04:04] VITALS: BP 180/83; PULSE 89; O2SAT 97
[2023-10-24 05:05] VITALS: BP 175/84; PULSE 82; O2SAT 97
== END 2023-10-24 04:48 | disposition home or self-care (01) ==
PROVIDERS: Emergency Provider Emergency Medicine; PCP Family Medicine
DX: M54.16 Radiculopathy, lumbar region (principal); G89.29 Other chronic pain; M25.552 Pain in left hip
CPT/HCPCS: 73502; 96372; 99284; J1885

== ENCOUNTER 2023-11-20 17:07 | Inpatient (IN) | payer MEDICARE, SELFPAY ==
[2023-11-20] VITALS (9 sets, daily range): BP systolic 125–173; BP diastolic 56–96; PULSE 68–88; RESP 16; TEMP 36.5; O2SAT 93–98; BMI 38.4; BMI 39.8
--- NOTE | 2023-11-20 17:34 | W.ED.WEAKNES ---
HPI - Weakness General: Chief complaint: Weakness Stated complaint: Weakness Time Seen by Provider: 11/20/23 17:33 History of Present Illness: 73-year-old female comes in today for complaints of generalized weakness to lower extremities. Patient has chronic back issues. Over the last 3 to 5 weeks patient's had increasing weakness in her lower extremities. Patient is seeing her primary care and has been changed on medication to help with her pain but continues to have difficulty with ambulation and taking care of her ADLs. Patient is alert and oriented. No obvious injury is noted. No obvious pain is noted. Review of Systems General: Reports: 10 or more systems reviewed and unremarkable except in HPI and below Neuro: Reports: weakness in extremities [facility] ED PFSH: Medical History Ischemic cardiomyopathy Essential hypertension Morbid obesity CAMERON (dyspnea on exertion) Non-ST elevation [place] (NSTEMI) Chest pain CKD (chronic kidney disease) stage 3, GFR 30-59 ml/min Diabetes Shortness of breath Bilateral renal stones Hyperlipidemia Coronary artery disease Multiple vessel coronary artery disease Osteoarthritis Hypertension Diabetes mellitus Surgical History H/O heart bypass surgery 2 times Hx of cholecystectomy H/O dilation and curettage H/O: H/O: hysterectomy H/O vulvectomy S/P ureteral stent placement Family History Mother , at age 93 Uterine cancer CAD (coronary artery disease) Father , at age 67 CAD (coronary artery disease) Social History Smoking and tobacco/nicotine status: former use of tobacco/nicotine Alcohol intake: never Marital status: / Current occupational status: retired Physical Exam Const: COMMON NORMALS: alert HENMT: COMMON NORMALS: normocephalic HEAD & SCALP: normocephalic Neck/C-Spine: COMMON NORMALS: full ROM Resp: COMMON NORMALS: normal respiratory effort and clear to auscultation bilaterally AUSCULTATION: clear to auscultation bilaterally Cardio: COMMON NORMALS: regular rate RATE: regular rate GI: COMMON NORMALS: non-tender Back/Pelvis: COMMON NORMALS: thoracic and lumbar spine normal to inspection Extremity: COMMON NORMALS: full ROM Neuro: SENSORIUM/ORIENTATION: Yes alert Skin: COMMON NORMALS: turgor normal GENERAL SKIN EXAM: turgor normal Course Vital Signs: Vital signs: Vital Signs Temperature 97.7 F 11/20/23 17:21 Pulse Rate 69 11/20/23 21:30 Respiratory Rate 16 11/20/23 18:55 Blood Pressure 173/92 11/20/23 21:30 Pulse Oximetry 96 11/20/23 21:30 Oxygen Delivery Me thod Room Air 11/20/23 21:30 MDM - Weakness Medical Decision Making Patient presents today with increased weakness to the lower extremities. On exam patient appears nontoxic. Patient has generalized weakness to lower extremities but is able to move them freely in bed. Patient is able to lift the legs off the bed equally. Patient has a history of chronic back pain, diabetic neuropathy, and diabetes. Differential diagnosis includes not limited to intervertebral disc disease, facet arthritis, hypothyroidism, urinary tract infection, lumbar radiculopathy, malingering. 2010, patient's glucose was 517, 1 L of IV fluids was ordered and patient was given 10 units of insulin IV push. 2119, CT of the lumbar spine came back showing an acute L2 endplate fracture of the lumbar spine. Patient also has a nonacute L3 endplate fracture. No significant stenosis is noted. 2139, patient reports difficulty with doing her ADLs and controlling her pain. Patient states that she is unable to ambulate comfortably. Discussed this with Dr. Gorman who agreed with plan to admit. Dr. Cooper was consulted and agreed for admission. Dr. Prado, pulmonary disease specialist, agreed for consultation regarding spinal fracture. Order for TSLO brace was sent to physical therapy. Patient excepted plan of admission and further evaluation and treatment. Lab Data 11/20/23 17:56 11/20/23 17:56 Radiology Impressions Lumbar Spine CT 11/20/23 17:55 IMPRESSION: 1. 10% recent or acute L2 superior endplate fracture without retropulsion or subluxation. 2. Additional nonacute 10% L3 superior endplate fracture. 3. Scattered degenerative changes without significant central stenosis. There is also grade 1 degenerative subluxation at L4-L5. 4. Multiple cystic structures in the kidney, partially seen and incompletely classified. Consider outpatient follow-up with ultrasound. Additional nonobstructing stones in the kidneys. 5. Extensive demineralization. COMMENTS: Consistent with the [employer]'s Incidental Findings Committee white paper (J Am Sheng Radiol 2018): Any incidental renal lesion less than 1 cm or classified as too small to characterize, or any incidental cystic renal lesion characterized as simple-appearing, is likely benign. No follow-up imaging is recommended for these lesions per consensus recommendations based on imaging criteria. Laboratory Results WBC 12.07 10^3/uL (3.29-11.43) H 11/20/23 17:56 RBC 5.60 10^6/uL (3.85-5.65) 11/20/23 17:56 Hgb 15.50 g/dL (11.27-16.99) 11/20/23 17:56 Hct 48.5 % (36-47) H 11/20/23 17:56 MCV 86.6 fl (85-98) 11/20/23 17:56 MCH 27.7 pg (27-33) 11/20/23 17:56 MCHC 32.0 g/dL (30-55) 11/20/23 17:56 RDW 15.1 % (12.1-15.1) 11/20/23 17:56 Plt Count 449 10^3/cmm (157-399) H 11/20/23 17:56 MPV 9.3 fL (7.4-10.4) 11/20/23 17:56 Neut % (Auto) 74.1 % 11/20/23 17:56 Lymph % (Auto) 14.1 % 11/20/23 17:56 Bertie % (Auto) 9.4 % 11/20/23 17:56 Eos % (Auto) 1.2 % 11/20/23 17:56 Baso % (Auto) 0.8 % 11/20/23 17:56 Neut # (Auto) 8.95 10^3/uL (1.8-7.7) H 11/20/23 17:56 Lymph # (Auto) 1.7 10^3/uL (0.8-4.8) 11/20/23 17:56 Bertie # (Auto) 1.1 10^3/uL (0.2-0.9) H 11/20/23 17:56 Eos # (Auto) 0.1 10^3/uL (0.0-0.8) 11/20/23 17:56 Baso # (Auto) 0.1 10^3/uL (0.0-0.1) 11/20/23 17:56 Nucleated RBC % (auto) 0 % 11/20/23 17:56 Nucleated RBCs # 0.0 /100WBC 11/20/23 17:56 Sodium 131 mmol/L (136-145) L 11/20/23 17:56 Potassium 4.4 mmol/L (3.5-5.1) 11/20/23 17:56 Chloride 95 mmol/L (98-107) L 11/20/23 17:56 Carbon Dioxide 24 mmol/L (22-29) 11/20/23 17:56 Anion Gap 18.4 (5-19) 11/20/23 17:56 BUN 27 mg/dL (8-23) H 11/20/23 17:56 Creatinine 1.2 mg/dL (0.5-0.9) H 11/20/23 17:56 GFR Calculation Not Reportable 11/20/23 17:56 Glucose 517 mg/dL (65-115) H* 11/20/23 17:56 Calculated Osmolality 300 mOsm/kg (285-295) H 11/20/23 17:56 Calcium 8.3 mg/dL (8.5-10.5) L 11/20/23 17:56 Total Bilirubin 0.2 mg/dL (0.15-1.2) 11/20/23 17:56 AST 12 U/L (0-32) 11/20/23 17:56 ALT 13 U/L (0-33) 11/20/23 17:56 Alkaline Phosphatase 92 U/L (35-105) 11/20/23 17:56 Total Protein 7.1 g/dL (6.6-8.7) 11/20/23 17:56 Albumin 3.6 g/dL (3.5-5.2) 11/20/23 17:56 Globulin 3.5 g/dL (1.3-4.6) 11/20/23 17:56 Lipase 50 U/L (13-60) 11/20/23 17:56 TSH 28.21 uIU/mL (0.27-4.20) H 11/20/23 17:56 Urine Color Yellow (Yellow) 11/20/23 19:08 Urine Appearance Clear (CLEAR) 11/20/23 19:08 Urine pH 5 (5-7) 11/20/23 19:08 Ur Specific Odell 1.015 (1.005-1.030) 11/20/23 19:08 Urine Protein 1+ (Negative) H 11/20/23 19:08 Urine Glucose (UA) 4+ (Normal) H 11/20/23 19:08 Urine Ketones Negative (Negative) 11/20/23 19:08 Urine Blood Neg (Negative) 11/20/23 19:08 Urine Nitrate Negative (Negative) 11/20/23 19:08 Urine Bilirubin Neg (Negative) 11/20/23 19:08 Urine Urobilinogen Norm mg/dL (Negative) 11/20/23 19:08 Ur Leukocyte Esterase Negative (Negative) 11/20/23 19:08 Urine RBC Rare /hpf (0-2) 11/20/23 19:08 Urine WBC 0-4 /hpf (0-5) H 11/20/23 19:08 Ur Squamous Epith Cells 0-4 /hpf (0-5) H 11/20/23 19:08 Ur Transition Epith Cell 0-4 /hpf 11/20/23 19:08 Amorphous Sediment Not Reportable 11/20/23 19:08 Urine Bacteria Trace /hpf (NONE) 11/20/23 19:08 Urine Mucus None /hpf 11/20/23 19:08 Ur Oval Fat Bodies 1+ /hpf 11/20/23 19:08 All radiology interpretation(s) finalized by discharge Discharge Plan Discharge Patient Disposition: Admitted As Inpatient Admit Provider: Tiffany Cooper Clinical Impression: L2 vertebral fracture, Diabetes mellitus Condition: Stable Coding Level of Care Code ED [employer] [facility] for Dhaval Martini
--- NOTE | 2023-11-20 17:55 | CTR_ITS ---
PROCEDURE INFORMATION: Exam: CT Lumbar Spine Without Contrast Exam date and time: 11/20/2023 7:44 PM Age: 73 years old Clinical indication: Weakness; Additional info: Lower ext weakness TECHNIQUE: Imaging protocol: Computed tomography of the lumbar spine without contrast. Radiation optimization: All CT scans at this facility use at least one of these dose optimization techniques: automated exposure control; mA and/or kV adjustment per patient size (includes targeted exams where dose is matched to clinical indication); or iterative reconstruction. COMPARISON: CR (PELVIS, ) 10/19/2023 5:40 AM RADIATION DOSE METRICS: Total DLP (mGy-cm): 1235 FINDINGS: Bones/joints: There is a mild 10% superior endplate fracture of L2 which is probably recent. Additional 10% L3 superior endplate fracture which is probably nonacute. L4-L5 2 mm of grade 1 degenerative subluxation. There is extensive bone demineralization greater than typical at the patient's age. Extensive confluence osteophytes throughout the lumbar facet joints producing bony fusions. Pleural spaces: Right lower lobe 4 mm noncalcified pleural plaque associated with linear scarring. Kidneys and ureters: Nonobstructing calculi in the kidneys. Multiple cyst-like structures in the right kidney. These are not sufficiently seen for classification an ultrasound is suggested. Additional small nonobstructing calculi in each kidney. Soft tissues: There is extensive sarcopenia in the paraspinal muscles. CT/CT lumbar spine wo con* 17312 IMPRESSION: 1. 10% recent or acute L2 superior endplate fracture without retropulsion or subluxation. 2. Additional nonacute 10% L3 superior endplate fracture. 3. Scattered degenerative changes without significant central stenosis. There is also grade 1 degenerative subluxation at L4-L5. 4. Multiple cystic structures in the kidney, partially seen and incompletely classified. Consider outpatient follow-up with ultrasound. Additional nonobstructing stones in the kidneys. 5. Extensive demineralization. COMMENTS: Consistent with the [place] [employer]'s Incidental Findings Committee white paper (J Am Sheng Radiol 2018): Any incidental renal lesion less than 1 cm or classified as too small to characterize, or any incidental cystic renal lesion characterized as simple-appearing, is likely benign. No follow-up imaging is recommended for these lesions per consensus recommendations based on imaging criteria.
[2023-11-20 18:43] LABS: Basophils # 0.1 10^3/uL (0.0-0.1); Basophils % 0.8 %; Eosinophils # 0.1 10^3/uL (0.0-0.8); Eosinophils % 1.2 %; Hematocrit 48.5 % (36-47); Lymphocytes # 1.7 10^3/uL (0.8-4.8); Lymphocytes % 14.1 %; Mean Corpuscular Hemoglobin 27.7 pg (27-33); Mean Corpuscular Volume 86.6 fl (85-98); Mean Platelet Volume 9.3 fL (7.4-10.4); Monocytes # 1.1 10^3/uL (0.2-0.9); Monocytes % 9.4 %; Neutrophils # 8.95 10^3/uL (1.8-7.7); Neutrophils % 74.1 %; Nucleated Red Blood Cells % 0 %; Platelet Count 449 10^3/cmm (157-399); Red Cell Distribution Width 15.1 % (12.1-15.1); White Blood Count 12.07 10^3/uL (3.29-11.43)
--- NOTE | 2023-11-20 18:53 | PC.NURSE ---
TAKEN OVER PT CARE AT THIS TIME.
[2023-11-20] MEDS: oxyCODONE-APAP 5-325 mg Tablet 1 TAB PO (18:55)
[2023-11-20 19:17] LABS: Albumin Level 3.6 g/dL (3.5-5.2); Alkaline Phosphatase 92 U/L (35-105); Carbon Dioxide 24 mmol/L (22-29); Creatinine Clr Calc Pharmacy 47.6993; Globulin 3.5 g/dL (1.3-4.6); Lipase 50 U/L (13-60); Total Bilirubin 0.2 mg/dL (0.15-1.2); Total Protein 7.1 g/dL (6.6-8.7)
[2023-11-20 19:28] LABS: Add Urine Microscopic? YES; Bilirubin Urine Neg (Negative); Blood Urine Neg (Negative); Glucose Urine UA 4+ (Normal); Ketones Urine Negative (Negative); Leukocyte Esterase Urine Negative (Negative); Nitrate Urine Negative (Negative); Protein Urine 1+ (Negative); Specific Gravity, Urine 1.015 (1.005-1.030); Urine Appearance Clear (CLEAR); Urine Color Yellow (Yellow); Urobilinogen Urine Norm (Negative); pH Urine 5 (5-7)
[2023-11-20 19:37] LABS: Alanine Aminotransferase 13 U/L (0-33); Aspartate Amino Transferase 12 U/L (0-32); Blood Urea Nitrogen 27 mg/dL (8-23); Calcium 8.3 mg/dL (8.5-10.5); Chloride 95 mmol/L (98-107); Osmolality Calculated 300 mOsm/kg (285-295); Sodium 131 mmol/L (136-145)
[2023-11-20 19:38] LABS: Anion Gap 18.4 (5-19); Potassium 4.4 mmol/L (3.5-5.1)
[2023-11-20 19:39] LABS: Glucose 517 mg/dL (65-115)
[2023-11-20 19:42] LABS: Add Urine Culture? No; Bacteria Urine TRACE /hpf; Oval Fat Bodies Urine 1+ /hpf; RBC Urine RARE /hpf (0-2); Squamous Epithelial Cell Urine 0-4 /hpf (0-5); Transitional Epi Cells Urine 0-4 /hpf; WBC Urine 0-4 /hpf (0-5)
[2023-11-20 19:46] LABS: Thyroid Stimulating Hormone 28.21 uIU/mL (0.27-4.20)
[2023-11-20] MEDS: sodium chloride 0.9% 1,000 ML 999 ML IV (20:11)
[2023-11-20] MEDS: insulin regular-human 100 units/1 mL 10 UNIT IVP (20:17)
[2023-11-20] MEDS: morphine 4 mg/mL SDV 1 mL 2 MG IVP (21:35)
--- NOTE | 2023-11-20 21:52 | P.HP_ITS ---
Providers/Chief Complaint 2 Primary Care Provider: Keo Cook MD Chief Complaint: Weakness History of Present Illness Laverne Perez is a 73 year old female With past medical history of hypertension diabetes, former smoker, coronary disease status post CABG FIELDS to LAD and SVG to OM1 in May 2021 came in today for complaints of generalized weakness to lower extremities. She has chronic back issues and chronic back pain. She was recently seen in the ER on 18 October for the same complaint. She has been taking tramadol hydrocodone intermittently. Describes pain radiating down her left leg. He also goes into her left buttocks and down into posterior aspect of her leg. Does not have any numbness or tingling. She is a diabetic and states cannot receive any steroids because it causes her blood sugar to be high and uncontrolled. She takes insulin at home. She says secondary to pain and increasing weakness to lower extremities she is unable to perform her ADLs and continues to have difficulty ambulating. She has not had any recent falls and there is no obvious injury noted. In ER blood pressure 173/92 pulse rate 68, pulse 69, temperature 97.7 saturating 96% on room air. Patient able to move all 4 extremities and can raise legs off the bed equally. CT lumbar spine shows acute L2 endplate fracture of lumbar spine with no retropulsion. She also has not acute L3 endplate fracture. No significant stenosis noted. Patient's glucose 517. Patient given 1 L of normal saline and 10 units of IV insulin. Patient is on Lasix at home. Case was discussed with Dr. Prado who agrees to consult regarding spinal fracture. TLSO brace ordered. Medications/Allergies Home Medications Medication Instructions Recorded Confirmed Last Taken Type mivlkjeq-lko-cjkpyfd 800 mcg 1 tab PO DAILY 12/04/21 11/20/23 11/20/23 History DFE-vitamin K 150 mcg-herb no.289 tablet (Alive Women's 50 Plus Ultra Potency) atorvastatin 80 mg tablet 80 mg PO QAM 30 days #30 tabs 12/06/21 11/20/23 11/20/23 Rx blood sugar diagnostic (Accu-Chek #100 ea 12/06/21 11/21/23 Unknown Rx Guide test strips) blood-glucose meter (Accu-Chek #1 ea 12/06/21 11/21/23 Unknown Rx Guide Glucose Meter) lancets (Accu-Chek Softclix #100 ea 12/06/21 11/21/23 Unknown Rx Lancets) aspirin 81 mg chewable tablet 81 mg PO DAILY 04/01/22 11/20/23 11/20/23 History potassium citrate 15 mEq (1,620 15 meq PO BID #60 tabs 08/07/22 11/21/23 1 Day Ago Rx mg) tablet,extended release ~11/20/23 nitroglycerin 0.4 mg sublingual 0.4 mg sublingual Q5M PRN Chest 10/31/22 11/21/23 03/01/23 Rx tablet Pain #25 tabs evening primrose oil 500 mg capsule 1,000 mg PO DAILY 03/01/23 11/21/23 2 Days Ago History ~11/19/23 glucosamine sulf dipot 1 cap PO BEDTIME 03/01/23 11/21/23 2 Days Ago History chlr,msm,chond 550 mg-C 30 mg-melissa ~11/19/23 1 mg capsule (Glucosamine Chondroitin) turmeric 400 mg capsule 400 mg PO DAILY 03/01/23 11/21/23 2 Days Ago History ~11/19/23 vitamin B complex 1 cap PO BEDTIME 03/01/23 11/21/23 2 Days Ago History ~11/19/23 vitamin E 670 mg (1,000 unit) 670 mg PO DAILY 03/01/23 11/21/23 02/28/23 History capsule insulin glargine 100 unit/mL (3 31 unit (0.31 mL) SUBCUT BID #15 mL 03/04/23 11/21/23 1 Day Ago Rx mL) subcutaneous pen (Lantus ~11/20/23 Solostar U-100 Insulin) clopidogrel 75 mg tablet 75 mg PO DAILY #90 tabs 04/08/23 11/21/23 1 Day Ago Rx ~11/20/23 magnesium L-lactate 84 mg See Rx Instructions .Route 05/16/23 11/21/23 1 Day Ago Rx tablet,extended release .COMPLEX #100 tabs ~11/20/23 spironolactone 25 mg tablet 25 mg PO DAILY #90 tabs 07/30/23 11/21/23 2 Days Ago Rx ~11/19/23 amiodarone 200 mg tablet 200 mg PO DAILY #90 tabs 10/17/23 11/20/2324 Rx gabapentin 300 mg capsule 300 mg PO Q8H #30 caps 10/24/23 11/21/23 1 Day Ago Rx ~11/20/23 oxycodone-acetaminophen 5 mg-325 1 tab PO Q8H PRN pain #14 tabs 10/24/23 11/21/23 Unknown Rx mg tablet (Percocet) furosemide 40 mg tablet 40 mg PO QAM 11/21/23 11/21/23 1 Day Ago History ~11/20/23 Allergies Allergy/AdvReac Type Severity Reaction Status Date / Time sacubitril [From Entresto] AdvReac Intermediate decreased Verified 10/24/23 02:43 urination valsartan [From Entresto] AdvReac Intermediate decreased Verified 10/24/23 02:43 urination farxiga AdvReac ADR-Nausea Uncoded 10/24/23 02:43 steroids AdvReac increased Uncoded 10/24/23 02:43 high BP PFSH Acute 2 PFSH: Medical History Ischemic cardiomyopathy Essential hypertension Morbid obesity CAMERON (dyspnea on exertion) Non-ST elevation [place] (NSTEMI) Chest pain CKD (chronic kidney disease) stage 3, GFR 30-59 ml/min Diabetes Shortness of breath Bilateral renal stones Hyperlipidemia Coronary artery disease Multiple vessel coronary artery disease Osteoarthritis Hypertension Diabetes mellitus Surgical History H/O heart bypass surgery 2 times Hx of cholecystectomy H/O dilation and curettage H/O: H/O: hysterectomy H/O vulvectomy S/P ureteral stent placement Family History Mother , at age 93 Uterine cancer CAD (coronary artery disease) Father , at age 67 CAD (coronary artery disease) Social History Smoking and tobacco/nicotine status: former use of tobacco/nicotine Alcohol intake: never Marital status: / Current occupational status: retired Vitals/I&O/Wt Last Vital Signs Temp 97.7 F 11/20/23 17:21 Pulse 69 11/20/23 21:30 Resp 16 11/20/23 18:55 BP 173/92 11/20/23 21:30 Pulse Ox 96 11/20/23 21:30 O2 Del Method Room Air 11/20/23 21:30 Weight last 48 hrs Weight 101.605 kg Physical Exam 2 Narrative: General: Alert oriented x3, patient seen laying in bed appearing comfortable at this time, breathing room air HEENT: Normocephalic, atraumatic, EOMI, Cardio: Regular rate rhythm, normal S1-S2 Respiratory: Good bilateral air entry, no wheezes no rhonchi appreciated GI: Abdomen soft, nontender, nondistended, bowel sounds + Extremities: No edema bilateral lower extremities Neuro: Cranial 2-12 intact, bilateral lower extremities mildly weak. Able to lift of the bed. Straight leg raise negative., Strength upper extremities bilaterally symmetrical. Data 11/20/23 17:56 11/20/23 17:56 A&P Assessment and plan (1) Essential hypertension: (2) Ischemic cardiomyopathy: (3) Diabetes mellitus: Qualifiers: Diabetes mellitus complication status: without complication Diabetes mellitus retirement insulin use: without extermination supervisor use Diabetes mellitus type: t ype 2 Qualified Code(s): E11.9 - Type 2 diabetes mellitus without complications (4) Morbid obesity: (5) CKD (chronic kidney disease) stage 3, GFR 30-59 ml/min: (6) L2 vertebral fracture: Qualifiers: Encounter type: initial encounter Fracture morphology: unspecified fracture morphology Fracture type: closed Qualified Code(s): S32.029A - Unspecified fracture of second lumbar vertebra, initial encounter for closed fracture (7) H/O heart bypass surgery: (8) Hyperlipidemia: Qualifiers: Hyperlipidemia type: mixed hyperlipidemia Qualified Code(s): E78.2 - Mixed hyperlipidemia (9) Hyperglycemia: Plan #Acute L2 endplate fracture lumbar spine #Nonacute L3 endplate fracture #Generalized weakness, lower extremity weakness, difficulty performing ADLs #Hypertension #Diabetes #History of CABG #Former smoker #Diabetes mellitus, insulin-dependent complicated by hyperglycemia, peripheral neuropathy ? Continue home Lantus 35 units twice daily, moderate dose intensity sliding scale ? Check hemoglobin A1c ? Ordered TLSO brace, orthopedic spine surgery consult ordered ? Bedrest until brace placed, logroll -Hydrocodone 5 every 4 hours as needed for pain ? Continue amiodarone, atorvastatin, aspirin, Plavix ? Hold Lasix for tonight. May restart tomorrow. ? Continue spironolactone ? Add amlodipine 5 mg daily. Does have elevated blood pressure however believe pain may be a contributing factor at this time ? Check CBC CMP PT/INR in AM. ? Check TSH, vitamin D, calcium ? Start patient on calcium vitamin D supplement ? Placed on gentle fluid hydration 75 cc/h. May discontinue fluids in AM. Patient appears slightly dehydrated PT/OT. Patient unable to perform ADLs. May have to look into group home facility based on how she does with therapy. DNR/DNI DVT prophylaxis: Heparin SQ twice daily Attestations 2 Medical Necessity Statement*: Greater than 2 midnight stay for management of acute L2 endplate fracture, hyperglycemia uncontrolled diabetes, possible skilled nursing placement. Diagnoses Essential hypertension I10 Ischemic cardiomyopathy I25.5 Type 2 diabetes mellitus without complication, without long-term current use of insulin E11.9 Diabetes mellitus complication status: without complication Diabetes mellitus retirement insulin use: without retirement use Diabetes mellitus type: type 2 Morbid obesity E66.01 CKD (chronic kidney disease) stage 3, GFR 30-59 ml/min N18.30 L2 vertebral fracture S32.029A Encounter type: initial encounter Fracture morphology: unspecified fracture morphology Fracture type: closed H/O heart bypass surgery Z95.1 Mixed hyperlipidemia E78.2 Hyperlipidemia type: mixed hyperlipidemia Hyperglycemia R73.9
[2023-11-21] VITALS (9 sets, daily range): BP systolic 107–146; BP diastolic 55–76; PULSE 61–72; RESP 16–18; TEMP 36.3–36.8; O2SAT 92–97
[2023-11-21] MEDS: heparin 5,000 unit/mL INJ 1 mL 5000 UNIT SUBCUT ×2 (00:01→21:26)
[2023-11-21] MEDS: gabapentin 300 mg Capsule PO ×4 (00:01→22:48)
[2023-11-21] MEDS: sodium chloride 0.9% 1,000 ML 75 ML IV ×2 (00:02→12:29)
[2023-11-21] MEDS: insulin glargine 100 units/1 mL 35 UNIT SUBCUT ×2 (01:11→21:26)
[2023-11-21] MEDS: HYDROcodone-acetaminophen 5-325 mg Tablet 1 TAB PO ×4 (01:17→20:00)
[2023-11-21 02:32] LABS: 25 Hydroxy Vitamin D 69 ng/mL (30-100); Thyroid Stimulating Hormone 28.57 uIU/mL (0.27-4.20); Vitamin B12 891 pg/mL (232-1245)
[2023-11-21 03:42] LABS: Glucose Point of Care 300 mg/dL (70-110)
[2023-11-21 05:10] LABS: Basophils # 0.1 10^3/uL (0.0-0.1); Basophils % 1.1 %; Eosinophils # 0.2 10^3/uL (0.0-0.8); Eosinophils % 1.8 %; Hematocrit 47.6 % (36-47); Lymphocytes # 2.3 10^3/uL (0.8-4.8); Lymphocytes % 27.2 %; Mean Corpuscular HGB Conc 31.3 g/dL (30-55); Mean Corpuscular Hemoglobin 27.4 pg (27-33); Mean Corpuscular Volume 87.5 fl (85-98); Monocytes # 0.9 10^3/uL (0.2-0.9); Monocytes % 10.3 %; Neutrophils # 5.07 10^3/uL (1.8-7.7); Neutrophils % 59.2 %; Nucleated Red Blood Cells % 0 %; Platelet Count 429 10^3/cmm (157-399); Red Blood Count 5.44 10^6/uL (3.85-5.65); Red Cell Distribution Width 15.2 % (12.1-15.1); White Blood Count 8.54 10^3/uL (3.29-11.43)
[2023-11-21 05:33] LABS: Alanine Aminotransferase 12 U/L (0-33); Albumin Level 3.2 g/dL (3.5-5.2); Alkaline Phosphatase 78 U/L (35-105); Anion Gap 12.9 (5-19); Aspartate Amino Transferase 12 U/L (0-32); Blood Urea Nitrogen 23 mg/dL (8-23); Calcium 8.7 mg/dL (8.5-10.5); Carbon Dioxide 27 mmol/L (22-29); Chloride 102 mmol/L (98-107); Globulin 3.1 g/dL (1.3-4.6); Glucose 313 mg/dL (65-115); Magnesium 1.9 mg/dL (1.7-2.3); Osmolality Calculated 302 mOsm/kg (285-295); Potassium 3.9 mmol/L (3.5-5.1); Sodium 138 mmol/L (136-145); Total Bilirubin 0.4 mg/dL (0.15-1.2); Total Protein 6.3 g/dL (6.6-8.7)
[2023-11-21 05:34] LABS: Phosphorus 3.9 mg/dL (2.5-4.5)
[2023-11-21 05:35] LABS: Creatinine Clr Calc Pharmacy 58.7093
[2023-11-21] MEDS: atorvastatin 40 mg Tablet 80 MG PO (06:11)
[2023-11-21 06:31] LABS: Glucose Point of Care 238 mg/dL (70-110)
[2023-11-21] MEDS: amiodarone 200 mg Tablet PO (09:03)
[2023-11-21] MEDS: magnesium lactate 84 mg Tablet PO (09:03)
[2023-11-21] MEDS: calcium carb-vit d 500mg-200unit 1 Tablet 1 EACH PO ×2 (09:03→16:47)
--- NOTE | 2023-11-21 09:46 | PM.CONSULT ---
Providers/Reason For Consult Consulting Physician/Specialty*: Hospitalist Reason for Consult*: L2 compression fracture Attending Physician: Corrine Santana MD Primary Care Provider: Keo Cook MD History of Present Illness History of Present Illness Laverne Perez is a 73 year old female states she started having severe pain in her back approximate month ago. Has a history of back pain and history of radicular pain down her legs. At this point discussed with her the option of treating with a brace versus kyphoplasty. Patient would like to proceed with a kyphoplasty. At this point we will get an MRI to determine the acuity of the fracture. If the fracture is acute then we can proceed with a kyphoplasty. Review of Systems General: Reports: 10 or more systems reviewed and unremarkable except in HPI and below Musc: Reports: back pain and extremity pain Medications/Allergies Home Medications Medication Instructions Recorded Confirmed Last Taken Type [id number]-[id number] 800 mcg 1 tab PO DAILY 12/04/21 11/20/23 11/20/23 History DFE-vitamin K 150 mcg-herb no.289 tablet (Alive Women's 50 Plus Ultra Potency) atorvastatin 80 mg tablet 80 mg PO QAM 30 days #30 tabs 12/06/21 11/20/23 11/20/23 Rx blood sugar diagnostic (Accu-Chek #100 ea 12/06/21 11/21/23 Unknown Rx Guide test strips) blood-glucose meter (Accu-Chek #1 ea 12/06/21 11/21/23 Unknown Rx Guide Glucose Meter) lancets (Accu-Chek Softclix #100 ea 12/06/21 11/21/23 Unknown Rx Lancets) aspirin 81 mg chewable tablet 81 mg PO DAILY 04/01/22 11/20/23 11/20/23 History potassium citrate 15 mEq (1,620 15 meq PO BID #60 tabs 08/07/22 11/21/23 1 Day Ago Rx mg) tablet,extended release ~11/20/23 nitroglycerin 0.4 mg sublingual 0.4 mg sublingual Q5M PRN Chest 10/31/22 11/21/23 03/01/23 Rx tablet Pain #25 tabs evening primrose oil 500 mg capsule 1,000 mg PO DAILY 03/01/23 11/21/23 2 Days Ago History ~11/19/23 glucosamine sulf dipot 1 cap PO BEDTIME 03/01/23 11/21/23 2 Days Ago History chlr,msm,chond 550 mg-C 30 mg-melissa ~11/19/23 1 mg capsule (Glucosamine Chondroitin) turmeric 400 mg capsule 400 mg PO DAILY 03/01/23 11/21/23 2 Days Ago History ~11/19/23 vitamin B complex 1 cap PO BEDTIME 03/01/23 11/21/23 2 Days Ago History ~11/19/23 vitamin E 670 mg (1,000 unit) 670 mg PO DAILY 03/01/23 11/21/23 02/28/23 History capsule insulin glargine 100 unit/mL (3 31 unit (0.31 mL) SUBCUT BID #15 mL 03/04/23 11/21/23 1 Day Ago Rx mL) subcutaneous pen (Lantus ~11/20/23 Solostar U-100 Insulin) clopidogrel 75 mg tablet 75 mg PO DAILY #90 tabs 04/08/23 11/21/23 1 Day Ago Rx ~11/20/23 magnesium L-lactate 84 mg See Rx Instructions .Route 05/16/23 11/21/23 1 Day Ago Rx tablet,extended release .COMPLEX #100 tabs ~11/20/23 spironolactone 25 mg tablet 25 mg PO DAILY #90 tabs 07/30/23 11/21/23 2 Days Ago Rx ~11/19/23 amiodarone 200 mg tablet 200 mg PO DAILY #90 tabs 10/17/23 11/20/23 11/20/23 Rx gabapentin 300 mg capsule 300 mg PO Q8H #30 caps 10/24/23 11/21/23 1 Day Ago Rx ~11/20/23 oxycodone-acetaminophen 5 mg-325 1 tab PO Q8H PRN pain #14 tabs 10/24/23 11/21/23 Unknown Rx mg tablet (Percocet) furosemide 40 mg tablet 40 mg PO QAM 11/21/23 11/21/23 1 Day Ago History ~11/20/23 Allergies Allergy/AdvReac Type Severity Reaction Status Date / Time sacubitril [From Entresto] AdvReac Intermediate decreased Verified 10/24/23 02:43 urination valsartan [From Entresto] AdvReac Intermediate decreased Verified 10/24/23 02:43 urination farxiga AdvReac ADR-Nausea Uncoded 10/24/23 02:43 steroids AdvReac increased Uncoded 10/24/23 02:43 high BP Current Medications Generic Name Dose Route Start Last Admin Trade Name Freq PRN Reason Stop Dose Admin Hydrocodone Bitart/Acetaminophen 1 tab 11/20/23 21:53 11/21/23 06:11 Hydrocodone-Acetaminophen 5-325 Mg Tablet PO 1 tab Q4H PRN Administration MODERATE TO SEVERE PAIN Amiodarone HCl 200 mg 11/21/23 09:00 11/21/23 09:03 Amiodarone 200 Mg Tablet PO 200 mg DAILY PARAG Administration Aspirin 81 mg 11/21/23 09:00 11/21/23 09:10 Aspirin 81 Mg Chew Tablet PO Not Given DAILY [facility] Atorvastatin Calcium 80 mg 11/21/23 06:00 11/21/23 06:11 Atorvastatin 40 Mg Tablet PO 80 mg QAM [facility] Administration Calcium Carbonate 1 each 11/21/23 09:00 11/21/23 09:03 Calcium Carb-Vit D 500mg-200unit 1 Tablet PO 1 each BID PARAG Administration Clopidogrel Bisulfate 75 mg 11/21/23 09:00 11/21/23 09:06 Clopidogrel 75 Mg Tablet PO Not Given DAILY [facility] Gabapentin 300 mg 11/20/23 22:48 11/21/23 06:11 Gabapentin 300 Mg Capsule PO 300 mg Q8H PARAG Administration Heparin Sodium (Porcine) 5,000 unit 11/20/23 22:00 11/21/23 09:06 Heparin 5,000 Unit/Ml Inj 1 Ml SUBCUT Not Given Q12H [facility] Sodium Chloride 1,000 mls @ 75 mls/hr 11/20/23 22:00 11/21/23 00:02 Sodium Chloride 0.9% IV 75 mls/hr .[id number] PARAG Administration Insulin Glargine 35 unit 11/21/23 00:45 11/21/23 01:11 Insulin Glargine 100 Units/1 Ml SUBCUT 35 unit BID@0900,2100 PARAG Administration Insulin Human Lispro 0 unit 11/21/23 08:00 11/21/23 09:03 Insulin Lispro 100 Unit/1 Ml SUBCUT Not Given WM&BEDTIME [facility] Protocol Magnesium Lactate 84 mg 11/21/23 09:00 11/21/23 09:03 Magnesium Lactate 84 Mg Tablet PO 84 mg DAILY PARAG Administration PFSH Acute PFSH: Medical History Ischemic cardiomyopathy Essential hypertension Morbid obesity CAMERON (dyspnea on exertion) Non-ST elevation AR (NSTEMI) Chest pain CKD (chronic kidney disease) stage 3, GFR 30-59 ml/min Diabetes Shortness of breath Bilateral renal stones Hyperlipidemia Coronary artery disease Multiple vessel coronary artery disease Osteoarthritis Hypertension Diabetes mellitus Surgical History H/O heart bypass surgery 2 times Hx of cholecystectomy H/O dilation and curettage H/O: H/O: hysterectomy H/O vulvectomy S/P ureteral stent placement Family History Mother , at age 93 Uterine cancer CAD (coronary artery disease) Father , at age 67 CAD (coronary artery disease) Social History Smoking and tobacco/nicotine status: former use of tobacco/nicotine Alcohol intake: never Marital status: / Current occupational status: retired Vitals/I&O/Wt Last Vital Signs Temp 97.7 F 11/21/23 07:35 Pulse 62 11/21/23 07:35 Resp 17 11/21/23 07:35 BP 107/56 11/21/23 07:35 Pulse Ox 93 11/21/23 07:35 O2 Del Method Room Air 11/21/23 07:35 11/20/23 11/21/23 11/21/23 22:59 06:59 14:59 Intake Total 1000 / 1000 0 / 1000 Output Total 300 / 300 Balance 1000 / 1000 -300 / 700 Weight last 48 hrs Weight 234 lb 6.4 oz Weight 232 lb Weight 224 lb Physical Exam Narrative: Patient points to pain and over the L2 area as well as pain with palpation of this area. Strength in legs. Be 5 out of 5. Data 11/21/23 04:41 11/21/23 04:41 A&P Assessment and plan (1) L2 vertebral fracture: Will get an MRI of her lumbar spine to determine the acuity of her compression fracture. If it is acute we will plan on kyphoplasty. Patient is on Plavix so she will have to hold this for 5 days. The earliest we can do the kyphoplasty would be Saturday. Qualifiers: Encounter type: initial encounter Fracture morphology: unspecified fracture morphology Fracture type: closed Qualified Code(s): S32.029A - Unspecified fracture of second lumbar vertebra, initial encounter for closed fracture Consult Attestations Medical Necessity Statement: Per primary service Coding Level of Care Code Acute Code for [facility] Diagnoses L2 vertebral fracture S32.029A Encounter type: initial encounter Fracture morphology: unspecified fracture morphology Fracture type: closed
[2023-11-21 10:23] LABS: Glucose Point of Care 193 mg/dL (70-110)
--- NOTE | 2023-11-21 11:57 | PC.OT ---
Orders for OT received. Patient is bed level at this time. Plan to hold evaluation until patient has surgery.
[2023-11-21] MEDS: insulin lispro 100 unit/1 mL SUBCUT ×3 (12:28→21:25)
--- NOTE | 2023-11-21 15:06 | PM.PN ---
Subjective Subjective: 73-year-old female history of hypertension diabetes, tobacco use, COPD, coronary disease presented with weakness and fall. Seen with family at bedside. Reports pain not controlled. He does also report significant weakness.she is currently fitted with a back brace. Vitals/I&O/Wt Last Vital Signs Temp 98.0 F 11/21/23 11:23 Pulse 68 11/21/23 11:23 Resp 16 11/21/23 11:23 BP 114/70 11/21/23 11:23 Pulse Ox 92 11/21/23 11:23 O2 Del Method Room Air 11/21/23 11:23 11/21/23 11/21/23 11/21/23 06:59 14:59 22:59 Intake Total 0 / 1000 1173.75 / 1173.75 Output Total 300 / 300 Balance -300 / 700 1173.75 / 1173.75 Weight last 48 hrs Weight 234 lb 6.4 oz Weight 232 lb Weight 224 lb Physical Exam Narrative: General: Alert oriented x3, patient seen laying in bed appearing comfortable at this time, breathing room air HEENT: Normocephalic, atraumatic, EOMI, Cardio: Regular rate rhythm, normal S1-S2 Respiratory: Good bilateral air entry, no wheezes no rhonchi appreciated GI: Abdomen soft, nontender, nondistended, bowel sounds + Extremities: No edema bilateral lower extremities Neuro: Cranial 2-12 intact, bilateral lower extremities mildly weak. Able to lift of the bed. Straight leg raise negative., Strength upper extremities bilaterally symmetrical. Data 11/21/23 04:41 11/21/23 04:41 A&P Assessment and plan (1) Essential hypertension: (2) Ischemic cardiomyopathy: (3) Diabetes mellitus: Qualifiers: Diabetes mellitus complication status: without complication Diabetes mellitus nursing home insulin use: without nursing home use Diabetes mellitus type: type 2 Qualified Code(s): E11.9 - Type 2 diabetes mellitus without complications (4) Morbid obesity: (5) CKD (chronic kidney disease) stage 3, GFR 30-59 ml/min: (6) L2 vertebral fracture: Qualifiers: Encounter type: initial encounter Fracture morphology: unspecified fracture morphology Fracture type: closed Qualified Code(s): S32.029A - Unspecified fracture of second lumbar vertebra, initial encounter for closed fracture (7) H/O heart bypass surgery: (8) Hyperlipidemia: Qualifiers: Hyperlipidemia type: mixed hyperlipidemia Qualified Code(s): E78.2 - Mixed hyperlipidemia (9) Hyperglycemia: Plan #Acute L2 endplate fracture lumbar spine #Nonacute L3 endplate fracture #Generalized weakness, lower extremity weakness, difficulty performing ADLs #Hypertension #Diabetes #History of CABG #Former smoker #Diabetes mellitus, insulin-dependent complicated by hyperglycemia, peripheral neuropathy ? Continue home Lantus 35 units twice daily, moderate dose intensity sliding scale ? Ordered TLSO brace, orthopedic spine surgery consult ? Bedrest until brace placed, logroll -Hydrocodone 5 every 4 hours as needed for pain, will adjust pain medication ? Continue amiodarone, atorvastatin, aspirin, Plavix ? Hold Lasix for tonight. May restart tomorrow. ? Continue spironolactone ? amlodipine 5 mg daily. Does have elevated blood pressure however believe pain may be a contributing factor at this time ? Placed on gentle fluid hydration 75 cc/h. May discontinue fluids in AM. Patient appears slightly dehydrated PT/OT. Patient unable to perform ADLs. Patient will be evaluated for possible kyphoplasty, will likely benefit from bone density outpatient. Will expand testing for weakness. May have to look into shelter facility DNR/DNI DVT prophylaxis: Heparin SQ twice daily Attestations Medical Necessity Statement*: Laverne Perez requires ongoing inpatient care for surgical evaluation, pain control, physical therapy Coding Level of Care Code 00822 Diagnoses Essential hypertension I10 Ischemic cardiomyopathy I25.5 Type 2 diabetes mellitus without complication, without long-term current use of insulin E11.9 Diabetes mellitus complication status: without complication Diabetes mellitus tank terminal gauger insulin use: without tank terminal gauger use Diabetes mellitus type: type 2 Morbid obesity E66.01 CKD (chronic kidney disease) stage 3, GFR 30-59 ml/min N18.30 L2 vertebral fracture S32.029A Encounter type: initial encounter Fracture morphology: unspecified fracture morphology Fracture type: closed H/O heart bypass surgery Z95.1 Mixed hyperlipidemia E78.2 Hyperlipidemia type: mixed hyperlipidemia Hyperglycemia R73.9
[2023-11-21 16:46] LABS: Glucose Point of Care 306 mg/dL (70-110)
[2023-11-21 21:03] LABS: Glucose Point of Care 314 mg/dL (70-110)
[2023-11-22] VITALS (7 sets, daily range): BP systolic 138–155; BP diastolic 63–83; PULSE 60–86; RESP 16–18; TEMP 36.3–36.8; O2SAT 92–96; BMI 39.6
[2023-11-22] MEDS: sodium chloride 0.9% 1,000 ML 75 ML IV (00:21)
[2023-11-22] MEDS: atorvastatin 40 mg Tablet 80 MG PO (06:01)
[2023-11-22] MEDS: gabapentin 300 mg Capsule PO ×3 (06:01→22:10)
[2023-11-22 06:10] LABS: Glucose Point of Care 189 mg/dL (70-110)
[2023-11-22 06:23] LABS: Creatine Phosphokinase 44 U/L (26-192); Free T4 Free Thyroxine 0.56 ng/dL (0.82-1.77); Phosphorus 3.4 mg/dL (2.5-4.5); Thyroid Stimulating Hormone 20.77 uIU/mL (0.27-4.20)
[2023-11-22 06:29] LABS: Estmated Average Glucose 243; Hemoglobin A1C 10.1 % (4.0-6.0)
[2023-11-22 06:58] LABS: Vitamin B12 877 pg/mL (232-1245)
[2023-11-22] MEDS: insulin lispro 100 unit/1 mL SUBCUT ×4 (07:45→20:31)
[2023-11-22] MEDS: insulin glargine 100 units/1 mL 35 UNIT SUBCUT ×2 (08:39→20:32)
[2023-11-22] MEDS: calcium carb-vit d 500mg-200unit 1 Tablet 1 EACH PO ×2 (08:39→17:25)
[2023-11-22] MEDS: amiodarone 200 mg Tablet PO (08:39)
[2023-11-22] MEDS: magnesium lactate 84 mg Tablet PO (08:39)
[2023-11-22] MEDS: heparin 5,000 unit/mL INJ 1 mL 5000 UNIT SUBCUT ×2 (11:11→22:10)
[2023-11-22 11:28] LABS: Glucose Point of Care 215 mg/dL (70-110)
--- NOTE | 2023-11-22 11:44 | P.PN_ITS ---
Subjective 2 Subjective: Patient is overall doing okay today. Pain seems to be well-controlled at this time. Blood sugars are a bit erratic but running around the 200s on average. No fevers or chills. No chest pain or shortness of breath. Vitals/I&O/Wt Last Vital Signs Temp 98.2 F 11/22/23 08:00 Pulse 76 11/22/23 09:15 Resp 16 11/22/23 09:15 BP 143/83 11/22/23 08:00 Pulse Ox 92 11/22/23 09:15 O2 Del Method Room Air 11/22/23 09:15 11/21/23 11/22/23 11/22/23 22:59 06:59 14:59 Intake Total 240 / 2543.75 1130 / 2543.75 Output Total 400 / 700 300 / 700 Balance -160 / 1843.75 830 / 1843.75 Weight last 48 hrs Weight 231 lb 4.8 oz Weight 231 lb 4.8 oz Weight 234 lb 6.4 oz Weight 232 lb Weight 224 lb Physical Exam 2 Narrative: General: No acute distress, Alert. Well nourished. Heart: Regular rate and rhythm. No murmurs, rubs or gallops. Normal capillary refill. Lungs: Clear to auscultation. No wheezes, rhonchi or rales. Abdomen: Positive bowel sounds. Non-tender, non-distended. No hepatosplenomegaly. No gaurding. Extremities: No clubbing, cyanosis, or edema. Negative Ranjeet's Data 11/21/23 04:41 11/21/23 04:41 A&P Assessment and plan (1) Diabetes mellitus: Blood sugars are a bit erratic but overall stable. Continue same treatment regimen for now. Qualifiers: Diabetes mellitus complication status: without complication Diabetes mellitus senior care insulin use: without senior care use Diabetes mellitus type: t ype 2 Qualified Code(s): E11.9 - Type 2 diabetes mellitus without complications (2) Morbid obesity: (3) L2 vertebral fracture: Patient has a significant compression fracture with pain. Proceed with surgery per Ortho's recommendations. Qualifiers: Encounter type: initial encounter Fracture morphology: unspecified fracture morphology Fracture type: closed Qualified Code(s): S32.029A - Unspecified fracture of second lumbar vertebra, initial encounter for closed fracture (4) CKD (chronic kidney disease) stage 3, GFR 30-59 ml/min: Overall stable. (5) Hypothyroid: She has not had a previous diagnosis of this. Labs indicated that she needed to be on levothyroxine. We will start low-dose of this. Attestations 2 Medical Necessity Statement*: Patient has acute medical problems with multiple chronic medical conditions and acute compression fracture of her lumbar spine that require continued inpatient IV treatments, likely surgery and monitoring. Coding Level of Care Code Acute Code for [facility] Diagnoses Type 2 diabetes mellitus without complication, without long-term current use of insulin E11.9 Diabetes mellitus complication status: without complication Diabetes mellitus intermediate accountant insulin use: without intermediate accountant use Diabetes mellitus type: type 2 Morbid obesity E66.01 L2 vertebral fracture S32.029A Encounter type: initial encounter Fracture morphology: unspecified fracture morphology Fracture type: closed CKD (chronic kidney disease) stage 3, GFR 30-59 ml/min N18.30 Hypothyroid E03.9
--- NOTE | 2023-11-22 12:32 | P.PN_ITS ---
Subjective 2 Subjective: awaiting MRI Vitals/I&O/Wt Last Vital Signs Temp 97.4 F L 11/22/23 12:00 Pulse 67 11/22/23 12:00 Resp 16 11/22/23 12:00 BP 149/81 11/22/23 12:00 Pulse Ox 94 11/22/23 12:00 O2 Del Method Room Air 11/22/23 12:00 11/21/23 11/22/23 11/22/23 22:59 06:59 14:59 Intake Total 240 / 1413.75 1130 / 2543.75 1114.75 / 1114.75 Output Total 400 / 400 300 / 700 Balance -160 / 1013.75 830 / 1843.75 1114.75 / 1114.75 Weight last 48 hrs Weight 231 lb 4.8 oz Weight 231 lb 4.8 oz Weight 234 lb 6.4 oz Weight 232 lb Weight 224 lb Data 11/21/23 04:41 11/21/23 04:41 A&P Assessment and plan (1) L2 vertebral fracture: awaiting MRI Qualifiers: Encounter type: initial encounter Fracture morphology: unspecified fracture morphology Fracture type: closed Qualified Code(s): S32.029A - Unspecified fracture of second lumbar vertebra, initial encounter for closed fracture Attestations 2 Medical Necessity Statement*: per primary service Coding Level of Care Code Acute Code for [facility] Diagnoses L2 vertebral fracture S32.029A Encounter type: initial encounter Fracture morphology: unspecified fracture morphology Fracture type: closed
--- NOTE | 2023-11-22 14:07 | PC.SOCIAL ---
IMM Update pg 2 of IMM updated and reviewed w/ patient. Copy provided and copy dated, initialed and placed in chart.
[2023-11-22 17:25] LABS: Glucose Point of Care 264 mg/dL (70-110)
[2023-11-22 20:12] LABS: Glucose Point of Care 400 mg/dL (70-110)
[2023-11-23] VITALS (11 sets, daily range): BP systolic 115–151; BP diastolic 69–84; PULSE 63–71; RESP 15–18; TEMP 36.4–36.8; O2SAT 94–95
[2023-11-23] MEDS: HYDROcodone-acetaminophen 5-325 mg Tablet 1 TAB PO ×2 (03:55→08:43)
[2023-11-23] MEDS: levothyroxine 25 mcg Tablet PO (05:44)
[2023-11-23] MEDS: atorvastatin 40 mg Tablet 80 MG PO (05:44)
[2023-11-23] MEDS: gabapentin 300 mg Capsule PO ×3 (05:45→22:43)
[2023-11-23 07:39] LABS: Glucose Point of Care 200 mg/dL (70-110)
[2023-11-23] MEDS: insulin lispro 100 unit/1 mL SUBCUT ×4 (07:49→22:44)
[2023-11-23] MEDS: amiodarone 200 mg Tablet PO (08:41)
[2023-11-23] MEDS: calcium carb-vit d 500mg-200unit 1 Tablet 1 EACH PO ×2 (08:41→17:18)
[2023-11-23] MEDS: magnesium lactate 84 mg Tablet PO (08:41)
[2023-11-23] MEDS: insulin glargine 100 units/1 mL 35 UNIT SUBCUT (08:43)
--- NOTE | 2023-11-23 09:57 | P.PN_ITS ---
Subjective 2 Subjective: Patient is unable to get an MRI due to her pacemaker. Vitals/I&O/Wt Last Vital Signs Temp 97.9 F 11/23/23 07:27 Pulse 68 11/23/23 08:09 Resp 16 11/23/23 08:09 BP 116/74 11/23/23 07:27 Pulse Ox 94 11/23/23 08:09 O2 Del Method Room Air 11/23/23 08:09 11/22/23 11/23/23 11/23/23 22:59 06:59 14:59 Intake Total 221 / 1335.75 240 / 240 Balance 221 / 1335.75 240 / 240 Weight last 48 hrs Weight 243 lb 4.8 oz Weight 231 lb 4.8 oz Weight 231 lb 4.8 oz Physical Exam 2 Narrative: Continues to have pain in the back is not improved. Data 11/21/23 04:41 11/21/23 04:41 A&P Assessment and plan (1) L2 vertebral fracture: Await results of bone scan. If fracture is acute we will plan on kyphoplasty on Saturday. Qualifiers: Encounter type: initial encounter Fracture morphology: unspecified fracture morphology Fracture type: closed Qualified Code(s): S32.029A - Unspecified fracture of second lumbar vertebra, initial encounter for closed fracture Attestations 2 Medical Necessity Statement*: Per primary service Coding Level of Care Code Acute Code for [facility] Fwd Diagnoses L2 vertebral fracture S32.029A Encounter type: initial encounter Fracture morphology: unspecified fracture morphology Fracture type: closed
[2023-11-23] MEDS: heparin 5,000 unit/mL INJ 1 mL 5000 UNIT SUBCUT ×2 (10:36→22:45)
[2023-11-23] MEDS: oxyCODONE-APAP 5-325 mg Tablet PO ×2 (10:37→18:10)
[2023-11-23 11:22] LABS: Glucose Point of Care 330 mg/dL (70-110)
--- NOTE | 2023-11-23 13:26 | P.PN_ITS ---
Subjective 2 Subjective: The patient has had increased pain that was not controllable by hydrocodone. She had a 10 out of 10 level of pain even after having hydrocodone. She was switched to Percocet and her pain is decreased down to 3 out of 10. This has done much better for her. She has had a difficult time ambulating as her legs do not seem to want to hold her up. She is trying to move her legs around while in bed to keep blood flow moving. She is feeling well otherwise. She had been using 35 units of insulin twice a day at home. Her blood sugars continue to be elevated. She is open to trying a higher dose. Vitals/I&O/Wt Last Vital Signs Temp 98.0 F 11/23/23 11:39 Pulse 69 11/23/23 11:39 Resp 15 11/23/23 11:39 BP 115/71 11/23/23 11:39 Pulse Ox 94 11/23/23 11:39 O2 Del Method Room Air 11/23/23 11:39 11/22/23 11/23/23 11/23/23 22:59 06:59 14:59 Intake Total 221 / 1335.75 240 / 240 Balance 221 / 1335.75 240 / 240 Weight last 48 hrs Weight 243 lb 4.8 oz Weight 231 lb 4.8 oz Weight 231 lb 4.8 oz Physical Exam 2 Narrative: General: Alert and oriented x 3. In no acute distress. Mouth: No erythema or tonsilar enlargement. No masses noted. Neck: No thyromegaly. No lymphadenopathy. Heart: Regular rate and rhythm. No murmurs. Lungs: Clear to auscultation bilaterally. No wheezes, crackles or ronchi. Abdomen: Soft, non-tender. No hepatosplenomegaly. Back: Wearing a back brace for support. Limiting movement due to pain. Extremities: Trace pitting edema bilaterally. Data 11/21/23 04:41 11/21/23 04:41 A&P Assessment and plan (1) L2 vertebral fracture: The patient had continued to have significant pain from her lumbar fracture. Her pain has improved with switching her hydrocodone to oxycodone. The patient will continue to follow with Dr. Prado for treatment options. She will get a bone scan to further evaluate for possible kyphoplasty. It is possible that she may need further intervention as she has weakness in her lower extremity. Qualifiers: Encounter type: initial encounter Fracture morphology: unspecified fracture morphology Fracture type: closed Qualified Code(s): S32.029A - Unspecified fracture of second lumbar vertebra, initial encounter for closed fracture (2) Diabetes mellitus: The patient's A1c was significantly elevated at 10.1. Blood sugar has been running in the 200-300 range consistently. We will increase her Lantus up to 45 units twice a day and continue with sliding scale. She will likely need continued further increase in her Lantus as an outpatient. I discussed that getting this under control will help improve her chances of healing. Qualifiers: Diabetes mellitus complication status: without complication Diabetes mellitus nursing home insulin use: without moth exterminator use Diabetes mellitus type: t ype 2 Qualified Code(s): E11.9 - Type 2 diabetes mellitus without complications (3) Hypothyroid: The patient's thyroid levels were found to be low. This was a relatively significant finding. We will increase the levothyroxine to 50 mcg daily and she will need to have her levels checked in 6 to 8 weeks. She may need further adjustment at that time. (4) Essential hypertension: Patient's blood pressure has been well-controlled. Continue his current medications. Attestations 2 Medical Necessity Statement*: The patient has had significant pain that we are working on getting under control. She may need a kyphoplasty or other surgical intervention. She has significant weakness in her lower extremities and may need intervention for this. Her stay will cross 2 midnights and I confirm that this is medically necessary. Coding Level of Care Code Acute Code for [facility] Diagnoses L2 vertebral fracture S32.029A Encounter type: initial encounter Fracture morphology: unspecified fracture morphology Fracture type: closed Type 2 diabetes mellitus without complication, without long-term current use of insulin E11.9 Diabetes mellitus complication status: without complication Diabetes mellitus nursing home insulin use: without moth exterminator use Diabetes mellitus type: type 2 Hypothyroid E03.9 Essential hypertension I10
[2023-11-23 16:12] LABS: Glucose Point of Care 339 mg/dL (70-110)
[2023-11-23] MEDS: sennosides 8.6 mg Tablet 8.59999999999999964 MG PO (17:37)
[2023-11-23 20:38] LABS: Glucose Point of Care 246 mg/dL (70-110)
[2023-11-23] MEDS: insulin glargine 100 units/1 mL 45 UNIT SUBCUT (22:44)
[2023-11-24] VITALS (12 sets, daily range): BP systolic 105–156; BP diastolic 54–84; PULSE 59–76; RESP 16–18; TEMP 36.4–36.6; O2SAT 93–96
[2023-11-24] MEDS: oxyCODONE-APAP 5-325 mg Tablet PO ×5 (00:40→20:02)
[2023-11-24] MEDS: gabapentin 300 mg Capsule PO ×3 (06:06→22:34)
[2023-11-24] MEDS: levothyroxine 50 mcg Tablet PO (06:06)
[2023-11-24] MEDS: atorvastatin 40 mg Tablet 80 MG PO (06:07)
[2023-11-24 06:15] LABS: Basophils # 0.1 10^3/uL (0.0-0.1); Basophils % 1.3 %; Eosinophils # 0.3 10^3/uL (0.0-0.8); Eosinophils % 3.7 %; Hematocrit 44.3 % (36-47); Lymphocytes # 2.3 10^3/uL (0.8-4.8); Lymphocytes % 30.1 %; Mean Corpuscular HGB Conc 31.8 g/dL (30-55); Mean Corpuscular Hemoglobin 27.7 pg (27-33); Mean Platelet Volume 8.6 fL (7.4-10.4); Monocytes # 0.8 10^3/uL (0.2-0.9); Monocytes % 10.7 %; Neutrophils # 4.19 10^3/uL (1.8-7.7); Neutrophils % 53.9 %; Nucleated Red Blood Cells % 0 %; Platelet Count 376 10^3/cmm (157-399); Red Blood Count 5.09 10^6/uL (3.85-5.65); Red Cell Distribution Width 15.4 % (12.1-15.1); White Blood Count 7.77 10^3/uL (3.29-11.43)
[2023-11-24 06:23] LABS: Glucose Point of Care 154 mg/dL (70-110)
[2023-11-24 06:34] LABS: Alanine Aminotransferase 10 U/L (0-33); Albumin Level 3.2 g/dL (3.5-5.2); Alkaline Phosphatase 68 U/L (35-105); Aspartate Amino Transferase 10 U/L (0-32); Blood Urea Nitrogen 17 mg/dL (8-23); Calcium 8.7 mg/dL (8.5-10.5); Carbon Dioxide 25 mmol/L (22-29); Chloride 103 mmol/L (98-107); Creatinine Clr Calc Pharmacy 66.2693; Globulin 2.8 g/dL (1.3-4.6); Glucose 150 mg/dL (65-115); Osmolality Calculated 288 mOsm/kg (285-295); Sodium 137 mmol/L (136-145); Total Bilirubin 0.2 mg/dL (0.15-1.2)
[2023-11-24] MEDS: magnesium lactate 84 mg Tablet PO (09:56)
[2023-11-24] MEDS: calcium carb-vit d 500mg-200unit 1 Tablet 1 EACH PO ×2 (09:56→17:50)
[2023-11-24] MEDS: amiodarone 200 mg Tablet PO (09:56)
[2023-11-24] MEDS: insulin lispro 100 unit/1 mL SUBCUT ×4 (09:56→22:22)
[2023-11-24] MEDS: sennosides 8.6 mg Tablet 8.59999999999999964 MG PO ×2 (09:56→17:50)
[2023-11-24] MEDS: heparin 5,000 unit/mL INJ 1 mL 5000 UNIT SUBCUT ×2 (09:57→22:34)
[2023-11-24] MEDS: insulin glargine 100 units/1 mL 45 UNIT SUBCUT ×2 (09:57→22:22)
[2023-11-24 12:01] LABS: Glucose Point of Care 160 mg/dL (70-110)
--- NOTE | 2023-11-24 14:57 | PM.PN ---
Subjective Subjective: The patient is doing better today. Her blood sugars have been better controlled. Her pain is currently better controlled as long as she continues to take the oxycodone. She is still concerned about her overall weakness and is worried that it is getting worse lying in bed. Physical therapy has been limited in what they can do for her prior to surgery. Vitals/I&O/Wt Last Vital Signs Temp 97.7 F 11/24/23 12:00 Pulse 76 11/24/23 12:00 Resp 18 11/24/23 12:00 BP 139/77 11/24/23 12:00 Pulse Ox 93 11/24/23 12:00 O2 Del Method Room Air 11/24/23 12:00 11/23/23 11/24/23 11/24/23 22:59 06:59 14:59 Intake Total 480 / 840 840 / 840 Balance 480 / 840 840 / 840 Weight last 48 hrs Weight 241 lb Weight 243 lb 4.8 oz Physical Exam Narrative: General: Alert and oriented x 3. In no acute distress. Heart: Regular rate and rhythm. No murmurs. Lungs: Clear to auscultation bilaterally. No wheezes, crackles or ronchi. Abdomen: Soft, non-tender. No hepatosplenomegaly. Back: Wearing a back brace for support. Limiting movement due to pain. Extremities: Trace pitting edema bilaterally. Significant weakness in the left lower extremity. Patient unable to dorsiflex her left foot. Unable to lift her foot off the bed. Patient able to barely lift her right foot off the bed. Able to dorsiflex and plantarflex. Data 11/24/23 06:04 11/24/23 06:04 A&P Assessment and plan (1) L2 vertebral fracture: The patient's pain has improved with switching her hydrocodone to oxycodone. The patient will continue to follow with Dr. Prado for treatment options. She will get a bone scan to further evaluate for possible kyphoplasty. It is possible that she may need further intervention as she has weakness in her lower extremity. Qualifiers: Encounter type: initial encounter Fracture morphology: unspecified fracture morphology Fracture type: closed Qualified Code(s): S32.029A - Unspecified fracture of second lumbar vertebra, initial encounter for closed fracture (2) Diabetes mellitus: The patient's A1c was significantly elevated at 10.1. Blood sugar has been running in the 200-300 range consistently. Her Lantus was increased to 45 units twice a day and her blood sugars now in the 150-160 range. We will go ahead and keep her dose at this level to avoid hypoglycemic episodes but also help keep it in a decent range for healing. Certainly it can be adjusted if needed. Qualifiers: Diabetes mellitus complication status: without complication Diabetes mellitus alf insulin use: without intermodal customer service use Diabetes mellitus type: type 2 Qualified Code(s): E11.9 - Type 2 diabetes mellitus without complications (3) Hypothyroid: The patient's thyroid levels were found to be low. This was a relatively significant finding. We will increase the levothyroxine to 50 mcg daily and she will need to have her levels checked in 6 to 8 weeks. She may need further adjustment at that time. (4) Essential hypertension: Patient's blood pressure has been well-controlled. Continue his current medications. Attestations Medical Necessity Statement*: The patient continues to need inpatient care as she is awaiting surgical intervention for her back. Her pain is becoming better controlled at this time. Her stay will cross 2 midnights. Coding Level of Care Code Acute Code for [facility] Diagnoses L2 vertebral fracture S32.029A Encounter type: initial encounter Fracture morphology: unspecified fracture morphology Fracture type: closed Type 2 diabetes mellitus without complication, without long-term current use of insulin E11.9 Diabetes mellitus complication status: without complication Diabetes mellitus intermodal customer service insulin use: without intermodal customer service use Diabetes mellitus type: type 2 Hypothyroid E03.9 Essential hypertension I10
[2023-11-24 16:37] LABS: Glucose Point of Care 223 mg/dL (70-110)
[2023-11-24 21:08] LABS: Glucose Point of Care 242 mg/dL (70-110)
[2023-11-25] VITALS (16 sets, daily range): BP systolic 119–157; BP diastolic 66–79; PULSE 60–79; RESP 15–20; TEMP 36.6–36.9; O2SAT 93–97
[2023-11-25] MEDS: oxyCODONE-APAP 5-325 mg Tablet PO ×4 (00:36→15:06)
[2023-11-25 02:27] LABS: Iron 58 ug/dL (37-145); Percent Saturation 27.2 % (20-50); Total Iron Binding Capacity 213 mcg/dl; Unsaturated Iron Binding 155 ug/dL (112-347)
[2023-11-25] MEDS: atorvastatin 40 mg Tablet 80 MG PO (05:56)
[2023-11-25] MEDS: levothyroxine 50 mcg Tablet PO (05:57)
[2023-11-25] MEDS: gabapentin 300 mg Capsule PO ×3 (05:57→21:47)
[2023-11-25 06:30] LABS: Glucose Point of Care 100 mg/dL (70-110)
[2023-11-25] MEDS: amiodarone 200 mg Tablet PO (09:24)
[2023-11-25] MEDS: magnesium lactate 84 mg Tablet PO (09:24)
[2023-11-25] MEDS: sennosides 8.6 mg Tablet 8.59999999999999964 MG PO ×2 (09:24→18:06)
[2023-11-25] MEDS: calcium carb-vit d 500mg-200unit 1 Tablet 1 EACH PO ×2 (09:24→18:07)
[2023-11-25] MEDS: insulin glargine 100 units/1 mL 45 UNIT SUBCUT ×2 (09:37→21:47)
[2023-11-25] MEDS: heparin 5,000 unit/mL INJ 1 mL 5000 UNIT SUBCUT ×2 (10:39→21:51)
[2023-11-25 11:48] LABS: Glucose Point of Care 198 mg/dL (70-110)
--- NOTE | 2023-11-25 12:04 | PC.SOCIAL ---
IMM Update Pg. 2 of IMM updated and reviewed with patient who verbalized understanding. Copy provided.
[2023-11-25] MEDS: insulin lispro 100 unit/1 mL SUBCUT ×3 (12:13→21:47)
[2023-11-25 13:10] LABS: Basophils # 0.1 10^3/uL (0.0-0.1); Eosinophils # 0.3 10^3/uL (0.0-0.8); Eosinophils % 3.4 %; Hematocrit 43.4 % (36-47); Lymphocytes % 21.5 %; Mean Corpuscular Hemoglobin 28.3 pg (27-33); Mean Corpuscular Volume 88.4 fl (85-98); Mean Platelet Volume 8.7 fL (7.4-10.4); Monocytes # 0.9 10^3/uL (0.2-0.9); Monocytes % 9.3 %; Neutrophils # 5.91 10^3/uL (1.8-7.7); Neutrophils % 64.5 %; Nucleated Red Blood Cells % 0 %; Platelet Count 406 10^3/cmm (157-399); Red Blood Count 4.91 10^6/uL (3.85-5.65); Red Cell Distribution Width 15.8 % (12.1-15.1); White Blood Count 9.16 10^3/uL (3.29-11.43)
[2023-11-25] MEDS: aspirin 81 mg Chew Tablet PO (13:15)
[2023-11-25 13:41] LABS: Albumin Level 2.9 g/dL (3.5-5.2); Alkaline Phosphatase 66 U/L (35-105); Blood Urea Nitrogen 20 mg/dL (8-23); Calcium 8.4 mg/dL (8.5-10.5); Carbon Dioxide 28 mmol/L (22-29); Chloride 102 mmol/L (98-107); Globulin 2.9 g/dL (1.3-4.6); Glucose 262 mg/dL (65-115); Osmolality Calculated 298 mOsm/kg (285-295); Sodium 138 mmol/L (136-145); Total Bilirubin 0.2 mg/dL (0.15-1.2); Total Protein 5.8 g/dL (6.6-8.7)
[2023-11-25 13:43] LABS: Anion Gap 12.5 (5-19); Potassium 4.5 mmol/L (3.5-5.1)
[2023-11-25 13:53] LABS: Aspartate Amino Transferase 5 U/L (0-32)
[2023-11-25 14:02] LABS: Alanine Aminotransferase 5 U/L (0-33)
--- NOTE | 2023-11-25 16:38 | P.PN_ITS ---
Subjective 2 Subjective: Hospital course, labs appreciated. Examination patient laying comfortably in bed. Denies any further pain. Denies any chest pain or difficulty in breathing. Vitals/I&O/Wt Last Vital Signs Temp 98.1 F 11/25/23 15:37 Pulse 63 11/25/23 15:37 Resp 16 11/25/23 15:37 BP 122/67 11/25/23 15:37 Pulse Ox 95 11/25/23 15:37 O2 Del Method Room Air 11/25/23 15:37 11/25/23 11/25/23 11/25/23 06:59 14:59 22:59 Intake Total 240 / 240 Balance 240 / 240 Weight last 48 hrs Weight 110.024 kg Weight 109.316 kg Physical Exam 2 Narrative: General: Alert oriented x3, patient seen laying in bed appearing comfortable at this time, breathing room air HEENT: Normocephalic, atraumatic, EOMI, Cardio: Regular rate rhythm, normal S1-S2 Respiratory: Good bilateral air entry, no wheezes no rhonchi appreciated GI: Abdomen soft, nontender, nondistended, bowel sounds + Extremities: No edema bilateral lower extremities Neuro: Cranial 2-12 intact, bilateral lower extremities mildly weak. Able to lift of the bed. Straight leg raise negative., Strength upper extremities bilaterally symmetrical. Data 11/25/23 12:57 11/25/23 12:57 A&P Assessment and plan (1) L2 vertebral fracture: Appreciate orthopedic recommendation. Plan for bone scan as patient could not undergo MRI because of pacemaker implantation. Plan for kyphoplasty as per bone scan result. Physical therapy. Continue with oxycodone 5 mg 1 tablet every 4 hours as needed, add tramadol 50 mg every 6 hours as needed. Patient has a history of triple-vessel disease with left main disease. Hold off on Plavix. Restart aspirin. Continue with statin. Depending on the bone scan result if patient is going for kyphoplasty we will plan for cardiology clearance prior to surgery. Qualifiers: Encounter type: initial encounter Fracture morphology: unspecified fracture morphology Fracture type: closed Qualified Code(s): S32.029A - Unspecified fracture of second lumbar vertebra, initial encounter for closed fracture (2) Diabetes mellitus: The patient's A1c was significantly elevated at 10.1. Blood sugars have been elevated. Continue with Lantus 45 units twice daily along with insulin sliding scale for now. Will uptitrate as per blood sugars around 1 80-200 for now. Qualifiers: Diabetes mellitus complication status: without complication Diabetes mellitus retirement insulin use: without retirement use Diabetes mellitus type: t ype 2 Qualified Code(s): E11.9 - Type 2 diabetes mellitus without complications (3) Hypothyroid: TSH elevated. Free T4 low. Increase levothyroxine to 100 mcg daily. Patient will need thyroid profile done within next 4 to 6 weeks. (4) Essential hypertension: Goal blood pressure less than 140/90 mmHg. Blood pressure is at goal. Continue to monitor. Plan CAD: History of CABG, ischemic cardiomyopathy with most recent cardiac catheterization in March 2023 which showed severe triple-vessel disease with only remaining patent graft of FIELDS to LAD when discharged on medical management. Denies any chest pain for now. Restart aspirin. Continue with home dose of statin. Appreciate A1c. Check lipid panel. A-fib: Continue with home dose of amiodarone. 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 DNR/DNI Cardiac carb consistent diet Heparin 5000 every 12 hourly for DVT prophylaxis Protonix for PUD prophylaxis Attestations 2 Medical Necessity Statement*: Requires further hospitalization for management of acute L2 vertebral fracture while definitive treatment plan is made for possible kyphoplasty, safe discharge planning in a patient with history of CABG, severe triple-vessel disease Diagnoses L2 vertebral fracture S32.029A Encounter type: initial encounter Fracture morphology: unspecified fracture morphology Fracture type: closed Type 2 diabetes mellitus without complication, without long-term current use of insulin E11.9 Diabetes mellitus complication status: without complication Diabetes mellitus technician terminal and repeater insulin use: without technician terminal and repeater use Diabetes mellitus type: type 2 Hypothyroid E03.9 Essential hypertension I10
[2023-11-25 17:21] LABS: Glucose Point of Care 276 mg/dL (70-110)
[2023-11-25] MEDS: oxyCODONE-APAP 5-325 mg Tablet 1 TAB PO (19:26)
[2023-11-25 21:41] LABS: Glucose Point of Care 236 mg/dL (70-110)
[2023-11-26] VITALS (13 sets, daily range): BP systolic 134–184; BP diastolic 60–83; PULSE 64–76; RESP 16–20; TEMP 36.4–36.8; O2SAT 93–97
[2023-11-26] MEDS: oxyCODONE-APAP 5-325 mg Tablet 1 TAB PO ×3 (04:45→18:02)
[2023-11-26] MEDS: atorvastatin 40 mg Tablet 80 MG PO (05:28)
[2023-11-26] MEDS: levothyroxine 100 mcg Tablet PO (05:28)
[2023-11-26 05:39] LABS: Basophils # 0.1 10^3/uL (0.0-0.1); Basophils % 1.1 %; Eosinophils # 0.3 10^3/uL (0.0-0.8); Eosinophils % 3.3 %; Hematocrit 43.3 % (36-47); Lymphocytes % 23.2 %; Mean Corpuscular HGB Conc 30.9 g/dL (30-55); Mean Corpuscular Hemoglobin 27.5 pg (27-33); Mean Corpuscular Volume 88.9 fl (85-98); Monocytes % 11.8 %; Neutrophils # 5.09 10^3/uL (1.8-7.7); Neutrophils % 60.1 %; Nucleated Red Blood Cells % 0 %; Platelet Count 376 10^3/cmm (157-399); Red Blood Count 4.87 10^6/uL (3.85-5.65); Red Cell Distribution Width 15.8 % (12.1-15.1); White Blood Count 8.46 10^3/uL (3.29-11.43)
[2023-11-26 06:03] LABS: Alanine Aminotransferase 16 U/L (0-33); Albumin Level 3.1 g/dL (3.5-5.2); Alkaline Phosphatase 63 U/L (35-105); Anion Gap 12.3 (5-19); Aspartate Amino Transferase 14 U/L (0-32); Blood Urea Nitrogen 18 mg/dL (8-23); Calcium 8.4 mg/dL (8.5-10.5); Carbon Dioxide 26 mmol/L (22-29); Chloride 103 mmol/L (98-107); Creatinine Clr Calc Pharmacy 60.0666; Globulin 2.9 g/dL (1.3-4.6); Glucose 140 mg/dL (65-115); Osmolality Calculated 288 mOsm/kg (285-295); Potassium 4.3 mmol/L (3.5-5.1); Sodium 137 mmol/L (136-145); Total Bilirubin 0.3 mg/dL (0.15-1.2)
[2023-11-26 06:06] LABS: Chol HDL Ratio 3.52 mg/dL (0.0-4.40); Cholesterol 88 mg/dL (0-200); HDL Cholesterol 25 mg/dL (60-100); LDL Cholesterol Calculated 26 mg/dL (50-129); Magnesium 1.8 mg/dL (1.7-2.3); Triglycerides 186 mg/dL (0-150); VLDL Cholestrol Calculation 37 mg/dL (0-30)
[2023-11-26 06:16] LABS: Folate Level 11.8 ng/mL (4.8-37.3)
[2023-11-26 06:38] LABS: Glucose Point of Care 145 mg/dL (70-110)
--- NOTE | 2023-11-26 07:45 | NM_ITS ---
WS: [id number] NUCLEAR MEDICINE BONE SCAN Radiopharmaceutical: 27.5 Tc-99m MDP mCi IV Injection site: Antecubital Postinjection imaging delay: 1 hr CLINICAL INFORMATION: L2 compression fx determine acuity COMPARISON: CT 11/20/2023 FINDINGS: Bone lesions: There are no osseous lesions suspicious for metastatic disease. Soft tissue contours: Normal. Kidneys: Normal. Other findings: Minimal increased uptake in the L2 compression fracture consistent with late subacute to early chronic compression Degenerative arthritis AC joints, sternoclavicular joints, and both knees NM/NM bone scan whole body* [id number] IMPRESSION: Minimal increased uptake in the L2 compression fracture consistent with late hughes bacute to early chronic compression
[2023-11-26] MEDS: magnesium lactate 84 mg Tablet PO (08:17)
[2023-11-26] MEDS: pantoprazole DR 40 mg Tablet PO (08:17)
[2023-11-26] MEDS: aspirin 81 mg Chew Tablet PO (08:17)
[2023-11-26] MEDS: gabapentin 300 mg Capsule PO ×3 (08:17→20:46)
[2023-11-26] MEDS: amiodarone 200 mg Tablet PO (08:18)
[2023-11-26] MEDS: insulin lispro 100 unit/1 mL SUBCUT ×4 (08:18→20:46)
[2023-11-26] MEDS: sennosides 8.6 mg Tablet 8.59999999999999964 MG PO ×2 (08:18→17:15)
[2023-11-26] MEDS: insulin glargine 100 units/1 mL 45 UNIT SUBCUT ×2 (08:18→20:46)
[2023-11-26] MEDS: calcium carb-vit d 500mg-200unit 1 Tablet 1 EACH PO ×2 (08:18→17:15)
--- NOTE | 2023-11-26 08:19 | PC.OT ---
OT ORDERS RECEIVED; PER CHART REVIEW-CONTINUE TO HOLD UNTIL BONE SCAN AND POSSIBLE SURGERY
--- NOTE | 2023-11-26 09:37 | P.PN_ITS ---
Subjective 2 Subjective: Patient continues to be in pain awaiting bone scan Vitals/I&O/Wt Last Vital Signs Temp 97.8 F 11/26/23 08:00 Pulse 73 11/26/23 08:02 Resp 16 11/26/23 09:26 BP 167/75 11/26/23 08:00 Pulse Ox 96 11/26/23 08:02 O2 Del Method Room Air 11/26/23 08:02 11/25/23 11/26/23 11/26/23 22:59 06:59 14:59 Intake Total 240 / 480 240 / 720 360 / 360 Balance 240 / 480 240 / 720 360 / 360 Weight last 48 hrs Weight 244 lb Weight 242 lb 9 oz Physical Exam 2 Narrative: Lying in bed. She was asleep when I walked in. Data 11/26/23 04:15 11/26/23 04:15 A&P Assessment and plan (1) L2 vertebral fracture: Awaiting bone scan if positive we will plan to on kyphoplasty tomorrow. Qualifiers: Encounter type: initial encounter Fracture morphology: unspecified fracture morphology Fracture type: closed Qualified Code(s): S32.029A - Unspecified fracture of second lumbar vertebra, initial encounter for closed fracture Attestations 2 Medical Necessity Statement*: Pain control Coding Level of Care Code Acute Code for [facility] Fwd Diagnoses L2 vertebral fracture S32.029A Encounter type: initial encounter Fracture morphology: unspecified fracture morphology Fracture type: closed
[2023-11-26] MEDS: TRAMadol 50 mg Tablet PO (10:33)
[2023-11-26] MEDS: heparin 5,000 unit/mL INJ 1 mL 5000 UNIT SUBCUT ×2 (10:33→22:01)
[2023-11-26 11:17] LABS: Glucose Point of Care 182 mg/dL (70-110)
[2023-11-26] MEDS: amlodipine 5 mg Tablet PO (14:06)
--- NOTE | 2023-11-26 15:22 | PM.PN ---
Subjective Subjective: No acute events overnight. Patient continues to have extensive pain in her back requiring multiple oral doses of pain medications. Patient denies any nausea, vomiting, headache, chest pain. Vitals/I&O/Wt Last Vital Signs Temp 98.1 F 11/26/23 11:36 Pulse 64 11/26/23 14:00 Resp 19 H 11/26/23 11:36 BP 160/77 11/26/23 11:36 Pulse Ox 96 11/26/23 11:36 O2 Del Method Room Air 11/26/23 11:36 11/26/23 11/26/23 11/26/23 06:59 14:59 22:59 Intake Total 240 / 720 840 / 840 Balance 240 / 720 840 / 840 Weight last 48 hrs Weight 110.677 kg Weight 110.024 kg Physical Exam Narrative: General: Alert oriented x3, patient seen laying in bed appearing comfortable at this time, breathing room air HEENT: Normocephalic, atraumatic, EOMI, Cardio: Regular rate rhythm, normal S1-S2 Respiratory: Good bilateral air entry, no wheezes no rhonchi appreciated GI: Abdomen soft, nontender, nondistended, bowel sounds + Extremities: No edema bilateral lower extremities Neuro: Cranial 2-12 intact, bilateral lower extremities mildly weak. Able to lift of the bed. Straight leg raise negative., Strength upper extremities bilaterally symmetrical. Data 11/26/23 04:15 11/26/23 04:15 A&P Assessment and plan (1) L2 vertebral fracture: Appreciate orthopedic recommendation. Appreciate bone scan results. Plan for kyphoplasty as per orthopedic team. Physical therapy. Continue with oxycodone 5 mg 1 tablet every 4 hours as needed, add tramadol 50 mg every 6 hours as needed. 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 Hold off on Plavix. Continue with aspirin, statin. Will consult cardiology for cardiology clearance. Qualifiers: Encounter type: initial encounter Fracture morphology: unspecified fracture morphology Fracture type: closed Qualified Code(s): S32.029A - Unspecified fracture of second lumbar vertebra, initial encounter for closed fracture (2) Diabetes mellitus: The patient's A1c was significantly elevated at 10.1. Blood sugar better controlled. Continue with Lantus 45 units twice daily along with insulin sliding scale for now. Will uptitrate as per blood sugars around 1 80-200 for now. Qualifiers: Diabetes mellitus complication status: without complication Diabetes mellitus group home insulin use: without intermediate school teacher use Diabetes mellitus type: type 2 Qualified Code(s): E11.9 - Type 2 diabetes mellitus without complications (3) Hypothyroid: TSH elevated. Free T4 low. Increase levothyroxine to 100 mcg daily. Patient will need thyroid profile done within next 4 to 6 weeks. (4) Essential hypertension: Goal blood pressure less than 140/90 mmHg. Blood pressure is elevated. Add amlodipine 5 mg oral daily. Uptitrate as per goal blood pressures. Plan CAD: History of CABG, ischemic cardiomyopathy with most recent cardiac catheterization in March 2023 which showed severe triple-vessel disease with only remaining patent graft of FIELDS to LAD when discharged on medical management. Denies any chest pain for now. Continue with home dose of aspirin, statin. Plavix on hold. Appreciate A1c, lipid panel. A-fib: Continue with home dose of amiodarone. 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 DNR/DNI Cardiac carb consistent diet Heparin 5000 every 12 hourly for DVT prophylaxis Protonix for PUD prophylaxis Attestations Medical Necessity Statement*: Requires further hospitalization for management of subacute L2 vertebral fracture with extensive pain requiring kyphoplasty in a patient with history of congestive heart failure, post CABG with CAD of grafts Diagnoses L2 vertebral fracture S32.029A Encounter type: initial encounter Fracture morphology: unspecified fracture morphology Fracture type: closed Type 2 diabetes mellitus without complication, without long-term current use of insulin E11.9 Diabetes mellitus complication status: without complication Diabetes mellitus intermediate school teacher insulin use: without intermediate school teacher use Diabetes mellitus type: type 2 Hypothyroid E03.9 Essential hypertension I10
[2023-11-26 16:41] LABS: Glucose Point of Care 227 mg/dL (70-110)
--- NOTE | 2023-11-26 18:14 | PM.CONSULT ---
Providers/Reason For Consult Consulting Physician/Specialty*: Felix Albarran MD/ Cardiology Reason for Consult*: Pre op clearance Requesting Physician: Dr Mcmullen Attending Physician: Sarmad Mcmullen MD Primary Care Provider: Keo Cook MD History of Present Illness History of Present Illness Laverne Perez is a 73 year old female with past medical history of CAD s/p CABG in 2020, diabetes, congestive heart failure who presented to hospital with lower extremity weakness and back pain. Was found to have L2 vertebral fracture. Plan for kyphoplasty. Cardiology consulted for preop clearance. Patient says she was not having any chest pain or significant shortness of breath recently. Last EF was 35%. We have repeated echo and EF is normalized. Last angiogram was in March 2023, and it showed patent FIELDS to LAD however post anastomosis patient had diffuse disease of ho-chunk vessel. Review of Systems General: Reports: 10 or more systems reviewed and unremarkable except in HPI and below Card: Denies: chest pain Resp: Denies: dyspnea Musc: Reports: back pain and extremity pain Medications/Allergies Home Medications Medication Instructions Recorded Confirmed Last Taken Type stfdrzxz-pwx-rkmssib 800 mcg 1 tab PO DAILY 12/04/21 11/20/23 11/20/23 History DFE-vitamin K 150 mcg-herb no.289 tablet (Alive Women's 50 Plus Ultra Potency) atorvastatin 80 mg tablet 80 mg PO QAM 30 days #30 tabs 12/06/21 11/20/23 11/20/23 Rx blood sugar diagnostic (Accu-Chek #100 ea 12/06/21 11/21/23 Unknown Rx Guide test strips) blood-glucose meter (Accu-Chek #1 ea 12/06/21 11/21/23 Unknown Rx Guide Glucose Meter) lancets (Accu-Chek Softclix #100 ea 12/06/21 11/21/23 Unknown Rx Lancets) aspirin 81 mg chewable tablet 81 mg PO DAILY 04/01/22 11/20/23 11/20/23 History potassium citrate 15 mEq (1,620 15 meq PO BID #60 tabs 08/07/22 11/21/23 1 Day Ago Rx mg) tablet,extended release ~11/20/23 nitroglycerin 0.4 mg sublingual 0.4 mg sublingual Q5M PRN Chest 10/31/22 11/21/23 03/01/23 Rx tablet Pain #25 tabs evening primrose oil 500 mg capsule 1,000 mg PO DAILY 03/01/23 11/21/23 2 Days Ago History ~11/19/23 glucosamine sulf dipot 1 cap PO BEDTIME 03/01/23 11/21/23 2 Days Ago History chlr,msm,chond 550 mg-C 30 mg-melissa ~11/19/23 1 mg capsule (Glucosamine Chondroitin) turmeric 400 mg capsule 400 mg PO DAILY 03/01/23 11/21/23 2 Days Ago History ~11/19/23 vitamin B complex 1 cap PO BEDTIME 03/01/23 11/21/23 2 Days Ago History ~11/19/23 vitamin E 670 mg (1,000 unit) 670 mg PO DAILY 03/01/23 11/21/23 02/28/23 History capsule insulin glargine 100 unit/mL (3 31 unit (0.31 mL) SUBCUT BID #15 mL 03/04/23 11/21/23 1 Day Ago Rx mL) subcutaneous pen (Lantus ~11/20/23 Solostar U-100 Insulin) clopidogrel 75 mg tablet 75 mg PO DAILY #90 tabs 04/08/23 11/21/23 1 Day Ago Rx ~11/20/23 magnesium L-lactate 84 mg See Rx Instructions .Route 05/16/23 11/21/23 1 Day Ago Rx tablet,extended release .COMPLEX #100 tabs ~11/20/23 spironolactone 25 mg tablet 25 mg PO DAILY #90 tabs 07/30/23 11/21/23 2 Days Ago Rx ~11/19/23 amiodarone 200 mg tablet 200 mg PO DAILY #90 tabs 10/17/23 11/20/23 11/20/23 Rx gabapentin 300 mg capsule 300 mg PO Q8H #30 caps 10/24/23 11/21/23 1 Day Ago Rx ~11/20/23 oxycodone-acetaminophen 5 mg-325 1 tab PO Q8H PRN pain #14 tabs 10/24/23 11/21/23 Unknown Rx mg tablet (Percocet) furosemide 40 mg tablet 40 mg PO QAM 11/21/23 11/21/23 1 Day Ago History ~11/20/23 Allergies Allergy/AdvReac Type Severity Reaction Status Date / Time sacubitril [From Entresto] AdvReac Intermediate decreased Verified 10/24/23 02:43 urination valsartan [From Entresto] AdvReac Intermediate decreased Verified 10/24/23 02:43 urination farxiga AdvReac ADR-Nausea Uncoded 10/24/23 02:43 steroids AdvReac increased Uncoded 10/24/23 02:43 high BP Current Medications Generic Name Dose Route Start Last Admin Trade Name Freq PRN Reason Stop Dose Admin Amiodarone HCl 200 mg 11/21/23 09:00 11/26/23 08:18 Amiodarone 200 Mg Tablet PO 200 mg DAILY PARAG Administration Amlodipine Besylate 5 mg 11/26/23 13:37 11/26/23 14:06 Amlodipine 5 Mg Tablet PO 5 mg DAILY PARAG Administration Aspirin 81 mg 11/25/23 12:45 11/26/23 08:17 Aspirin 81 Mg Chew Tablet PO 81 mg DAILY PARGA Administration Atorvastatin Calcium 80 mg 11/21/23 06:00 11/26/23 05:28 Atorvastatin 40 Mg Tablet PO 80 mg QAM PARAG Administration Calcium Carbonate 1 each 11/21/23 09:00 11/26/23 17:15 Calcium Carb-Vit D 500mg-200unit 1 Tablet PO 1 each BID PARAG Administration Clopidogrel Bisulfate 75 mg 11/21/23 09:00 11/21/23 09:06 Clopidogrel 75 Mg Tablet PO Not Given DAILY PARAG Gabapentin 300 mg 11/25/23 15:00 11/26/23 14:06 Gabapentin 300 Mg Capsule PO 300 mg TID PARAG Administration Heparin Sodium (Porcine) 5,000 unit 11/20/23 22:00 11/26/23 10:33 Heparin 5,000 Unit/Ml Inj 1 Ml SUBCUT 5,000 unit Q12H PARAG Administration Insulin Glargine 45 unit 11/23/23 21:00 11/26/23 08:18 Insulin Glargine 100 Units/1 Ml SUBCUT 45 unit BID@0900,2100 PARAG Administration Insulin Human Lispro 0 unit 11/21/23 08:00 11/26/23 17:15 Insulin Lispro 100 Unit/1 Ml SUBCUT 8 unit WM&BEDTIME PARAG Administration Protocol Levothyroxine Sodium 100 mcg 11/26/23 06:00 11/26/23 05:28 Levothyroxine 100 Mcg Tablet PO 100 mcg QAM PARAG Administration Magnesium Lactate 84 mg 11/21/23 09:00 11/26/23 08:17 Magnesium Lactate 84 Mg Tablet PO 84 mg DAILY PARAG Administration Oxycodone/Acetaminophen 1 tab 11/25/23 16:53 11/26/23 18:02 Oxycodone-Apap 5-325 Mg Tablet PO 1 tab Q4H PRN Administration MODERATE TO SEVERE PAIN Pantoprazole Sodium 40 mg 11/26/23 09:00 11/26/23 08:[address] 40 Mg Tablet PO 40 mg DAILY PARAG Administration Senna 8.6 mg 11/23/23 18:00 11/26/23 17:15 Sennosides 8.6 Mg Tablet PO 8.6 mg BID PARAG Administration Tramadol HCl 50 mg 11/25/23 16:53 11/26/23 10:33 Tramadol 50 Mg Tablet PO 50 mg Q6H PRN Administration MODERATE PAIN PFSH Acute PFSH: Medical History Ischemic cardiomyopathy Essential hypertension Morbid obesity CAMERON (dyspnea on exertion) Non-ST elevation NM (NSTEMI) Chest pain CKD (chronic kidney disease) stage 3, GFR 30-59 ml/min Diabetes Shortness of breath Bilateral renal stones Hyperlipidemia Coronary artery disease Multiple vessel coronary artery disease Osteoarthritis Hypertension Diabetes mellitus Surgical History H/O heart bypass surgery 2 times Hx of cholecystectomy H/O dilation and curettage H/O: H/O: hysterectomy H/O vulvectomy S/P ureteral stent placement Family History Mother , at age 93 Uterine cancer CAD (coronary artery disease) Father , at age 67 CAD (coronary artery disease) Social History Smoking and tobacco/nicotine status: former use of tobacco/nicotine Alcohol intake: never Marital status: / Current occupational status: retired Vitals/I&O/Wt Last Vital Signs Temp 98.0 F 11/26/23 16:00 Pulse 70 05/28/24 16:00 Resp 16 11/26/23 18:02 BP 184/83 11/26/23 16:00 Pulse Ox 95 11/26/23 16:00 O2 Del Method Room Air 11/26/23 16:00 11/26/23 11/26/23 11/26/23 06:59 14:59 22:59 Intake Total 240 / 720 840 / 840 240 / 1080 Balance 240 / 720 840 / 840 240 / 1080 Weight last 48 hrs Weight 244 lb Weight 242 lb 9 oz Physical Exam Narrative: GENERAL: Patient is alert, awake and oriented x3. [] NECK: No jugular vein distension. [] HEENT: No cyanosis. No icterus. No pallor. [] HEART: Regular S1 and S2. No murmur, rub or gallop. [] LUNGS: Clear to auscultate bilaterally. [] CENTRAL NERVOUS SYSTEM: Grossly nonfocal. [] EXTREMITIES: Lower extremities with 1+ edema bilaterally. Data 11/28/23 04:35 11/28/23 15:37 A&P Assessment and plan (1) Pre-operative clearance: (2) Coronary artery disease: Qualifiers: Coronary Disease-Associated Artery/Lesion type: bypass graft [place] vs. transplanted heart: ho-chunk heart Associated angina: without angina Qualified Code(s): I25.810 - Atherosclerosis of coronary artery bypass graft(s) without angina pectoris (3) Hyperlipidemia: Qualifiers: Hyperlipidemia type: mixed hyperlipidemia Qualified Code(s): E78.2 - Mixed hyperlipidemia (4) Essential hypertension: (5) ICD (implantable cardioverter-defibrillator) in place: Plan Patient's cardiac function has improved compared to before. It is normal now. She is not having any ischemic symptoms. Given she needs surgery and had cath done within the last 1 year, she is at acceptable cardiac risk to proceed with the procedure. Will follow post procedure for further adjustment of medications. At this time will not change any medications. Thank you for involving us with care of this patient. We will continue to follow. Please call with questions Consult Attestations Medical Necessity Statement: Care expected to cross 2 midnights. Coding Level of Care Code Acute Code for [facility] Diagnoses Pre-operative clearance Z01.818 Coronary artery disease involving coronary bypass graft of ho-chunk heart without angina pectoris I25.810 Coronary Disease-Associated Artery/Lesion type: bypass graft [place] vs. transplanted heart: ho-chunk heart Associated angina: without angina Mixed hyperlipidemia E78.2 Hyperlipidemia type: mixed hyperlipidemia Essential hypertension I10 ICD (implantable cardioverter-defibrillator) in place Z95.810
--- NOTE | 2023-11-26 18:28 | USCV_ITS ---
Laverne Perez Age: 73 Gender: F : 1950 Exam Date: 11/26/2023 19:44 Ordering Phys: Felix Albarran M.D ([email or web address]) Technologist: MAVIS Exam Location: [facility] [place] Indication: CHF. exam is ordered with OPTISON contrast. BP: 103 / 67 HR: 65 Rhythm: Sinus Technical Quality: Adequate with OPTISON MEASUREMENTS (Male / Female) Normal Values 2D ECHO LV Diastolic Diameter PLAX 4.5 cm 4.2 - 5.9 / 3.9 - 5.3 cm IVS Diastolic Thickness 1.7 cm 0.6 - 1.0 / 0.6 - 0.9 cm IVS Systolic Thickness 2.5 cm LVPW Diastolic Thickness 1.6 cm 0.6 - 1.0 / 0.6 - 0.9 cm LVPW Systolic Thickness 2.0 cm LVOT Diameter 2.2 cm LV Ejection Fraction 2D Teich 69.0 % LV Ejection Fraction MOD 2C 58.5 % LV Ejection Fraction 2C AL 58.5 % LA Diameter 4.4 cm LA Sys Volume AL 67.5 cm cubed LA Sys Volume Index AL 29.4 cm cubed/m squared Aorta at Sinotubular Diameter 2.6 cm IVC Diameter 0.9 cm M-MODE LA Ao Ratio MM 1.8 AV Cusp Separation MM 1.1 cm DOPPLER AV Peak Velocity 172.0 cm/s LVOT Peak Velocity 78.0 cm/s AV Area Cont Eq vti 2.2 cm squared AV Area Cont Eq pk 1.8 cm squared MV Peak Velocity 86.0 cm/s MV Area PHT 3.8 cm squared Mitral E to A Ratio 0.8 TV Peak Velocity 244.0 cm/s TR Peak Velocity 249.0 cm/s TR Peak Gradient 24.8 mmHg TV Peak E Velocity 51.0 cm/s Right Atrial Pressure 10.0 mmHg Pulmonary Artery Systolic Pressu 34.8 mmHg PV Peak Velocity 127.0 cm/s FINDINGS Left Ventricle Left ventricle is normal in size. LV systolic function is normal with EF 50 to 55%. No regional wall motion abnormalities are seen. Grade 1 diastolic dysfunction Right Ventricle Normal in size and function. Pacemaker lead is seen Right Atrium Normal in size. Pacemaker lead is seen Left Atrium Mildly dilated Mitral Valve Moderate mitral annular calcification seen. Mild mitral regurgitation. Aortic Valve Aortic valve is thickened. No significant stenosis or regurgitation. Tricuspid Valve Mild tricuspid regurgitation. Pulmonary artery systolic pressure is normal. Pulmonic Valve Not well visualized Pericardium Normal Aorta Normal in size IVC Appears to be normal CONCLUSIONS LV systolic function is normal with EF of 50 to 55% Grade 1 diastolic dysfunction. Mild mitral regurgitation. Mild tricuspid regurgitation. Compared to prior echocardiogram from 03/2023, LV systolic function has improved significantly and is normal now. Felix Albarran MD (Electronically Signed) Final Date: 27 Nov 2023 08:47 S
[2023-11-26 20:20] LABS: Glucose Point of Care 296 mg/dL (70-110)
[2023-11-27] VITALS (20 sets, daily range): BP systolic 121–153; BP diastolic 54–82; PULSE 61–84; RESP 16–20; TEMP 36.3–36.8; O2SAT 89–98
[2023-11-27 04:43] LABS: Basophils # 0.1 10^3/uL (0.0-0.1); Eosinophils # 0.3 10^3/uL (0.0-0.8); Hematocrit 46.7 % (36-47); Lymphocytes # 1.8 10^3/uL (0.8-4.8); Lymphocytes % 19.5 %; Mean Corpuscular HGB Conc 31.5 g/dL (30-55); Mean Corpuscular Hemoglobin 27.7 pg (27-33); Mean Corpuscular Volume 88.1 fl (85-98); Mean Platelet Volume 8.8 fL (7.4-10.4); Monocytes # 1.1 10^3/uL (0.2-0.9); Monocytes % 11.9 %; Neutrophils # 5.88 10^3/uL (1.8-7.7); Neutrophils % 64.3 %; Nucleated Red Blood Cells % 0 %; Platelet Count 378 10^3/cmm (157-399); Red Cell Distribution Width 15.7 % (12.1-15.1); White Blood Count 9.14 10^3/uL (3.29-11.43)
[2023-11-27 04:58] LABS: Magnesium 1.8 mg/dL (1.7-2.3)
[2023-11-27 04:59] LABS: Alanine Aminotransferase 14 U/L (0-33); Albumin Level 3.1 g/dL (3.5-5.2); Alkaline Phosphatase 66 U/L (35-105); Anion Gap 10.6 (5-19); Aspartate Amino Transferase 15 U/L (0-32); Blood Urea Nitrogen 16 mg/dL (8-23); Carbon Dioxide 29 mmol/L (22-29); Chloride 102 mmol/L (98-107); Creatinine Clr Calc Pharmacy 54.2204; Globulin 3.3 g/dL (1.3-4.6); Glucose 154 mg/dL (65-115); Osmolality Calculated 288 mOsm/kg (285-295); Potassium 4.6 mmol/L (3.5-5.1); Sodium 137 mmol/L (136-145); Total Bilirubin 0.4 mg/dL (0.15-1.2); Total Protein 6.4 g/dL (6.6-8.7)
[2023-11-27 06:31] LABS: Glucose Point of Care 169 mg/dL (70-110)
[2023-11-27] MEDS: perflutren protein-a microsphr 0.22 mg/mL SDV 3 mL IV (06:52)
--- NOTE | 2023-11-27 07:32 | PC.OT ---
HOLD OT EVALUATION TODAY DUE TO SCHEDULED SURGERY
[2023-11-27 08:58] LABS: Glucose Point of Care 126 mg/dL (70-110)
--- NOTE | 2023-11-27 09:30 | W.PM.OPSUD ---
Surgery/Procedure H&P Update DATE OF PROCEDURE: November 27, 2023 DATE H&P PERFORMED: 11/21/23 H&P UPDATE INFORMATION: I have reviewed H&P completed within last 30 days, I have examined patient prior to procedure and No changes to prior documentation PREOP DIAGNOSIS: L2 compression fracture PLANNED PROCEDURE: Operation Date: 11/27/23 09:00 Proposed Procedures p Kyphoplasty L2(Not Applicable) - Maurice Prado, DO
--- NOTE | 2023-11-27 09:35 | P.ANESASSM_ITS ---
Pre-Anesthetic Assessment Height/Weight: Height 1.63 m Weight 109.316 kg Temp Pulse Resp BP Pulse Ox O2 Del Method 97.6 F 66 16 147/68 98 Room Air 11/27/23 04:57 11/27/23 06:00 11/27/23 04:57 11/27/23 04:57 11/27/23 04:57 11/27/23 00:35 Preop Diagnosis: L2 compression fracture Operation Date: 11/27/23 09:00 Proposed Procedures p Kyphoplasty L2(Not Applicable) - Maurice Prado DO Familial anesthetic complications: None Last intake: Intake Last Liquid Date 11/26/23 Last Liquid Time 23:00 Last Solid Date 11/26/23 Last Solid Time 18:00 Social No alcohol and No tobacco Exam alert, oriented x 3, clear to auscultation bilaterally and regular rate & rhythm Airway Mallampati: Class III Dentition: other (no teeth) Pulmonary Chronic Obstructive Pulmonary Disease CV/HEM Arrythmia, Coronary Artery Disease, Congestive Heart Failure and Hypertension pacemaker/defibrillator CABG 3 years ago, only one patent, no interventions, medical management only cath 2022 Conclusions 1. Severe [place] three-vessel coronary artery disease with only remaining patent graft FIELDS to the LAD. Recommendations * Patient is on dual antiplatelet therapy and beta-leanna therapy. She does use sublingual nitroglycerin frequently. We will add long-acting nitrate. If physically capable will refer to cardiac rehab. Chronic Renal Insufficiency Metabolic Diabetes Mellitus, Morbid Obesity and Thyroid Disease Anesthetic Plan ASA status: 4 Anesthesia: General Risk of > 500 ml blood loss (7ml/kg in children): No Other Pertinent Information patient counseled regarding her cardiac status and higher risk of complications. Desires full code status in OR Medications/Allergies Home Medications Medication Instructions Recorded Confirmed Last Taken Type fsroryrq-hvx-yfpusqv 800 mcg 1 tab PO DAILY 12/04/21 11/20/23 11/20/23 History DFE-vitamin K 150 mcg-herb no.289 tablet (Alive Women's 50 Plus Ultra Potency) atorvastatin 80 mg tablet 80 mg PO QAM 30 days #30 tabs 12/06/21 11/20/23 11/20/23 Rx blood sugar diagnostic (Accu-Chek #100 ea 12/06/21 11/21/23 Unknown Rx Guide test strips) blood-glucose meter (Accu-Chek #1 ea 12/06/21 11/21/23 Unknown Rx Guide Glucose Meter) lancets (Accu-Chek Softclix #100 ea 12/06/21 11/21/23 Unknown Rx Lancets) aspirin 81 mg chewable tablet 81 mg PO DAILY 04/01/22 11/20/23 11/20/23 History potassium citrate 15 mEq (1,620 15 meq PO BID #60 tabs 08/07/22 11/21/23 1 Day Ago Rx mg) tablet,extended release ~11/20/23 nitroglycerin 0.4 mg sublingual 0.4 mg sublingual Q5M PRN Chest 10/31/22 11/21/23 03/01/23 Rx tablet Pain #25 tabs evening primrose oil 500 mg capsule 1,000 mg PO DAILY 03/01/23 11/21/23 2 Days Ago History ~11/19/23 glucosamine sulf dipot 1 cap PO BEDTIME 03/01/23 11/21/23 2 Days Ago History chlr,msm,chond 550 mg-C 30 mg-melissa ~11/19/23 1 mg capsule (Glucosamine Chondroitin) turmeric 400 mg capsule 400 mg PO DAILY 03/01/23 11/21/23 2 Days Ago History ~11/19/23 vitamin B complex 1 cap PO BEDTIME 03/01/23 11/21/23 2 Days Ago History ~11/19/23 vitamin E 670 mg (1,000 unit) 670 mg PO DAILY 03/01/23 11/21/23 02/28/23 History capsule insulin glargine 100 unit/mL (3 31 unit (0.31 mL) SUBCUT BID #15 mL 03/04/23 11/21/23 1 Day Ago Rx mL) subcutaneous pen (Lantus ~11/20/23 Solostar U-100 Insulin) clopidogrel 75 mg tablet 75 mg PO DAILY #90 tabs 04/08/23 11/21/23 1 Day Ago Rx ~11/20/23 magnesium L-lactate 84 mg See Rx Instructions .Route 05/16/23 11/21/23 1 Day Ago Rx tablet,extended release .COMPLEX #100 tabs ~11/20/23 spironolactone 25 mg tablet 25 mg PO DAILY #90 tabs 07/30/23 11/21/23 2 Days Ago Rx ~11/19/23 amiodarone 200 mg tablet 200 mg PO DAILY #90 tabs 10/17/23 11/20/23 11/20/23 Rx gabapentin 300 mg capsule 300 mg PO Q8H #30 caps 10/24/23 11/21/23 1 Day Ago Rx ~11/20/23 oxycodone-acetaminophen 5 mg-325 1 tab PO Q8H PRN pain #14 tabs 10/24/23 11/21/23 Unknown Rx mg tablet (Percocet) furosemide 40 mg tablet 40 mg PO QAM 11/21/23 11/21/23 1 Day Ago History ~11/20/23 Allergies Allergy/AdvReac Type Severity Reaction Status Date / Time [facility] AdvReac Intermediate decreased Verified 10/24/23 02:43 urination valsartan [[facility]] AdvReac Intermediate decreased Verified 10/24/23 02:43 urination farxiga AdvReac ADR-Nausea Uncoded 10/24/23 02:43 steroids AdvReac increased Uncoded 10/24/23 02:43 high BP Current Medications Generic Name Dose Route Start Last Admin Trade Name Freq PRN Reason Stop Dose Admin Amiodarone HCl 200 mg 11/21/23 09:00 11/26/23 08:18 Amiodarone 200 Mg Tablet PO 200 mg DAILY PARAG Administration Amlodipine Besylate 5 mg 11/26/23 13:37 11/26/23 14:06 Amlodipine 5 Mg Tablet PO 5 mg DAILY PARAG Administration Aspirin 81 mg 11/25/23 12:45 11/26/23 08:17 Aspirin 81 Mg Chew Tablet PO 81 mg DAILY PARAG Administration Atorvastatin Calcium 80 mg 11/21/23 06:00 11/27/23 06:13 Atorvastatin 40 Mg Tablet PO Not Given QAM PARAG Calcium Carbonate 1 each 11/21/23 09:00 11/26/23 17:15 Calcium Carb-Vit D 500mg-200unit 1 Tablet PO 1 each BID PARAG Administration Clopidogrel Bisulfate 75 mg 11/21/23 09:00 11/21/23 09:06 Clopidogrel 75 Mg Tablet PO Not Given DAILY PARAG Gabapentin 300 mg 11/25/23 15:00 11/26/23 20:46 Gabapentin 300 Mg Capsule PO 300 mg TID PARAG Administration Heparin Sodium (Porcine) 5,000 unit 11/20/23 22:00 11/26/23 22:01 Heparin 5,000 Unit/Ml Inj 1 Ml SUBCUT 5,000 unit Q12H PARAG Administration Insulin Glargine 45 unit 11/23/23 21:00 11/26/23 20:46 Insulin Glargine 100 Units/1 Ml SUBCUT 45 unit BID@0900,2100 PARAG Administration Insulin Human Lispro 0 unit 11/21/23 08:00 11/26/23 20:46 Insulin Lispro 100 Unit/1 Ml SUBCUT 10 unit WM&BEDTIME PARAG Administration Protocol Levothyroxine Sodium 100 mcg 11/26/23 06:00 11/27/23 06:13 Levothyroxine 100 Mcg Tablet PO Not Given QAM PARAG Magnesium Lactate 84 mg 11/21/23 09:00 11/26/23 08:17 Magnesium Lactate 84 Mg Tablet PO 84 mg DAILY PARAG Administration Oxycodone/Acetaminophen 1 tab 11/25/23 16:53 11/26/23 18:02 Oxycodone-Apap 5-325 Mg Tablet PO 1 tab Q4H PRN Administration MODERATE TO SEVERE PAIN Pantoprazole Sodium 40 mg 11/26/23 09:00 11/26/23 08:[address] 40 Mg Tablet PO 40 mg DAILY [facility] Administration Senna 8.6 mg 11/23/23 18:00 11/26/23 17:15 Sennosides 8.6 Mg Tablet PO 8.6 mg BID PARAG Administration Tramadol HCl 50 mg 11/25/23 16:53 11/26/23 10:33 Tramadol 50 Mg Tablet PO 50 mg Q6H PRN Administration MODERATE PAIN PFSH Anesthesia Medical History Ischemic cardiomyopathy Essential hypertension Morbid obesity [place] (dyspnea on exertion) Non-ST elevation CA (NSTEMI) Chest pain CKD (chronic kidney disease) stage 3, GFR 30-59 ml/min Diabetes Shortness of breath Bilateral renal stones Hyperlipidemia Coronary artery disease Multiple vessel coronary artery disease Osteoarthritis Hypertension Diabetes mellitus Surgical History H/O heart bypass surgery 2 times Hx of cholecystectomy H/O dilation and curettage H/O: H/O: hysterectomy H/O vulvectomy S/P ureteral stent placement Family History Mother , at age 93 Uterine cancer CAD (coronary artery disease) Father , at age 67 CAD (coronary artery disease) Social History Smoking and tobacco/nicotine status: former use of tobacco/nicotine Alcohol intake: never Marital status: / Current occupational status: retired Data Anesthesia 11/27/23 04:34 11/27/23 04:34 Short CBC 11/25/23 11/26/23 11/27/23 Range/Units 12:57 04:15 04:34 WBC 9.16 8.46 9.14 (3.29-11.43) 10^3/uL Hgb 13.90 13.40 14.70 (11.27-16.99) g/dL Hct 43.4 43.3 46.7 (36-47) % MCV 88.4 88.9 88.1 (85-98) fl Plt Count 406 H 376 378 (157-399) 10^3/cmm Neut % (Auto) 64.5 60.1 64.3 % Neut # (Auto) 5.91 5.09 5.88 (1.8-7.7) 10^3/uL BMP 11/25/23 11/26/23 11/27/23 12:57 04:15 04:34 Sodium 138 137 137 Potassium 4.5 4.3 4.6 Chloride 102 103 102 Carbon Dioxide 28 26 29 BUN 20 18 16 Creatinine 1.1 H 1.0 H 1.1 H Glucose 262 H 140 H 154 H Calcium 8.4 L 8.4 L 9.0 Liver Function 11/25/23 11/26/23 11/27/23 Range/Units 12:57 04:15 04:34 Total Bilirubin 0.2 0.3 0.4 (0.15-1.2) mg/dL AST 5 14 15 (0-32) U/L ALT 5 16 14 (0-33) U/L Alkaline Phosphatase 66 63 66 (35-105) U/L Albumin 2.9 L 3.1 L 3.1 L (3.5-5.2) g/dL Cardiac Studies: 2 Echocardiogram 11/26/23 Sestamibi Stress Test (Cardiology) 04/02 Cardiac Event Monitor 05/08/23
[2023-11-27] MEDS: fentaNYL 50 mcg/mL INJ 2mL 25 MCG IVP (09:46)
[2023-11-27] MEDS: ceFAZolin 2,000 MG in sodium chloride 0.9% (plus) 50 ML 100 MG IV ×2 (10:00→18:04)
--- NOTE | 2023-11-27 10:04 | SC_ITS ---
WS: [id number] INTRAOPERATIVE TECHNIQUE: 4 Spot fluoroscopic images for intraoperative purposes. FLUOROSCOPY TIME: 69.9 seconds CLINICAL INFORMATION: intraoperative FINDINGS: Fluoroscopy used for intraoperative purposes. Kyphoplasty changes L2. SC/C-arm FL for Kyphoplasty IMPRESSION: Images obtained for intraoperative purposes.
[2023-11-27] MEDS: lidocaine-epi 1% PF 1:200,000 30 mL SDV 10 ML INJECTION (10:38)
--- NOTE | 2023-11-27 11:24 | PM.OP ---
Operative Report Date of procedure: November 27, 2023 Pre-op diagnosis: L2 wedge osteoporotic traumatic compression fracture Post-op diagnosis: same Procedure done: L2 kyphoplasty Surgeon: Maurice Prado DO Estimated blood loss (mL): 5 Procedure: L2 kyphoplasty Patient brought the op suite after undergoing anesthesia placed in the prone position. All areas impingement well-padded. Patient's prepped draped normal sterile fashion. Skin incision made over the left lateral pedicle. The awl was inserted followed by the drill followed by the balloon. Balloon was inflated deflated. Next tension was brought to attempting to do the right pedicle. The GUIDING of the facet at this point elected not to proceed with the right pedicle. Cement was then injected into the left pedicle. The cement traveled across to the other side filling up the vertebrae. AP lateral fluoroscopy ensured that the cement was in good position. Tubes removed. X-rays AP lateral ensured that cement was in good position. Wounds were irrigated closed with nylon suture. Sterile dressings were applied patient transferred to the PACU in stable condition.
--- NOTE | 2023-11-27 11:40 | ANE.PACU2 ---
Inpatient post-anesthesia follow up: Airway intact: Yes Vital signs: Temperature 97.6 F Pulse Rate 72 Respiratory Rate 16 Blood Pressure 137/73 Pulse Oximetry 95 Oxygen Delivery Me thod Nasal Cannula Oxygen Flow Rate 2 Fraction of Inspir ed Oxygen Hydration adequate: Yes Nausea and vomiting: No Pain level: 1 Mental status: Baseline
[2023-11-27] MEDS: oxyCODONE-APAP 5-325 mg Tablet 1 TAB PO ×2 (14:15→21:13)
--- NOTE | 2023-11-27 14:41 | PM.PN ---
Subjective Subjective: No acute events overnight. Patient has remained hemodynamically stable and afebrile. Patient underwent kyphoplasty today which she tolerated well. Blood pressure is better controlled. Vitals/I&O/Wt Last Vital Signs Temp 97.6 F 11/27/23 13:03 Pulse 72 11/27/23 13:03 Resp 18 11/27/23 14:15 BP 137/73 11/27/23 13:03 Pulse Ox 95 11/27/23 13:03 O2 Del Method Nasal Cannula 11/27/23 13:03 O2 Flow Rate 2 11/27/23 11:34 11/26/23 11/27/23 11/27/23 22:59 06:59 14:59 Intake Total 440 / 1280 0 / 1280 100 / 100 Output Total 200 / 200 2 / 2 Balance 240 / 1080 0 / 1080 98 / 98 Weight last 48 hrs Weight 109.316 kg Weight 110.677 kg Physical Exam Narrative: General: Alert oriented x3, patient seen laying in bed appearing comfortable at this time, breathing room air HEENT: Normocephalic, atraumatic, EOMI, Cardio: Regular rate rhythm, normal S1-S2 Respiratory: Good bilateral air entry, no wheezes no rhonchi appreciated GI: Abdomen soft, nontender, nondistended, bowel sounds + Extremities: No edema bilateral lower extremities Neuro: Cranial 2-12 intact, bilateral lower extremities mildly weak. Able to lift of the bed. Straight leg raise negative., Strength upper extremities bilaterally symmetrical. Data 11/27/23 04:34 11/27/23 04:34 A&P Assessment and plan (1) L2 vertebral fracture: Appreciate orthopedic recommendation. Appreciate bone scan results. Post kyphoplasty day 0. Physical therapy, restart of Plavix, anticoagulation, perioperative antibiotics, restart diet as per surgical team. Physical therapy. Continue with oxycodone 5 mg 1 tablet every 4 hours as needed, add tramadol 50 mg every 6 hours as needed. 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 Patient was seen by cardiology team. Appreciate recommendations. Patient was cleared prior to the surgery from cardiac standpoint. Repeat echocardiogram during this hospitalization shows improvement in EF up to 50 to 55% with grade 1 diastolic dysfunction, mild MR and TR. Qualifiers: Encounter type: initial encounter Fracture morphology: unspecified fracture morphology Fracture type: closed Qualified Code(s): S32.029A - Unspecified fracture of second lumbar vertebra, initial encounter for closed fracture (2) Diabetes mellitus: The patient's A1c was significantly elevated at 10.1. Blood sugar better controlled. Continue with Lantus 45 units twice daily along with insulin sliding scale for now. Will uptitrate as per blood sugars around 1 80-200 for now. Qualifiers: Diabetes mellitus complication status: without complication Diabetes mellitus supervisor intermediates insulin use: without supervisor intermediates use Diabetes mellitus type: type 2 Qualified Code(s): E11.9 - Type 2 diabetes mellitus without complications (3) Hypothyroid: TSH elevated. Free T4 low. Increase levothyroxine to 100 mcg daily. Patient will need thyroid profile done within next 4 to 6 weeks. (4) Essential hypertension: Goal blood pressure less than 140/90 mmHg. Blood pressure is elevated. Add amlodipine 5 mg oral daily. Uptitrate as per goal blood pressures. Plan CAD: History of CABG, ischemic cardiomyopathy with most recent cardiac catheterization in March 2023 which showed severe triple-vessel disease with only remaining patent graft of FIELDS to LAD when discharged on medical management. Denies any chest pain for now. Continue with home dose of aspirin, statin. Plavix on hold. Appreciate A1c, lipid panel. A-fib: Continue with home dose of amiodarone. 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 Plan for the day: Physical therapy as per orthopedic team. Post kyphoplasty care. Monitor hemodynamics and oxygen saturation. Restart diet once appropriate as per surgical team. Watch for fluid overload. Continue with aspirin. Hold off on Plavix. Will restart Plavix once appropriate by surgical team. Continue chronic medications. Physical therapy in next 24 hours. Repeat CBC and CMP in AM. Perioperative antibiotics as per surgical team. Discharge plan: Plan to discharge to SNF once patient is cleared from surgical point of view. DNR/DNI Cardiac carb consistent diet Heparin 5000 every 12 hourly for DVT prophylaxis Protonix for PUD prophylaxis Attestations Medical Necessity Statement*: Requires further hospitalization for post kyphoplasty care in a patient with acute L2 vertebral fracture while safe discharge planning is sought. Diagnoses L2 vertebral fracture S32.029A Encounter type: initial encounter Fracture morphology: unspecified fracture morphology Fracture type: closed Type 2 diabetes mellitus without complication, without long-term current use of insulin E11.9 Diabetes mellitus complication status: without complication Diabetes mellitus supervisor intermediates insulin use: without custodial use Diabetes mellitus type: type 2 Hypothyroid E03.9 Essential hypertension I10
[2023-11-27] MEDS: gabapentin 300 mg Capsule PO ×2 (16:30→21:13)
--- NOTE | 2023-11-27 16:39 | P.PN_ITS ---
Subjective 2 Subjective: Patient had uneventful surgery. Doing well. Vitals/I&O/Wt Last Vital Signs Temp 97.7 F 11/27/23 14:55 Pulse 74 11/27/23 14:55 Resp 16 11/27/23 14:55 BP 123/70 11/27/23 14:55 Pulse Ox 93 11/27/23 14:55 O2 Del Method Nasal Cannula 11/27/23 14:55 O2 Flow Rate 2 11/27/23 11:34 11/27/23 11/27/23 11/27/23 06:59 14:59 22:59 Intake Total 0 / 1280 100 / 100 Output Total 2 / Balance 0 / 1080 98 / 98 Weight last 48 hrs Weight 241 lb Weight 244 lb Physical Exam 2 Narrative: GENERAL: Patient is alert, awake and oriented x3. [] NECK: No jugular vein distension. [] HEENT: No cyanosis. No icterus. No pallor. [] HEART: Regular S1 and S2. No murmur, rub or gallop. [] LUNGS: Clear to auscultate bilaterally. [] CENTRAL NERVOUS SYSTEM: Grossly nonfocal. [] EXTREMITIES: Lower extremities with 1+ edema bilaterally. Data 11/28/23 04:35 11/28/23 15:37 A&P Assessment and plan (1) Pre-operative clearance: (2) Coronary artery disease: Qualifiers: Coronary Disease-Associated Artery/Lesion type: bypass graft [place] vs. transplanted heart: [place] heart Associated angina: without angina Qualified Code(s): I25.810 - Atherosclerosis of coronary artery bypass graft(s) without angina pectoris (3) Hyperlipidemia: Qualifiers: Hyperlipidemia type: mixed hyperlipidemia Qualified Code(s): E78.2 - Mixed hyperlipidemia (4) Essential hypertension: (5) ICD (implantable cardioverter-defibrillator) in place: Plan Patient overall doing well. Continue current medications. Can add metoprolol 25 mg twice daily. Thank you for involving us with care of this patient. We will continue to follow. Please call with questions Attestations 2 Medical Necessity Statement*: Care expected to cross 2 midnights. Coding Level of Care Code Acute Code for Chg Fwd Diagnoses Pre-operative clearance Z01.818 Coronary artery disease involving coronary bypass graft of [place] heart without angina pectoris I25.810 Coronary Disease-Associated Artery/Lesion type: bypass graft [place] vs. transplanted heart: [place] heart Associated angina: without angina Mixed hyperlipidemia E78.2 Hyperlipidemia type: mixed hyperlipidemia Essential hypertension I10 ICD (implantable cardioverter-defibrillator) in place Z95.810
[2023-11-27 17:04] LABS: Glucose Point of Care 224 mg/dL (70-110)
[2023-11-27] MEDS: calcium carb-vit d 500mg-200unit 1 Tablet 1 EACH PO (18:03)
[2023-11-27] MEDS: sennosides 8.6 mg Tablet 8.59999999999999964 MG PO (18:04)
[2023-11-27] MEDS: docusate sodium 100 mg Capsule PO (18:04)
[2023-11-27] MEDS: insulin lispro 100 unit/1 mL SUBCUT ×2 (19:04→21:14)
[2023-11-27 20:20] LABS: Glucose Point of Care 293 mg/dL (70-110)
[2023-11-27] MEDS: insulin glargine 100 units/1 mL 45 UNIT SUBCUT (21:14)
[2023-11-27] MEDS: heparin 5,000 unit/mL INJ 1 mL 5000 UNIT SUBCUT (21:14)
[2023-11-28] VITALS (11 sets, daily range): BP systolic 135–167; BP diastolic 62–81; PULSE 67–83; RESP 16–18; TEMP 36.4–36.8; O2SAT 92–95
[2023-11-28] MEDS: ceFAZolin 2,000 MG in sodium chloride 0.9% (plus) 50 ML 100 MG IV ×2 (01:43→10:47)
[2023-11-28] MEDS: oxyCODONE-APAP 5-325 mg Tablet 1 TAB PO ×2 (02:49→14:54)
[2023-11-28] MEDS: atorvastatin 40 mg Tablet 80 MG PO (05:21)
[2023-11-28] MEDS: levothyroxine 100 mcg Tablet PO (05:21)
[2023-11-28 05:25] LABS: Basophils # 0.1 10^3/uL (0.0-0.1); Basophils % 0.7 %; Eosinophils # 0.1 10^3/uL (0.0-0.8); Eosinophils % 1.4 %; Hematocrit 43.8 % (36-47); Lymphocytes # 1.4 10^3/uL (0.8-4.8); Lymphocytes % 13.9 %; Mean Corpuscular HGB Conc 30.8 g/dL (30-55); Mean Corpuscular Hemoglobin 27.8 pg (27-33); Mean Corpuscular Volume 90.3 fl (85-98); Mean Platelet Volume 8.9 fL (7.4-10.4); Monocytes # 1.2 10^3/uL (0.2-0.9); Monocytes % 11.8 %; Neutrophils # 7.02 10^3/uL (1.8-7.7); Neutrophils % 71.8 %; Nucleated Red Blood Cells % 0 %; Platelet Count 361 10^3/cmm (157-399); Red Blood Count 4.85 10^6/uL (3.85-5.65); White Blood Count 9.78 10^3/uL (3.29-11.43)
[2023-11-28 05:43] LABS: Alanine Aminotransferase 19 U/L (0-33); Albumin Level 2.9 g/dL (3.5-5.2); Alkaline Phosphatase 69 U/L (35-105); Anion Gap 12.7 (5-19); Aspartate Amino Transferase 21 U/L (0-32); Blood Urea Nitrogen 18 mg/dL (8-23); Calcium 8.7 mg/dL (8.5-10.5); Carbon Dioxide 27 mmol/L (22-29); Chloride 103 mmol/L (98-107); Globulin 3.1 g/dL (1.3-4.6); Glucose 204 mg/dL (65-115); Osmolality Calculated 294 mOsm/kg (285-295); Potassium 4.7 mmol/L (3.5-5.1); Sodium 138 mmol/L (136-145); Total Bilirubin 0.3 mg/dL (0.15-1.2)
[2023-11-28 05:48] LABS: Creatinine Clr Calc Pharmacy 46.1832
[2023-11-28 05:57] LABS: Magnesium 1.8 mg/dL (1.7-2.3)
[2023-11-28 06:18] LABS: Glucose Point of Care 162 mg/dL (70-110)
--- NOTE | 2023-11-28 08:22 | PM.PN ---
Subjective Subjective: Patient's pain is improved in her back. Vitals/I&O/Wt Last Vital Signs Temp 97.8 F 11/28/23 07:58 Pulse 72 11/28/23 07:58 Resp 16 11/28/23 07:58 BP 135/67 11/28/23 07:58 Pulse Ox 92 11/28/23 07:58 O2 Del Method Room Air 11/28/23 07:58 O2 Flow Rate 2 11/27/23 11:34 11/27/23 11/28/23 11/28/23 22:59 06:59 14:59 Intake Total 770 / 870 530 / 1400 Balance 770 / 868 530 / 1398 Weight last 48 hrs Weight 243 lb 12.8 oz Weight 241 lb Physical Exam Narrative: Resting in bed patient just says her legs still feel weak but back pain is improved Data 11/28/23 04:35 11/28/23 04:35 A&P Assessment and plan (1) L2 vertebral fracture: Patient is postop day 1 kyphoplasty. Okay to discharge from orthopedic standpoint Follow-up orthopedic clinic in 2 weeks. Qualifiers: Encounter type: initial encounter Fracture morphology: unspecified fracture morphology Fracture type: closed Qualified Code(s): S32.029A - Unspecified fracture of second lumbar vertebra, initial encounter for closed fracture Attestations Medical Necessity Statement*: Per primary service Coding Level of Care Code Acute Code for [facility] Fwd Diagnoses L2 vertebral fracture S32.029A Encounter type: initial encounter Fracture morphology: unspecified fracture morphology Fracture type: closed
[2023-11-28] MEDS: TRAMadol 50 mg Tablet PO (08:46)
[2023-11-28] MEDS: amiodarone 200 mg Tablet PO (08:46)
[2023-11-28] MEDS: docusate sodium 100 mg Capsule PO ×2 (08:46→17:19)
[2023-11-28] MEDS: aspirin 81 mg Chew Tablet PO (08:46)
[2023-11-28] MEDS: calcium carb-vit d 500mg-200unit 1 Tablet 1 EACH PO ×2 (08:46→17:19)
[2023-11-28] MEDS: amlodipine 5 mg Tablet PO (08:46)
[2023-11-28] MEDS: gabapentin 300 mg Capsule PO ×3 (08:46→20:31)
[2023-11-28] MEDS: sennosides 8.6 mg Tablet 8.59999999999999964 MG PO ×2 (08:46→17:19)
[2023-11-28] MEDS: magnesium lactate 84 mg Tablet PO (08:46)
[2023-11-28] MEDS: insulin lispro 100 unit/1 mL SUBCUT ×4 (08:47→20:32)
[2023-11-28] MEDS: insulin glargine 100 units/1 mL 45 UNIT SUBCUT ×2 (08:47→20:32)
[2023-11-28] MEDS: pantoprazole DR 40 mg Tablet PO (08:47)
[2023-11-28] MEDS: heparin 5,000 unit/mL INJ 1 mL 5000 UNIT SUBCUT ×2 (10:47→22:20)
[2023-11-28 11:18] LABS: Glucose Point of Care 201 mg/dL (70-110)
--- NOTE | 2023-11-28 14:09 | P.PN_ITS ---
Subjective 2 Subjective: No acute vents overnight. Patient has remained hemodynamically stable and afebrile. Denies any new complaints. Working well with physical therapy. Good oral intake. Vitals/I&O/Wt Last Vital Signs Temp 97.9 F 11/28/23 12:21 Pulse 73 11/28/23 12:21 Resp 17 11/28/23 12:21 BP 167/75 11/28/23 12:21 Pulse Ox 95 11/28/23 12:21 O2 Del Method Room Air 11/28/23 12:21 O2 Flow Rate 2 11/27/23 11:34 11/27/23 11/28/23 11/28/23 22:59 06:59 14:59 Intake Total 770 / 870 530 / 1400 1210 / 1210 Balance 770 / 868 530 / 1398 1210 / 1210 Weight last 48 hrs Weight 110.586 kg Weight 109.316 kg Physical Exam 2 Narrative: General: Alert oriented x3, patient seen laying in bed appearing comfortable at this time, breathing room air HEENT: Normocephalic, atraumatic, EOMI, Cardio: Regular rate rhythm, normal S1-S2 Respiratory: Good bilateral air entry, no wheezes no rhonchi appreciated GI: Abdomen soft, nontender, nondistended, bowel sounds + Extremities: No edema bilateral lower extremities Neuro: Cranial 2-12 intact, bilateral lower extremities mildly weak. Able to lift of the bed. Straight leg raise negative., Strength upper extremities bilaterally symmetrical. Data 11/28/23 04:35 11/28/23 04:35 A&P Assessment and plan (1) L2 vertebral fracture: Appreciate orthopedic recommendation. Appreciate bone scan results. Post kyphoplasty day 1. Monitor hemoglobin. Continue physical therapy. Heparin 5000 every 12 hourly for DVT prophylaxis. Restart Plavix once okay with orthopedic team. Continue with oxycodone 5 mg 1 tablet every 4 hours as needed, add tramadol 50 mg every 6 hours as needed. 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 Patient was seen by cardiology team. Appreciate recommendations. Patient was cleared prior to the surgery from cardiac standpoint. Repeat echocardiogram during this hospitalization shows improvement in EF up to 50 to 55% with grade 1 diastolic dysfunction, mild MR and TR. Qualifiers: Encounter type: initial encounter Fracture morphology: unspecified fracture morphology Fracture type: closed Qualified Code(s): S32.029A - Unspecified fracture of second lumbar vertebra, initial encounter for closed fracture (2) Diabetes mellitus: The patient's A1c was significantly elevated at 10.1. Blood sugar better controlled. Continue with Lantus 45 units twice daily along with insulin sliding scale for now. Will uptitrate as per blood sugars around 1 80-200 for now. Qualifiers: Diabetes mellitus complication status: without complication Diabetes mellitus long distance operator insulin use: without long distance operator use Diabetes mellitus type: t ype 2 Qualified Code(s): E11.9 - Type 2 diabetes mellitus without complications (3) Hypothyroid: TSH elevated. Free T4 low. Increase levothyroxine to 100 mcg daily. Patient will need thyroid profile done within next 4 to 6 weeks. (4) Essential hypertension: Goal blood pressure less than 140/90 mmHg. Blood pressure slightly elevated. Add amlodipine 5 mg daily. If needed will uptitrate 10 mg depending on goal blood pressure for the next 24 hours. Plan CAD: History of CABG, ischemic cardiomyopathy with most recent cardiac catheterization in March 2023 which showed severe triple-vessel disease with only remaining patent graft of FIELDS to LAD when discharged on medical management. Denies any chest pain for now. Continue with home dose of aspirin, statin. Plavix on hold. Appreciate A1c, lipid panel. A-fib: Continue with home dose of amiodarone. library monitor. ROB: Patient has mild ROB today. Creatinine up to 1.3. Most likely in setting of poor oral intake perioperatively. Continue with oral intake for now. No plan for IV fluids for now. Repeat BMP in evening. Discharge plan: Plan to discharge to SNF once authorization is available. DNR/DNI Cardiac carb consistent diet Heparin 5000 every 12 hourly for DVT prophylaxis Protonix for PUD prophylaxis Attestations 2 Medical Necessity Statement*: Requires further hospitalization for post kyphoplasty. The patient was admitted with acute L2 vertebral fracture while safe discharge planning is sought. Diagnoses L2 vertebral fracture S32.029A Encounter type: initial encounter Fracture morphology: unspecified fracture morphology Fracture type: closed Type 2 diabetes mellitus without complication, without long-term current use of insulin E11.9 Diabetes mellitus complication status: without complication Diabetes mellitus long distance operator insulin use: without long distance operator use Diabetes mellitus type: type 2 Hypothyroid E03.9 Essential hypertension I10
--- NOTE | 2023-11-28 15:15 | PC.OT ---
OT EVALUATION ATTEMPTED. PATIENT SLEEPING SOUNDLY
[2023-11-28 16:15] LABS: Blood Urea Nitrogen 20 mg/dL (8-23); Calcium 8.6 mg/dL (8.5-10.5); Carbon Dioxide 27 mmol/L (22-29); Chloride 102 mmol/L (98-107); Creatinine Clr Calc Pharmacy 42.8844; Glucose 186 mg/dL (65-115); Osmolality Calculated 291 mOsm/kg (285-295); Sodium 137 mmol/L (136-145)
[2023-11-28 16:16] LABS: Anion Gap 12.6 (5-19); Potassium 4.6 mmol/L (3.5-5.1)
[2023-11-28 16:50] LABS: Glucose Point of Care 202 mg/dL (70-110)
--- NOTE | 2023-11-28 17:55 | PM.PN ---
Subjective Subjective: Patient doing well. No chest pain. Vitals/I&O/Wt Last Vital Signs Temp 97.7 F 11/28/23 17:02 Pulse 78 11/28/23 17:02 Resp 16 11/28/23 17:02 BP 152/81 11/28/23 17:02 Pulse Ox 93 11/28/23 17:02 O2 Del Method Room Air 11/28/23 17:02 O2 Flow Rate 2 11/27/23 11:34 11/28/23 11/28/23 11/28/23 06:59 14:59 22:59 Intake Total 530 / 1400 1210 / 1210 Balance 530 / 1398 1210 / 1210 Weight last 48 hrs Weight 243 lb 12.8 oz Weight 241 lb Physical Exam Narrative: GENERAL: Patient is alert, awake and oriented x3. [] NECK: No jugular vein distension. [] HEENT: No cyanosis. No icterus. No pallor. [] HEART: Regular S1 and S2. No murmur, rub or gallop. [] LUNGS: Clear to auscultate bilaterally. [] CENTRAL NERVOUS SYSTEM: Grossly nonfocal. [] EXTREMITIES: Lower extremities with 1+ edema bilaterally. Data 11/29/23 04:42 11/29/23 04:42 A&P Assessment and plan (1) Pre-operative clearance: (2) Coronary artery disease: Qualifiers: Coronary Disease-Associated Artery/Lesion type: bypass graft [place] vs. transplanted heart: [place] heart Associated angina: without angina Qualified Code(s): I25.810 - Atherosclerosis of coronary artery bypass graft(s) without angina pectoris (3) Hyperlipidemia: Qualifiers: Hyperlipidemia type: mixed hyperlipidemia Qualified Code(s): E78.2 - Mixed hyperlipidemia (4) Essential hypertension: (5) ICD (implantable cardioverter-defibrillator) in place: Plan Patient is a stable. Continue current medical therapy. If BP is elevated, can start metoprolol at 25mg BID We will sign off. Please call with questions. Attestations Medical Necessity Statement*: Care expected to cross 2 midnights. Coding Level of Care Code Acute Code for Chg Fwd Diagnoses Pre-operative clearance Z01.818 Coronary artery disease involving coronary bypass graft of [place] heart without angina pectoris I25.810 Coronary Disease-Associated Artery/Lesion type: bypass graft [place] vs. transplanted heart: [place] heart Associated angina: without angina Mixed hyperlipidemia E78.2 Hyperlipidemia type: mixed hyperlipidemia Essential hypertension I10 ICD (implantable cardioverter-defibrillator) in place Z95.810
[2023-11-28 20:20] LABS: Glucose Point of Care 232 mg/dL (70-110)
[2023-11-29] VITALS (9 sets, daily range): BP systolic 126–147; BP diastolic 59–82; PULSE 67–81; RESP 16–18; TEMP 36.4–37.2; O2SAT 91–94
[2023-11-29] MEDS: atorvastatin 40 mg Tablet 80 MG PO (05:01)
[2023-11-29] MEDS: levothyroxine 100 mcg Tablet PO (05:01)
[2023-11-29] MEDS: oxyCODONE-APAP 5-325 mg Tablet 1 TAB PO ×2 (05:03→15:16)
[2023-11-29 05:26] LABS: Basophils # 0.1 10^3/uL (0.0-0.1); Eosinophils # 0.2 10^3/uL (0.0-0.8); Eosinophils % 2.8 %; Hematocrit 43.1 % (36-47); Lymphocytes # 1.5 10^3/uL (0.8-4.8); Lymphocytes % 18.3 %; Mean Corpuscular HGB Conc 31.3 g/dL (30-55); Mean Corpuscular Hemoglobin 27.8 pg (27-33); Mean Corpuscular Volume 88.7 fl (85-98); Monocytes # 0.9 10^3/uL (0.2-0.9); Monocytes % 10.9 %; Neutrophils # 5.43 10^3/uL (1.8-7.7); Neutrophils % 66.5 %; Nucleated Red Blood Cells % 0 %; Platelet Count 323 10^3/cmm (157-399); Red Blood Count 4.86 10^6/uL (3.85-5.65); Red Cell Distribution Width 15.9 % (12.1-15.1); White Blood Count 8.16 10^3/uL (3.29-11.43)
[2023-11-29 05:37] LABS: Alanine Aminotransferase 11 U/L (0-33); Albumin Level 2.7 g/dL (3.5-5.2); Alkaline Phosphatase 64 U/L (35-105); Anion Gap 12.2 (5-19); Aspartate Amino Transferase 22 U/L (0-32); Blood Urea Nitrogen 20 mg/dL (8-23); Calcium 8.5 mg/dL (8.5-10.5); Carbon Dioxide 26 mmol/L (22-29); Chloride 102 mmol/L (98-107); Glucose 135 mg/dL (65-115); Osmolality Calculated 287 mOsm/kg (285-295); Potassium 4.2 mmol/L (3.5-5.1); Sodium 136 mmol/L (136-145); Total Bilirubin 0.3 mg/dL (0.15-1.2); Total Protein 5.7 g/dL (6.6-8.7)
[2023-11-29 05:46] LABS: Creatinine Clr Calc Pharmacy 54.4261
[2023-11-29 06:10] LABS: Glucose Point of Care 131 mg/dL (70-110)
[2023-11-29] MEDS: calcium carb-vit d 500mg-200unit 1 Tablet 1 EACH PO (08:03)
[2023-11-29] MEDS: aspirin 81 mg Chew Tablet PO (08:03)
[2023-11-29] MEDS: magnesium lactate 84 mg Tablet PO (08:03)
[2023-11-29] MEDS: sennosides 8.6 mg Tablet 8.59999999999999964 MG PO (08:03)
[2023-11-29] MEDS: amlodipine 5 mg Tablet PO (08:03)
[2023-11-29] MEDS: gabapentin 300 mg Capsule PO ×2 (08:03→15:16)
[2023-11-29] MEDS: amiodarone 200 mg Tablet PO (08:03)
[2023-11-29] MEDS: docusate sodium 100 mg Capsule PO (08:03)
[2023-11-29] MEDS: pantoprazole DR 40 mg Tablet PO (08:03)
[2023-11-29] MEDS: insulin glargine 100 units/1 mL 45 UNIT SUBCUT (08:04)
[2023-11-29] MEDS: TRAMadol 50 mg Tablet PO (08:04)
[2023-11-29] MEDS: acetaminophen 325 mg Tablet 650 MG PO (08:04)
--- NOTE | 2023-11-29 09:28 | PC.SOCIAL ---
IMM Update Pg. 2 of IMM updated and reviewed with patient, who verbalized understanding. Copy provided.
[2023-11-29 11:15] LABS: Glucose Point of Care 166 mg/dL (70-110)
[2023-11-29] MEDS: insulin lispro 100 unit/1 mL SUBCUT (11:29)
[2023-11-29] MEDS: heparin 5,000 unit/mL INJ 1 mL 5000 UNIT SUBCUT (11:30)
--- NOTE | 2023-11-29 13:55 | P.DS_ITS ---
Discharge Providers Date of Admission: 11/20/23 22:07 Date of Discharge: November 29, 2023 Attending Provider at Admission: Tiffany Cooper MD Attending Provider at Discharge: Sarmad Mcmullen MD Consults: Orthopedic surgery: Dr. Prado Cardiology: Dr. Albarran Primary Care Provider: Keo Cook MD Diagnoses at Discharge Discharge Diagnosis (1) Pre-operative clearance: Status: Acute (2) Coronary artery disease: Status: Acute Qualifiers: Coronary Disease-Associated Artery/Lesion type: bypass graft [place] vs. transplanted heart: [place] heart Associated angina: without angina Qualified Code(s): I25.810 - Atherosclerosis of coronary artery bypass graft(s) without angina pectoris (3) Hyperlipidemia: Status: Acute Qualifiers: Hyperlipidemia type: mixed hyperlipidemia Qualified Code(s): E78.2 - Mixed hyperlipidemia (4) Essential hypertension: Status: Acute (5) ICD (implantable cardioverter-defibrillator) in place: Status: Acute Reason for Visit Reason for Visit: Weakness Brief History: History as per HPI: Laverne Perez is a 73 year old female With past medical history of hypertension diabetes, former smoker, coronary disease status post CABG FIELDS to LAD and SVG to OM1 in May 2021 came in today for complaints of generalized weakness to lower extremities. She has chronic back issues and chronic back pain. She was recently seen in the ER on 18 October for the same complaint. She has been taking tramadol hydrocodone intermittently. Describes pain radiating down her left leg. He also goes into her left buttocks and down into posterior aspect of her leg. Does not have any numbness or tingling. She is a diabetic and states cannot receive any steroids because it causes her blood sugar to be high and uncontrolled. She takes insulin at home. She says secondary to pain and increasing weakness to lower extremities she is unable to perform her ADLs and continues to have difficulty ambulating. She has not had any recent falls and there is no obvious injury noted. In ER blood pressure 173/92 pulse rate 68, pulse 69, temperature 97.7 saturating 96% on room air. Patient able to move all 4 extremities and can raise legs off the bed equally. CT lumbar spine shows acute L2 endplate fracture of lumbar spine with no retropulsion. She also has not acute L3 endplate fracture. No significant stenosis noted. Patient's glucose 517. Patient given 1 L of normal saline and 10 units of IV insulin. Patient is on Lasix at home. Case was discussed with Dr. Prado who agrees to consult regarding spinal fracture. TLSO brace ordered. Hospital Course Hospital Course Patient was admitted to the hospital further evaluation and management of acute L2 endplate fracture of lumbar spine. During hospitalization patient required multiple pain medications. Orthopedic surgery was consulted. MRI was ordered but could not be done because of post pacemaker status. She underwent bone scan which confirmed acute to subacute L2 fracture. Given her significant cardiology history with past history of 35%, severe triple-vessel disease post CABG with only patent graft of SVG cardiology clearance was sought. Repeat echocardiogram was done which showed improvement in EF to 50 to 55% with grade 1 diastolic dysfunction, mild MR and mild TR. Patient underwent kyphoplasty on 11/26 which she tolerated well. Patient has been working well with physical therapy. She has been discharged to SNF for further rehabitation. Physical Exam Narrative: General: Alert oriented x3, patient seen laying in bed appearing comfortable at this time, breathing room air HEENT: Normocephalic, atraumatic, EOMI, Cardio: Regular rate rhythm, normal S1-S2 Respiratory: Good bilateral air entry, no wheezes no rhonchi appreciated GI: Abdomen soft, nontender, nondistended, bowel sounds + Extremities: No edema bilateral lower extremities Neuro: Cranial 2-12 intact, bilateral lower extremities mildly weak. Able to lift of the bed. Straight leg raise negative., Strength upper extremities bilaterally symmetrical. Discharge Data Studies Completed and Pending Completed Studies During Hospitalization Category Date Time Status CT lumbar spine wo con* [id number] Stat Cat Scan 11/20/23 17:55 Completed NM bone scan whole body* [id number] Routine Nuc Med 11/26/23 07:45 Completed US echo with and without contrast [CV. echo wo/w Ultrasound 11/26/23 18:28 Completed contrast [id number]] Routine Pending at discharge Category Date Time Status SARS Covid-2 Antigen Routine Lab 11/29/23 13:40 Ordered Radiology Impressions Lumbar Spine CT 11/20/23 17:55 IMPRESSION: 1. 10% recent or acute L2 superior endplate fracture without retropulsion or subluxation. 2. Additional nonacute 10% L3 superior endplate fracture. 3. Scattered degenerative changes without significant central stenosis. There is also grade 1 degenerative subluxation at L4-L5. 4. Multiple cystic structures in the kidney, partially seen and incompletely classified. Consider outpatient follow-up with ultrasound. Additional nonobstructing stones in the kidneys. 5. Extensive demineralization. COMMENTS: Consistent with the [employer]'s Incidental Findings Committee white paper (J Am Sheng Radiol 2018): Any incidental renal lesion less than 1 cm or classified as too small to characterize, or any incidental cystic renal lesion characterized as simple-appearing, is likely benign. No follow-up imaging is recommended for these lesions per consensus recommendations based on imaging criteria. Bone Scan Nuclear Medicine 11/26/23 07:45 IMPRESSION: Minimal increased uptake in the L2 compression fracture consistent with late subacute to early chronic compression C-Arm Fluoroscopy 11/27/23 10:04 IMPRESSION: Images obtained for intraoperative purposes. Echocardiogram: CONCLUSIONS LV systolic function is normal with EF of 50 to 55% Grade 1 diastolic dysfunction. Mild mitral regurgitation. Mild tricuspid regurgitation. Compared to prior echocardiogram from 03/2023, LV systolic function has improved significantly and is normal now. Felix Albarran MD (Electronically Signed) Final Date: 27 Nov 2023 08:47 Laboratory Results WBC 8.16 10^3/uL (3.29-11.43) 11/29/23 04:42 RBC 4.86 10^6/uL (3.85-5.65) 11/29/23 04:42 Hgb 13.50 g/dL (11.27-16.99) 11/29/23 04:42 Hct 43.1 % (36-47) 11/29/23 04:42 MCV 88.7 fl (85-98) 11/29/23 04:42 MCH 27.8 pg (27-33) 11/29/23 04:42 MCHC 31.3 g/dL (30-55) 11/29/23 04:42 RDW 15.9 % (12.1-15.1) H 11/29/23 04:42 Plt Count 323 10^3/cmm (157-399) 11/29/23 04:42 MPV 9.0 fL (7.4-10.4) 11/29/23 04:42 Neut % (Auto) 66.5 % 11/29/23 04:42 Lymph % (Auto) 18.3 % 11/29/23 04:42 [place] % (Auto) 10.9 % 11/29/23 04:42 Eos % (Auto) 2.8 % 11/29/23 04:42 Baso % (Auto) 1.0 % 11/29/23 04:42 Neut # (Auto) 5.43 10^3/uL (1.8-7.7) 11/29/23 04:42 Lymph # (Auto) 1.5 10^3/uL (0.8-4.8) 11/29/23 04:42 [place] # (Auto) 0.9 10^3/uL (0.2-0.9) 11/29/23 04:42 Eos # (Auto) 0.2 10^3/uL (0.0-0.8) 11/29/23 04:42 Baso # (Auto) 0.1 10^3/uL (0.0-0.1) 11/29/23 04:42 Nucleated RBC % (auto) 0 % 11/29/23 04:42 Nucleated RBCs # 0.0 /100WBC 11/29/23 04:42 Sodium 136 mmol/L (136-145) 11/29/23 04:42 Potassium 4.2 mmol/L (3.5-5.1) 11/29/23 04:42 Chloride 102 mmol/L (98-107) 11/29/23 04:42 Carbon Dioxide 26 mmol/L (22-29) 11/29/23 04:42 Anion Gap 12.2 (5-19) 11/29/23 04:42 BUN 20 mg/dL (8-23) 11/29/23 04:42 Creatinine 1.1 mg/dL (0.5-0.9) H 11/29/23 04:42 GFR Calculation Not Reportable 11/29/23 04:42 Glucose 135 mg/dL (65-115) H 11/29/23 04:42 POC Glucose 166 mg/dL (70-110) H 11/29/23 11:10 Estimat Average Glucose 243 11/22/23 04:32 Hemoglobin A1c 10.1 % (4.0-6.0) H 11/22/23 04:32 Calculated Osmolality 287 mOsm/kg (285-295) 11/29/23 04:42 Calcium 8.5 mg/dL (8.5-10.5) 11/29/23 04:42 Phosphorus 3.4 mg/dL (2.5-4.5) 11/22/23 04:32 Magnesium 1.8 mg/dL (1.7-2.3) 11/28/23 04:35 Iron 58 ug/dL (37-145) 11/25/23 01:50 TIBC 213 mcg/dl 11/25/23 01:50 % Saturation 27.2 % (20-50) 11/25/23 01:50 Unsat Iron Binding 155 ug/dL (112-347) 11/25/23 01:50 Total Bilirubin 0.3 mg/dL (0.15-1.2) 11/29/23 04:42 AST 22 U/L (0-32) 11/29/23 04:42 ALT 11 U/L (0-33) 11/29/23 04:42 Alkaline Phosphatase 64 U/L (35-105) 11/29/23 04:42 Creatine Kinase 44 U/L (26-192) 11/22/23 04:32 Total Protein 5.7 g/dL (6.6-8.7) L 11/29/23 04:42 Albumin 2.7 g/dL (3.5-5.2) L 11/29/23 04:42 Globulin 3.0 g/dL (1.3-4.6) 11/29/23 04:42 Triglycerides 186 mg/dL (0-150) H 11/26/23 04:15 Cholesterol 88 mg/dL (0-200) 11/26/23 04:15 LDL Cholesterol, Calc 26 mg/dL (50-129) L 11/26/23 04:15 Total VLDL Cholesterol 37 mg/dL (0-30) H 11/26/23 04:15 HDL Cholesterol 25 mg/dL (60-100) L 11/26/23 04:15 Cholesterol/HDL Ratio 3.52 mg/dL (0.0-4.40) 11/26/23 04:15 Lipase 50 U/L (13-60) 11/20/23 17:56 Vitamin B12 877 pg/mL (232-1245) 11/22/23 04:32 25-OH Vitamin D Total 69 ng/mL (30-100) 11/20/23 17:56 Folate 11.8 ng/mL (4.8-37.3) 11/26/23 04:15 TSH 20.77 uIU/mL (0.27-4.20) H 11/22/23 04:32 Free T4 0.56 ng/dL (0.82-1.77) L 11/22/23 04:32 Urine Color Yellow (Yellow) 11/20/23 19:08 Urine Appearance Clear (CLEAR) 11/20/23 19:08 Urine pH 5 (5-7) 11/20/23 19:08 Ur Specific [place] 1.015 (1.005-1.030) 11/20/23 19:08 Urine Protein 1+ (Negative) H 11/20/23 19:08 Urine Glucose (UA) 4+ (Normal) H 11/20/23 19:08 Urine Ketones Negative (Negative) 11/20/23 19:08 Urine Blood Neg (Negative) 11/20/23 19:08 Urine Nitrate Negative (Negative) 11/20/23 19:08 Urine Bilirubin Neg (Negative) 11/20/23 19:08 Urine Urobilinogen Norm mg/dL (Negative) 11/20/23 19:08 Ur Leukocyte Esterase Negative (Negative) 11/20/23 19:08 Urine RBC Rare /hpf (0-2) 11/20/23 19:08 Urine WBC 0-4 /hpf (0-5) H 11/20/23 19:08 Ur Squamous Epith Cells 0-4 /hpf (0-5) H 11/20/23 19:08 Ur Transition Epith Cell 0-4 /hpf 11/20/23 19:08 Amorphous Sediment Not Reportable 11/20/23 19:08 Urine Bacteria Trace /hpf (NONE) 11/20/23 19:08 Urine Mucus None /hpf 11/20/23 19:08 Ur Oval Fat Bodies 1+ /hpf 11/20/23 19:08 Vitals Last Vital Signs Temp 97.6 F 11/29/23 11:38 Pulse 67 11/29/23 11:38 Resp 18 11/29/23 11:38 BP 127/69 11/29/23 11:38 Pulse Ox 93 11/29/23 11:38 O2 Del Method Room Air 11/29/23 11:38 O2 Flow Rate 2 11/27/23 11:34 Discharge Plan Discharge Patient Disposition: Xfer SNF Condition: Stable Prescriptions: New calcium carbonate-vitamin D3 [[place] Calcium-Vit D3] 500 mg-5 mcg (200 unit) Tablet 1 tab PO BID Qty: 60 0RF levothyroxine [Levoxyl] 100 mcg Tablet 100 mcg PO QAM Qty: 30 0RF pantoprazole 40 mg Tablet,Delayed Release (Dr/Ec) 40 mg PO DAILY Qty: 30 0RF amlodipine 5 mg Tablet 5 mg PO DAILY Qty: 30 0RF docusate sodium 100 mg Capsule 100 mg PO BID Qty: 60 0RF Continued clopidogrel 75 mg tablet 75 mg PO DAILY Qty: 90 3RF nitroglycerin 0.4 mg tablet, sublingual 0.4 mg sublingual Q5M PRN (Reason: Chest Pain) Qty: 25 6RF magnesium L-lactate 84 mg tablet extended release See Rx Instructions .ROUTE .COMPLEX Qty: 100 3RF Dose Instruction: TAKE 1 TABLET BY MOUTH EVERY DAY Rx Instructions: TAKE 1 TABLET BY MOUTH EVERY DAY amiodarone 200 mg tablet 200 mg PO DAILY Qty: 90 3RF Alive Women's 50 Plus Ultra 800 mcg DFE- 150 mcg Tablet 1 tab PO DAILY (DME) blood-glucose meter [Accu-Chek Guide Glucose Meter] Misc See Rx Instructions .Route Qty: 1 0RF Rx Instructions: As directed (DME) Accu-Chek Guide test strips Strip See Rx Instructions .Route Qty: 100 0RF Rx Instructions: As directed (DME) lancets [Accu-Chek Softclix Lancets] Misc See Rx Instructions .Route Qty: 100 0RF Rx Instructions: As directed atorvastatin 80 mg tablet 80 mg PO QAM 30 Days Qty: 30 0RF aspirin 81 mg Tablet,Chewable 81 mg PO DAILY vitamin E 670 mg (1,000 unit) Capsule 670 mg PO DAILY evening primrose oil 500 mg Capsule 1,000 mg PO DAILY Rx Instructions: give with meal/snack vitamin B complex Capsule 1 cap PO BEDTIME turmeric 400 mg Capsule 400 mg PO DAILY Glucosamine Chondroitin 550-30-1 mg Capsule 1 cap PO BEDTIME gabapentin 300 mg capsule 300 mg PO Q8H Qty: 30 0RF oxycodone-acetaminophen [Percocet] 5-325 mg tablet 1 tab PO Q8H PRN (Reason: pain) Qty: 14 0RF Changed potassium citrate 15 mEq tablet extended release 15 meq PO DAILY PRN (Reason: on day of lasix) Qty: 60 12RF insulin glargine [Lantus Solostar U-100 Insulin] 100 unit/mL (3 mL) insulin pen 45 unit SUBCUT BID Qty: 15 0RF furosemide 40 mg Tablet 40 mg PO QAM PRN (Reason: swelling) Qty: 10 0RF Discontinued spironolactone 25 mg tablet 25 mg PO DAILY Qty: 90 3RF Discharge Orders: Discharge Order (Routine); Ordered 11/29/23 Ordered By: Sarmad Mcmullen Referrals: [facility] [Outside] Keo Cook MD [Primary Care Provider] - Discharge Diet: Cardiac and Diabetic Discharge Activity: Resume usual activity and Increase activity as tolerated Patient Instructions: Opioid Safety Activity Restrictions/Additional Instructions: Follow-up with a primary care provider within next 1 week. Spironolactone has been discontinued. Lasix has been changed to daily as needed. Take potassium only on the days when you take Lasix. Lasix should be taken for increased swelling. Amlodipine 5 mg oral daily has been added to your medication list for elevated blood pressures. Goal blood pressure is less than 140/90 mmHg. Patient also takes levothyroxine 100 mcg daily. Repeat thyroid profile should be done within the next 2 months. Thank you for choosing [facility] for your care! The following is a list of instructions, from your provider, to follow upon your discharge to ensure you have the optimal recovery from your recent injury orsurgery. Follow-up care is a pickens part of your treatment and safety. Be sure to make and go to all appointments, and call your doctor if you are having problems. If you do not already have a follow-up appointment made, call Dr. Prado office in the next 1-3 days to make follow up appointment for 2 weeks at [phone]. It is also a good idea to know your test results and keep a list of the medicines you take. Medications will be prescribed for you at your provider's discretion. These medications are to be used as instructed; if they are taken more often that prescribed they will not be refilled early and in most cases will not be refilled at all. > When a refill is needed,you should contact erma altamirano 2-3 business days before your prescription runs out. Medications will NOT be refilled by [employer] providers after hours! > Many pain medications contain Tylenol (Acetaminophen). Do not consume more than 4,000 mg of Tylenol per day in total with any combination ofmedications. > Pain medications can cause constipation. Please use an over the counter stool softener as directed, while taking pain medications. Consulty our local pharmacist with questions or recommendations on stool softeners. If constipation persists, contact our office or your primary care provider. > While under our care,you are not to receive pain medications or other controlled substances from any other provider unless our office is notified and approves. Any attempts to do so will result in refusal to prescribe any further pain medications and possible dismissal from our practice. ? Your wound and/or dressing should remain clean and dry for 2 days after surgery. On postoperative day 2 (48 hours after your surgery) the dressing (if present) should be removed and it is okay to shower and get the incision wet. Pad dry afterwards. No further dressing should be required from that point on. Do not put any creams or ointments on theincision > It is normal for there to be a small amount of discharge (bloody or blood tinged) present from a surgical wound for the first 1-3days. > The wound should be examined twice a day for signs of infection. Mild redness or bruising is to be expected but indications that an infection maybe starting would include; An increase in redness, swelling, or discharge, a foul odor present around the incision, and/or a fever greater than 101 ?F ? Showering is permitted, however we ask that you do not take a bath, sit in a whirlpool / Jacuzzi, or go swimming for 1 month. For only the first 2 days after surgery, lt wilt be necessary for you to cover your wound/dressing with plastic and tape to keep it dry. ? Walking is essential for the healing process after surgery. We would like you to slowly advance your walking. This should be done on relatively flat clear ground (inside or out) or can be done on a treadmill. Remember this goal does not have to happen all at once, slowly increase your distance and duration. This can be broken into more more than one walk per day as tolerated. Patients who walk as directed after surgery rarely require Physical Therapy. In the unlikely event this issue arises your provider will direct hospital staff to make the appropriate arrangements. ? No lifting over 5 pounds {a gallon of milk) or bending/twisting until further notice. Each of these activities places an unnecessary amount of stress onto the body and can impede the delicate healing process. > Instead of bending at the waist, keep your back straight and bend at the knees. > Instead of twisting your torso, keep your back straight and turn your entire body with your feet. ? You may sleep in any position which makes you comfortable. Many patients find comfort sleeping in a reclining chair. It is not abnormal to have difficulty sleeping for the first several weeks following your surgery. We recommend trying Benadry! or Tylenol PM as directed to help with your sleeping difficulties. Both medications are over the counter and available withoutprescription. ? NO SMOKING!!! Smoking dramatically increases the probability of developing postoperative wound infections. ? Common complaints after lumbar and/or thoracic spine surgery include, but are not limited to: numbness and/or tingling in the legs, pain around the incision and surrounding tissues, muscle spasms, or stiffness of the middle to low back. Contact our office if these symptoms persist or if an acute change occurs. ? No driving for the first 3-5days, and not while taking narcotics until seen at your follow-up appointment and cleared. There are no restrictions for riding on short trips, however if you take a longer trip, arrangements should be made to make regular stops to get out of the vehicle and stretch . ? Swelling is an unfortunate event that will take place with any surgery and is the primary source of your postoperative discomfort. While walking and regular approved activities helps control inflammation, there are additional steps you can take to minimizeswelling. > Place ice over the surgical site and surrounding tissue for twenty minutes, followed by applying a low/medium heat (heating pad) for an additional twenty minutes every 1-2 hours as needed for painrelief. > You may use of over the counter anti-inflammatory medications (Ibuprofen, Motrin, Aleve, Advil, etc) as directed on the package label. These types of medicines wm significantly reduce the amount of discomfort you experience after surgery from swelling. It should be noted that if you have and allergy to any of these medications, or a history of ulcers or kidney disease you should consult you primary care provider prior to starting these medications. Discharge Attestations Time Spent in Discharge Care*: greater than 30 min Specific Discharge Activities: educating patient, discussing with pcp/other providers, discussing with hospice case manager/social workers/dc planners, documenting/other paperwork and evaluating patient/reviewing data Status at Discharge: Cognitive status at discharge: cognitively intact , Behavioral status at discharge: cooperative , Functional status at discharge: uses cane/walker , Overall status at discharge: patient is progressing back to baseline Quality Metrics Clinical Quality Measures [ No reported AMI, CVA or VTE this stay] Coding Level of Care Code 09947 Total time (in minutes) for Discharge: 60 Diagnoses Pre-operative clearance Z01.818 Coronary artery disease involving coronary bypass graft of [place] heart without angina pectoris I25.810 Coronary Disease-Associated Artery/Lesion type: bypass graft [place] vs. transplanted heart: [place] heart Associated angina: without angina Mixed hyperlipidemia E78.2 Hyperlipidemia type: mixed hyperlipidemia Essential hypertension I10 ICD (implantable cardioverter-defibrillator) in place Z95.810
[2023-11-29 14:14] LABS: SARS Covid-2 Antigen negative (Negative)
== END 2023-11-29 15:50 | disposition home or self-care (01) | DRG 516 ==
LOC: ER 21:43 → MEDSURG 22:08
PROVIDERS: Emergency Medicine; Family Medicine; Internal Medicine; Orthopaedic Surgery; Admitting Provider Internal Medicine; Emergency Provider Nurse Practitioner Family; PCP Family Medicine; Visit Provider Student in an Organized Health Care Education/Training Program
PROC: 0QS03ZZ Reposition Lumbar Vertebra, Percutaneous Approach (ICD-10-PCS; principal; 2023-11-27 08:50)
DX: S32.020A Wedge compression fracture of second lumbar vertebra, initial encounter for closed fracture (principal); I13.0 Hypertensive heart and chronic kidney disease with heart failure and stage 1 through stage 4 chronic kidney disease, or unspecified chronic kidney disease; N17.9 Acute kidney failure, unspecified; I48.20 Chronic atrial fibrillation, unspecified; X58.XXXA Exposure to other specified factors, initial encounter; I25.10 Atherosclerotic heart disease of native coronary artery without angina pectoris; E78.5 Hyperlipidemia, unspecified; E11.22 Type 2 diabetes mellitus with diabetic chronic kidney disease; E11.65 Type 2 diabetes mellitus with hyperglycemia; E11.42 Type 2 diabetes mellitus with diabetic polyneuropathy; Z79.4 Long term (current) use of insulin; Z95.810 Presence of automatic (implantable) cardiac defibrillator; N18.30 Chronic kidney disease, stage 3 unspecified; Z79.82 Long term (current) use of aspirin; I25.5 Ischemic cardiomyopathy; Z79.02 Long term (current) use of antithrombotics/antiplatelets; E66.01 Morbid (severe) obesity due to excess calories; E03.9 Hypothyroidism, unspecified; I50.9 Heart failure, unspecified; Z87.891 Personal history of nicotine dependence; Z95.1 Presence of aortocoronary bypass graft; Z66 Do not resuscitate; J44.9 Chronic obstructive pulmonary disease, unspecified
CPT/HCPCS: 36415; 36416; 72131; 76000; 78306; 80048; 80053; 80061; 81001; 82306; 82550; 82607; 82746; 82962; 83036; 83540; 83550; 83690; 83735; 84100; 84439; 84443; 85025; 87426; 96361; 96372; 96374; 96375; 97110; 97161; 97164; 97165; 97530; 97535; 99285; A9561; C8929; J0690; J1644; J1815; J2270; J2405; J2704; J2710; J3010; J3490; J7030; L0464; Q9956

== ENCOUNTER → 2023-12-03 13:31 | Outpatient (BNVA) | payer MEDICARE, SELFPAY | PROVIDERS: PCP Family Medicine; Visit Provider Orthopaedic Surgery | DX: Z98.890 Other specified postprocedural states (principal) | CPT/HCPCS: 99024 ==

== ENCOUNTER 2023-12-04 00:49 | Emergency (ER) | payer MEDICARE, SELFPAY ==
[2023-12-04] VITALS (14 sets, daily range): BP systolic 121–182; BP diastolic 59–87; PULSE 66–75; RESP 15–20; TEMP 36.7; O2SAT 93–97; BMI 39.4
--- NOTE | 2023-12-04 00:55 | XRR_ITS ---
PROCEDURE INFORMATION: Exam: XR Right Knee Exam date and time: 12/04/2023 1:11 AM Age: 73 years old Clinical indication: Injury or trauma; Fall; Other: Pain; Additional info: Fall, bilateral knee pain TECHNIQUE: Imaging protocol: Radiologic exam of the right knee. Views: 3 views. COMPARISON: NM bone scan whole body* [id number] 11/26/2023 9:57 AM FINDINGS: Bones/joints: Tricompartmental degenerative changes. No acute fracture. No dislocation. Soft tissues: Normal. Vasculature: There are vascular calcifications. XR/XR knee RT 3V* [id number] IMPRESSION: No acute fracture.
--- NOTE | 2023-12-04 00:55 | XRR_ITS ---
PROCEDURE INFORMATION: Exam: XR Left Knee Exam date and time: 12/04/2023 1:05 AM Age: 73 years old Clinical indication: Injury or trauma; Fall; Other: Pain; Additional info: Fall, bilateral knee pain TECHNIQUE: Imaging protocol: Radiologic exam of the left knee. Views: 3 views. COMPARISON: NM bone scan whole body* [id number] 11/26/2023 9:57 AM FINDINGS: Bones/joints: Tricompartmental degenerative changes. No acute fracture. No dislocation. Soft tissues: Normal. Vasculature: There are vascular calcifications. XR/XR knee LT 3V* [id number] IMPRESSION: No acute findings.
--- NOTE | 2023-12-04 01:29 | ED_ITS ---
HPI - Fall General: Chief Complaint: Fall Stated Complaint: fall Time Seen by Provider: 12/04/23 00:52 History of Present Illness: 73-year-old female with a history of mor bid obesity, ischemic cardiomyopathy, coronary artery disease, chronic kidney disease, diabetes and hypertension who presents to the emergency room after she had a fall. She says she was almost to her bed transferring and her knee gave out and she heard a pop. She now has pain in both of her knees. She also has some mild pain in her left shoulder. She did not hit her head. She is on Plavix. No loss of consciousness. No altered mental status. No hip pain no abdominal pain no pelvic pain no chest pain no shortness of breath Review of Systems Narrative: Constitutional symptoms: Negative except as documented in HPI. Skin symptoms: Negative except as documented in HPI. Eye symptoms: Negative except as documented in HPI. ENMT symptoms: Negative except as documented in HPI. Respiratory symptoms: Negative except as documented in HPI. Cardiovascular symptoms: Negative except as documented in HPI. Gastrointestinal symptoms: Negative except as documented in HPI. Genitourinary symptoms: Negative except as documented in HPI. Musculoskeletal symptoms: Negative except as documented in HPI. Neurologic symptoms: Negative except as documented in HPI. Psychiatric symptoms: Negative except as documented in HPI. Endocrine symptoms: Negative except as documented in HPI. PFS ED PFSH: Medical History Ischemic cardiomyopathy Essential hypertension Morbid obesity [place] (dyspnea on exertion) Non-ST elevation OR (NSTEMI) Chest pain CKD (chronic kidney disease) stage 3, GFR 30-59 ml/min Diabetes Shortness of breath Bilateral renal stones Hyperlipidemia Coronary artery disease Multiple vessel coronary artery disease Osteoarthritis Hypertension Diabetes mellitus Surgical History H/O heart bypass surgery 2 times Hx of cholecystectomy H/O dilation and curettage H/O: H/O: hysterectomy H/O vulvectomy S/P ureteral stent placement Family History Mother , at age 93 Uterine cancer CAD (coronary artery disease) Father , at age 67 CAD (coronary artery disease) Social History Smoking and tobacco/nicotine status: former use of tobacco/nicotine Alcohol intake: never Marital status: / Current occupational status: retired Physical Exam Narrative: EXAM NARRATIVE: General: Alert, no acute distress. Skin: Warm, dry. Head: Normocephalic, atraumatic. Neck: Supple, trachea midline. Eye: Extraocular movements are intact. Ears, nose, mouth and throat: mucosa moist. Cardiovascular: Regular, Normal peripheral perfusion. Respiratory: Lungs are clear to auscultation, respirations are non-labored, breath sounds are equal, Symmetrical chest wall expansion. Gastrointestinal: Soft, Nontender, Non distended, Normal bowel sounds. Musculoskeletal: Patient has pain to palpation on her right knee. Also some in her left knee. No obvious deformities. Perhaps an effusion in her right knee but she is fairly obese is difficult to say for sure. Neurological: Alert and oriented, No focal neurological deficit observed. Psychiatric: Cooperative, appropriate mood & affect. Course Vital Signs: Vital signs: Vital Signs Temperature 98.1 F 12/04/23 00:51 Pulse Rate 67 12/04/23 00:51 Respiratory Rate 20 H 12/04/23 00:51 Blood Pressure 171/87 12/04/23 00:51 Pulse Oximetry 96 12/04/23 00:51 Oxygen Delivery Me thod Room Air 12/04/23 00:51 MDM - Fall Medical Decision Making X-ray of the knees bilaterally were ordered. X-ray of the knees bilaterally shows some degenerative changes but no acute fractures or dislocations. This was reviewed and interpreted by myself the emergency room physician. I also reviewed the radiology report. Since this was negative and she was still having knee pain I ordered x-ray of the hip and pelvis and there is no obvious fracture there. Sometimes there is referred pain from hip injuries causing knee pain. This is not the case with this today. X-ray of the hips bilaterally poor films because of body habitus but no obvious fractures or dislocations. This was reviewed and interpreted by myself the emergency room physician. I also reviewed the radiology report. Assessment and plan: Knee injury Fall ? [place] in the emergency room. ? Patient was able to ambulate in the emergency room. - Discharged home - Discussed plan with patient. Answered any questions. - Evaluation and treatment of this problem were appropriate in the emergency setting. Lab Data Radiology Impressions Knee X-Ray 12/04/23 00:55 IMPRESSION: No acute findings. Hip/Pelvis X-Ray 12/04/23 02:09 IMPRESSION: Suboptimal visualization of the left femoral neck due to technique and patient body habitus. Correlation with CT is recommended if there is clinical concern for left hip fracture. Unremarkable appearance of the right hip. All radiology interpretation(s) finalized by discharge Discharge Plan Discharge Patient Disposition: Home Clinical Impression: Knee strain Qualifiers: Encounter type: initial encounter Laterality: bilateral Qualified Code(s): S86.911A - Strain of unspecified muscle(s) and tendon(s) at lower leg level, right leg, initial encounter Fall Qualifiers: Encounter type: initial encounter Qualified Code(s): W19.XXXA - Unspecified fall, initial encounter Condition: Stable Prescriptions: New hydrocodone-acetaminophen 5-325 mg tablet 1 tab PO Q6H PRN (Reason: pain) Qty: 20 0RF Miralax 17 gram/dose powder 17 g PO DAILY Qty: 510 0RF Rx Instructions: Take 1 scoop daily while taking pain medications. No Action clopidogrel 75 mg tablet 75 mg PO DAILY Qty: 90 3RF nitroglycerin 0.4 mg tablet, sublingual 0.4 mg sublingual Q5M PRN (Reason: Chest Pain) Qty: 25 6RF magnesium L-lactate 84 mg tablet extended release See Rx Instructions .ROUTE .COMPLEX Qty: 100 3RF Dose Instruction: TAKE 1 TABLET BY MOUTH EVERY DAY Rx Instructions: TAKE 1 TABLET BY MOUTH EVERY DAY amiodarone 200 mg tablet 200 mg PO DAILY Qty: 90 3RF Alive Women's 50 Plus Ultra 800 mcg DFE- 150 mcg Tablet 1 tab PO DAILY (DME) blood-glucose meter [Accu-Chek Guide Glucose Meter] [facility] [place] See Rx Instructions .Route Qty: 1 0RF Rx Instructions: As directed (DME) Accu-Chek Guide test strips Strip See Rx Instructions .Route Qty: 100 0RF Rx Instructions: As directed (DME) lancets [Accu-Chek Softclix Lancets] [facility] [place] See Rx Instructions .Route Qty: 100 0RF Rx Instructions: As directed atorvastatin 80 mg tablet 80 mg PO QAM 30 Days Qty: 30 0RF amlodipine 5 mg Tablet 5 mg PO DAILY Qty: 30 0RF Levoxyl 100 mcg Tablet 100 mcg PO QAM Qty: 30 0RF pantoprazole 40 mg Tablet,Delayed Release (Dr/Ec) 40 mg PO DAILY Qty: 30 0RF docusate sodium 100 mg Capsule 100 mg PO BID Qty: 60 0RF Oyster Shell Calcium-Vit D3 500 mg-5 mcg (200 unit) Tablet 1 tab PO BID Qty: 60 0RF furosemide 40 mg Tablet 40 mg PO QAM PRN (Reason: swelling) Qty: 10 0RF Lantus Solostar U-100 Insulin 100 unit/mL (3 mL) insulin pen 45 unit SUBCUT BID Qty: 15 0RF potassium citrate 15 mEq tablet extended release 15 meq PO DAILY PRN (Reason: on day of lasix) Qty: 60 12RF aspirin 81 mg Tablet,Chewable 81 mg PO DAILY vitamin E 670 mg (1,000 unit) Capsule 670 mg PO DAILY evening primrose oil 500 mg Capsule 1,000 mg PO DAILY Rx Instructions: give with meal/snack vitamin B complex Capsule 1 cap PO BEDTIME turmeric 400 mg Capsule 400 mg PO DAILY Glucosamine Chondroitin 550-30-1 mg Capsule 1 cap PO BEDTIME gabapentin 300 mg capsule 300 mg PO Q8H Qty: 30 0RF oxycodone-acetaminophen [Percocet] 5-325 mg tablet 1 tab PO Q8H PRN (Reason: pain) Qty: 14 0RF Discharge Orders: Discharge ED (Routine); Ordered 12/04/23 Ordered By: Tabitha Medeiros Referrals: Darian Humphrey DO [Physician] - (If you continue to have knee pain please follow- up with orthopedics. Call for an appointment.) Keo Cook MD [Primary Care Provider] - Discharge Diet: Usual diet Discharge Activity: Increase activity as tolerated Patient Instructions: Opioid Safety, Pain Management Activity Restrictions/Additional Instructions: Thank you for choosing [facility] for your healthcare needs today. Please realize this is an emergency room and that we are providing you with a medical screening exam and this may not be complete and all inclusive of all the testing and or work up that you may need to determine your ailment or severity of your illness. You have been screened and evaluated and felt safe for discharge. Health conditions do change or evolve sometimes and as such it is important that you follow up with your Primary Doctor to be re checked, 3-5 days is a general good time frame for follow up. You are always welcome to return to the ED for re assessment if your symptoms are worsening or you have new concerns Coding Level of Care Code ED [employer] Analyst for Dhaval Martini
[2023-12-04] MEDS: HYDROcodone-acetaminophen 10-325 mg Tablet 1 TAB PO (01:58)
--- NOTE | 2023-12-04 02:09 | XRR_ITS ---
PROCEDURE INFORMATION: Exam: XR Bilateral Hips Exam date and time: 12/04/2023 2:26 AM Age: 73 years old Clinical indication: Injury or trauma; Fall; Other: Pain; Additional info: Fall, bilateral knee pain TECHNIQUE: Imaging protocol: Radiologic exam of the bilateral hips. Views: 2 views of hips with pelvis when performed. COMPARISON: CR (PELVIS, ) 10/24/2023 3:21 AM FINDINGS: Bones/joints: Suboptimal visualization of the left femoral neck due to technique and patient body habitus. Correlation with CT is recommended if there is clinical concern for left hip fracture. No acute fracture of the right hip. Soft tissues: See Bones/joints finding. XR/XR hip BI 3-4V wo/w pel [id number] IMPRESSION: Suboptimal visualization of the left femoral neck due to technique and patient body habitus. Correlation with CT is recommended if there is clinical concern for left hip fracture. Unremarkable appearance of the right hip.
--- NOTE | 2023-12-04 03:27 | PC.NURSE ---
PROTECTIVE BARRIER CREAM APPLIED TO GLUTEAL CLEFT PER PT REQUEST. PT WAS THANKFUL, DENIED FURTHER NEEDS.
--- NOTE | 2023-12-04 05:25 | PC.NURSE ---
PT UP TO WHEELCHAIR WITH X1 ASSIST FOR COMFORT
== END 2023-12-04 08:05 | disposition home or self-care (01) ==
PROVIDERS: Emergency Provider Emergency Medicine; PCP Family Medicine
DX: S86.911A Strain of unspecified muscle(s) and tendon(s) at lower leg level, right leg, initial encounter (principal); Z79.02 Long term (current) use of antithrombotics/antiplatelets; Z79.82 Long term (current) use of aspirin; Z79.4 Long term (current) use of insulin; Z87.891 Personal history of nicotine dependence; I25.5 Ischemic cardiomyopathy; E11.22 Type 2 diabetes mellitus with diabetic chronic kidney disease; I13.0 Hypertensive heart and chronic kidney disease with heart failure and stage 1 through stage 4 chronic kidney disease, or unspecified chronic kidney disease; N18.30 Chronic kidney disease, stage 3 unspecified; I50.9 Heart failure, unspecified; I25.2 Old myocardial infarction; E78.5 Hyperlipidemia, unspecified; I25.10 Atherosclerotic heart disease of native coronary artery without angina pectoris; W18.39XA Other fall on same level, initial encounter
CPT/HCPCS: 73522; 73562; 99284

== ENCOUNTER → 2024-01-07 10:46 | Outpatient (BNVA) | payer MEDICARE, SELFPAY | PROVIDERS: PCP Family Medicine; Visit Provider Internal Medicine Cardiovascular Disease | DX: I25.10 Atherosclerotic heart disease of native coronary artery without angina pectoris (principal); Z95.810 Presence of automatic (implantable) cardiac defibrillator; I47.29 Other ventricular tachycardia; I25.5 Ischemic cardiomyopathy; I10 Essential (primary) hypertension | CPT/HCPCS: 99214 ==

== ENCOUNTER → 2024-01-09 09:17 | Outpatient (BNVA) | payer MEDICARE, SELFPAY | PROVIDERS: PCP Family Medicine; Visit Provider Orthopaedic Surgery | DX: M54.9 Dorsalgia, unspecified (principal); S32.029A Unspecified fracture of second lumbar vertebra, initial encounter for closed fracture; M48.062 Spinal stenosis, lumbar region with neurogenic claudication; X58.XXXA Exposure to other specified factors, initial encounter | CPT/HCPCS: 72100; 99214 ==

== ENCOUNTER 2024-01-16 09:30 | Outpatient (CLI) | payer MEDICARE, SELFPAY ==
--- NOTE | 2024-01-16 09:38 | CT_ITS ---
WS: [id number] CT MYELOGRAM LUMBAR SPINE HISTORY: back pain TECHNIQUE: Contiguous 2.0 mm axial imaging performed from T12 through the mid sacral level. Bone and soft tissue windows reviewed. Sagittal and coronal reformats are submitted and reviewed. DLP: 1280.[address] scans at [facility] use at least one of these dose optimization techniques: automated e xposure control; mA and/or kV adjustment per patient size (includes targeted exams where dose is matc hed to clinical indication); or iterative reconstruction. COMPARISON: 11/20/2023 Subarachnoid contrast injection is noted in good position. The contrast is layering in the dependent portions of the lower thoracic and lower lumbar spine due to the marked increase in lumbar lordosis. Patient was not mobile therefore could not change position to mix of contrast. Reidentified is the L2 compression fracture involving the superior endplate without progression in lo ss of height. Prior kyphoplasty of L2. Some of the methyl methacrylate is extruding external to the v ertebral body. L4 anterolisthesis by 3 mm. L1-L2: No stenosis. Facet joint arthropathy is advanced. L2-L3: No stenosis. Advanced facet joint arthropathy encroaching towards the central canal. No high-g rade stenosis. L3-L4: Mild disc bulging. Marked facet joint arthritis resulting in mild central and subarticular rec ess stenosis. L4-L5: Diffuse annular disc bulging encroaching upon the ventral thecal sac. Severe facet joint arthr opathy. L5-S1: No stenosis. Severe facet joint arthropathy. Degenerative air in the SI joints. Atherosclerosis aorta. Masses within each kidney cannot be further evaluated on this noncontrast exam. Mild presacral soft tissue thickening may be related to air bernie tment for cancer. CT/CT lumbar spine w con [id number] IMPRESSION: 1. Status post kyphoplasty of L2. No progression of the mild compression fract ure of L2. 2. Advanced facet joint arthritis throughout the lumbar spine. No high-grade c entral stenosis. 3. L4 anterolisthesis by 3 mm. 4. Quality of this examination is compromised by body habitus and lack of mobi lity.
--- NOTE | 2024-01-16 09:45 | IR_ITS ---
WS: [id number] LUMBAR MYELOGRAM HISTORY: M48.062 - Spinal stenosis, lumbar region with neurogenic ... COMPARISON: None available. FLUOROSCOPY TIME: 1min [id number] # of spot films: 7 Procedure, risks and complications were explained to the patient. Risks including bleeding, infection , headaches, allergic reaction and seizures. Consent has been obtained. With the patient in prone position the skin over the lumbar region is cleansed with ChloraPrep and an esthetized with lidocaine. 22-gauge spinal needle is inserted into the thecal sac at the appropriate level determined by fluoroscopy. Omnipaque 240; ml is injected slowly under fluoroscopy with no compl ications. Needle bevel is perpendicular to the longitudinal fibers of the dura. Stylet is reinserted prior to removal of the needle. Patient tolerated the procedure well. Patient will proceed to CT for further evaluation. Patient is immobile. Prior kyphoplasty at L2. Prior cholecystectomy. IR/[place] [id number] IMPRESSION: 1. Status post lumbar myelogram injection. Study is compromised by patient's l ack of mobility. 2. Kyphoplasty at L2. 3. Facet joint arthritis is advanced throughout the lumbar spine.
[2024-01-16] MEDS: iohexol 240 mg/mL 50 mL Btl INTRATHECA (11:25)
== END 2024-01-16 09:31 | disposition home or self-care (01) ==
PROVIDERS: PCP Family Medicine; Visit Provider Orthopaedic Surgery
DX: M48.062 Spinal stenosis, lumbar region with neurogenic claudication (principal); M40.56 Lordosis, unspecified, lumbar region; M43.16 Spondylolisthesis, lumbar region; M51.36 Other intervertebral disc degeneration, lumbar region; M47.896 Other spondylosis, lumbar region; M47.898 Other spondylosis, sacral and sacrococcygeal region; Z98.1 Arthrodesis status
CPT/HCPCS: 62304; 72132; Q9966

== ENCOUNTER → 2024-01-28 14:56 | Outpatient (BNVA) | payer MEDICARE, SELFPAY | PROVIDERS: PCP Family Medicine; Visit Provider Orthopaedic Surgery | DX: Z09 Encounter for follow-up examination after completed treatment for conditions other than malignant neoplasm (principal) | CPT/HCPCS: 99214 ==

== ENCOUNTER 2024-02-08 21:43 | Emergency (ER) | payer MEDICARE, SELFPAY ==
[2024-02-08 21:45] VITALS: BP 173/87; PULSE 94; RESP 20; TEMP 36.6; O2SAT 94; BMI 44.6
[2024-02-08] MEDS: oxymetazoline 0.05% Nasal Spray 15 mL 2 SPRAY NOSTRIL-L (22:14)
[2024-02-08 22:20] LABS: Basophils # 0.1 10^3/uL (0.0-0.1); Basophils % 0.7 %; Eosinophils # 0.1 10^3/uL (0.0-0.8); Eosinophils % 0.8 %; Hematocrit 45.4 % (36-47); Lymphocytes # 1.3 10^3/uL (0.8-4.8); Mean Corpuscular HGB Conc 31.1 g/dL (30-55); Mean Corpuscular Hemoglobin 27.2 pg (27-33); Mean Corpuscular Volume 87.6 fl (85-98); Mean Platelet Volume 8.6 fL (7.4-10.4); Monocytes # 0.7 10^3/uL (0.2-0.9); Monocytes % 6.5 %; Neutrophils # 8.51 10^3/uL (1.8-7.7); Neutrophils % 79.6 %; Nucleated Red Blood Cells % 0 %; Platelet Count 411 10^3/cmm (157-399); Red Blood Count 5.18 10^6/uL (3.85-5.65); Red Cell Distribution Width 14.8 % (12.1-15.1); White Blood Count 10.68 10^3/uL (3.29-11.43)
[2024-02-08 22:29] LABS: Partial Thromboplastin Time 26.4 SECONDS (23.9-36.7)
[2024-02-08] MEDS: gelatin 12-7 mm Sponge 1 EACH TOPICAL (22:50)
--- NOTE | 2024-02-08 23:20 | CTR_ITS ---
PROCEDURE INFORMATION: Exam: CT Head Without Contrast Exam date and time: 02/08/2024 11:28 PM Age: 73 years old Clinical indication: Dizziness and other: Hypertension/epistaxis; Patient HX: Dizziness with hypertension and epistaxis. ; Additional info: Dizzy, HTN TECHNIQUE: Imaging protocol: Computed tomography of the head without contrast. Radiation optimization: All CT scans at this facility use at least one of these dose optimization techniques: automated exposure control; mA and/or kV adjustment per patient size (includes targeted exams where dose is matched to clinical indication); or iterative reconstruction. COMPARISON: NM bone scan whole body* [id number] 11/26/2023 9:57 AM RADIATION DOSE METRICS: Total DLP (mGy-cm): 997.78 FINDINGS: Brain: No acute intracranial hemorrhage or territorial infarction. No mass effect or midline shift. Mild microangiopathy and global cerebral volume loss. Cerebral ventricles: No ventriculomegaly. Paranasal sinuses: Visualized sinuses are unremarkable. No fluid levels. Mastoid air cells: Visualized mastoid air cells are well aerated. Bones: Unremarkable. No acute fracture. Soft tissues: Unremarkable. CT/CT head wo con* [id number] IMPRESSION: No acute intracranial findings.
[2024-02-08 23:37] VITALS: BP 153/76; PULSE 74; RESP 20; O2SAT 94
--- NOTE | 2024-02-09 00:21 | ED_ITS ---
HPI - Epistaxis 2 General: Chief complaint: Epistaxis Stated complaint: nosebleed Time Seen by Provider: 02/08/24 21:46 History of Present Illness: 73-year-old female with a history of hyp ertension. She presents with left-sided nosebleed that started a couple of hours ago. Bleeding seems to stop at this point. No bleeding from other places. Patient notes that she bled quite a bit. No history of fever. She does have a history of hypertension, blood pressure has been high today. She also has been symptomatic with vertiginous type dizziness today, worse with head movement. Related Data Home Medications Medication Instructions Recorded Confirmed [id number] 800 mcg 1 tab PO DAILY 12/04/21 01/28/24 DFE-vitamin K 150 mcg-herb no.289 tablet (Alive Women's 50 Plus Ultra Potency) aspirin 81 mg chewable tablet 81 mg PO DAILY 04/01/22 01/28/24 evening primrose oil 500 mg capsule 1,000 mg PO DAILY 03/01/23 01/28/24 glucosamine sulf dipot 1 cap PO BEDTIME 03/01/23 01/28/24 chlr,msm,chond 550 mg-C 30 mg-melissa 1 mg capsule (Glucosamine Chondroitin) vitamin B complex 1 cap PO BEDTIME 03/01/23 01/28/24 vitamin E 670 mg (1,000 unit) 670 mg PO DAILY 03/01/23 01/28/24 capsule Previous Rx's Medication Instructions Recorded atorvastatin 80 mg tablet 80 mg PO QAM 30 days #30 tabs 12/06/21 blood sugar diagnostic (Accu-Chek #100 ea 12/06/21 Guide test strips) blood-glucose meter (Accu-Chek #1 ea 12/06/21 Guide Glucose Meter) lancets (Accu-Chek Softclix #100 ea 12/06/21 Lancets) nitroglycerin 0.4 mg sublingual 0.4 mg sublingual Q5M PRN Chest 10/31/22 tablet Pain #25 tabs clopidogrel 75 mg tablet 75 mg PO DAILY #90 tabs 04/08/23 magnesium L-lactate 84 mg See Rx Instructions .Route 05/16/23 tablet,extended release .COMPLEX #100 tabs amiodarone 200 mg tablet 200 mg PO DAILY #90 tabs 10/17/23 gabapentin 300 mg capsule 300 mg PO Q8H #30 caps 10/24/23 oxycodone-acetaminophen 5 mg-325 1 tab PO Q8H PRN pain #14 tabs 10/24/23 mg tablet (Percocet) amlodipine 5 mg tablet 5 mg PO DAILY #30 tabs 11/29/23 calcium carbonate 500 mg-vitamin 1 tab PO BID #60 tabs 11/29/23 D3 5 mcg (200 unit) tablet (Oyster Shell Calcium-Vitamin D3) docusate sodium 100 mg capsule 100 mg PO BID #60 caps 11/29/23 furosemide 40 mg tablet 40 mg PO QAM PRN swelling #10 tabs 11/29/23 insulin glargine 100 unit/mL (3 45 unit (0.45 mL) SUBCUT BID #15 mL 11/29/23 mL) subcutaneous pen (Lantus Solostar U-100 Insulin) levothyroxine 100 mcg tablet 100 mcg PO QAM #30 tabs 11/29/23 (Levoxyl) pantoprazole 40 mg tablet,delayed 40 mg PO DAILY #30 tabs 11/29/23 release potassium citrate 15 mEq (1,620 15 meq PO DAILY PRN on day of 11/29/23 mg) tablet,extended release lasix #60 tabs polyethylene glycol 3350 17 17 g PO DAILY #510 grams 12/04/23 gram/dose oral powder (Miralax) losartan 25 mg tablet 25 mg PO DAILY 30 days #30 tabs 01/07/24 Allergies Allergy/AdvReac Type Severity Reaction Status Date / Time sacubitril [From Entresto] AdvReac Intermediate decreased Verified 01/07/24 11:09 urination valsartan [From Entresto] AdvReac Intermediate decreased Verified 01/07/24 11:09 urination farxiga AdvReac ADR-Nausea Uncoded 01/07/24 11:09 steroids AdvReac increased Uncoded 01/07/24 11:09 high BP PFSH ED 2 PFSH: Medical History Ischemic cardiomyopathy Essential hypertension Morbid obesity CAMERON (dyspnea on exertion) Non-ST elevation [place] (NSTEMI) Chest pain CKD (chronic kidney disease) stage 3, GFR 30-59 ml/min Diabetes Shortness of breath Bilateral renal stones Hyperlipidemia Coronary artery disease Multiple vessel coronary artery disease Osteoarthritis Hypertension Diabetes mellitus Surgical History H/O heart bypass surgery 2 times Hx of cholecystectomy H/O dilation and curettage H/O: H/O: hysterectomy H/O vulvectomy S/P ureteral stent placement Family History Mother , at age 93 Uterine cancer CAD (coronary artery disease) Father , at age 67 CAD (coronary artery disease) Social History Smoking and tobacco/nicotine status: never used tobacco/nicotine Alcohol intake: never Marital status: / Current occupational status: retired Physical Exam 2 Const: COMMON NORMALS: no acute distress GENERAL APPEARANCE: cooperative and comfortable; not ill appearing HENMT: COMMON NORMALS: Normal external nose present HEAD & SCALP: l aceration FACE & SINUS: face symmetric NOSE: Normal external nose present, Epistaxis present (Dried blood present no active bleeding) on the left and Nasal polyp present Eye: COMMON NORMALS: Equal, round and reactive pupils present and EOMs intact bilaterally PUPIL: Yes Equal, round and reactive pupils present Neck/C-Spine: GENERAL: Yes trachea midline Chest: CHEST: Yes Symmetrical chest wall rise Resp: COMMON NORMALS: normal respiratory effort, No use of accessory muscles and clear to auscultation bilaterally AUSCULTATION: clear to auscultation bilaterally Cardio: COMMON NORMALS: regular rate and regular rhythm RATE: regular rate RHYTHM: regular rhythm Course 2 Vital Signs: Vital signs: Vital Signs Temperature 98 F 02/08/24 21:45 Pulse Rate 79 02/09/24 03:35 Respiratory Rate 18 02/09/24 03:35 Blood Pressure 152/101 02/09/24 03:35 Pulse Oximetry 94 02/09/24 03:35 Oxygen Delivery Me thod Room Air 02/09/24 03:35 MDM - Epistaxis Medical Decision Making Bleeding controlled. Left nare packed with Gelfoam after Afrin treatment. To be filled tomorrow by [facility] staff. Blood pressure is 157/69. Hemoglobin is normal, platelet count is actually high. Coags are normal. Head CT is negative regarding dizziness symptomatology. Should be discharged. Lab Data 02/08/24 22:[address] 02/08/24 23:20 IMPRESSION: No acute intracranial findings. Laboratory Results WBC 10.68 10^3/uL (3.29-11.43) 02/08/24 22:07 RBC 5.18 10^6/uL (3.85-5.65) 02/08/24 22:07 Hgb 14.10 g/dL (11.27-16.99) 02/08/24 22:07 Hct 45.4 % (36-47) 02/08/24 22:07 MCV 87.6 fl (85-98) 02/08/24 22:07 MCH 27.2 pg (27-33) 02/08/24 22:07 MCHC 31.1 g/dL (30-55) 02/08/24 22:07 RDW 14.8 % (12.1-15.1) 02/08/24 22:07 Plt Count 411 10^3/cmm (157-399) H 02/08/24 22:07 MPV 8.6 fL (7.4-10.4) 02/08/24 22:07 Neut % (Auto) 79.6 % 02/08/24 22:07 Lymph % (Auto) 12.0 % 02/08/24 22:07 Mill[place] % (Auto) 6.5 % 02/08/24 22:07 Eos % (Auto) 0.8 % 02/08/24 22:07 Baso % (Auto) 0.7 % 02/08/24 22:07 Neut # (Auto) 8.51 10^3/uL (1.8-7.7) H 02/08/24 22:07 Lymph # (Auto) 1.3 10^3/uL (0.8-4.8) 02/08/24 22:07 [place] # (Auto) 0.7 10^3/uL (0.2-0.9) 02/08/24 22:07 Eos # (Auto) 0.1 10^3/uL (0.0-0.8) 02/08/24 22:07 Baso # (Auto) 0.1 10^3/uL (0.0-0.1) 02/08/24 22:07 Nucleated RBC % (auto) 0 % 02/08/24 22:07 Nucleated RBCs # 0.0 /100WBC 02/08/24 22:07 PT 13.60 SECONDS (12.1-14.9) 02/08/24 22:07 INR 1.00 (0.8-1.2) 02/08/24 22:07 APTT 26.4 SECONDS (23.9-36.7) 02/08/24 22:07 All radiology interpretation(s) finalized by discharge Discharge Plan Discharge Patient Disposition: Home Clinical Impression: Epistaxis, Hypertension Condition: Stable Prescriptions: No Action clopidogrel 75 mg tablet 75 mg PO DAILY Qty: 90 3RF losartan 25 mg tablet 25 mg PO DAILY 30 Days Qty: 30 5RF nitroglycerin 0.4 mg tablet, sublingual 0.4 mg sublingual Q5M PRN (Reason: Chest Pain) Qty: 25 6RF magnesium L-lactate 84 mg tablet extended release See Rx Instructions .ROUTE .COMPLEX Qty: 100 3RF Dose Instruction: TAKE 1 TABLET BY MOUTH EVERY DAY Rx Instructions: TAKE 1 TABLET BY MOUTH EVERY DAY amiodarone 200 mg tablet 200 mg PO DAILY Qty: 90 3RF Alive Women's 50 Plus Ultra 800 mcg DFE- 150 mcg Tablet 1 tab PO DAILY (DME) blood-glucose meter [Accu-Chek Guide Glucose Meter] Misc See Rx Instructions .Route Qty: 1 0RF Rx Instructions: As directed (DME) Accu-Chek Guide test strips Strip See Rx Instructions .Route Qty: 100 0RF Rx Instructions: As directed (DME) lancets [Accu-Chek Softclix Lancets] Misc See Rx Instructions .Route Qty: 100 0RF Rx Instructions: As directed atorvastatin 80 mg tablet 80 mg PO QAM 30 Days Qty: 30 0RF amlodipine 5 mg Tablet 5 mg PO DAILY Qty: 30 0RF Levoxyl 100 mcg Tablet 100 mcg PO QAM Qty: 30 0RF pantoprazole 40 mg Tablet,Delayed Release (Dr/Ec) 40 mg PO DAILY Qty: 30 0RF docusate sodium 100 mg Capsule 100 mg PO BID Qty: 60 0RF Oyster Shell Calcium-Vit D3 500 mg-5 mcg (200 unit) Tablet 1 tab PO BID Qty: 60 0RF furosemide 40 mg Tablet 40 mg PO QAM PRN (Reason: swelling) Qty: 10 0RF Lantus Solostar U-100 Insulin 100 unit/mL (3 mL) insulin pen 45 unit SUBCUT BID Qty: 15 0RF potassium citrate 15 mEq tablet extended release 15 meq PO DAILY PRN (Reason: on day of lasix) Qty: 60 12RF aspirin 81 mg Tablet,Chewable 81 mg PO DAILY vitamin E 670 mg (1,000 unit) Capsule 670 mg PO DAILY evening primrose oil 500 mg Capsule 1,000 mg PO DAILY Rx Instructions: give with meal/snack vitamin B complex Capsule 1 cap PO BEDTIME Glucosamine Chondroitin 550-30-1 mg Capsule 1 cap PO BEDTIME gabapentin 300 mg capsule 300 mg PO Q8H Qty: 30 0RF oxycodone-acetaminophen [Percocet] 5-325 mg tablet 1 tab PO Q8H PRN (Reason: pain) Qty: 14 0RF Miralax 17 gram/dose powder 17 g PO DAILY Qty: 510 0RF Rx Instructions: Take 1 scoop daily while taking pain medications. Discharge Orders: Discharge ED (Routine); Ordered 02/09/24 Ordered By: Vidal Gonzalez Referrals: Keo Cook MD [Primary Care Provider] - 1-3 days Patient Instructions: Nosebleed (ED), Hypertension (ED), Opioid Safety, Pain Management Activity Restrictions/Additional Instructions: Check your blood pressure twice daily for the next 5 days. If blood pressures are remaining greater than 150/90, he may need to increase amlodipine to 10 mg daily. Left nasal passage has been packed with foam. Remove this in 24 hours. Return for worsening bleeding, despite the above, altered mental status, worsening dizziness, headache, weakness, other concerning symptoms. See your doctor this week. Coding Level of Care Code ED Electrical Maintenance Technician for Dhaval Martini
[2024-02-09] MEDS: meclizine 25 mg tablet PO (00:34)
[2024-02-09 02:00] VITALS: BP 164/95; PULSE 73; O2SAT 94
[2024-02-09 03:00] VITALS: BP 162/77; PULSE 75; O2SAT 94
[2024-02-09] MEDS: oxyCODONE-APAP 5-325 mg Tablet 1 TAB PO (03:32)
[2024-02-09 03:35] VITALS: BP 152/101; PULSE 79; RESP 18; O2SAT 94
== END 2024-02-09 04:05 | disposition home or self-care (01) ==
PROVIDERS: Emergency Provider Emergency Medicine; PCP Family Medicine
DX: R04.0 Epistaxis (principal); Z79.02 Long term (current) use of antithrombotics/antiplatelets; Z79.82 Long term (current) use of aspirin; Z79.4 Long term (current) use of insulin; I25.5 Ischemic cardiomyopathy; I12.9 Hypertensive chronic kidney disease with stage 1 through stage 4 chronic kidney disease, or unspecified chronic kidney disease; N18.30 Chronic kidney disease, stage 3 unspecified; E11.22 Type 2 diabetes mellitus with diabetic chronic kidney disease; I25.2 Old myocardial infarction; E78.5 Hyperlipidemia, unspecified; I25.10 Atherosclerotic heart disease of native coronary artery without angina pectoris
CPT/HCPCS: 70450; 85025; 85610; 85730; 99284; J8597

== ENCOUNTER 2024-02-11 08:42 | Emergency (ER) | payer MEDICARE, SELFPAY ==
[2024-02-11 08:47] VITALS: BP 136/77; PULSE 79; RESP 18; TEMP 36.7; O2SAT 95
--- NOTE | 2024-02-11 09:02 | W.ED.EPISTAX ---
HPI - Epistaxis General: Chief complaint: Epistaxis Stated complaint: Nosebleed Time Seen by Provider: 02/11/24 08:44 History of Present Illness: 33-year-old female presents emergency room with epistaxis. She was here 3 days ago with same complaint at that time her nose was packed with Gelfoam. She had previously been seen by her primary care doctor at the residential and been referred to ENT for what appeared to be a polyp in her left nasal passage. She has not yet seen ENT that is upcoming next week. She returns today because of recurrent bleeding. She tells me that the Gelfoam had fallen out since she was last here. She does take Plavix and aspirin but is not on any direct anticoagulants. Associated symptoms: Deny fever(s) Related Data Home Medications Medication Instructions Recorded Confirmed [id number] 800 mcg 1 tab PO DAILY 12/04/21 01/28/24 DFE-vitamin K 150 mcg-herb no.289 tablet (Alive Women's 50 Plus Ultra Potency) aspirin 81 mg chewable tablet 81 mg PO DAILY 04/01/22 01/28/24 evening primrose oil 500 mg capsule 1,000 mg PO DAILY 03/01/23 01/28/24 glucosamine sulf dipot 1 cap PO BEDTIME 03/01/23 01/28/24 chlr,msm,chond 550 mg-C 30 mg-melissa 1 mg capsule (Glucosamine Chondroitin) vitamin B complex 1 cap PO BEDTIME 03/01/23 01/28/24 vitamin E 670 mg (1,000 unit) 670 mg PO DAILY 03/01/23 01/28/24 capsule Previous Rx's Medication Instructions Recorded atorvastatin 80 mg tablet 80 mg PO QAM 30 days #30 tabs 12/06/21 blood sugar diagnostic (Accu-Chek #100 ea 12/06/21 Guide test strips) blood-glucose meter (Accu-Chek #1 ea 12/06/21 Guide Glucose Meter) lancets (Accu-Chek Softclix #100 ea 12/06/21 Lancets) nitroglycerin 0.4 mg sublingual 0.4 mg sublingual Q5M PRN Chest 10/31/22 tablet Pain #25 tabs clopidogrel 75 mg tablet 75 mg PO DAILY #90 tabs 04/08/23 magnesium L-lactate 84 mg See Rx Instructions .Route 05/16/23 tablet,extended release .COMPLEX #100 tabs amiodarone 200 mg tablet 200 mg PO DAILY #90 tabs 10/17/23 gabapentin 300 mg capsule 300 mg PO Q8H #30 caps 10/24/23 oxycodone-acetaminophen 5 mg-325 1 tab PO Q8H PRN pain #14 tabs 10/24/23 mg tablet (Percocet) amlodipine 5 mg tablet 5 mg PO DAILY #30 tabs 11/29/23 calcium carbonate 500 mg-vitamin 1 tab PO BID #60 tabs 11/29/23 D3 5 mcg (200 unit) tablet (Oyster Shell Calcium-Vitamin D3) docusate sodium 100 mg capsule 100 mg PO BID #60 caps 11/29/23 furosemide 40 mg tablet 40 mg PO QAM PRN swelling #10 tabs 11/29/23 insulin glargine 100 unit/mL (3 45 unit (0.45 mL) SUBCUT BID #15 mL 11/29/23 mL) subcutaneous pen (Lantus Solostar U-100 Insulin) levothyroxine 100 mcg tablet 100 mcg PO QAM #30 tabs 11/29/23 (Levoxyl) pantoprazole 40 mg tablet,delayed 40 mg PO DAILY #30 tabs 11/29/23 release potassium citrate 15 mEq (1,620 15 meq PO DAILY PRN on day of 11/29/23 mg) tablet,extended release lasix #60 tabs polyethylene glycol 3350 17 17 g PO DAILY #510 grams 12/04/23 gram/dose oral powder (Miralax) losartan 25 mg tablet 25 mg PO DAILY 30 days #30 tabs 01/07/24 oxymetazoline 0.05 % nasal spray 2 spray intranasal TID PRN 02/11/24 (Afrin (oxymetazoline)) epistaxis 5 days #30 mL Allergies Allergy/AdvReac Type Severity Reaction Status Date / Time sacubitril [From Entresto] AdvReac Intermediate decreased Verified 01/07/24 11:09 urination valsartan [From Entresto] AdvReac Intermediate decreased Verified 01/07/24 11:09 urination farxiga AdvReac ADR-Nausea Uncoded 01/07/24 11:09 steroids AdvReac increased Uncoded 01/07/24 11:09 high BP Review of Systems Const: Denies: fever(s) or chills Card: Denies: chest pain Resp: Denies: dyspnea GI: Denies: abdominal pain : Denies: dysuria, urinary frequency or urinary urgency Musc: Denies: neck pain or back pain Skin/Breast: Denies: rash PFSH ED PFSH: Medical History Ischemic cardiomyopathy Essential hypertension Morbid obesity CAMERON (dyspnea on exertion) Non-ST elevation [place] (NSTEMI) Chest pain CKD (chronic kidney disease) stage 3, GFR 30-59 ml/min Diabetes Shortness of breath Bilateral renal stones Hyperlipidemia Coronary artery disease Multiple vessel coronary artery disease Osteoarthritis Hypertension Diabetes mellitus Surgical History H/O heart bypass surgery 2 times Hx of cholecystectomy H/O dilation and curettage H/O: H/O: hysterectomy H/O vulvectomy S/P ureteral stent placement Family History Mother , at age 93 Uterine cancer CAD (coronary artery disease) Father , at age 67 CAD (coronary artery disease) Social History Smoking and tobacco/nicotine status: never used tobacco/nicotine Alcohol intake: never Marital status: / Current occupational status: retired Physical Exam Const: COMMON NORMALS: no acute distress GENERAL APPEARANCE: cooperative and comfortable ORIENTATION/CONSCIOUSNESS: Yes awake, Yes oriented to person, Yes oriented to place and Yes oriented to time HENMT: COMMON NORMALS: normocephalic, atraumatic and hearing grossly normal bilaterally HEAD & SCALP: normocephalic and atraumatic OTHER: Direct examination of the nares there is some watery mucousy blood-tinged drainage from the left nare. The Gelfoam is in place. Large left nasal polyp noted no active bleeding from the polyp. No active bleeding at this time and the clamp was taken off. Resp: COMMON NORMALS: normal respiratory effort, No retractions, No use of accessory muscles and clear to auscultation bilaterally AUSCULTATION: clear to auscultation bilaterally Cardio: COMMON NORMALS: regular rate, regular rhythm and No murmurs present (Cardio) RATE: regular rate RHYTHM: regular rhythm Extremity: COMMON NORMALS: normal to inspection, capillary refill normal, no clubbing, cyanosis or edema, no calf tenderness and no pedal edema Neuro: SENSORIUM/ORIENTATION: Yes oriented to person, Yes oriented to place and Yes oriented to time Skin: COMMON NORMALS: no rashes or lesions noted GENERAL SKIN EXAM: no rashes or lesions noted Course Vital Signs: Vital signs: Vital Signs Temperature 98.1 F 02/11/24 08:47 Pulse Rate 79 02/11/24 08:47 Respiratory Rate 16 02/11/24 10:32 Blood Pressure 136/77 02/11/24 08:47 Pulse Oximetry 99 02/11/24 10:32 Oxygen Delivery Me thod Room Air 02/11/24 08:47 MDM - Epistaxis Medical Decision Making Patient monitored for time the emergency room. Hemoglobin is normal. No further bleeding after the clamp was removed. I can still see the Gelfoam in place. Do not recommend removal at this point we will have her do nasal saline and oxymetazoline as needed can use up to 3-4 times a day 2 sprays in each nostril. She has a pending appointment with ENT. Return if has uncontrolled epistaxis Medical Records I reviewed the patient's medical records. Lab Data I reviewed the patient's lab results. 02/11/24 09:18 02/11/24 09:18 Laboratory Results WBC 11.88 10^3/uL (3.29-11.43) H 02/11/24 09:18 RBC 4.57 10^6/uL (3.85-5.65) 02/11/24 09:18 Hgb 12.60 g/dL (11.27-16.99) 02/11/24 09:18 Hct 40.3 % (36-47) 02/11/24 09:18 MCV 88.2 fl (85-98) 02/11/24 09:18 MCH 27.6 pg (27-33) 02/11/24 09:18 MCHC 31.3 g/dL (30-55) 02/11/24 09:18 RDW 14.8 % (12.1-15.1) 02/11/24 09:18 Plt Count 469 10^3/cmm (157-399) H 02/11/24 09:18 MPV 8.6 fL (7.4-10.4) 02/11/24 09:18 Neut % (Auto) 69.4 % 02/11/24 09:18 Lymph % (Auto) 18.2 % 02/11/24 09:18 [place] % (Auto) 8.8 % 02/11/24 09:18 Eos % (Auto) 2.6 % 02/11/24 09:18 Baso % (Auto) 0.8 % 02/11/24 09:18 Neut # (Auto) 8.25 10^3/uL (1.8-7.7) H 02/11/24 09:18 Lymph # (Auto) 2.2 10^3/uL (0.8-4.8) 02/11/24 09:18 [place] # (Auto) 1.0 10^3/uL (0.2-0.9) H 02/11/24 09:18 Eos # (Auto) 0.3 10^3/uL (0.0-0.8) 02/11/24 09:18 Baso # (Auto) 0.1 10^3/uL (0.0-0.1) 02/11/24 09:18 Nucleated RBC % (auto) 0 % 02/11/24 09:18 Nucleated RBCs # 0.0 /100WBC 02/11/24 09:18 Sodium 137 mmol/L (136-145) 02/11/24 09:18 Potassium 4.0 mmol/L (3.5-5.1) 02/11/24 09:18 Chloride 102 mmol/L (98-107) 02/11/24 09:18 Carbon Dioxide 25 mmol/L (22-29) 02/11/24 09:18 Anion Gap 14.0 (5-19) 02/11/24 09:18 BUN 18 mg/dL (8-23) 02/11/24 09:18 Creatinine 0.7 mg/dL (0.5-0.9) 02/11/24 09:18 GFR Calculation Not Reportable 02/11/24 09:18 Glucose 156 mg/dL (65-115) H 02/11/24 09:18 Calculated Osmolality 289 mOsm/kg (285-295) 02/11/24 09:18 Calcium 8.2 mg/dL (8.5-10.5) L 02/11/24 09:18 Total Bilirubin 0.2 mg/dL (0.15-1.2) 02/11/24 09:18 AST 9 U/L (0-32) 02/11/24 09:18 ALT 9 U/L (0-33) 02/11/24 09:18 Alkaline Phosphatase 82 U/L (35-105) 02/11/24 09:18 Total Protein 5.9 g/dL (6.6-8.7) L 02/11/24 09:18 Albumin 3.0 g/dL (3.5-5.2) L 02/11/24 09:18 Globulin 2.9 g/dL (1.3-4.6) 02/11/24 09:18 All radiology interpretation(s) finalized by discharge Discharge Plan Discharge Patient Disposition: Home Clinical Impression: Left nasal polyps, Epistaxis Condition: Stable Prescriptions: New Afrin (oxymetazoline) 0.05 % spray,non-aerosol 2 spray intranasal TID PRN (Reason: epistaxis) 5 Days Qty: 30 0RF No Action clopidogrel 75 mg tablet 75 mg PO DAILY Qty: 90 3RF losartan 25 mg tablet 25 mg PO DAILY 30 Days Qty: 30 5RF nitroglycerin 0.4 mg tablet, sublingual 0.4 mg sublingual Q5M PRN (Reason: Chest Pain) Qty: 25 6RF magnesium L-lactate 84 mg tablet extended release See Rx Instructions .ROUTE .COMPLEX Qty: 100 3RF Dose Instruction: TAKE 1 TABLET BY MOUTH EVERY DAY Rx Instructions: TAKE 1 TABLET BY MOUTH EVERY DAY amiodarone 200 mg tablet 200 mg PO DAILY Qty: 90 3RF Alive Women's 50 Plus Ultra 800 mcg DFE- 150 mcg Tablet 1 tab PO DAILY (DME) blood-glucose meter [Accu-Chek Guide Glucose Meter] Misc See Rx Instructions .Route Qty: 1 0RF Rx Instructions: As directed (DME) Accu-Chek Guide test strips Strip See Rx Instructions .Route Qty: 100 0RF Rx Instructions: As directed (DME) lancets [Accu-Chek Softclix Lancets] Misc See Rx Instructions .Route Qty: 100 0RF Rx Instructions: As directed atorvastatin 80 mg tablet 80 mg PO QAM 30 Days Qty: 30 0RF amlodipine 5 mg Tablet 5 mg PO DAILY Qty: 30 0RF Levoxyl 100 mcg Tablet 100 mcg PO QAM Qty: 30 0RF pantoprazole 40 mg Tablet,Delayed Release (Dr/Ec) 40 mg PO DAILY Qty: 30 0RF docusate sodium 100 mg Capsule 100 mg PO BID Qty: 60 0RF Oyster Shell Calcium-Vit D3 500 mg-5 mcg (200 unit) Tablet 1 tab PO BID Qty: 60 0RF furosemide 40 mg Tablet 40 mg PO QAM PRN (Reason: swelling) Qty: 10 0RF Lantus Solostar U-100 Insulin 100 unit/mL (3 mL) insulin pen 45 unit SUBCUT BID Qty: 15 0RF potassium citrate 15 mEq tablet extended release 15 meq PO DAILY PRN (Reason: on day of lasix) Qty: 60 12RF aspirin 81 mg Tablet,Chewable 81 mg PO DAILY vitamin E 670 mg (1,000 unit) Capsule 670 mg PO DAILY evening primrose oil 500 mg Capsule 1,000 mg PO DAILY Rx Instructions: give with meal/snack vitamin B complex Capsule 1 cap PO BEDTIME Glucosamine Chondroitin 550-30-1 mg Capsule 1 cap PO BEDTIME gabapentin 300 mg capsule 300 mg PO Q8H Qty: 30 0RF oxycodone-acetaminophen [Percocet] 5-325 mg tablet 1 tab PO Q8H PRN (Reason: pain) Qty: 14 0RF Miralax 17 gram/dose powder 17 g PO DAILY Qty: 510 0RF Rx Instructions: Take 1 scoop daily while taking pain medications. Discharge Orders: Discharge ED (Routine); Ordered 02/11/24 Ordered By: Delfino Santana Referrals: Keo Cook MD [Primary Care Provider] - Discharge Diet: Usual diet Discharge Activity: Increase activity as tolerated Patient Instructions: Opioid Safety, Pain Management Activity Restrictions/Additional Instructions: Thank you for choosing [facility] for your healthcare needs today. It is very important that you follow up as instructed or that you return to the Emergency Department should you have concerns or if your condition changes or worsens in any way. You are seen in the emergency room with epistaxis (nose bleed). Packing is still in place there is a large polyp in the left nasal passage. There is no active bleeding at the time of your discharge. Recommend using Afrin nasal spray 2 sprays in each nostril 3-4 times a day as needed if there is recurrent bleeding. Packing is still in place and was not removed. Keep appointment with ENT as planned. Avoid forcefully blowing the nose. Use nasal saline as often as needed to keep nose moist and prevent congestion. Coding Level of Care Code ED Staff Interpreter for Dhaval Martini
[2024-02-11 09:26] LABS: Basophils # 0.1 10^3/uL (0.0-0.1); Basophils % 0.8 %; Eosinophils # 0.3 10^3/uL (0.0-0.8); Eosinophils % 2.6 %; Hematocrit 40.3 % (36-47); Lymphocytes # 2.2 10^3/uL (0.8-4.8); Lymphocytes % 18.2 %; Mean Corpuscular HGB Conc 31.3 g/dL (30-55); Mean Corpuscular Hemoglobin 27.6 pg (27-33); Mean Corpuscular Volume 88.2 fl (85-98); Mean Platelet Volume 8.6 fL (7.4-10.4); Monocytes % 8.8 %; Neutrophils # 8.25 10^3/uL (1.8-7.7); Neutrophils % 69.4 %; Nucleated Red Blood Cells % 0 %; Platelet Count 469 10^3/cmm (157-399); Red Blood Count 4.57 10^6/uL (3.85-5.65); Red Cell Distribution Width 14.8 % (12.1-15.1); White Blood Count 11.88 10^3/uL (3.29-11.43)
[2024-02-11 09:42] LABS: Alanine Aminotransferase 9 U/L (0-33); Alkaline Phosphatase 82 U/L (35-105); Aspartate Amino Transferase 9 U/L (0-32); Blood Urea Nitrogen 18 mg/dL (8-23); Calcium 8.2 mg/dL (8.5-10.5); Carbon Dioxide 25 mmol/L (22-29); Chloride 102 mmol/L (98-107); Globulin 2.9 g/dL (1.3-4.6); Glucose 156 mg/dL (65-115); Osmolality Calculated 289 mOsm/kg (285-295); Sodium 137 mmol/L (136-145); Total Bilirubin 0.2 mg/dL (0.15-1.2); Total Protein 5.9 g/dL (6.6-8.7)
[2024-02-11 10:32] VITALS: RESP 16; O2SAT 99
[2024-02-11] MEDS: oxyCODONE-APAP 5-325 mg Tablet 1 TAB PO (10:32)
== END 2024-02-11 12:06 | disposition home or self-care (01) ==
PROVIDERS: Emergency Provider Family Medicine; PCP Family Medicine
DX: R04.0 Epistaxis (principal); J33.9 Nasal polyp, unspecified; Z79.02 Long term (current) use of antithrombotics/antiplatelets; Z79.4 Long term (current) use of insulin; Z79.82 Long term (current) use of aspirin; I13.10 Hypertensive heart and chronic kidney disease without heart failure, with stage 1 through stage 4 chronic kidney disease, or unspecified chronic kidney disease; E11.22 Type 2 diabetes mellitus with diabetic chronic kidney disease; I43 Cardiomyopathy in diseases classified elsewhere; N18.30 Chronic kidney disease, stage 3 unspecified; I25.2 Old myocardial infarction; I25.10 Atherosclerotic heart disease of native coronary artery without angina pectoris
CPT/HCPCS: 36415; 80053; 85025; 99283

== ENCOUNTER 2024-02-12 14:29 | Emergency (ER) | payer MEDICARE, SELFPAY ==
[2024-02-12 14:33] VITALS: BP 151/81; PULSE 83; TEMP 36.7; O2SAT 96; BMI 39.4
--- NOTE | 2024-02-12 14:40 | ED_ITS ---
HPI - Epistaxis General: Chief complaint: Epistaxis Stated complaint: nosebleed Time Seen by Provider: 02/12/24 14:32 Source: patient Mode of arrival: EMS Limitations: no limitations History of Present Illness: Patient is a 73-year-old female presents to ED today from [facility] for evaluation of a nosebleed. Patient has been seen here in our emergency department on 02/08 as well as yesterday (02/10) for evaluation of nosebleed. On 02/08 she had a Gelfoam placed. On her visit yesterday it was reportedly still in place by provider that saw her although patient stated she believed she wi tnessed it fall out. She also tells me that an RN from her [place] [facility] facility at some point attempted packing but was told it would not advance due to clots and then states they attempted nasal tampon by blowing something up in her nose . She states she was normal today but began bleeding again from her left nare while watching TV. Has a known left polyp. States she has an ENT appointment on Saturday with Dr. Wynn. Takes Plavix and aspirin. MD complaint: epistaxis Location: left nostril Onset (ago): hour(s) Duration: intermittent Context: aspirin use Associated symptoms: Reports no associated symptoms; Deny fever(s) or headache(s) Treatment prior to arrival: nose pinching Related Data Home Medications Medication Instructions Recorded Confirmed [id number] 800 mcg 1 tab PO DAILY 12/04/21 01/28/24 DFE-vitamin K 150 mcg-herb no.289 tablet (Alive Women's 50 Plus Ultra Potency) aspirin 81 mg chewable tablet 81 mg PO DAILY 04/01/22 01/28/24 evening primrose oil 500 mg capsule 1,000 mg PO DAILY 03/01/23 01/28/24 glucosamine sulf dipot 1 cap PO BEDTIME 03/01/23 01/28/24 chlr,msm,chond 550 mg-C 30 mg-melissa 1 mg capsule (Glucosamine Chondroitin) vitamin B complex 1 cap PO BEDTIME 03/01/23 01/28/24 vitamin E 670 mg (1,000 unit) 670 mg PO DAILY 03/01/23 01/28/24 capsule Previous Rx's Medication Instructions Recorded atorvastatin 80 mg tablet 80 mg PO QAM 30 days #30 tabs 12/06/21 blood sugar diagnostic (Accu-Chek #100 ea 12/06/21 Guide test strips) blood-glucose meter (Accu-Chek #1 ea 12/06/21 Guide Glucose Meter) lancets (Accu-Chek Softclix #100 ea 12/06/21 Lancets) nitroglycerin 0.4 mg sublingual 0.4 mg sublingual Q5M PRN Chest 10/31/22 tablet Pain #25 tabs clopidogrel 75 mg tablet 75 mg PO DAILY #90 tabs 04/08/23 magnesium L-lactate 84 mg See Rx Instructions .Route 05/16/23 tablet,extended release .COMPLEX #100 tabs amiodarone 200 mg tablet 200 mg PO DAILY #90 tabs 10/17/23 gabapentin 300 mg capsule 300 mg PO Q8H #30 caps 10/24/23 oxycodone-acetaminophen 5 mg-325 1 tab PO Q8H PRN pain #14 tabs 10/24/23 mg tablet (Percocet) amlodipine 5 mg tablet 5 mg PO DAILY #30 tabs 11/29/23 calcium carbonate 500 mg-vitamin 1 tab PO BID #60 tabs 11/29/23 D3 5 mcg (200 unit) tablet (Oyster Shell Calcium-Vitamin D3) docusate sodium 100 mg capsule 100 mg PO BID #60 caps 11/29/23 furosemide 40 mg tablet 40 mg PO QAM PRN swelling #10 tabs 11/29/23 insulin glargine 100 unit/mL (3 45 unit (0.45 mL) SUBCUT BID #15 mL 11/29/23 mL) subcutaneous pen (Lantus Solostar U-100 Insulin) levothyroxine 100 mcg tablet 100 mcg PO QAM #30 tabs 11/29/23 (Levoxyl) pantoprazole 40 mg tablet,delayed 40 mg PO DAILY #30 tabs 11/29/23 release potassium citrate 15 mEq (1,620 15 meq PO DAILY PRN on day of 11/29/23 mg) tablet,extended release lasix #60 tabs polyethylene glycol 3350 17 17 g PO DAILY #510 grams 12/04/23 gram/dose oral powder (Miralax) losartan 25 mg tablet 25 mg PO DAILY 30 days #30 tabs 01/07/24 oxymetazoline 0.05 % nasal spray 2 spray intranasal TID PRN 02/11/24 (Afrin (oxymetazoline)) epistaxis 5 days #30 mL Allergies Allergy/AdvReac Type Severity Reaction Status Date / Time sacubitril [From Entresto] AdvReac Intermediate decreased Verified 02/12/24 14:40 urination valsartan [From Entresto] AdvReac Intermediate decreased Verified 02/12/24 14:40 urination farxiga AdvReac ADR-Nausea Uncoded 02/12/24 14:40 steroids AdvReac increased Uncoded 02/12/24 14:40 high BP Review of Systems Const: Denies: fever(s), chills, body aches, fatigue or malaise Eyes: Denies: change in vision, blurry vision, photophobia, floaters or seeing flashes ENMT: Reports: epistaxis Card: Denies: chest pain Resp: Denies: dyspnea Musc: Denies: neck pain Neuro: Denies: headache(s) or dizziness PFSH ED PFSH: Medical History Ischemic cardiomyopathy Essential hypertension Morbid obesity [place] (dyspnea on exertion) Non-ST elevation [place] (NSTEMI) Chest pain CKD (chronic kidney disease) stage 3, GFR 30-59 ml/min Diabetes Shortness of breath Bilateral renal stones Hyperlipidemia Coronary artery disease Multiple vessel coronary artery disease Osteoarthritis Hypertension Diabetes mellitus Surgical History H/O heart bypass surgery 2 times Hx of cholecystectomy H/O dilation and curettage H/O: H/O: hysterectomy H/O vulvectomy S/P ureteral stent placement Family History Mother , at age 93 Uterine cancer CAD (coronary artery disease) Father , at age 67 CAD (coronary artery disease) Social History Smoking and tobacco/nicotine status: never used tobacco/nicotine Alcohol intake: never Marital status: / Current occupational status: retired Physical Exam Const: COMMON NORMALS: no acute distress, no limitations, alert and well nourished GENERAL APPEARANCE: cooperative HENMT: COMMON NORMALS: normocephalic, atraumatic and Normal external nose present HEAD & SCALP: normocephalic and atraumatic FACE & SINUS: normal facial exam NOSE: Normal external nose present, Epistaxis present (see below) on the left and Nasal polyp present Nasal polyp laterality: left OTHER: patient has a large left sided nasal polyp essentially obstructing her entire nare; she appears to have some trauma to the polyp most likely from interventions here as well as [place] [facility]; bleeding appears to be from medial edge of polyp itself or normal anterior epistaxis location (not easily identified due to size of polyp)-either way it is easily controlled with nasal clamp and clamp; I do not visualize any gelfoam present Neuro: SENSORIUM/ORIENTATION: Yes alert Course Vital Signs: Vital signs: Vital Signs Temperature 98.1 F 02/12/24 14:33 Pulse Rate 83 02/12/24 14:33 Blood Pressure 151/81 02/12/24 14:33 Pulse Oximetry 96 02/12/24 14:33 Oxygen Delivery Me thod Room Air 02/12/24 14:33 MDM - Epistaxis Medical Decision Making Clamp/Afrin x 20 mins then released. No further bleeding noted. Ultimately I anticipate her having intermittent epistaxis due to this large polyp until she sees Dr. Wynn on Saturday. Encouraged frequent nasal clamp use as front line if bleeding begins again. Can use Afrin as adjunctive therapy. She can return to the emergency department for any bleeding that cannot be controlled by the use of these 2 modalities. No radiology studies performed this visit Discharge Plan Discharge Patient Disposition: Home Clinical Impression: Left-sided epistaxis, Polyp of left nasal cavity Condition: Stable Prescriptions: No Action clopidogrel 75 mg tablet 75 mg PO DAILY Qty: 90 3RF losartan 25 mg tablet 25 mg PO DAILY 30 Days Qty: 30 5RF nitroglycerin 0.4 mg tablet, sublingual 0.4 mg sublingual Q5M PRN (Reason: Chest Pain) Qty: 25 6RF magnesium L-lactate 84 mg tablet extended release See Rx Instructions .ROUTE .COMPLEX Qty: 100 3RF Dose Instruction: TAKE 1 TABLET BY MOUTH EVERY DAY Rx Instructions: TAKE 1 TABLET BY MOUTH EVERY DAY amiodarone 200 mg tablet 200 mg PO DAILY Qty: 90 3RF Alive Women's 50 Plus Ultra 800 mcg DFE- 150 mcg Tablet 1 tab PO DAILY (DME) blood-glucose meter [Accu-Chek Guide Glucose Meter] Misc See Rx Instructions .Route Qty: 1 0RF Rx Instructions: As directed (DME) Accu-Chek Guide test strips Strip See Rx Instructions .Route Qty: 100 0RF Rx Instructions: As directed (DME) lancets [Accu-Chek Softclix Lancets] [facility] See Rx Instructions .Route Qty: 100 0RF Rx Instructions: As directed atorvastatin 80 mg tablet 80 mg PO QAM 30 Days Qty: 30 0RF amlodipine 5 mg Tablet 5 mg PO DAILY Qty: 30 0RF Levoxyl 100 mcg Tablet 100 mcg PO QAM Qty: 30 0RF pantoprazole 40 mg Tablet,Delayed Release (Dr/Ec) 40 mg PO DAILY Qty: 30 0RF docusate sodium 100 mg Capsule 100 mg PO BID Qty: 60 0RF Oyster Shell Calcium-Vit D3 500 mg-5 mcg (200 unit) Tablet 1 tab PO BID Qty: 60 0RF furosemide 40 mg Tablet 40 mg PO QAM PRN (Reason: swelling) Qty: 10 0RF Lantus Solostar U-100 Insulin 100 unit/mL (3 mL) insulin pen 45 unit SUBCUT BID Qty: 15 0RF potassium citrate 15 mEq tablet extended release 15 meq PO DAILY PRN (Reason: on day of lasix) Qty: 60 12RF aspirin 81 mg Tablet,Chewable 81 mg PO DAILY vitamin E 670 mg (1,000 unit) Capsule 670 mg PO DAILY evening primrose oil 500 mg Capsule 1,000 mg PO DAILY Rx Instructions: give with meal/snack vitamin B complex Capsule 1 cap PO BEDTIME Glucosamine Chondroitin 550-30-1 mg Capsule 1 cap PO BEDTIME gabapentin 300 mg capsule 300 mg PO Q8H Qty: 30 0RF oxycodone-acetaminophen [Percocet] 5-325 mg tablet 1 tab PO Q8H PRN (Reason: pain) Qty: 14 0RF Miralax 17 gram/dose powder 17 g PO DAILY Qty: 510 0RF Rx Instructions: Take 1 scoop daily while taking pain medications. Afrin (oxymetazoline) 0.05 % spray,non-aerosol 2 spray intranasal TID PRN (Reason: epistaxis) 5 Days Qty: 30 0RF Discharge Orders: Discharge ED (Routine); Ordered 02/12/24 Ordered By: Janet Pollock Referrals: Keo Cook MD [Primary Care Provider] - Activity Restrictions/Additional Instructions: As we discussed I anticipate you having to use your nasal clamp and Afrin frequently over the next several days until you can be seen by ENT/Dr. Wynn. I recommend returning to the emergency department for any severe bleeding that cannot be controlled with direct pressure via your nasal clamp/Afrin. Coding Level of Care Code ED Enterprise Systems Architect for Dhaval Martini
[2024-02-12] MEDS: oxymetazoline 0.05% Nasal Spray 15 mL 2 SPRAY NOSTRIL-L (15:05)
--- NOTE | 2024-02-12 16:38 | PC.NURSE ---
CALLED AND SPOKE WITH [facility] FOR TRANSPORT, [place] UNABLE TO TRANSPORT BACK TO FACILITY. CALLED [facility] AND THEY STATE 7 HOUR MINIMUM FOR TRANSPORT. INFORMED PROVIDER AND [facility]OR [facility] OF DELAY IN TRANSPORT.
[2024-02-12 18:40] VITALS: BP 167/107; PULSE 73; O2SAT 94
[2024-02-12] MEDS: HYDROcodone-acetaminophen 5-325 mg Tablet 1 TAB PO (21:16)
[2024-02-12 22:45] VITALS: BP 163/73; PULSE 73; TEMP 36.7; O2SAT 94
== END 2024-02-12 22:46 | disposition home or self-care (01) ==
PROVIDERS: Emergency Provider Physician Assistant; PCP Family Medicine
DX: R04.0 Epistaxis (principal); J33.9 Nasal polyp, unspecified; Z79.02 Long term (current) use of antithrombotics/antiplatelets; Z79.82 Long term (current) use of aspirin; Z79.4 Long term (current) use of insulin; I25.5 Ischemic cardiomyopathy; I12.9 Hypertensive chronic kidney disease with stage 1 through stage 4 chronic kidney disease, or unspecified chronic kidney disease; N18.30 Chronic kidney disease, stage 3 unspecified; I25.2 Old myocardial infarction; E78.5 Hyperlipidemia, unspecified; I25.10 Atherosclerotic heart disease of native coronary artery without angina pectoris
CPT/HCPCS: 99283

== ENCOUNTER → 2024-03-05 14:05 | Outpatient (BNVA) | payer MEDICARE, SELFPAY | PROVIDERS: PCP Family Medicine; Visit Provider Orthopaedic Surgery | DX: M48.062 Spinal stenosis, lumbar region with neurogenic claudication (principal) | CPT/HCPCS: 72020; 99214 ==

== ENCOUNTER 2024-03-19 10:34 | Outpatient (CLI) | payer MEDICARE, SELFPAY ==
--- NOTE | 2024-03-19 10:36 | CT_ITS ---
WS: [id number] CT PARANASAL SINUSES HISTORY: EPISTAXIS/POLYP OF NASAL CAVITY TECHNIQUE: Contiguous 2.5 mm axial images obtained through the sinuses. Images are reconstructed in s agittal and coronal planes. All CT scans at [facility] use at least one of these dose optimiz ation techniques: automated exposure control; mA and/or kV adjustment per patient size (includes targ eted exams where dose is matched to clinical indication); or iterative reconstruction. DLP: 345.08 mGy.cm COMPARISON: None available. Frontal sinuses: Underpneumatized frontal sinuses. Beginning in the frontal ethmoid recesses increasi ng mucoperiosteal thickening. Sphenoid sinus: Normal. Ethmoid sinuses: There is a soft tissue mass causing mild expansion of the LEFT nasal cavity with ext ension into the anterior LEFT ethmoid air cells. Soft tissue mass measures 3.5 x 1.0 x 2.2 cm. There is slight deviation of the nasal septum to the RIGHT which may be due to the bony expansion. Well-cir cumscribed areas of osseous or calcific like attenuation in the LEFT nasal cavity measures 1.5 x 0.8 cm. These may be related to inspissated secretions with calcification or ossification. Maxillary sinus: Small septa through the maxillary sinuses. No air-fluid levels. Ostiomeatal unit: Patent. Soft tissue mass in the LEFT nasal cavity is encroaching upon the ostiomeat al units with distortion of the middle turbinate. Seen best on soft tissue windows is a hyperdense nodule measuring 1.1 x 0.8 cm in the anterior LEFT n estelle cavity. Orbits and globes are negative. CT/CT sinus wo con* [id number] IMPRESSION: 1. Soft tissue mass with variable heterogeneity and bony expansion centered in the LEFT nasal cavity with extension into the anterior LEFT ethmoid air cells. Dense calcified or ossified nodules are probably inspissated secretions. Diffe rential includes chronic rhinosinusitis, neoplasm, sinonasal mucocele, polyp an d fungal sinusitis.
== END 2024-03-19 10:35 | disposition home or self-care (01) ==
LOC: RAD 10:34
PROVIDERS: PCP Family Medicine; Visit Provider Otolaryngology
DX: R04.0 Epistaxis (principal); J33.0 Polyp of nasal cavity; J34.89 Other specified disorders of nose and nasal sinuses
CPT/HCPCS: 70486

== ENCOUNTER → 2024-03-26 14:44 | Outpatient (BNVA) | payer MEDICARE, SELFPAY | PROVIDERS: PCP Family Medicine; Visit Provider Specialist | DX: R29.898 Other symptoms and signs involving the musculoskeletal system; E11.44 Type 2 diabetes mellitus with diabetic amyotrophy; M54.17 Radiculopathy, lumbosacral region; I25.5 Ischemic cardiomyopathy; Z95.810 Presence of automatic (implantable) cardiac defibrillator; E66.01 Morbid (severe) obesity due to excess calories; N18.30 Chronic kidney disease, stage 3 unspecified; E11.42 Type 2 diabetes mellitus with diabetic polyneuropathy; E11.22 Type 2 diabetes mellitus with diabetic chronic kidney disease | CPT/HCPCS: 95885; 95910; 99204; 99205 ==

== ENCOUNTER 2024-05-22 12:26 | Outpatient (CLI) | payer MEDICARE, SELFPAY ==
--- NOTE | 2024-05-22 12:31 | CT_ITS ---
WS: [id number] CT HEAD TECHNIQUE: Noncontrast and contrast-enhanced CT of the head. CLINICAL INFORMATION: CYST MUCOCELE OF NOSE NASAL SINUS COMPARISON: None. DLP: 2346.[address] scans at [facility] use at least one of these dose optimization techniques: automated e xposure control; mA and/or kV adjustment per patient size (includes targeted exams where dose is matc hed to clinical indication); or iterative reconstruction. FINDINGS: Again seen is the polypoid lesion with bony remodeling involving the LEFT nasal cavity extending into the anterior LEFT ethmoid air cells. This appears stable compared to the prior sinus CT. Prior sinus CT better demonstrates bony anatomy. No evidence of intracranial extension. Polypoid lesion directly abuts the anteromedial orbit with bony thinning/dehiscence in this area. No significant intraorbital extension. Lamina papyracea appears intact. No evidence of intracranial hemorrhage or mass effect. Mild small vessel changes. Mild parenchymal vo lume loss. Vascular calcification. Mastoid air cells are well aerated. Normal posterior nasopharynx. No other acute findings. CT/CT head wo/w con [id number] IMPRESSION: 1. Stable heterogeneously enhancing previously described polypoid lesion with bony remodeling and expansion involving the LEFT nasal cavity. No evidence intr acranial extension. Polypoid lesion directly abuts the anteromedial orbit at th e nasolacrimal duct with bony thinning/dehiscence in this area. No significant intraorbital extension. 2. Mild small vessel changes with mild parenchymal volume loss. 3. No other acute findings.
[2024-05-22 13:29] LABS: Blood Urea Nitrogen 11 mg/dL (8-23)
== END 2024-05-22 12:27 | disposition home or self-care (01) ==
LOC: RAD 12:26
PROVIDERS: PCP Family Medicine; Visit Provider Specialist
DX: J34.1 Cyst and mucocele of nose and nasal sinus (principal)
CPT/HCPCS: 70470; 82565; 84520; Q9967

== ENCOUNTER 2025-05-05 01:44 | Emergency (ER) | payer MEDICARE, MEDICAID, SELFPAY ==
[2025-05-05] VITALS (19 sets, daily range): BP systolic 59–121; BP diastolic 34–73; PULSE 58–95; RESP 12–29; TEMP 36.3; O2SAT 92–100; BMI 42.9
--- NOTE | 2025-05-05 01:17 | ECG_ITS ---
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 Measurements Intervals [place] Rate: 60 P: 118 MT: 228 QRS: 263 QRSD: 149 T: 73 QT: 498 QTc: 502 Interpretive Statements ELECTRONIC ATRIAL PACEMAKER INTRAVENTRICULAR CONDUCTION DELAY [130+ ms QRS DURATION] LATERAL MYOCARDIAL INFARCTION , OF INDETERMINATE AGE [40+ ms Q WAVE AND/OR ST/T ABNORMALITY IN I/aVL/V5/V6] ST DEPRESSION, CONSIDER SUBENDOCARDIAL INJURY [0.1+ mV ST DEPRESSION] Compared to ECG 04/08/2023 10:30:37 Myocardial infarct finding now present ST (T wave) deviation now present Sinus rhythm no longer present Ventricular premature complex(es) no longer present Prolonged QT interval no longer present Electronically Signed On 05-05-2025 23:57:15 GMAT TUTOR by Sherie Cleveland M.D. [email or web address]
--- NOTE | 2025-05-05 01:28 | W.ED.CHESTPA ---
HPI - Chest Pain General: Chief Complaint: Chest Pain Stated Complaint: cp History of Present Illness: 74yo F w/pmhx of CAD s/p multiple bypass grafts, implantable cardioverter defibrillator, HTN w/cc of right sided chest pain that started at rest. She states nothing makes it better or worse, states she has had pain like this before but it's never lasted as long. She states pain is not present on my exam. It is not worsened w/deep breathing. She's not had a fever. She reports shortness of breath, tells me she is not usually on supplemental O2. Patient is placed on supplemental oxygen here for shortness of breath. Patient denies abdominal pain, nausea, vomiting, diarrhea or dysuria. She has bilateral lower extremity swelling. Last cardiac echo 2023: CONCLUSIONS LV systolic function is normal with EF of 50 to 55% Grade 1 diastolic dysfunction. Mild mitral regurgitation. Mild tricuspid regurgitation. Compared to prior echocardiogram from 03/2023, LV systolic function has improved significantly and is normal now. Per EMS, she received nitroglycerin with a bit of subsequent low blood pressure. Related Data Home Medications ?Medication ?Instructions ?Recorded ?Confirmed ebirtshb-lcs-yqxodby 800 mcg 1 tab PO DAILY 12/04/21 03/26/24 DFE-vitamin K 150 mcg-herb no.289 tablet (Alive Women's 50 Plus Ultra Potency) aspirin 81 mg chewable tablet 81 mg PO DAILY 04/01/22 03/26/24 evening primrose oil 500 mg capsule 1,000 mg PO DAILY 03/01/23 03/26/24 glucosamine sulf dipot 1 cap PO BEDTIME 03/01/23 03/26/24 chlr,msm,chond 550 mg-C 30 mg-melissa 1 mg capsule (Glucosamine Chondroitin) vitamin B complex 1 cap PO BEDTIME 03/01/23 03/26/24 vitamin E 670 mg (1,000 unit) 670 mg PO DAILY 03/01/23 03/26/24 capsule Previous Rx's ?Medication ?Instructions ?Recorded atorvastatin 80 mg tablet 80 mg PO QAM 30 days #30 tabs 12/06/21 blood sugar diagnostic (Accu-Chek #100 ea 12/06/21 Guide test strips) blood-glucose meter (Accu-Chek #1 ea 12/06/21 Guide Glucose Meter) lancets (Accu-Chek Softclix #100 ea 12/06/21 Lancets) nitroglycerin 0.4 mg sublingual 0.4 mg sublingual Q5M PRN Chest 10/31/22 tablet Pain #25 tabs clopidogrel 75 mg tablet 75 mg PO DAILY #90 tabs 04/08/23 magnesium L-lactate 84 mg See Rx Instructions .Route 05/16/23 tablet,extended release .COMPLEX #100 tabs amiodarone 200 mg tablet 200 mg PO DAILY #90 tabs 10/17/23 gabapentin 300 mg capsule 300 mg PO Q8H #30 caps 10/24/23 oxycodone-acetaminophen 5 mg-325 1 tab PO Q8H PRN pain #14 tabs 10/24/23 mg tablet (Percocet) amlodipine 5 mg tablet 5 mg PO DAILY #30 tabs 11/29/23 calcium 500 mg (as 1 tab PO BID #60 tabs 11/29/23 carbonate)-vitamin D3 5 mcg (200 unit) tablet (Oyster Shell Calcium-Vitamin D3) docusate sodium 100 mg capsule 100 mg PO BID #60 caps 11/29/23 furosemide 40 mg tablet 40 mg PO QAM PRN swelling #10 tabs 11/29/23 insulin glargine 100 unit/mL (3 45 unit (0.45 mL) SUBCUT BID #15 mL 11/29/23 mL) subcutaneous pen (Lantus Solostar U-100 Insulin) levothyroxine 100 mcg tablet 100 mcg PO QAM #30 tabs 11/29/23 (Levoxyl) pantoprazole 40 mg tablet,delayed 40 mg PO DAILY #30 tabs 11/29/23 release potassium citrate 15 mEq (1,620 15 meq PO DAILY PRN on day of 11/29/23 mg) tablet,extended release lasix #60 tabs polyethylene glycol 3350 17 17 g PO DAILY #510 grams 12/04/23 gram/dose oral powder (Miralax) losartan 25 mg tablet 25 mg PO DAILY 30 days #30 tabs 01/07/24 Allergies Allergy/AdvReac Type Severity Reaction Status Date / Time dapagliflozin (From [facility]) Allergy ADR-Nausea Verified 05/05/25 01:30 sacubitril (From [facility]) AdvReac Intermediate decreased Verified 05/05/25 01:30 urination valsartan (From [facility]) AdvReac Intermediate decreased Verified 05/05/25 01:30 urination steroids AdvReac increased Uncoded 05/05/25 01:30 high BP PFSH ED PFSH: Medical History (Updated 05/05/25 @ 06:31 by Kathryn Hurtado MD) Ischemic cardiomyopathy Essential hypertension Morbid obesity [place] (dyspnea on exertion) Non-ST elevation [place] (NSTEMI) Chest pain CKD (chronic kidney disease) stage 3, GFR 30-59 ml/min Diabetes Shortness of breath Bilateral renal stones Hyperlipidemia Coronary artery disease Multiple vessel coronary artery disease Osteoarthritis Hypertension Diabetes mellitus Surgical History H/O heart bypass surgery 2 times Hx of cholecystectomy H/O dilation and curettage H/O: H/O: hysterectomy H/O vulvectomy S/P ureteral stent placement Family History Mother , at age 93 Uterine cancer CAD (coronary artery disease) Father , at age 67 CAD (coronary artery disease) Social History Smoking and tobacco/nicotine status: never used tobacco/nicotine Alcohol intake: never Marital status: / Current occupational status: retired Physical Exam Narrative: EXAM NARRATIVE: Vitals are reviewed. On initial exam, patient is hypotensive but is not tachycardic. She is afebrile. She is placed on supplemental oxygen for shortness of breath. Lung exam is limited as patient is unable to sit up, no wheezing or coarse rhonchi noted on anterior lung exam though bedside ultrasound does show diffuse B-lines. Abdomen is soft, nondistended nontender. Patient has bilateral lower extremity edema. Course Vital Signs: Vital signs: Vital Signs Temperature 97.3 F L 05/05/25 01:11 Pulse Rate 64 05/05/25 06:00 Respiratory Rate 25 H 05/05/25 06:00 Blood Pressure 117/73 05/05/25 05:15 Pulse Oximetry 92 05/05/25 06:00 Oxygen Delivery Me thod Non-Rebreather 05/05/25 05:30 Oxygen Flow Rate 4 05/05/25 03:30 MDM - Chest Pain Medical Decision Making Patient is a 74-year-old female presenting from the correction for chief complaint of chest pain, shortness of breath, new oxygen requirement. Differential diagnosis includes, but is not limited to, ACS, myocarditis, pericarditis, pneumonia, viral upper respiratory infection, PE, viral upper respiratory infection, pericardial effusion, pulmonary hypertension, other. On initial exam, patient is hypotensive. She was given a bolus of 500cc of IVF w/improvement in BP but this was not sustained. EKG was personally reviewed and interpreted and shows no obvious STEMI in two contiguous leads but there appear to be diffuse STD in multiple leads including I, II, precordial leads V4-V5 concerning for ischemia. Patient was evaluated lab work including CBC, CMP, procalcitonin, lactic acid, troponin, BNP, COVID and flu screen, blood culture, UA, CT chest, CT PE. Patient's course was complicated by the fact her labwork hemolyzed and there was a delay in lab results. Given that she became hypotensive again after inital improvement in BP after small bolus of IVF, she was started on levophed and given antibiotics. Patient has an elevated white blood cell count and mild elevation in lactic acid. Given no fever, I feel that cause is less likely infectious. On reexamination, patient again complains of return of chest pain and was treated w/IV morphine. 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 Troponin came back very elevated, baseline 626, w/BNP of 3000. She does not have PE or pneumonia on CT, pulmonary edema is present. Patient at this point becomes more hypotensive, complains of increased shortness of breath. She was placed on a nonrebreather. She was started on heparin for NSTEMI. At this time, discussed again the possibility of scientific laboratory supervisor given continued chest pain, abnormal troponin. Dr. Abreu was amenable but before I could discuss with patient whether she would wish for this intervention, she lost pulses. Family at bedside asked to honor patient's wishes of DNR, requested she not be placed on a ventilator, asked to stop further interventions including placement of central line. Daughter and son asked patient be allowed to pass naturally as she has been quite ill for some time, has been bed bound for a year or more. Per patient's DNR status and family request to cease further medical intervention, all resuscitative efforts were ceased. Lab Data 05/05/25 03:09 05/05/25 03:09 Radiology Impressions Chest X-Ray 05/05/25 01:32 IMPRESSION: No consolidation. Chest CTA 05/05/25 01:44 IMPRESSION: 1. No visible pulmonary artery embolism, although limited evaluation. 2. Interstitial and alveolar pulmonary edema consistent with congestive heart failure. Laboratory Results WBC 15.95 10^3/uL (3.29-11.43) H 05/05/25 03:09 RBC 3.95 10^6/uL (3.85-5.65) 05/05/25 03:09 Hgb 11.30 g/dL (11.27-16.99) 05/05/25 03:09 Hct 36.9 % (36-47) 05/05/25 03:09 MCV 93.4 fl (85-98) 05/05/25 03:09 MCH 28.6 pg (27-33) 05/05/25 03:09 MCHC 30.6 g/dL (30-55) 05/05/25 03:09 RDW 15.8 % (12.1-15.1) H 05/05/25 03:09 Plt Count 487 10^3/cmm (157-399) H 05/05/25 03:09 MPV 8.4 fL (7.4-10.4) 05/05/25 03:09 Neut % (Auto) 80.0 % 05/05/25 03:09 Lymph % (Auto) 11.9 % 05/05/25 03:09 Gibson % (Auto) 6.6 % 05/05/25 03:09 Eos % (Auto) 0.6 % 05/05/25 03:09 Baso % (Auto) 0.6 % 05/05/25 03:09 Neut # (Auto) 12.76 10^3/uL (1.8-7.7) H 05/05/25 03:09 Lymph # (Auto) 1.9 10^3/uL (0.8-4.8) 05/05/25 03:09 Gibson # (Auto) 1.1 10^3/uL (0.2-0.9) H 05/05/25 03:09 Eos # (Auto) 0.1 10^3/uL (0.0-0.8) 05/05/25 03:09 Baso # (Auto) 0.1 10^3/uL (0.0-0.1) 05/05/25 03:09 Nucleated RBC % (auto) 0 % 05/05/25 03:09 Nucleated RBCs # 0.0 /100WBC 05/05/25 03:09 Specimen Type Arterial 05/05/25 02:13 Sample Site Brachial, right 05/05/25 02:13 ABG pH 7.35 (7.35-7.45) 05/05/25 02:13 ABG pCO2 38.7 mmHg (35-45) 05/05/25 02:13 ABG pO2 122.0 mmHg (80.0-100.0) H 05/05/25 02:13 ABG PO2/FiO2 Ratio 338 05/05/25 02:13 ABG HCO3 21.3 mmol/L (22-26) L 05/05/25 02:13 ABG O2 Saturation 99.0 05/05/25 02:13 ABG Base Excess -4.0 mmol/L (-2.0-2.0) L 05/05/25 02:13 Jg Test Pos 05/05/25 02:13 A-a O2 Gradient 11.1 mmHg (5-10) H 05/05/25 02:13 Hematocrit 36.2 % (37-47) L 05/05/25 02:13 Hgb O2 Saturation 97.6 % (95-100) 05/05/25 02:13 Carboxyhemoglobin 0.9 %THgb (0.4-20.1) 05/05/25 02:13 Methemoglobin 0.5 % (0.4-1.5) 05/05/25 02:13 Total Hemoglobin 11.8 g/dL (12-16) L 05/05/25 02:13 Sodium 133.0 mmol/L (131-143) 05/05/25 02:13 Potassium 5.2 mmol/L (3.5-5.0) H 05/05/25 02:13 Glucose 209.0 mg/dL (70-115) H 05/05/25 02:13 Ionized Calcium 1.1 mmol/L (1.1-1.4) 05/05/25 02:13 O2 Delivery Device Nc 05/05/25 02:13 O2 Liters/Min 4.0 % 05/05/25 02:13 FiO2 36.0 % 05/05/25 02:13 Hostage Negotiator ID abner 05/05/25 02:13 Sodium 132 mmol/L (136-145) L 05/05/25 03:09 Potassium 5.3 mmol/L (3.5-5.1) H 05/05/25 03:09 Chloride 101 mmol/L (98-107) 05/05/25 03:09 Carbon Dioxide 17 mmol/L (22-29) L 05/05/25 03:09 Anion Gap 19.3 (5-19) H 05/05/25 03:09 BUN 50 mg/dL (8-23) H 05/05/25 03:09 Creatinine 1.2 mg/dL (0.5-0.9) H 05/05/25 03:09 GFR Calculation Not Reportable 05/05/25 03:09 Glucose 189 mg/dL (65-115) H 05/05/25 03:09 Calculated Osmolality 292 mOsm/kg (285-295) 05/05/25 03:09 Lactic Acid 2.5 mmol/L (0.5-2.2) H 05/05/25 03:09 Lactic Acid (Sepsis) 3.9 mmol/L (0.5-2.2) H 05/05/25 05:45 Calcium 7.3 mg/dL (8.5-10.5) L 05/05/25 03:09 Total Bilirubin 0.2 mg/dL (0.15-1.2) 05/05/25 03:09 AST 33 U/L (0-32) H 05/05/25 03:09 ALT 10 U/L (0-33) 05/05/25 03:09 Alkaline Phosphatase 74 U/L (35-105) 05/05/25 03:09 Troponin T Baseline 626 ng/L (0-10) H* 05/05/25 03:09 Troponin T 120 Minute 693.2 ng/L (0-10) H 05/05/25 05:45 Delta Troponin T 67.2 ABS# (0-10) H* 05/05/25 05:45 NT-Pro-B Natriuret Pep 3066 pg/mL (0-450) H 05/05/25 03:09 Total Protein 5.1 g/dL (6.6-8.7) L 05/05/25 03:09 Albumin 2.9 g/dL (3.5-5.2) L 05/05/25 03:09 Globulin 2.2 g/dL (1.3-4.6) 05/05/25 03:09 Procalcitonin 0.46 ng/mL (0-0.5) 05/05/25 03:09 Urine Color Yellow (Yellow) 05/05/25 03:09 Urine Appearance Clear (CLEAR) 05/05/25 03:09 Urine pH 5.5 (5-7) 05/05/25 03:09 Ur Specific [place] 1.011 (1.005-1.030) 05/05/25 03:09 Urine Protein Negative (Negative) 05/05/25 03:09 Urine Glucose (UA) Negative (Normal) 05/05/25 03:09 Urine Ketones Negative (Negative) 05/05/25 03:09 Urine Blood Negative (Negative) 05/05/25 03:09 Urine Nitrate Negative (Negative) 05/05/25 03:09 Urine Bilirubin Negative (Negative) 05/05/25 03:09 Urine Urobilinogen 0.2 mg/dL (Negative) 05/05/25 03:09 Ur Leukocyte Esterase 1+ (Negative) A 05/05/25 03:09 Urine RBC 3-5 /hpf (0-2) 05/05/25 03:09 Urine WBC 6-10 /hpf (0-5) 05/05/25 03:09 Ur Squamous Epith Cells 11-20 /hpf (0-5) H 05/05/25 03:09 Amorphous Sediment Not Reportable 05/05/25 03:09 Urine Bacteria Trace /hpf (NONE) 05/05/25 03:09 Hyaline Casts 6.61 /lpf 05/05/25 03:09 Influenza A (PCR) Negative (Negative) 05/05/25 01:49 Influenza Type B (PCR) Negative (Negative) 05/05/25 01:49 RSV (PCR) Negative (Negative) 05/05/25 01:49 SARS-CoV-2 (PCR) Negative (Negative) 05/05/25 01:49 All radiology interpretation(s) finalized by discharge Discharge Plan Discharge Patient Disposition: Clinical Impression: Shock, cardiogenic Probable Cause of Probable cause of : Cardiac arrest Coding Level of Care Code ED Plate Grainer Apprentice for Chg Fwd Heart Score HEART Score Components History: Moderately Suspicious EKG: Significant ST-deviation (ST depressions in I, II and V4-V6) Age: 65 or more yrs Risk Factors: >/=3 Risk Factors (CAD, obesity, HLD, HTN, DM) Troponin: Baseline Trop >45 ng/L HEART Score RESULT HEART Score: 9
--- NOTE | 2025-05-05 01:32 | XRR_ITS ---
PROCEDURE INFORMATION: Exam: XR Chest Exam date and time: 05/05/2025 2:36 AM Age: 74 years old Clinical indication: Pain; Angina pectoris; Prior surgery; Surgery date: 6+ months; I would say Surgery type: Pacemaker; Additional info: Chest pain TECHNIQUE: Imaging protocol: Radiologic exam of the chest. Views: 1 view. COMPARISON: CR (CHEST, ) 03/01/2023 1:53 AM FINDINGS: Tubes, catheters and devices: AICD/pacemaker. Lungs: Unremarkable. No consolidation. Pleural spaces: Unremarkable. No pleural effusion. No pneumothorax. Heart/Mediastinum: Cardiomegaly. Bones/joints: Unremarkable. XR/XR chest 1V portable [id number] IMPRESSION: No consolidation.
--- NOTE | 2025-05-05 01:44 | CTR_ITS ---
PROCEDURE INFORMATION: Exam: CTA Chest With Contrast Exam date and time: 05/05/2025 4:23 AM Age: 74 years old Clinical indication: Pain; Shortness of breath; Angina pectoris; Additional info: Right chest pain, shortness of breath, hypotension TECHNIQUE: Imaging protocol: Computed tomographic angiography of the chest with contrast. Exam focused on the arteries. 3D rendering (Not supervised by radiologist): MIP and/or 3D reconstructed images were created by the technologist. Radiation optimization: All CT scans at this facility use at least one of these dose optimization techniques: automated exposure control; mA and/or kV adjustment per patient size (includes targeted exams where dose is matched to clinical indication); or iterative reconstruction. Contrast material: OMNI 350; Contrast volume: 100 ml; Contrast route: INTRAVENOUS (IV); COMPARISON: CR (CHEST, ) 05/05/2025 2:36 AM RADIATION DOSE METRICS: Total DLP (mGy-cm): 508.11 FINDINGS: Tubes, catheters and devices: Left chest ICD present. Pulmonary arteries: No central pulmonary artery embolism. Suboptimal intraluminal contrast density limits assessment of the peripheral pulmonary arteries. Nondiagnostic assessment of segmental, subsegmental, tertiary pulmonary arteries. Aorta: Unremarkable. No aortic aneurysm. No aortic dissection. Lungs: Smooth septal thickening. Scattered ground-glass opacities. Lower lobe volume loss. Secretions in the segmental level lower lobe bronchi bilaterally. Pleural spaces: Small bilateral pleural effusions. Heart: Multichamber cardiac dilation. Negative for pericardial effusion. Coronary arteries: CABG. Lymph nodes: Unremarkable. No enlarged lymph nodes. Gallbladder and biliary ducts: Cholecystectomy. Bones/joints: Negative for acute thoracic fractures.The thoracic spine demonstrates moderate degenerative changes at multiple levels. Fragmented sclerotic and lucent expansile deformity of the medial right clavicle is nonspecific. Soft tissues: Anasarca. CT/CT angio chest PE protcl [id number] IMPRESSION: 1. No visible pulmonary artery embolism, although limited evaluation. 2. Interstitial and alveolar pulmonary edema consistent with congestive heart failure.
--- OUTSIDE RECORDS SUMMARY | 2025-05-05 01:51 | XMS_ITS | Data Portability ---
Author Organization [place] - Aleksey Jewell [facility] Address [address] [facility] [address] [place] [address] Care Team Providers Care Director Supplier Quality Name Role Phone NATY LINARES Primary Care Provider [phone] Assessment Encounter Date Assessment Date Assessment LastModified by Organization Details LastModified Time 04/01/2025 04/01/2025 - 74 year old female with history of leg pain presenting with leg pain. - The patient's chronic leg pain is likely a combination of neuropathic and mechanical factors, given the reported severity and nature of symptoms. - Heat application offers relief, suggesting a muscular or superficial nerve etiology. - Use of compression socks implies venous circulation considerations. Leg Pain: - Continue heat therapy for pain relief. - Maintain usage of daytime compression socks. - Observe pain patterns for any changes. - Implement lifestyle modifications as needed to manage symptoms. [email or web address] Not available 04/01/2025 08:46:05 Plan of Treatment Reminders Order Date Submit Date Provider Last Modified By Organization Details Last Modified Time Details Appointments None record ed. Lab None record ed. Referral None record ed. Procedures None record ed. Surgeries None record ed. Imaging None record ed. Medication Orders None record ed. Patient TargetsNo targets recorded. Patient Instructions Encounter Date Encounter Id Patient Instructions Last Modified By Organization Details Last Modified Time 04/01/2025 [id number] - Keep using the heating pad to help with leg pain. - Wear compression socks during the daytime to support blood flow. - Write down any changes in symptoms and let us know if they get worse. - Try activities or exercises that might help your legs feel better. [email or web address] Not available 04/01/2025 08:46:07 We discussed the patient s symptoms of chronic leg cramping and stabbing pain with an emphasis on understanding the impact on her daily activities. The likely neuropathic component and circulation contributors were reviewed. We explored the use of heating pads for symptomatic relief and the wearing of compression socks to aid circulation. The patient was encouraged to maintain these methods as necessary and to seek attention if symptoms change or escalate. Options for improving lifestyle factors that might be contributing to her symptoms and overall leg health were suggested. [email or web address] Not available 04/01/2025 08:46:08 Reason for Referral None Reported. Problems Name Problem SNOMED Code Status Onset Date Resolution Date Notes Provider Name and Address Organization Details Recorded Time Chronic arthriti s 29400219 Active 2022 Chronic Arthriti s; 09/06/19 10:24AM by Rose Starks CMT, Office Visit; Promoted ; acuity set as *; CAROLINE marie [facility] 12:23:29 Disorder due to type 2 diabetes mellitus 000695051 Active 2022 DIABETES MELLITUS WITH COMPLICA TION; Recorded 09/06/19 23 10:24AM by Rose Starks CMT, Office Visit; Promoted ; acuity set as *; CAROLINE marie [facility] 5 12:23:54 Coronary atherosc lerosis 078484206 Active 2022 CAD (CORONAR Y ARTERY DISEASE) ; Recorded 09/06/19 23 10:24AM by Rose Starks CMT, Office Visit; Promoted ; acuity set as *; CAROLINE marie [facility] 5 12:23:41 Uncontro lled type 2 diabetes mellitus 647043406 Active 2022 CAROLINE marie [facility] 5 12:24:52 Difficul ty walking 612907181 Active 2023 CAROLINE marie [facility] 5 12:23:51 Neuropat hy due to diabetes mellitus 752207280 Active 2023 CAROLINE KEENAN [facility] 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 5 12:24:08 Congesti ve heart failure 32641079 Active 2023 CAROLINE KEENAN [facility] 5 12:23:36 Acute back pain with sciatica 353441180 Completed 202309/22/2024 CAROLINE KEENAN [facility] 5 12:23:19 Swelling of bilatera l lower limbs 512397480 Active 2023 CAROLINE KEENAN [facility] 5 12:24:49 Diabetes mellitus 97224600 Active 2023 CAROLINE KEENAN [facility] 12:23:48 Compress ion fracture of L2 19076727341 105355 Completed 202309/22/2024 CAROLINE KEENAN [facility] 5 12:23:33 Weakness of left lower limb Completed 202309/22/2024 CAROLINE KEENAN [facility] 5 12:24:58 [facility] hyper[facility] 06891947 Active 2023 CAROLINE KEENAN [facility] 5 12:24:00 Lives in skilled nursing 700082607 Active 2023 CAROLINE KEENAN [facility] 12:24:14 Polyp of nasal cavity 654946012 Active 2023 CAROLINEASAD KEENAN [facility], [facility] 12:24:44 Muscle weakness 14648051 Active 2023 CAROLINE KEENAN [facility] 5 12:24:17 Bleeding from nose 959738897 Completed 202309/22/2024 CAROLINE KEENAN [facility], [facility] 5 12:23:24 Lesion of nasal mucosa 489016306 Active 2023 CAROLINEASAD DOUGHERTYY [facility] 12:24:11 Weakness of bilatera l lower limb Active 2023 CAROLINE HAMBY [facility] 5 12:24:55 Depressi ve disorder 17796380 Active 2023 CAROLINEASAD KEENAN [facility] 12:23:43 Unsteady when walking 35242608 Active 2024 CAROLINEASAD DOUGHERTYY [facility] 12:30:52 Morbid obesity 568730761 Active 2024 CAROLINEASAD DOUGHERTYY [facility] 12:30:53 Bilatera l lower limb edema 745978582 Active 2024 AHMET KIM [facility] 11:06:10 Nausea 808058129 Active 2024 AHMET KIM [facility] 11:50:51 Problem Notes None recorded. Procedures Surgical History Date Name Laterality Status Provider Name and Address Organization Details Recorded Time 06/27/2023 Pacemaker completed CAROLINE KEENAN [facility] [place] 07/03/2023 10:59:55 Imaging Results None recorded. Procedure Notes None recorded. Medical Equipment None Reported. Allergies No known drug allergies Medications Name Sig Start Date Stop Date Status Note LastModified by Organization Details LastModified Time accu-chek guide w/device kit 03/25 completed Not Available Not Available Not Available losartan 50 mg tablet TAKE 1 TABLET BY MOUTH EVERY DAY FOR 30 DAYS 11/13 completed Not Available Not Available Not Available furosemid e 40 mg tablet Take 1 tablet twice a day by oral route. active Not Available Not Available No t Available pioglitaz one 15 mg tablet TAKE 1 TABLET BY MOUTH EVERY DAY 11/13 completed Not Available Not Available Not Available Unistik 2 Device kit BID 2018 active DX: E11.8 VO JR/bh; Recorded 06/07/20 22 10:08AM by Lakeshia contreras, Office Visit; Refill Quantity : 0; Not Available Not Available Not Available atorvasta tin 80 mg tablet TAKE 1 TABLET BY MOUTH EVERY DAY active Not Available Not Available No t Available carvedilo l 12.5 mg tablet TAKE 1 TABLET BY MOUTH TWICE A DAY 07/03 completed Not Available Not Available Not Available amiodaron e 200 mg tablet TAKE 1 TABLET BY MOUTH EVERY DAY active Not Available Not Available No t Available metoprolo l succinate ER 50 mg tablet,ex tended release 24 hr TAKE 1 & 1/2 TABLETS BY MOUTH DAILY FOR 30 DAYS 03/25 completed Not Available Not Available Not Available citalopra m 10 mg tablet Take 1 tablet every day by oral route. active Not Available Not Available No t Available meloxicam 15 mg tablet TAKE 1 TABLET BY MOUTH EVERY DAY 11/10 completed Not Available Not Available Not Available prednison e 20 mg tablet 09/22 completed Not Available Not Available Not Available Accu-Chek Softclix Lancets USE TO TEST TWICE DAILY active Not Available Not Available No t Available potassium chloride ER 10 mEq tablet,ex tended release active Not Available Not Available Not Available clopidogr el 75 mg tablet TAKE 1 TABLET BY MOUTH EVERY DAY active Not Available Not Available No t Available amlodipin e 5 mg tablet active Not Available Not Available Not Available hydrocodo ne 10 mg-acetam inophen 325 mg tablet TAKE 1 TABLET BY MOUTH EVERY 6 HOURS NEEDED FOR PAIN 10/27 completed Not Available Not Available Not Available aspirin 81 mg tablet,de layed release TAKE 1 TABLET BY MOUTH EVERY DAY FOR 30 DAYS active Not Available Not Available No t Available tramadol 50 mg tablet TAKE 1 TABLET BY MOUTH UP TO FOUR TIMES DAILY NEEDED FOR PAIN active Not Available Not Available No t Available spironola ctone 25 mg tablet TAKE 1 TABLET BY MOUTH EVERY DAY active Not Available Not Available No t Available levothyro xine 100 mcg tablet active Not Available Not Available Not Available oxycodone -acetamin ophen 5 mg-325 mg tablet GIVE ONE TABLET BY MOUTH EVERY FOUR HOURS NEEDED 2024 active Not Available Not Available Not Avai lable pantopraz ole 40 mg tablet,de layed release active Not Available Not Available Not Available metformin 1,000 mg tablet TAKE 1 TABLET BY MOUTH TWICE A DAY 04/30 completed vo JR/tn Not Available Not Available Not Available losartan 25 mg tablet active Not Available Not Available Not Available metoprolo l tartrate 50 mg tablet PLEASE SEE ATTACHED FOR DETAILED DIRECTIO NS 11/13 completed Not Available Not Available Not Available nitroglyc fabiana 0.4 mg sublingua l tablet TAKE 1 TABLET BY MOUTH EVERY 5 MINUTES NEEDED FOR CHEST PAIN active Not Available Not Available No t Available gabapenti n 300 mg capsule TAKE 1 CAPSULE BY MOUTH THREE TIMES A DAY FOR 30 DAYS active Not Available Not Available No t Available mupirocin 2 % topical ointment active Not Available Not Available Not Available furosemid e 20 mg tablet TAKE 1 TABLET BY MOUTH EVERY DAY 03/25 completed Not Available Not Available Not Available losartan 100 mg tablet TAKE 1 TABLET BY MOUTH EVERY DAY 07/03 completed Not Available Not Available Not Available doxycycli ne hyclate 100 mg tablet 09/22 completed Not Available Not Available Not Available potassium citrate ER 5 mEq (540 mg) tablet,ex tended release 07/27 completed Not Available Not Available Not Available potassium chloride ER 10 mEq tablet,ex tended release(p art/cryst ) 07/27 completed Not Available Not Available Not Available magnesium L-lactate ER 84 mg tablet,ex tended release TAKE 1 TABLET BY MOUTH EVERY DAY active Not Available Not Available No t Available atorvasta tin QD, see note 03/25 completed Recorded 01/23/20 12:03PM by Naty Linares MD, Office Visit; Refill Quantity : 100; Tablet; Not Available Not Available Not Available aspirin QD 03/25 completed 0; Recorded 09/06/19 23 10:24AM by Rose Starks CMT, Office Visit; Not Available Not Available Not Available B Complex 03/25 completed Not Available Not Available Not Available Lasix QPM 03/25 completed 0; Recorded 09/06/19 23 10:24AM by Rose Starks CMT, Office Visit; Not Available Not Available Not Available metoprolo l succinate qam 03/25 completed 0; Recorded 09/06/19 23 10:24AM by Rose Starks CMT, Office Visit; Not Available Not Available Not Available potassium citrate qd 03/25 completed 0; Recorded 09/06/19 23 10:24AM by Rose Starks CMT, Office Visit; Not Available Not Available Not Available metformin BID 03/25 completed DOC DM/sd; 53046; Recorded 07/29/19 3:36PM by Shira Jarvis (Carrol epstein through Tang Rubio DO), Refill Request; Refill Quantity : 0; Not Available Not Available Not Available Magnesium Lactate qd 03/25 completed 0; Recorded 09/06/19 23 10:24AM by Rose Starks CMT, Office Visit; Not Available Not Available Not Available ranolazin e ER 500 mg tablet,ex tended release,1 2 hr TAKE 1 TABLET BY MOUTH TWICE A DAY 11/13 completed Not Available Not Available Not Available Ogden Oil 03/25 completed Not Available Not Available Not Available Lantus Solostar U-100 Insulin 100 unit/mL (3 mL) subcutane ous pen INJECT 35 UNITS SUBCUTAN EOUSLY TWICE DAILY active Not Available Not Available No t Available Lantus Solostar U-100 Insulin Qpm 03/25 completed titratin g dose.... .up to 50 units daily; Recorded 09/06/19 11:18AM by PRAMOD Coles, Office Visit; Refill Quantity : 0; Not Available Not Available Not Available potassium citrate ER 15 mEq (1,620 mg) tablet,ex tended release TAKE 1 TABLET BY MOUTH TWICE A DAY 07/27 completed dose changed. on 07/27/24 Not Available Not Available Not Available Probiotic qd prn 03/25 completed 0; Recorded 09/06/19 23 10:24AM by Rose Starks CMT, Office Visit; Not Available Not Available Not Available Farxiga 5 mg tablet TAKE 1 TABLET BY MOUTH DAILY FOR 30 DAYS 11/13 completed Not Available Not Available Not Available Entresto 24 mg-26 mg tablet 11/03 completed Not Available Not Available Not Available TechLITE Pen Needle 32 gauge x 5/32 TO USE WITH LANTUS active Not Available Not Available No t Available Accu-Chek Guide test strips USE TO TEST TWICE DAILY active Not Available Not Available No t Available Accu-Chek Guide Glucose Meter USE TO TEST TWICE DAILY active Not Available Not Available No t Available Glucosami ne [place] in 03/25 completed Not Available Not Available Not Available losartan potassium (bulk) qd, 03/25 completed VO JR/tn; 173; Recorded 04/27/20 22 2:50PM by Celine jenkins (Authori zed through Naty Linares MD), Refill Request; Refill Quantity : 90; Tablet; Not Available Not Available Not Available insulin glargine- yfgn (U-100) 100 unit/mL (3 mL) subcutane ous pen active Not Available Not Available Not Available potassium chloride 10 mEq oral packet Take 10 milliequ ivalents twice a day by oral route. active Not Available Not Available No t Available Vitals Date Recorded Heart rate Oxygen saturation Oxygen saturation in Arterial blood by Pulse oximetry Body height Body temperature Provider Name and Address Organization Details Last Updated DateTime 5 69 /min 96 % 96 % 158.75 cm 97.8 [degF] AHMET ALVAREZ [facility] 5 11:02:27 Date Recorded Body height Body weight Oxygen saturation Oxygen saturation in Arterial blood by Pulse oximetry Heart rate Respiratory rate Body temperature Systolic And Diastolic Provider Name and Address Organization Details Last Updated DateTime 5 158.75 cm 924627. 91 g 96 % 96 % 60 /min 18 /min 98.2 [degF] 128/64 mm[Hg] CAROLINE [facility] 5 08:40:04 Date Recorded Body height Body mass index (BMI) Body weight Oxygen saturation Oxygen saturation in Arterial blood by Pulse oximetry Heart rate Respiratory rate Systolic And Diastolic Provider Name and Address Organization Details Last Updated DateTime 5 158.75 cm 43.6 kg/m2 268461. 35 g 96 % 96 % 70 /min 18 /min 128/62 mm[Hg] AHMET ALVAREZ [facility] 5 11:49:00 Date Recorded Body height Body mass index (BMI) Body weight Oxygen saturation Oxygen saturation in Arterial blood by Pulse oximetry Heart rate Respiratory rate Body temperature Systolic And Diastolic Provider Name and Address Organization Details Last Updated DateTime 5 158.75 cm 44.6 kg/m2 142988. 91 g 96 % 96 % 60 /min 18 /min 98.2 [degF] 122/64 mm[Hg] CAROLINE [facility] 5 19:04:13 Social History Question Answer Notes LastModified by Organizat ion Details LastModified Time Tobacco Smoking Status Former Smoker CELINE marie [facility] 03/25/2023 13:06:14 What Is Your Relationship Status? [email or web address] Information not available 03/25/2023 Sex: Unknown Functional Status None recorded. Mental Status None recorded. Family History Nothing Reported. Medical History No medical history recorded. Gynecological HistoryNo gynecological history recorded. Obstetrics History GPAL:G 0 P 0 0 0 0 Immunizations Vaccine Type Date Status Note Provider Nam e and Address Organization Details Recorded Time Influenza, split virus, trivalent, preservative 0 completed Not Available [facility] 01/26/2023 02:39:28 Past Encounters Encounter ID Performer Location Encounter Start Date Encounter Closed Date Diagnosis/Indication Diagnosis SNOMED-CT Code Diagnosis ICD10 Code Diagnosis IMO Codes Diagnosis Note [id number] PRAMOD EGAN [facility] [address] [place] [address] [id number] 5 11/06/2022 10:58:59 11/06/2022 17:19:54 Diabetes mellitus 65890802 E11.8 Okay to change home glucose monitoring to weekly. Overall sugars have been much better. Most recent A1C from home test was 7.7. Morbid obesity 590696951 E66.01 Weight is down 13 pounds. Osteoarthritis 286959733 M19.90 Currently taking glucosamin e and chondroiti n, will add tumeric. [id number] Naty Linares MD [facility] ([facility] [address] [place] [address] [id number] 5 11/13/2022 11:06:21 11/13/2022 20:06:21 Diabetes mellitus 27919132 E13.42 Essential hypertension 86118950 I10 Edema of l ower extremity 429744371 R60.0 [id number] Naty Linares MD [facility] ([facility]) [address] [place] [address] [id number] 5 03/25/2023 12:35:03 03/26/2023 14:41:01 Coronary atherosclerosis 382600165 I25.10 Essential hypertension 70516487 I10 Diabetes mellitus 903738 09 E13.42 [id number] Naty Linares MD [facility] ([facility] [address] [place] [address] [id number] 5 04/30/2023 11:28:03 04/30/2023 12:45:22 Disorder due to type 2 diabetes mellitus 828033463 E11.8 Dizziness 654483257 R42 Unsteady when walking 22 828058 R26.89 [id number] Naty Linares MD [facility] ([facility] [address] [place] [address] [id number] 5 07/03/2023 10:22:16 07/03/2023 13:52:03 Hypertensive disorder 36645055 I10 Disorder d ue to type 2 diabetes mellitus 304484657 E11.8 Chronic arthritis 720958 07 M13.80 Difficulty walking 78710 2002 R26.2 Neuropathy due to diabetes mellitus 316424687 E13.42 Morbid obesity 528979776 E66.01 Hypertensi ve heart disease with congestive heart failure 3630365 I11.0 Congestive heart failure 38943934 I50.9 [id number] Naty Linares MD [facility] [address] [place] [address] [id number] 5 10/28/2023 11:10:49 10/28/2023 13:05:02 Acute back pain with sciatica 795039925 M54.42 Pain in limb 42839054 M7 9.609 Swelling o f bilateral lower limbs 664958064 M79.89 [id number] PRITI GÓMEZ PA-C [facility] ([facility] [address] [place] [address] [id number] 5 12/04/2023 11:44:28 12/28/2023 19:10:45 Pain of right knee joint 4127309928 92831 M25.561 xrays negative at the ER Diabetes mellitus 068132 09 E11.9 will add SS for her meal time Compressio n fracture of L2 1306193665 3755155 M48.56XD NO CHANGES [id number] PRITI GÓMEZ PA-C [facility] [address] [place] [address] [id number] 5 12/11/2023 11:42:52 12/11/2023 17:48:25 Pain of right knee region 5260356613 71828 M25.561 pt is working with PT to slowly get some more strength to stand and walk Diabetes mellitus 906719 09 E11.9 INCREASSE HUMALOG 6UNITS AC AND CBG TID AC [id number] PRITI GÓMEZ PA-C [facility] [address] [place] [address] [id number] 5 12/18/2023 13:30:34 01/05/2024 22:54:43 Pain of right ankle joint 6774541031 9429857 M25.571 monitorbru sing and swelling consequenc e of her falls on the the knee contusion she had on the R side.Fercho nue with PT/OT. Encouraged increase in activity. She has meds for pain contro. [id number] PRITI GÓMEZ PA-C [facility] [address] [place] [address] [id number] 5 01/08/2024 12:27:45 01/20/2024 07:43:37 Weakness of left lower limb 5731083098 [address] Prado tomorrow. may need MRI if her pace maker approved for it to get a better idea of the nerve involvemen t in the lumbar spineThis leg weakness is what is keeping her from progressin g to go home. Essential hypertension 73817462 I10 ok to losartan [id number] Naty Linares MD [facility] [address] [place] [address] [id number] 5 01/28/2024 08:05:47 01/29/2024 10:15:26 Lives in skilled nursing 013409891 Z59.3 Congestive heart failure 83931410 I50.9 Compressio n fracture of L2 7589547429 7582905 M48.56XD Weakness o f left lower limb 1179474755 28741 M62.81 Muscle weakness 06956748 M62.81 Polyp of nasal cavity 73 8967278 J33.0 Left nareReferr al to ENT for evaluation [id number] PRITI GÓMEZ PA-C [facility] [address] [place] [address] [id number] 5 02/12/2024 12:42:56 03/10/2024 07:41:40 Bleeding from nose 046660230 R04.0 D/C ASA, PRIMROSE, VITAMIN EENT 02/17/24 AT 9:30 [id number] PRITI GÓMEZ PA-C [facility] [address] [place] [address] [id number] 5 02/19/2024 10:54:24 03/10/2024 09:01:01 Lesion of nasal mucosa 976922005 J34.89 ent follow up. waiting on Sinus CT. Bleeding from nose 34394 6005 R04.0 Weakness o f bilateral lower limb 8150937239 71338 M62.81 paralysis of legs= neurology consult ncs/emgGet copies to review of her last spinal imaging. [id number] Naty Linares MD [facility] [address] [place] [address] [id number] 5 03/24/2024 08:03:18 03/24/2024 16:30:21 Lives in skilled nursing 907236477 Z59.3 Weakness o f bilateral lower limb 7393500159 73881 M62.81 Difficulty walking 28891 2003 R26.2 Polyp of nasal cavity 73 6540424 J33.0 Left nareReferr al to ENT for evaluation I am going to discuss her case with Dr. Traore to see if we get her in quicker for a neurologic evaluation . [id number] Naty Linares MD [facility]) [address] [place] [address] [id number] 5 05/26/2024 08:21:13 06/05/2024 06:11:48 Lives in skilled nursing 597969121 Z59.3 Weakness o f bilateral lower limb 9465720649 18009 M62.81 Polyp of nasal cavity 73 7366745 J33.0 Left nare, recently had CT scan and under the care of Dr. Wynn ENT Depressive disorder 2805 6617 F32.A [id number] Naty Linares MD [facility] [address] [place] [address] [id number] 5 07/29/2024 08:05:11 07/31/2024 12:34:16 Lives in skilled nursing 724043734 Z59.3 Neuropathy due to diabetes mellitus 947384232 E13.42 Muscle weakness 40771409 M62.81 Diabetes mellitus 543721 09 E11.9 Weakness o f bilateral lower limb 5713582074 97665 M62.81 [id number] Naty Linares MD [facility]) [address] [place] [address] [id number] 5 07/30/2024 08:51:29 08/02/2024 07:50:03 Lives in skilled nursing 752741034 Z59.3 Neuropathy due to diabetes mellitus 986589387 E13.42 Muscle weakness 52056606 M62.81 Depressive disorder 3540 9007 F32.A [id number] Naty Linares MD [facility]) [address] [place] [address] [id number] 5 09/22/2024 07:54:43 09/24/2024 15:57:57 Lives in skilled nursing 467095033 Z59.3 Neuropathy due to diabetes mellitus 174402850 E13.42 Muscle weakness 86457046 M62.81 Uncontroll ed type 2 diabetes mellitus 974016669 E11.65 Increase Lantus to 40units BID and change insuline Glargine to mild sliding scale Difficulty walking 91105 2002 R26.2 Unsteady when walking 22 052232 R26.89 Morbid obesity 762432136 E66.01 [id number] Naty Linares MD [facility]) [address] [place] [address] [id number] 5 11/30/2024 08:24:36 12/28/2024 12:13:01 Lives in skilled nursing 739940962 Z59.3 Neuropathy due to diabetes mellitus 713877491 E13.42 Uncontroll ed type 2 diabetes mellitus 997558299 E11.65 [id number] PRITI GÓMEZ PA-C [facility] [facility] [address] [place] [address] [phone] 12/02/2024 10:31:26 12/28/2024 12:38:25 Bilateral lower limb edema [id number] R60.0 [id number] d/c amlodipine ,start spironalac tone 50mg qd recheck in 2 weeks Congestive heart failure [id number] I50.9 [id number] Naty Linares MD [facility] ([facility]) [address] [place] [address] [phone] 01/19/2025 08:26:58 02/15/2025 09:31:33 Lives in skilled nursing [id number] Z59.3 Neuropathy due to diabetes mellitus 140819176 E13.42 Difficulty walking 86041 2002 R26.2 Weakness o f bilateral lower limb [id number] 17175 M62.81 Uncontroll ed type 2 diabetes mellitus [id number] E11.65 [id number] PRITI GÓMEZ PA-C [facility] ([facility]) [address] [place] [address] [phone] 02/10/2025 10:54:00 02/16/2025 10:24:52 Nausea [id number] R11.0 [id number] PANTOPRAZO LE QD ALREADY ONBoardNau sea if brief enough not likely antiemetic s would be effectiveC ontinue to monitor. [id number] Naty Linares MD [facility] ([facility]) [address] [place] [address] [phone] 03/29/2025 08:02:03 04/02/2025 09:16:52 [id number] Naty Linares MD [facility] ([facility]) [address] [place] [address] [phone] 04/01/2025 08:00:25 04/02/2025 08:46:05 Lives in skilled nursing [id number] Z59.3 Neuropathy due to diabetes mellitus 100961169 E13.42 Muscle weakness 56216911 M62.81 Bilateral lower limb edema 520247610 R60.0 [id number] Weakness o f bilateral lower limb [id number] 69212 M62.81 Health Concerns Section Related Observation LastModified by Organization Detai ls LastModified Time None Recorded Concern Status LastModified by Organization Details LastModified Time None Recorded Advance Directives Directive None Recorded Payers Insurance Date Sequence Insurance Name Policy Number Policy Meng Covered Member ID Meng Member ID Guarantor Name 04/06/2025 1 [facility] (MEDICARE REPLACEMENT/A DVANTAGE - PPO) [id number] Laverne Perez [id number] Laverne Perez Notes Date Note Type Note Provider Name and Address Organization Details Recorded Time 12/03/19 25 text/htm l EdemaReported by PatientHPIFor location, patient reportsble. For quality, patient reportslegs swell equally. For severity, patient reportsmoderateandpitting 2+. For duration, patient reportsconstant. For onset/timing, patient reportsstarted 1 weeks ago. For context, patient reportsno prior history of edemaandno new medications. For modifying factors, patient reportsnothing gives relief. For associated symptoms, patient reportsno shortness of breath,no cough,no orthopnea,no chest pain, andno palpitations. Naty Linares MD [address] [place] [address], [phone], [facility], L.L[facility]CAnne 12/26/2024 08:24:26 01/20/20 25 text/htm l Musculoskeletal PainReported by PatientHPIFor quality, patient reportssharp,tingling, anddull. For severity, patient reportsworseningandinterferes with sleep. For location, patient reportsleft kneeandleft ankle. For duration, patient reportspresent <1 month. For timing, patient reportsconstant. For alleviating factors, patient reportschanging position. For aggravating factors, patient reportsmovement/positioning,bend ing over, andtwisting. For adls affected, patient reportswalking,sweeping,mopping, bathing,dressing, andclimbing stairs. Diabetes F/UReported by PatientHPIFor associated symptoms, patient reportsnumbness of feet,paresthesia, andfatiguebut reportsno unintentional weight gain,no unintentional weight loss,no dizziness,no sweats,no headaches,no confusion,no polydipsia,no polyphagia,no polyuria,no nocturia,no skin infections, andno utis. For context, patient reportsnot missing doses of medications. Nursing staff report that pts blood sugars have been running in low 100's Naty Linares MD [address] [place] [address], [phone], [facility], [facility] 02/13/2025 12:09:15 02/11/20 25 text/htm l NauseaReported by PatientHPIFor quality, patient reportspressureandtightness. For location, patient reportsepigastric. For severity, patient reportsmoderate. For duration, patient reportspresent for 1-2 weeks. For onset/timing, patient reportsdailyandintermittent. For context, patient reportsno drug/alcohol abuse,no one else with similar symptoms,no possible food sources, andno well water. For alleviating factors, patient reportslying down. Intermitant nausea with mostly position change.No vomiting. already on PPI.Otherwise feeling ok. Naty Linares MD [address] [place] [address], [phone], [facility], [facility] 02/13/2025 13:05:21 10/02/20 25 text/htm l Musculoskeletal PainReported by PatientHPIFor quality, patient reportssharp,tingling, anddull. For severity, patient reportsworsening. For associated symptoms, patient reportsweak limbsandnumbness of the legs/feet. For location, patient reportsleft kneeandleft ankle(left leg). For duration, patient reportspresent for 1-6 months. For timing, patient reportsintermittent. Diabetes F/UReported by PatientHPIFor associated symptoms, patient reportsnumbness of feet,paresthesia, andfatiguebut reportsno unintentional weight gain,no unintentional weight loss,no dizziness,no sweats,no headaches,no confusion,no polydipsia,no polyphagia,no polyuria,no nocturia,no skin infections, andno utis. For context, patient reportsnot missing doses of medications. The patient is a 74 year old female presenting with leg pain. Leg Pain: - Chronic cramping and stabbing pain in legs. - Heat therapy provides temporary relief. - Pain affects daily function, with nerve pain symptoms. - Compression sock usage during waking hours until pain onset. Naty Linares MD [address] [place] [address], [phone], [place] - [facility], [place] 04/02/2025 09:16:18 OBGyn Episode No OBEpisode recorded.
[2025-05-05 02:25] LABS: ABG PCO2 38.7 mmHg (35-45); ABG PH Result 7.35 (7.35-7.45); Alveolar-Arterial Oxygen Gradi 11.1 mmHg (5-10); Arterial Blood Gas Hematocrit 36.2 % (37-47); Blood Gas Allen Test Pos; Blood Gas LPM 4.0 %; Blood Gas Operator Identificat gerca; Blood Gas Sample Site Brachial, right; Blood Gas Sample Type Arterial; Carboxyhemoglobin 0.9 %THgb (0.4-20.1); Glucose Level-ABG 209.0 mg/dL (70-115); HCO3 ABG 21.3 mmol/L (22-26); Ionized Calcium Level - ABG 1.1 mmol/L (1.1-1.4); Methemoglobin 0.5 % (0.4-1.5); Oxygen Saturation ABG 99.0; PO2 ABG 122.0 mmHg (80.0-100.0); PO2 FiO2 Ratio Arterial Blood 338; Potassium Level - ABG 5.2 mmol/L (3.5-5.0); Sodium Level - ABG 133.0 mmol/L (131-143)
[2025-05-05 03:02] LABS: Respiratory Syncytial Virus Ce NEGATIVE (Negative); SARS-CoV-2 PCR NEGATIVE (Negative)
[2025-05-05] MEDS: acetaminophen 1,000 MG/100 ML PIGGYBACK 400 MG IV (03:05)
[2025-05-05 03:16] LABS: Hematocrit 36.9 % (36-47); Hemoglobin 11.30 g/dL (11.27-16.99); Mean Corpuscular HGB Conc 30.6 g/dL (30-55); Mean Corpuscular Hemoglobin 28.6 pg (27-33); Mean Corpuscular Volume 93.4 fl (85-98); Nucleated Red Blood Cells % 0 %; Platelet Count 487 10^3/cmm (157-399); Red Blood Count 3.95 10^6/uL (3.85-5.65); White Blood Count 15.95 10^3/uL (3.29-11.43)
[2025-05-05 03:18] LABS: Glucose Urine UA Negative (Normal); Nitrate Urine Negative (Negative); Specific Gravity, Urine 1.011 (1.005-1.030)
[2025-05-05 03:20] LABS: Add Urine Microscopic? YES
--- NOTE | 2025-05-05 03:31 | ECG_ITS ---
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 Measurements Intervals [place] Rate: 60 P: 256 DC: 252 QRS: 207 QRSD: 185 T: 64 QT: 530 QTc: 530 Interpretive Statements ELECTRONIC ATRIAL PACEMAKER RIGHT AXIS DEVIATION [QRS AXIS > 100] RIGHT BUNDLE BRANCH BLOCK [120+ ms QRS DURATION, UPRIGHT V1, 40+ ms S IN I/aVL/V4/V5/V6] MODERATE INTRAVENTRICULAR CONDUCTION DELAY [105+ ms QRS DURATION, 80+ ms Q/S IN V1/V2, NO Q AND 60+ ms R IN I/aVL/V5/V6] ST DEPRESSION, CONSIDER SUBENDOCARDIAL INJURY [0.1+ mV ST DEPRESSION] Compared to ECG 04/08/2023 10:30:37 Right-axis deviation now present.Right bundle-branch block now present ST (T wave) deviation now present. Sinus rhythm no longer present Ventricular premature complex(es) no longer present Prolonged QT interval no longer present. Electronically Signed On 05-05-2025 23:56:57 DRAPERY SUPERVISOR by Sherie Cleveland M.D. [email or web address]
[2025-05-05 03:36] LABS: Lactic Sepsis W/Reflex 2.5 mmol/L (0.5-2.2)
[2025-05-05] MEDS: norepinephrine 4 MG/250 ML BAG 7.5 MG IV (03:45)
[2025-05-05 03:47] LABS: NT Pro B Type Natriuretic Pept 3066 pg/mL (0-450); Procalcitonin 0.46 ng/mL (0-0.5); Troponin(5th) Baseline 626 ng/L (0-10)
[2025-05-05] MEDS: calcium gluconate 0.9% NaCL 1 GM/50 ML PREMIX IV (03:50)
[2025-05-05] MEDS: piperacillin-tazobactam 4.5 GM in sodium chloride 0.9% (plus) 50 ML IV (03:50)
[2025-05-05 03:58] LABS: Alanine Aminotransferase 10 U/L (0-33); Albumin Level 2.9 g/dL (3.5-5.2); Alkaline Phosphatase 74 U/L (35-105); Aspartate Amino Transferase 33 U/L (0-32); Blood Urea Nitrogen 50 mg/dL (8-23); Calcium 7.3 mg/dL (8.5-10.5); Carbon Dioxide 17 mmol/L (22-29); Chloride 101 mmol/L (98-107); Creatinine Clr Calc Pharmacy 49.9931; Globulin 2.2 g/dL (1.3-4.6); Glucose 189 mg/dL (65-115); Osmolality Calculated 292 mOsm/kg (285-295); Sodium 132 mmol/L (136-145); Total Protein 5.1 g/dL (6.6-8.7)
[2025-05-05 03:59] LABS: Anion Gap 19.3 (5-19); Potassium 5.3 mmol/L (3.5-5.1)
[2025-05-05] MEDS: ondansetron 2 mg/ML SDV 2 mL 4 MG IVP (04:00)
[2025-05-05] MEDS: morphine 4 mg/mL SDV 1 mL IVP (04:46)
[2025-05-05 05:02] LABS: Reflex Lactate Order REFLEX LACTIC ORDERD
--- NOTE | 2025-05-05 05:12 | PC.NURSE ---
Addendum entered by Britt Medrano RN 05/05/25 06:41: THIS RN AT BEDSIDE @0520 - CENTRAL LINE PLACEMENT UNSUCCESSFUL. ER PROVIDER STATED PT STABLE ENOUGH TO WAIT UNTIL 0600 FOR OTHER PROVIDER TO TRY FOR CENTRAL LINE. Original Note: DELAY OF HEPARIN IVP AND DRIP DUE TO PT NOT HAVING ENOUGH LINES. ER PROVIDER VERBAL ORDER FOR PT TO GO TO CT BEFORE CENTRAL LINE PLACEMENT. THIS RN AND CHARGE NURSE, WILBERT WERE IN CT WITH PT. THIS RN IS CURRENTLY AT BEDSIDE WITH ER PROVIDER ASSISTING WITH CENTRAL LINE.
--- NOTE | 2025-05-05 05:59 | ECG_ITS ---
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 Measurements Intervals [place] Rate: 69 P: 0 [place]: 0 QRS: 148 QRSD: 98 T: -35 QT: 449 QTc: 483 Interpretive Statements ATRIAL FIBRILLATION WITH ABERRANT CONDUCTION OR VENTRICULAR PREMATURE COMPLEXES LOW QRS VOLTAGE [QRS DEFLECTION < 0.5/1.0 mV IN LIMB/CHEST LEADS] ANTEROLATERAL MYOCARDIAL INFARCTION , OF INDETERMINATE AGE [40+ ms Q WAVE IN I/aVL/V3-V6] ST DEPRESSION, CONSIDER SUBENDOCARDIAL INJURY [0.1+ mV ST DEPRESSION] Compared to ECG 05/05/2025 03:11:27 Ventricular premature complex(es) now present.Aberrant conduction of supraventricular beat(s) now present Low QRS voltage now present. Myocardial infarct finding now present Atrial-paced complex(es) or rhythm no longer present. Right-axis deviation no longer present. Right bundle-branch block no longer present Electronically Signed On 05-05-2025 23:55:43 PHOTO TECH by Sherie Cleveland M.D. [email or web address]
[2025-05-05] MEDS: heparin drip 25,000 UNIT/500 ML PREMIX 27 UNIT IV (06:01)
[2025-05-05] MEDS: heparin 5,000 unit/mL INJ 1 mL 4000 UNIT IVP (06:02)
[2025-05-05 06:20] LABS: Lactic Acid level (Lactate) 3.9 mmol/L (0.5-2.2)
[2025-05-05 06:32] LABS: Troponin 5 2HR 693.2 ng/L (0-10); Troponin 5 2HR Delta 67.2 ABS# (0-10)
--- NOTE | 2025-05-05 06:35 | PC.NURSE ---
Unable to obtain manual and automatic blood pressure at periods of time in visit.
--- NOTE | 2025-05-05 06:51 | PC.NURSE ---
UPON INITIAL ASSESSMENT OF PT, PT REPORTED CHEST PAIN WAS RESOLVED. PT REPORTED CHEST PAIN RETURNED @0255. ED PROVIDER PUT IN ORDER FOR IV TYLENOL.
--- NOTE | 2025-05-05 07:21 | PC.NURSE ---
MIRYAM Pt is candidate for [facility], [place] [facility] [place] [facility]. Ref # [id number]
--- NOTE | 2025-05-05 07:23 | PC.NURSE ---
Pt cleared by Miguelito Bustamante rn critical care Luis Mcdaniels
--- NOTE | 2025-05-05 08:12 | PC.NURSE ---
[facility]
--- NOTE | 2025-05-05 09:31 | PC.NURSE ---
Pt was released from MTS and saving site per Janet. Pts teeth were sent with the pts body at the time of transfer. 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
[2025-05-05 18:46] LABS: Bacillus cereus group Not Detected (NOT DETECT); Bacillus subtillis group Not Detected (NOT DETECT); Corynebacterium Not Detected (NOT DETECT); Cutibacterium acnes (P.acnes) Not Detected (NOT DETECT); Enterococcus faecalis Not Detected (NOT DETECT); Enterococcus faecium Not Detected (NOT DETECT); Listeria Not Detected (NOT DETECT); Micrococcus Not Detected (NOT DETECT); Pan Candida Not Detected (NOT DETECT); Pan Gram-Negative Not Detected (NOT DETECT); Staphylococcus epidermidis Not Detected (NOT DETECT); Staphylococcus lugdunensis Not Detected (NOT DETECT); Staphylococcus species Not Detected (NOT DETECT); Streptococcus anginosus group Not Detected (NOT DETECT); Streptococcus pyogenes Not Detected (NOT DETECT); Streptococcus species Not Detected (NOT DETECT)
== END 2025-05-05 06:14 | disposition expired ==
PROVIDERS: Emergency Provider Emergency Medicine; PCP Family Medicine
DX: R57.0 Cardiogenic shock (principal); Z11.52 Encounter for screening for COVID-19; E78.5 Hyperlipidemia, unspecified; E11.22 Type 2 diabetes mellitus with diabetic chronic kidney disease; I12.9 Hypertensive chronic kidney disease with stage 1 through stage 4 chronic kidney disease, or unspecified chronic kidney disease; N18.30 Chronic kidney disease, stage 3 unspecified; I25.10 Atherosclerotic heart disease of native coronary artery without angina pectoris
CPT/HCPCS: 36415; 36600; 71045; 71275; 80051; 80053; 81001; 82330; 82805; 83605; 83880; 84145; 84484; 85025; 87040; 87150; 87205; 87637; 93005; 96365; 96366; 96367; 96375; 99291; 99292; J0131; J0612; J1644; J2270; J2405; J2543; J3372; J7040; J9999